=== PATIENT | female | born 1955 | race Caucasian/White ===

== ENCOUNTER 2017-04-12 09:58 | Emergency (ER) | payer OTHER ==
[2017-04-12 10:16] VITALS: BMI 29.2
--- NOTE | 2017-04-12 10:29 | PDOC ---
History of Present Illness - General History Source: Family, Old Records Exam Limitations: No Limitations <Eulalio Espinoza - Last Filed: 04/12/17 11:27> - History of Present Illness Initial Comments: 04/12/17 10:34 The patient is a 61 year old female, with a significant past medical history of CVA with residual aphasia, s/p peg tube placement (with numerous replacements), who presents to the emergency department with her family from home for replacement G-tube s/p pulling her tube out this morning. The patient is nonverbal. The patient history is provided by her daughter. Allergies: NKDA <Jenae Sampson - Last Filed: 04/12/17 11:42> - General Chief Complaint: G Tube Problem Stated Complaint: G-TUBE PROBLEM Time Seen by Provider: 04/12/17 10:06 Past History - Past Medical History Anemia: No Asthma: No Cancer: No Cardiac Disorders: No CVA: Yes (PARALYZED/NON VERBAL/OBTUNDED STATE) COPD: No CHF: No Dementia: Yes Diabetes: Yes GI Disorders: Yes (GTUBE LEFT ABD) Disorders: No HTN: Yes Hypercholesterolemia: Yes Liver Disease: No Suicide Attempt (Hx): No Seizures: (family unsure- patient in on [facility]) Thyroid Disease: No - Surgical History GI Surgery: Yes (GT PLACEMENT) Orthopedic Surgery: Yes (Tawnya GONZALEZ) - Immunization History Immunization Up to Date: No - Psycho/Social/Smoking Cessation Hx Anxiety: No Suicidal Ideation: No Smoking Status: No Smoking History: Never smoked Have you smoked in the past 12 months: No Number of Cigarettes Smoked Daily: 0 Information on smoking cessation initiated: No Hx Alcohol Use: No Drug/Substance Use Hx: No Substance Use Type: None Hx Substance Use Treatment: No <Eulalio Espinoza - Last Filed: 04/12/17 11:27> <Jenae Smapson - Last Filed: 04/12/17 11:42> - Past Medical History Allergies/Adverse Reactions: Allergies Allergy/AdvReac Type Severity Reaction Status Date / Time No Known Allergies Allergy Verified 01/24/16 09:47 Home Medications: Ambulatory Orders Acetaminophen [Pain Reliever] 500 mg PO DAILY 04/12/17 Amlodipine Besylate 5 mg PO DAILY 04/12/17 Aspirin [ASA -] 81 mg PO DAILY 04/12/17 Glyburide 10 mg PO BID 04/12/17 Metformin HCl 500 mg PO DAILY 04/12/17 Simvastatin 20 mg PO HS 04/12/17 Zinc Sulfate 220 mg PO DAILY 04/12/17 Review of Systems - Review of Systems Able to Perform ROS?: No (nonverbal) <Jenae Sampson - Last Filed: 04/12/17 11:42> *Physical Exam - Vital Signs Last Vital Signs Temp Pulse Resp BP Pulse Ox 97.6 F 72 18 164/85 95 04/12/17 10:00 04/12/17 10:00 04/12/17 10:00 04/12/17 10:00 04/12/17 10:00 <Eulalio Espinoza - Last Filed: 04/12/17 11:27> - Vital Signs Last Vital Signs Temp Pulse Resp BP Pulse Ox 97.6 F 72 18 164/85 95 04/12/17 10:00 04/12/17 10:00 04/12/17 10:00 04/12/17 10:00 04/12/17 10:00 - Physical Exam Comments: 04/12/17 10:34 GENERAL: +Awake, nonverbal. in no acute distress HEAD: No signs of trauma EYES: PERRLA, EOMI, sclera anicteric, conjunctiva clear ENT: Auricles normal inspection, hearing grossly normal, nares patent, oropharynx clear without exudates. Moist mucosa NECK: Normal ROM, supple, no lymphadenopathy, JVD, or masses LUNGS: Breath sounds equal, clear to auscultation bilaterally. No wheezes, and no crackles HEART: Regular rate and rhythm, normal S1 and S2, no murmurs, rubs or gallops ABDOMEN: (+) G-tube site is clean, dry, intact. Nonerythematous. Soft, nontender , normoactive bowel sounds. No guarding, no rebound. No masses EXTREMITIES: Normal range of motion, no edema. No clubbing or cyanosis. No cords, erythema, or tenderness SKIN: Warm, Dry, normal turgor, no rashes or lesions noted. <Jenae Sampson - Last Filed: 04/12/17 11:42> ED Treatment Course - RADIOLOGY Radiology Studies Ordered: Category Date Time Status ABDOMEN-KUB FLAT PLATE [RAD] Stat Radiology 04/12/17 10:20 Ordered <Park,Eulalio - Last Filed: 04/12/17 11:27> - RADIOLOGY Radiograph Interpretation: 04/12/17 11:25 Abdomen Xray was read by Dr. Wagner at 11:[address] Espinoza at 11:17 Impression: imaging reveals contrast injected into a PEG tube which fills stomach, bulb, and sweep and proximal jejunum. The tip appears to lie in the antrum. There is no sign of leak or obstruction. Functional vague tube with tip in antrum. <Jenae Sampson - Last Filed: 04/12/17 11:42> Medical Decision Making - Medical Decision Making 04/12/17 10:29 A portion of this note was documented by scribe services under my direction. I have reviewed the details of the note, within reason, and agree with the documentation with the following case summary and management plan written by me. Patient treated in the ED. Nursing notes are reviewed and incorporated into the medical decision-making. Vital signs reviewed. Peripheral IV access obtained by the nurse, laboratory studies are drawn and sent, reviewed and interpreted by myself. Vital Signs Temp Pulse Resp BP Pulse Ox 97.6 F 72 18 164/85 95 04/12/17 10:00 04/12/17 10:00 04/12/17 10:00 04/12/17 10:00 04/12/17 10:00 61 year old female with past medical history of CVA with residual aphasia, contractured upper extremities, status post PEG placement long-standing, presents with pulled out PEG tube. Patient had excellent blood her PEG this morning. Came into the ED by the family. History obtained to the family. She had an old 16 [place]. A new 16 [place] was placed in without complications. Easily accessible without much resistance. Air was pushed through the PEG with audible auscultation of air. We'll obtain abdominal x-ray with Gastrografin. If placement confirmed, we'll discharge patient home with family. 04/12/17 11:26 Abdominal xray confirms placement. I discussed the physical exam findings, ancillary test results and final diagnoses with the patient. I answered all of the patient's questions. The patient was satisfied with the care received and felt comfortable with the discharge plan and treatment plan. The patient will call their primary care physician within 24 hours to arrange follow-up and will return to the Emergency Department with any new, persistant or worsening symptoms. <Eulalio Espinoza - Last Filed: 04/12/17 11:27> *DC/Admit/Observation/Transfer - Discharge Dispostion Admit: No <Eulalio Espinoza - Last Filed: 04/12/17 11:27> - Attestations Scribe Attestion: 04/12/17 10:36 Documentation prepared by Jenae Sampson, acting as medical recruiter for Eulalio Espinoza MD, <Jenae Sampson - Last Filed: 04/12/17 11:42> Diagnosis at time of Disposition: Gastrostomy tube, replacement (Change of) - Discharge Dispostion Disposition: HOME Condition at time of disposition: Stable - Referrals Referrals: Mignon Porter MD [Primary Care Provider] - - Patient Instructions Printed Discharge Instructions: How to Care for Your PEG Tube Additional Instructions: The G tube was exchanged here in the emergency department. Print Language: MALIAN
[2017-04-12 11:37] VITALS: BP 155/85; PULSE 83; TEMP 97.9
== END 2017-04-12 11:37 | disposition home or self-care (01) ==
LOC: JER 09:58
PROC: 0D20XUZ Change Feeding Device in Upper Intestinal Tract, External Approach (ICD-10-PCS; principal; 2017-04-12)
DX: Z43.1 Encounter for attention to gastrostomy (principal); I10 Essential (primary) hypertension; E11.9 Type 2 diabetes mellitus without complications; Z79.84 Long term (current) use of oral hypoglycemic drugs; E78.00 Pure hypercholesterolemia, unspecified; F03.90 Unspecified dementia, unspecified severity, without behavioral disturbance, psychotic disturbance, mood disturbance, and anxiety; I69.820 Aphasia following other cerebrovascular disease
CPT/HCPCS: 43760; 74000-TC; 99283-25

== ENCOUNTER 2017-04-16 19:25 | Inpatient (IN) | payer OTHER ==
--- NOTE | 2017-04-16 22:46 | PDOC ---
History of Present Illness - History of Present Illness Initial Comments: 04/16/17 22:46 Patient is a 61 year old female with significant medical hx of CVA (paralyzed, non-verbal, obtunded state), dementia, DM, HTN, HLD, s/p peg tube placement who is presenting to the ED with upper extremity edema, nausea and vomiting over the last two days. Patient is accompanied by daughter who provided hx since patient is non-verbal. Patient has been developing increasing upper extremity edema yesterday with some nausea and vomiting that began last night. Yesterday the patient was seen at [facility] where she had blood drawn that revealed poor kidney function. Family reports that the patient was just started on Lasix yesterday. Denies fever. Vendor Management Associate: Cheyenne Pedro MD PMD: Mignon Olivera MD Surgical Hx: Right AKA, G-tube left abdomen <iKera Morin - Last Filed: 04/17/17 00:34> - General History Source: Care Provider <Jessica Shipley - Last Filed: 04/17/17 02:38> - General Chief Complaint: Revisit, Lab Variance Stated Complaint: INFLAMMATION Past History <Kiera Morin - Last Filed: 04/17/17 00:34> - Past Medical History Anemia: No Asthma: No Cancer: No Cardiac Disorders: No CVA: Yes (PARALYZED/NON VERBAL/OBTUNDED STATE) COPD: No CHF: No Dementia: Yes Diabetes: Yes GI Disorders: Yes (GTUBE LEFT ABD) Disorders: No HTN: Yes Hypercholesterolemia: Yes Liver Disease: No Suicide Attempt (Hx): No Seizures: (family unsure- patient in on [facility]) Thyroid Disease: No - Surgical History GI Surgery: Yes (GT PLACEMENT) Orthopedic Surgery: Yes (R. AKA) - Immunization History Immunization Up to Date: No - Psycho/Social/Smoking Cessation Hx Anxiety: No Suicidal Ideation: No Smoking Status: No Smoking History: Never smoked Have you smoked in the past 12 months: No Number of Cigarettes Smoked Daily: 0 Hx Alcohol Use: No Drug/Substance Use Hx: No Substance Use Type: None Hx Substance Use Treatment: No <Jessica Shipley - Last Filed: 04/17/17 02:38> - Past Medical History Allergies/Adverse Reactions: Allergies Allergy/AdvReac Type Severity Reaction Status Date / Time No Known Allergies Allergy Verified 01/24/16 09:47 Home Medications: Ambulatory Orders Acetaminophen [Pain Reliever] 500 mg PO DAILY 04/12/17 Amlodipine Besylate 5 mg PO DAILY 04/12/17 Aspirin [ASA -] 81 mg PO DAILY 04/12/17 Glyburide 5 mg PO BID 04/12/17 Simvastatin 20 mg PO HS 04/12/17 Zinc Sulfate 220 mg PO DAILY 04/12/17 Review of Systems - Review of Systems Comments:: 04/16/17 22:47 GENERAL/CONSTITUTIONAL: No fever or chills. No weakness. HEAD, EYES, EARS, NOSE AND THROAT: No change in vision. No ear pain or discharge. No sore throat. CARDIOVASCULAR: No chest pain or shortness of breath. RESPIRATORY: No cough, wheezing, or hemoptysis. GASTROINTESTINAL: Nausea, vomiting. No diarrhea or constipation. GENITOURINARY: No dysuria, frequency, or change in urination. MUSCULOSKELETAL: Upper extremity edema. No joint or muscle pain. No neck or back pain. ENDOCRINE: No increased thirst. No abnormal weight change. SKIN: No rash NEUROLOGIC: No headache, vertigo, loss of consciousness, or change in strength/ sensation. <Kiera Morin - Last Filed: 04/17/17 00:34> *Physical Exam - Vital Signs Last Vital Signs Temp Pulse Resp BP Pulse Ox 98.3 F 76 20 145/66 92 L 04/16/17 20:46 04/16/17 19:38 04/16/17 19:38 04/16/17 19:38 04/16/17 19:38 - Physical Exam Comments: 04/16/17 22:48 GENERAL: Awake, alert, unresponsive (baseline), in no acute distress HEAD: No signs of trauma EYES: PERRLA, EOMI, sclera anicteric, conjunctiva clear ENT: Auricles normal inspection, hearing grossly normal, nares patent, oropharynx clear without exudates. Moist mucosa NECK: Normal ROM, supple, no lymphadenopathy, JVD, or masses LUNGS: Breath sounds equal, clear to auscultation bilaterally. No wheezes, and no crackles HEART: Regular rate and rhythm, normal S1 and S2, no murmurs, rubs or gallops ABDOMEN: Peg tube clean, dry, and intact. Soft, nontender, normoactive bowel sounds. No guarding, no rebound. No masses EXTREMITIES: Right AKA. Normal range of motion, no edema. No clubbing or cyanosis. No cords, erythema, or tenderness NEUROLOGICAL: Awake. Unresponsive. Nonverbal. Does not follow commands, ( baseline). SKIN: Warm, Dry, normal turgor, no rashes or lesions noted. HEMATOLOGIC/LYMPHATIC: No anemia, easy bleeding, or history of blood clots. ALLERGIC/IMMUNOLOGIC: No hives or skin allergy. <Kiera Morin - Last Filed: 04/17/17 00:34> - Vital Signs Last Vital Signs Temp Pulse Resp BP Pulse Ox 98.3 F 76 20 145/66 92 L 04/16/17 20:46 04/16/17 19:38 04/16/17 19:38 04/16/17 19:38 04/16/17 19:38 <Jessica Shipley - Last Filed: 04/17/17 02:38> Heart Score/ECG Review #1 04/17/17 00:35 Normal sinus rhythm at 79 bpm Left axis deviation Right bundle branch block Septal infarct, age undetermined Abnormal ECG <Kiera Morin - Last Filed: 04/17/17 00:34> #1 Compared to previous ECG there are: Other (no change comparison prior ekg 06/2015 ) - ECG Intrepretation Rhythm: Regular Rhythm Comment:: 04/16/17 22:46 RBBB, rate 79 bpm , no st elevation or depression. - Dora Dora: Left Dora Deviation <Jessica Shipley - Last Filed: 04/17/17 02:38> ED Treatment Course - LABORATORY CBC & Chemistry Diagram: 04/16/17 22:30 04/16/17 22:20 <Kiera Morin - Last Filed: 04/17/17 00:34> - LABORATORY CBC & Chemistry Diagram: 04/16/17 22:30 04/16/17 22:20 <Jessica Shipley - Last Filed: 04/17/17 02:38> Medical Decision Making - Medical Decision Making 04/16/17 22:43 61 yo F with h/o DM, HTN, chf, prior CVA , right aka bedbound, nonverbal at baseline from prior cva s, here wtih c/o elevated creatinine per primary labs, no change to mental status. lives at home with family. on exam, pt awak nonverbal, does not follow up commands, lungs clear. heart RRR no m/r/g. abd soft NT peg in place, differential: hyperkalemia, worsenign renal failure, other anemia, plan repeat labs, ekg. reassess. will d/w pt pcp. 04/17/17 01:25 pt with acute renal failure, iv hydration francis cathetar. treat hyperkalemia with kaexylate, insulin and glucose. calcium will admit for acute renal failure , nephrology consult <Jessica Shipley - Last Filed: 04/17/17 02:38> *DC/Admit/Observation/Transfer - Attestations Scribe Attestion: 04/16/17 22:56 Documentation prepared by Kiera Morin, acting as medical payment poster for Jessica Shipley MD. <Kiera Morin - Last Filed: 04/17/17 00:34> - Discharge Dispostion Admit: Yes <Jessica Shipley - Last Filed: 04/17/17 02:38> Diagnosis at time of Disposition: Renal failure, Acute hyperkalemia
[2017-04-16 22:51] LABS: BASOPHIL 0.6 % (0-2.0); EOSINOPHIL 1.3 % (0-4.5); MCHC 34.3 g/dl (32.0-36.0); MEAN CELL VOLUME 87.7 fl (80-96); MEAN PLT VOLUME 9.4 fl (7.5-11.1); NEUTROPHILS 80.8 % (42.8-82.8); PLATELET COUNT 254 K/MM3 (134-434); RDW 13.1 % (11.6-15.6); WHITE BLOOD COUNT 10.5 K/mm3 (4.0-10.0)
[2017-04-17 00:45] LABS: ALBUMIN 2.2 g/dl (3.4-5.0); CALCIUM 7.5 mg/dL (8.5-10.1); COCKROFT - GAULT 8.4745; CREATININE 6.9 mg/dL (0.55-1.02)
[2017-04-17 00:46] LABS: BILIRUBIN,TOTAL 0.4 mg/dL (0.2-1.0); TOT PROT 5.3 g/dl (6.4-8.2)
[2017-04-17] MEDS ORDERED: SODIUM POLYSTYRENE SULFONATE 15 GM/60 ML BOTTLE PEG ONE (01:19)
[2017-04-17] MEDS ORDERED: INSULIN (NOVOLOG) ASPART 100 UNITS/ML 10ML VIAL SQ ONE (01:20)
[2017-04-17] MEDS ORDERED: DEXTROSE 50%-WATER 50 ML VIAL IVPUSH ONE (01:21)
[2017-04-17] MEDS ORDERED: SODIUM CHLORIDE 0.9% 1000 ML INFUS.BAG IV ONE (01:21)
[2017-04-17] MEDS ORDERED: CALCIUM GLUCONATE 10% - 1,000 MG/10 ML VIAL IVPUSH ONE (01:26)
[2017-04-17] MEDS ORDERED: DEXTROSE 50%-WATER 50 ML VIAL ONE (01:36)
[2017-04-17] MEDS ORDERED: SODIUM POLYSTYRENE SULFONATE 15 GM/60 ML BOTTLE ONE (01:37)
[2017-04-17] MEDS ORDERED: INSULIN (NOVOLOG) ASPART 100 UNITS/ML 10ML VIAL ONE (01:37)
[2017-04-17] MEDS ORDERED: CALCIUM GLUCONATE 10% - 1,000 MG/10 ML VIAL ONE (01:37)
--- NOTE | 2017-04-17 01:39 | PN ---
<Frances Wade - Last Filed: 04/17/17 01:38> Teaching Attending Note Name of Resident: Mariannafshan Walton <Regine Bowman - Last Filed: 04/17/17 03:58> Teaching Attending Note ATTENDING PHYSICIAN STATEMENT I saw and evaluated the patient. I reviewed the resident's note and discussed the case with the resident. I agree with the resident's findings and plan as documented. SUBJECTIVE: 61 yo F with a PMhx of CVA (paralyzed, non-verbal, obtunded state), dementia who presents with UE edema, nausea and vomiting for the past two days. The patient is accompanied with daughter who states that the patient has been developing progressively worsening peripheral edema. As per NH, patient had recent blood work that revealed poor kidney function and was started on Lasix yesterday. Patient presents for further evaluation. 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 HEENT: Atraumatic. PERRLA, EOMI. Moist mucosa. No JVD LUNGS: No distress, speaks full sentences, clear to auscultation bilaterally HEART: Regular rate and rhythm, normal S1 and S2, no murmurs, rubs or gallops, peripheral pulses normal and equal bilaterally. ABDOMEN: Soft, nontender, normoactive bowel sounds. No guarding, no rebound. No masses EXTREMITIES: +R leg AKA.+Ecchymosis on Upper extremities. Normal inspection, Normal range of motion, no edema. No clubbing or cyanosis. NEUROLOGICAL: Cranial nerves II through XII grossly intact. Normal speech, normal gait, no focal sensorimotor deficits SKIN:+Inguinal and buttocks area with erythema and slight desquamation. Warm, Dry, normal turgor, no rashes or lesions noted. Lemon catheter with 400 cc of clear yellow urine. CBCD WBC 10.5 K/mm3 (4.0-10.0) H 04/16/17 22:30 RBC 2.98 M/mm3 (3.60-5.2) L D 04/16/17 22:30 Hgb 9.0 GM/dL (10.7-15.3) L D 04/16/17 22:30 Hct 26.1 % (32.4-45.2) L D 04/16/17 22:30 MCV 87.7 fl (80-96) 04/16/17 22:30 MCHC 34.3 g/dl (32.0-36.0) 04/16/17 22:30 RDW 13.1 % (11.6-15.6) 04/16/17 22:30 Plt Count 254 K/MM3 (134-434) D 04/16/17 22:30 MPV 9.4 fl (7.5-11.1) 04/16/17 22:30 CMP Sodium 131 mmol/L (136-145) L 04/16/17 22:20 Potassium 5.7 mmol/L (3.5-5.1) H D 04/16/17 22:20 Chloride 91 mmol/L (98-107) L D 04/16/17 22:20 Carbon Dioxide 26 mmol/L (21-32) 04/16/17 22:20 Anion Gap 14 (8-16) 04/16/17 22:20 BUN 101 mg/dL (7-18) H D 04/16/17 22:20 Creatinine 6.9 mg/dL (0.55-1.02) H D 04/16/17 22:20 Creat Clearance w eGFR 6.05 (>60) 04/16/17 22:20 Calcium 7.5 mg/dL (8.5-10.1) L 04/16/17 22:20 Total Bilirubin 0.4 mg/dL (0.2-1.0) D 04/16/17 22:20 AST 32 U/L (15-37) 04/16/17 22:20 ALT 26 U/L (12-78) D 04/16/17 22:20 Alkaline Phosphatase 143 U/L (45-117) H D 04/16/17 22:20 Total Protein 5.3 g/dl (6.4-8.2) L 04/16/17 22:20 Albumin 2.2 g/dl (3.4-5.0) L 04/16/17 22:20 ASSESSMENT AND PLAN: Acute Renal failure Urine electrolytes Calculate Fe Na Monitor Is and Os Renal and Pelvic US Urine Analysis Urine Culture Nephrology consult Telemetry monitoring for hyperkalemia-- Kayexalate already given in ED, Will follow repeat BMP Anemia panel FOBT Documentation prepared by Regine Bowman, acting as medical technician assistant for Frances Wade MD.
--- NOTE | 2017-04-17 01:48 | HP ---
CHIEF COMPLAINT: unable to verbalize PCP: Dr Olivera Endocrine: Dr Pedro HISTORY OF PRESENT ILLNESS: This is a 61 yo F with PH of CVA (4 yrs ago, obtunded, paralyzed, nonverbal, PEG ), NIDDM, HTL, HLD, who was brought by family due to vomiting x 1 day (2 eps NBNB watery) and 2 w of upper extremity edema. She has blood work done yesterday at PCP, who notified family today of worsened renal function. Prior blood work was 6 mo ago and did not show renal failure. Patient was switched from insulin to glyburide 2 w ago. She was given lasix for the first time yesterday. She is on daily Asa 81 and son states that his sister, who takes care of patient, does not give excessive amount. Het BP and sugar are well controlled. she is not on any herbal supplements. Son is unsure of whether she has been producing regular amount of urine. In ED francis inserted and drained 450cc clear urine. Patient presented hyperkalemic 5.7 and treated with kaexylate , insulin, glucose and Ca. Son denies her having diarrhea. 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, peg Social History: lives with daughter, no vns Smoking: never Alcohol:never Drugs: never Family History: CVA, no renal disease Allergies No Known Allergies Allergy (Verified 01/24/16 09:47) HOME MEDICATIONS: Home Medications Medication Instructions Recorded Acetaminophen [Pain Reliever] 500 mg PO DAILY 04/12/17 Amlodipine Besylate 5 mg PO DAILY 04/12/17 Aspirin [ASA -] 81 mg PO DAILY 04/12/17 Glyburide 5 mg PO BID 04/12/17 Simvastatin 20 mg PO HS 04/12/17 Zinc Sulfate 220 mg PO DAILY 04/12/17 REVIEW OF SYSTEMS unable to obtain PHYSICAL EXAMINATION Vital Signs - 24 hr 04/16/17 04/16/17 19:38 20:46 Temperature 98.3 F Pulse Rate 76 Respiratory 20 Rate Blood Pressure 145/66 O2 Sat by Pulse 92 L Oximetry (%) GENERAL: obtunded HEAD: Normal with no signs of trauma. EYES: R pupil round and reactive to light, L pupil round, pinpoint, not reactive to light, catarract. sclera anicteric, conjunctiva clear. EARS, NOSE, THROAT: Moist mucous membranes. NECK: supple without JVD LUNGS: Breath sounds equal, clear to auscultation bilaterally, upper respiratory gurgles HEART: Regular rate and rhythm, normal S1 and S2 ABDOMEN: Soft, nontender, not distended, normoactive bowel sounds MUSCULOSKELETAL: No bony deformities UPPER EXTREMITIES: 2+ pulses, warm, well-perfused. 2+ edema. LOWER EXTREMITIES: 2+ pulses, warm, well-perfused. 2+ edema. NEUROLOGICAL: obtunded PSYCHIATRIC: obtunded SKIN: Warm, dry, r elbow echymoses Laboratory Results - last 24 hr 04/16/17 04/16/17 22:20 22:30 WBC 10.5 H RBC 2.98 L D Hgb 9.0 L D Hct 26.1 L D MCV 87.7 MCHC 34.3 RDW 13.1 Plt Count 254 D MPV 9.4 Neutrophils % 80.8 Lymphocytes % 11.3 D Monocytes % 6.0 Eosinophils % 1.3 Basophils % 0.6 Sodium 131 L Potassium 5.7 H D Chloride 91 L D Carbon Dioxide 26 Anion Gap 14 BUN 101 H D Creatinine 6.9 H D Creat Clearance w eGFR 6.05 Random Glucose 198 H Calcium 7.5 L Total Bilirubin 0.4 D AST 32 ALT 26 D Alkaline Phosphatase 143 H D Total Protein 5.3 L Albumin 2.2 L ASSESSMENT/PLAN: This is a 61 yo F with PH of CVA (4 yrs ago, obtunded, paralyzed, nonverbal, PEG ), NIDDM, HTL, HLD, who was brought by family due to vomiting x 1 day and 2 w of upper extremity edema. DEYSI -BUN/Creat: 101/6.5 -creat 1 in 2014, obtain labs from PCP -anasarca -unclear cause; no evidence of nephrotoxic medication overuse, possily obstruction as francis was difficult to insert, r/o infection -TTE -renal US -urine lytes, FENA, eosinophils -UA, urine culture -renal consult -francis -strict I and O, daily weights Hyperkalemia -5.7 -no spiked t on ekg, ekg unchanged from prior (Laxis, rbbb) -s/p kaexylate, insulin, glucose and Ca; recheck K Hyponatremia -Na 131 -due to renal failure -hydrate with NS NIDDM -hold glyburide -BGM ACHS -insulin sliding scale HTN -resume home amlodipine HLD -hold simvastatin Normocytic anemia -Hgb 9, no baseline -fobt, fe studies -may be due to renal failure obtunded -history of CVA -mental status baseline FEN NS@75 monitor lytes Tube feed Nepro Hep, ppi Dispo: med rashard Problem List - Problem (1) Acute hyperkalemia Code(s): E87.5 - HYPERKALEMIA (2) Renal failure Code(s): N19 - UNSPECIFIED KIDNEY FAILURE (3) G tube feedings Code(s): Z93.1 - GASTROSTOMY STATUS (4) Gastrostomy tube, replacement (Change of) Code(s): Z43.1 - ENCOUNTER FOR ATTENTION TO GASTROSTOMY (5) H/O: CVA (cerebrovascular accident) Code(s): Z86.73 - PRSNL HX OF TIA (TIA), AND CEREB INFRC W/O RESID DEFICITS (6) Hyperkalemia Code(s): E87.5 - HYPERKALEMIA (7) Insulin dependent diabetes mellitus Code(s): E11.9 - TYPE 2 DIABETES MELLITUS WITHOUT COMPLICATIONS Z79.4 - ROLL RECLAIMER (CURRENT) USE OF INSULIN Visit type - Emergency Visit Emergency Visit: Yes ED Registration Date: 04/17/17 Care time: The patient presented to the Emergency Department on the above date and was hospitalized for further evaluation of their emergent condition. - New Patient This patient is new to me today: Yes Date on this admission: 04/17/17 - Critical Care Critical Care patient: No
[2017-04-17] MEDS ORDERED: SODIUM CHLORIDE 1,000 ML IV SCH ×2 (03:15→05:45)
[2017-04-17 04:48] LABS: URINE CREATININE 31.9 mg/dL (20-320)
[2017-04-17] MEDS ORDERED: INSULIN SLIDING SCALE (NOVOLOG) 1 VIAL SQ SCH ×2 (07:00)
[2017-04-17 08:00] LABS: MCH 30.3 pg (25.7-33.7); MCHC 34.7 g/dl (32.0-36.0); MEAN CELL VOLUME 87.5 fl (80-96); MEAN PLT VOLUME 8.9 fl (7.5-11.1); PLATELET COUNT 242 K/MM3 (134-434); WHITE BLOOD COUNT 8.8 K/mm3 (4.0-10.0)
[2017-04-17 08:29] LABS: PHOSPHOROUS 5.4 mg/dL (2.5-4.9)
[2017-04-17 08:33] LABS: COCKROFT - GAULT 8.5935; CREATININE 6.8 mg/dL (0.55-1.02); MAGNESIUM 3.7 mg/dL (1.8-2.4)
[2017-04-17] MEDS ORDERED: amLODIPine BESYLATE 5 MG TABLET (FP) PO SCH (10:00)
[2017-04-17] MEDS ORDERED: HEPARIN NA (PORCINE) 5,000 UNITS/ML 1ML VIAL SQ SCH (10:00)
[2017-04-17] MEDS ORDERED: PANTOPRAZOLE 40 MG TABLET (FP) PO SCH (10:00)
[2017-04-17] MEDS: PANTOPRAZOLE 40 MG TABLET (FP) PO SCH (10:58)
[2017-04-17] MEDS: amLODIPine BESYLATE 5 MG TABLET (FP) PO SCH (10:58)
[2017-04-17] MEDS: HEPARIN NA (PORCINE) 5,000 UNITS/ML 1ML VIAL SQ SCH ×2 (10:59→21:47)
[2017-04-17] MEDS: INSULIN SLIDING SCALE (NOVOLOG) 1 VIAL SQ SCH ×3 (11:35→21:47)
[2017-04-17 12:27] LABS: URINE APPEARANCE CLEAR; URINE BILIRUBIN NEGATIVE (NEGATIVE); URINE COLOR STRAW; URINE GLUCOSE (UA) 2+ (NEGATIVE); URINE KETONE NEGATIVE (NEGATIVE); URINE NITRITE NEGATIVE (NEGATIVE); URINE UROBILINOGEN NEGATIVE E.U./dl (0.2-1.0)
[2017-04-17 12:30] LABS: URINE BLOOD 1+ (NEGATIVE); URINE LEUK ESTERASE TRACE (NEGATIVE); URINE PROTEIN 3+ (NEGATIVE)
[2017-04-17 12:49] LABS: URINE BACTERIA RARE /hpf (NONE SEEN); URINE MUCUS RARE; URINE RBC 14 /hpf (0-3); URINE WBC 5 /hpf (3-5)
--- NOTE | 2017-04-17 14:57 | PN ---
Progress Note (short form) - Note Progress Note: Pt is followed by Dr Jonathan Guzman, called and informed him. Dr Yang
--- NOTE | 2017-04-17 15:31 | CONSULT ---
Consult - text type - Consultation Consultation Note: Renal Consult for DEYSI This is a 61 year old woman with PMhx of NIDDM, Hypertension, PVD s/p R AKA, CVA now non-verbal and paralyzed who presented with abnormal outpatient labs that showed renal failure and increasing total body volume overload. Pt is accomapned by her daughter. Daughter reports that the swelling has been present for about 1 week. Pt is not able to make needs known. Pt has been given Naproxen once daily for the past 2 months. No ACEi or ARB at home. Daughter could not quantify urine output. No Hx of Kidney disease. No recent Abx use. No recent contrast exposure. No Rash or rash. + N/V before presentation. PMhx: As above Allergies: NKDA Family Hx: NC ROS: unable to obtain Home Meds: Home Medications Medication Instructions Recorded Acetaminophen [Pain Reliever] 500 mg PO DAILY 04/12/17 Amlodipine Besylate 5 mg PO DAILY 04/12/17 Aspirin [ASA -] 81 mg PO DAILY 04/12/17 Glyburide 5 mg PO BID 04/12/17 Simvastatin 20 mg PO HS 04/12/17 Zinc Sulfate 220 mg PO DAILY 04/12/17 Vital Signs Temperature 98 F 04/17/17 14:00 Pulse Rate 80 04/17/17 14:00 Respiratory Rate 18 04/17/17 14:00 Blood Pressure 150/76 04/17/17 14:00 O2 Sat by Pulse Oximetry (%) 92 L 04/16/17 19:38 Intake & Output 04/14/17 04/15/17 04/16/17 04/17/17 23:59 23:59 23:59 23:59 Output Total 600 Balance -600 Weight 140 lb Gen: NAD, awake, non-verbal HEENT: NC/AT, no JVD, neck supple CVS: RRR, No M/R Lungs: Dec BS at lung bases Abd: soft NT/ND Ext: 1+ edema in LLE, R AKA. Upper Ext swollen : No bladder distension Neuro: awake but non-verbal CBC, BMP 04/17/17 07:45 04/17/17 07:45 Laboratory Tests 04/17/17 04/17/17 04/17/17 04:00 07:45 12:00 MCV 87.5 Urine Protein 3+ H Urine Glucose (UA) 2+ H Urine Blood 1+ H Ur Leukocyte Esterase Trace H D Urine RBC 14 Urine WBC 5 U Random Total Protein 830 H Ur Random Sodium 30 Ur Random Potassium 31.3 Ur Random Chloride 29 Urine Creatinine 31.9 Protein/Creatinin Ratio 26.02 Stool Occult Blood 04/17/17 15:04 MCV Urine Protein Urine Glucose (UA) Urine Blood Ur Leukocyte Esterase Urine RBC Urine WBC U Random Total Protein Ur Random Sodium Ur Random Potassium Ur Random Chloride Urine Creatinine Protein/Creatinin Ratio Stool Occult Blood Positive Current Medications Amlodipine Besylate (Norvasc -) 5 mg PO DAILY [facility] Last Admin: 04/17/17 10:58 Dose: 5 mg Heparin Sodium (Porcine) (Heparin -) 5,000 unit SQ BID [facility] Last Admin: 04/17/17 10:59 Dose: 5,000 unit Sodium Chloride (Normal Saline -) 1,000 mls @ 75 mls/hr IV ASDIR [facility] Last Admin: 04/17/17 07:29 Dose: 75 mls/hr Insulin Aspart (Novolog Vial Sliding Scale -) 1 vial SQ ACHS [facility] PRN Reason: Protocol Last Admin: 04/17/17 11:35 Dose: Not Given Pantoprazole Sodium (Protonix -) 40 mg PO DAILY [facility] Last Admin: 04/17/17 10:58 Dose: 40 mg A/P 61 year old woman with PMhx of NIDDM, Hypertension, PVD s/p R AKA, CVA now non- verbal and paralyzed who presented with abnormal outpatient labs that showed renal failure and increasing total body volume overload #Acute Renal Failure with Nephrotic Range Proteinuria Differential includes: Acute GN (FSGS, Membrenous Nephropathy, Minimal Change disease) with Renal Vein thrombosis vs. ANCA Vascultiis vs. HUS vs. volume depletion (less likely) UA with protein and hematuria f/u urine cultures Check LAURA, ANCA, Hepatitis, Complement levels, RPR, Haptoglobin,LDH Check Renal Vein doppler r/o thrombosis continue IVF for now (no overt signs of volume depletion at this time) Lemon insertion for acute I and O No VICKY/ARB, NSAIDs, IV contrast Dose all meds for Cr Cl less then 10 Renal Diet Pt may need biopsy if renal function w/o signficant improvement #Normocytic Acute Anemia stool occult blood positive Check iron profile no acute indication for transfusion #Hyponatremia in setting of renal failure and volume overload #Volume overload check CXR if significant effusion can stop IVF Thank you Will follow Jonathan Guzman DO
--- NOTE | 2017-04-17 16:03 | PN ---
Teaching Attending Note Name of Resident: Kodi Pritchett ATTENDING PHYSICIAN STATEMENT I saw and evaluated the patient. I reviewed the resident's note and discussed the case with the resident. I agree with the resident's findings and plan as documented. SUBJECTIVE: unable to obtain hx OBJECTIVE: NAD , non verbal , contracted CV: RRR, 2/6 sm at apex. Lungs : CTAB , decreased breath sounds b/l bases Abd: soft, NT, ND , L BS skin , no Decub ext : contracted upper ext. non pitting edema on upper ext with bruising on RUE. 1+ pitting edema on LE ASSESSMENT AND PLAN: 61 y/o lady with h/o CVA , NIDDM, HTN, HLP, who presented after her out pt labs showed renal failure 1- Acute renal failure : 6 months ago , she reportedly had NL renal function, will conform with PCP. FeNA 5% , but she received lasix x 2 days as outpt , so will need FeUrea now she has nephrotic range proteinuria , in DDX will be diabetic nephropathy, amyloidosis , or something more acute like rapidly progressive GN. urinary retention is contributing as she had 450 cc with francis placement learned that she was taking NSAIDs dayami daily bases . d/w Dr. Guzman, need to r/o renal vein thrombosis - will follow US with doppler - IVF for now , will assess in am , if no improvement will dc - cxry - follow complement , anca and other tests . - ? renal Bx . - hold NSAIDs - calculate FeUrea 2- Normoytic anemia, could be a mixed picture due iron def and renal dz and B12/ folate def. base line HB 13 in 2014 - check iron studies. - B12, folate - OB 3- HTN : cont norvasc 4- DM : SSI. hold po agents 5- Nutrition : puree diet . now on IVF, when we stop IVF , will give free water through PEG as per home routine
[2017-04-17] MEDS ORDERED: DEXTROSE 5%-NORMAL SALINE 1,000 ML IV SCH (16:15)
--- NOTE | 2017-04-17 16:15 | EKG ---
Test Reason : Blood Pressure : / mmHG Vent. Rate : 079 BPM Atrial Rate : 079 BPM P-R Int : 162 ms QRS Dur : 162 ms QT Int : 440 ms P-R-T Axes : 052 -89 035 degrees QTc Int : 504 ms NORMAL SINUS RHYTHM LEFT AXIS DEVIATION RIGHT BUNDLE BRANCH BLOCK SEPTAL INFARCT , AGE UNDETERMINED ABNORMAL ECG WHEN COMPARED WITH ECG OF 05-JUL-2015 20:59, NONSPECIFIC T WAVE ABNORMALITY NO LONGER EVIDENT IN ANTERIOR LEADS Confirmed by KG GRANADOS MD ([id number]) on 04/17/2017 4:15:03 PM Referred By: Confirmed By:KG GRANADOS MD
[2017-04-17 16:20] VITALS: BMI 24.7
--- NOTE | 2017-04-17 18:28 | PN ---
Physical Exam: SUBJECTIVE: Patient seen and examined at bedside. Patient is nonverbal and obtunded. OBJECTIVE: Vital Signs Period Temp Pulse Resp BP Sys/Daniel Pulse Ox Last 24 Hr 86 F-98 F 79-86 17-18 135-150/59-77 96 GENERAL:nonverbal and obtunded. HEAD: NC/AT. EYES: PERRL, sclera anicteric, conjunctiva clear. No ptosis. ENT: dry mucous membranes. NECK: supple. LUNGS:CTAB , diminished bilat bases no wheezes, no crackles, no accessory muscle use. HEART: RRR,s1s2 normal ABDOMEN: Soft, NT, ND, BS(+) PEG EXTREMITIES: 2+ pulses, warm, well-perfused, Bilat US non-pitting edema 2+ of LLE edema. R leg s/p AKA NEUROLOGICAL: Cranial nerves II through XII grossly intact. Normal speech, gait not observed. PSYCH: Normal mood, normal affect. SKIN: Warm, dry, normal turgor, no rashes or lesions noted Laboratory Results - last 24 hr 04/17/17 04/17/17 04/17/17 07:19 07:45 07:45 WBC 8.8 RBC 3.05 L Hgb 9.2 L Hct 26.7 L MCV 87.5 MCHC 34.7 RDW 13.0 Plt Count 242 MPV 8.9 Sodium 135 L Potassium 4.7 Chloride 93 L Carbon Dioxide 27 Anion Gap 15 BUN 100 H Creatinine 6.8 H POC Glucometer 158 Random Glucose 146 H D Calcium 8.0 L Phosphorus 5.4 H D Magnesium 3.7 H D Ferritin Urine Color Urine Appearance Urine pH Ur Specific [place] Urine Protein Urine Glucose (UA) Urine Ketones Urine Blood Urine Nitrite Urine Bilirubin Urine Urobilinogen Ur Leukocyte Esterase Urine RBC Urine WBC Ur Epithelial Cells Urine Bacteria Urine Mucus Stool Occult Blood 04/17/17 04/17/17 04/17/17 07:45 09:10 11:35 WBC RBC Hgb Hct MCV MCHC RDW Plt Count MPV Sodium Potassium Chloride Carbon Dioxide Anion Gap BUN Creatinine POC Glucometer 131 105 Random Glucose Calcium Phosphorus Magnesium Ferritin 65.274 Urine Color Urine Appearance Urine pH Ur Specific [place] Urine Protein Urine Glucose (UA) Urine Ketones Urine Blood Urine Nitrite Urine Bilirubin Urine Urobilinogen Ur Leukocyte Esterase Urine RBC Urine WBC Ur Epithelial Cells Urine Bacteria Urine Mucus Stool Occult Blood 04/17/17 04/17/17 12:00 15:04 WBC RBC Hgb Hct MCV MCHC RDW Plt Count MPV Sodium Potassium Chloride Carbon Dioxide Anion Gap BUN Creatinine POC Glucometer Random Glucose Calcium Phosphorus Magnesium Ferritin Urine Color Straw Urine Appearance Clear Urine pH 7.0 D Ur Specific [place] 1.015 Urine Protein 3+ H Urine Glucose (UA) 2+ H Urine Ketones Negative Urine Blood 1+ H Urine Nitrite Negative Urine Bilirubin Negative Urine Urobilinogen Negative Ur Leukocyte Esterase Trace H D Urine RBC 14 Urine WBC 5 Ur Epithelial Cells Rare Urine Bacteria Rare Urine Mucus Rare Stool Occult Blood Positive Active Medications Generic Name Dose Route Start Last Admin Trade Name Freq PRN Reason Stop Dose Admin Amlodipine Besylate 5 mg 04/17/17 10:00 04/17/17 10:58 Norvasc - PO 5 mg DAILY [facility] Administration Heparin Sodium (Porcine) 5,000 unit 04/17/17 10:00 04/17/17 10:59 Heparin - SQ 5,000 unit BID APRIL Administration Dextrose/Sodium Chloride 1,000 mls @ 75 mls/hr 04/17/17 16:15 04/17/17 16:38 D5-Ns - IV 75 mls/hr ASDIR APRIL Administration Insulin Aspart 1 vial 04/17/17 08:33 04/17/17 16:59 Novolog Vial Sliding Scale - SQ 2 unit ACHS [facility] Administration Protocol Pantoprazole Sodium 40 mg 04/17/17 10:00 04/17/17 10:58 Protonix - PO 40 mg DAILY [facility] Administration ASSESSMENT/PLAN: 61 yo F with pmhx of CVA, NIDDM, HTN, HLD, admitted for acute renal failure. Problem List - Problems (1) Renal failure Assessment/Plan: * Nephrotic range protienuria. , no history of kidney disease. * This could represents diabetic nephropathy , minimal change, or RPGN. * Dr. Guzman consulted. * Doppler pending to r/o renal artery thrombosis * Gentle hydration with IVF as CT shows bilat. * ANCA, LAURA, and complement pending * will calculate FeUrea as she took lasix and FeNA not valid. (2) Acute hyperkalemia Assessment/Plan: * Given kayexalate and insulin * repeat BMP shows resolution (3) Non-insulin dependent type 2 diabetes mellitus Assessment/Plan: * Puree diabetic diet. and free water through peg. * NISS * BGM ACHS (4) HTN (hypertension) Assessment/Plan: * Continue amlodipine Visit type - Emergency Visit Emergency Visit: Yes ED Registration Date: 04/17/17 Care time: The patient presented to the Emergency Department on the above date and was hospitalized for further evaluation of their emergent condition. - New Patient This patient is new to me today: Yes Date on this admission: 04/18/17 - Critical Care Critical Care patient: No
[2017-04-18] MEDS ORDERED: PT OWN MED DRAWER 7, Y5N ONE (00:15)
[2017-04-18] MEDS: INSULIN SLIDING SCALE (NOVOLOG) 1 VIAL SQ SCH ×4 (06:29→22:10)
[2017-04-18 07:17] LABS: BASOPHIL 1.4 % (0-2.0); EOSINOPHIL 7.6 % (0-4.5); MCH 30.2 pg (25.7-33.7); MCHC 34.3 g/dl (32.0-36.0); MEAN CELL VOLUME 87.9 fl (80-96); MEAN PLT VOLUME 9.1 fl (7.5-11.1); NEUTROPHILS 69.5 % (42.8-82.8); PLATELET COUNT 241 K/MM3 (134-434); RDW 13.4 % (11.6-15.6); WHITE BLOOD COUNT 7.9 K/mm3 (4.0-10.0)
[2017-04-18 07:44] LABS: ALBUMIN 1.9 g/dl (3.4-5.0); CALCIUM 7.4 mg/dL (8.5-10.1); COCKROFT - GAULT 8.228; CREATININE 7.1 mg/dL (0.55-1.02); MAGNESIUM 3.5 mg/dL (1.8-2.4); TOT PROT 4.8 g/dl (6.4-8.2)
[2017-04-18 07:46] LABS: BILIRUBIN,TOTAL 0.3 mg/dL (0.2-1.0)
[2017-04-18] MEDS: PANTOPRAZOLE 40 MG TABLET (FP) PO SCH (09:00)
[2017-04-18] MEDS: HEPARIN NA (PORCINE) 5,000 UNITS/ML 1ML VIAL SQ SCH ×2 (09:00→22:10)
[2017-04-18] MEDS: amLODIPine BESYLATE 5 MG TABLET (FP) PO SCH (09:01)
--- NOTE | 2017-04-18 12:09 | PN ---
Progress Note (short form) - Note Progress Note: Subjective: unable to obtain hx due to condition Objective: Vital Signs: Last Vital Signs Temp Pulse Resp BP Pulse Ox 97.6 F 76 20 120/56 96 04/18/17 09:00 04/18/17 09:00 04/18/17 09:00 04/18/17 09:00 04/18/17 09:00 I&O: Intake & Output 04/15/17 04/16/17 04/17/17 04/18/17 23:59 23:59 23:59 23:59 Intake Total 1300 0 Output Total 1000 300 Balance 300 -300 Weight 140 lb 140 lb Laboratory Results - last 24 hr 04/17/17 04/17/17 04/17/17 07:45 07:45 12:00 WBC RBC Hgb Hct MCV MCHC RDW Plt Count MPV Neutrophils % Lymphocytes % Monocytes % Eosinophils % Basophils % Sodium Potassium Chloride Carbon Dioxide Anion Gap BUN Creatinine Creat Clearance w eGFR POC Glucometer Random Glucose Calcium Phosphorus Magnesium Iron 30 Transferrin 196 L Total Bilirubin AST ALT Alkaline Phosphatase LD Total Total Protein Albumin Triglycerides Cholesterol Total LDL Cholesterol HDL Cholesterol Urine Color Straw Urine Appearance Clear Urine pH 7.0 D Ur Specific [place] 1.015 Urine Protein 3+ H Urine Glucose (UA) 2+ H Urine Ketones Negative Urine Blood 1+ H Urine Nitrite Negative Urine Bilirubin Negative Urine Urobilinogen Negative Ur Leukocyte Esterase Trace H D Urine RBC 14 Urine WBC 5 Ur Epithelial Cells Rare Urine Bacteria Rare Urine Mucus Rare Stool Occult Blood RPR Titer 04/17/17 04/17/17 04/17/17 15:04 16:40 16:40 WBC RBC Hgb Hct MCV MCHC RDW Plt Count MPV Neutrophils % Lymphocytes % Monocytes % Eosinophils % Basophils % Sodium Potassium Chloride Carbon Dioxide Anion Gap BUN Creatinine Creat Clearance w eGFR POC Glucometer Random Glucose Calcium Phosphorus Magnesium Iron Transferrin Total Bilirubin AST ALT Alkaline Phosphatase LD Total 287 H D Total Protein Albumin Triglycerides Cholesterol Total LDL Cholesterol HDL Cholesterol Urine Color Urine Appearance Urine pH Ur Specific [place] Urine Protein Urine Glucose (UA) Urine Ketones Urine Blood Urine Nitrite Urine Bilirubin Urine Urobilinogen Ur Leukocyte Esterase Urine RBC Urine WBC Ur Epithelial Cells Urine Bacteria Urine Mucus Stool Occult Blood Positive RPR Titer Nonreactive 04/17/17 04/18/17 04/18/17 21:11 04:58 06:00 WBC RBC Hgb Hct MCV MCHC RDW Plt Count MPV Neutrophils % Lymphocytes % Monocytes % Eosinophils % Basophils % Sodium 134 L Potassium 4.0 Chloride 95 L Carbon Dioxide 27 Anion Gap 12 BUN 98 H Creatinine 7.1 H Creat Clearance w eGFR 5.85 POC Glucometer 227 202 Random Glucose 173 H Calcium 7.4 L Phosphorus 6.0 H Magnesium 3.5 H Iron Transferrin Total Bilirubin 0.3 D AST 27 ALT 23 Alkaline Phosphatase 123 H LD Total Total Protein 4.8 L Albumin 1.9 L Triglycerides 211 H D Cholesterol 157 Total LDL Cholesterol 92 HDL Cholesterol 45 D Urine Color Urine Appearance Urine pH Ur Specific [place] Urine Protein Urine Glucose (UA) Urine Ketones Urine Blood Urine Nitrite Urine Bilirubin Urine Urobilinogen Ur Leukocyte Esterase Urine RBC Urine WBC Ur Epithelial Cells Urine Bacteria Urine Mucus Stool Occult Blood RPR Titer 04/18/17 04/18/17 06:00 11:30 WBC 7.9 RBC 2.89 L Hgb 8.7 L Hct 25.4 L MCV 87.9 MCHC 34.3 RDW 13.4 Plt Count 241 MPV 9.1 Neutrophils % 69.5 Lymphocytes % 15.7 D Monocytes % 5.8 Eosinophils % 7.6 H D Basophils % 1.4 Sodium Potassium Chloride Carbon Dioxide Anion Gap BUN Creatinine Creat Clearance w eGFR POC Glucometer 120 Random Glucose Calcium Phosphorus Magnesium Iron Transferrin Total Bilirubin AST ALT Alkaline Phosphatase LD Total Total Protein Albumin Triglycerides Cholesterol Total LDL Cholesterol HDL Cholesterol Urine Color Urine Appearance Urine pH Ur Specific [place] Urine Protein Urine Glucose (UA) Urine Ketones Urine Blood Urine Nitrite Urine Bilirubin Urine Urobilinogen Ur Leukocyte Esterase Urine RBC Urine WBC Ur Epithelial Cells Urine Bacteria Urine Mucus Stool Occult Blood RPR Titer Physical Exam: NAD , non verbal , contracted CV: RRR, 2/6 SM at apex. Lungs : CTAB , decreased breath sounds b/l bases Abd: soft, NT, ND , L BS skin , no Decub Ext : contracted upper ext. non pitting edema on upper ext with bruising on RUE. 1+ pitting edema on LLE . AKA on R . ASSESSMENT AND PLAN: 61 y/o lady with h/o CVA , NIDDM, HTN, HLP, who presented after her out pt labs showed renal failure 1- Acute renal failure with nephrotic syndrome :DDX is broad. could be diabetic nephropathy, vs amiloidosis vs , rapidly progressive disorder urine sediment with no RBC cats renal function slightly worse today off IVF due to cngested xray . 6 months ago , she reportedly had NL renal function, will conform with PCP. FeNA 5% , but she received lasix x 2 days as outpt , so will need FeUrea now she has nephrotic range proteinuria , in DDX will be diabetic nephropathy, amyloidosis , or something more acute like rapidly progressive GN. urinary retention is contributing as she had 450 cc with francis placement learned that she was taking NSAIDs dayami daily bases . d/w Dr. Guzman, need to r/o renal vein thrombosis renal doppler is still pending follow complement and ANCA 2- Normoytic anemia,big component is renal disease , but there might be some degree of iron def. iron sat pending OB , B12, folate 3- HTN : cont norvasc 4- DM : SSI. hold po agents 5- Nutrition : will start TF pending speech eval. Visit type - Emergency Visit Emergency Visit: Yes ED Registration Date: 04/17/17 Care time: The patient presented to the Emergency Department on the above date and was hospitalized for further evaluation of their emergent condition. - New Patient This patient is new to me today: No - Critical Care Critical Care patient: No
--- NOTE | 2017-04-18 12:25 | PN ---
Progress Note, Physician Chief Complaint: The patient seen in bed. Nonverbal. Family by her bed. Maintains good urine output. - Current Medication List Current Medications: Active Medications Amlodipine Besylate (Norvasc -) 5 mg PO DAILY [facility] Last Admin: 04/18/17 09:01 Dose: 5 mg Heparin Sodium (Porcine) (Heparin -) 5,000 unit SQ BID [facility] Last Admin: 04/18/17 09:00 Dose: 5,000 unit Insulin Aspart (Novolog Vial Sliding Scale -) 1 vial SQ ACHS [facility] PRN Reason: Protocol Last Admin: 04/18/17 12:12 Dose: Not Given Pantoprazole Sodium (Protonix -) 40 mg PO DAILY [facility] Last Admin: 04/18/17 09:00 Dose: 40 mg - Objective Vital Signs: Vital Signs Temperature 97.6 F 04/18/17 09:00 Pulse Rate 76 04/18/17 09:00 Respiratory Rate 20 04/18/17 09:00 Blood Pressure 120/56 04/18/17 09:00 O2 Sat by Pulse Oximetry (%) 96 04/18/17 09:00 Constitutional: Yes: Calm HENT: Yes: Normocephalic Neck: Yes: Decreased ROM Cardiovascular: Yes: S1, S2 Respiratory: Yes: CTA Bilaterally Gastrointestinal: Yes: Normal Bowel Sounds Extremities: Yes: Amputation (Right AKA) Neurological: Yes: Lethargy Labs: CBC, BMP 04/18/17 06:00 04/18/17 06:00 Problem List - Problems (1) Acute hyperkalemia Code(s): E87.5 - HYPERKALEMIA (2) Renal failure Code(s): N19 - UNSPECIFIED KIDNEY FAILURE Qualifiers: Renal failure chronicity: acute Acute renal failure type: unspecified Qualified Code(s): N17.9 - Acute kidney failure, unspecified (3) H/O: CVA (cerebrovascular accident) Code(s): Z86.73 - PRSNL HX OF TIA (TIA), AND CEREB INFRC W/O RESID DEFICITS (4) Insulin dependent diabetes mellitus Code(s): E11.9 - TYPE 2 DIABETES MELLITUS WITHOUT COMPLICATIONS Z79.4 - FIELD TECHNICAL ASSISTANT (CURRENT) USE OF INSULIN (5) Acute kidney failure Code(s): N17.9 - ACUTE KIDNEY FAILURE, UNSPECIFIED (6) Chronic kidney disease (CKD) stage G3a/A1, moderately decreased glomerular filtration rate (GFR) between 45-59 mL/min/1.73 square meter and albuminuria creatinine ratio less than 30 mg/g Code(s): N18.3 - CHRONIC KIDNEY DISEASE, STAGE 3 (MODERATE) Assessment/Plan 61 y/o female with Acute Kidney Injury, possibly NSAIDS induced and with Nephrotic range proteinuria. Azotemia still significant. If the azotemia worsens, the patient might require COMMUNITY HEALTH REPRESENTATIVE. Discussed with the patient's daughter Angella through a manager of selection and assessment. She is hoping that her mother would not need it. There is no emergency indication at this pont for dialysis. IV fluids well tolerated. Will continue the same. Will monitor the renal functions closely. BASHIR CHAVEZ MD
[2017-04-18] MEDS ORDERED: INSULIN (NOVOLOG) ASPART 100 UNITS/ML 10ML VIAL ONE (22:03)
[2017-04-19] MEDS: INSULIN SLIDING SCALE (NOVOLOG) 1 VIAL SQ SCH ×4 (06:26→23:32)
[2017-04-19 07:36] LABS: ALBUMIN 2.3 g/dl (3.4-5.0); BILIRUBIN,TOTAL 0.3 mg/dL (0.2-1.0); CALCIUM 7.7 mg/dL (8.5-10.1); COCKROFT - GAULT 7.5565; CREATININE 7.2 mg/dL (0.55-1.02); TOT PROT 5.5 g/dl (6.4-8.2)
[2017-04-19] MEDS: amLODIPine BESYLATE 5 MG TABLET (FP) PO SCH (11:06)
[2017-04-19] MEDS: HEPARIN NA (PORCINE) 5,000 UNITS/ML 1ML VIAL SQ SCH ×2 (11:06→23:30)
[2017-04-19] MEDS: PANTOPRAZOLE 40 MG TABLET (FP) PO SCH (11:06)
[2017-04-19] MEDS: ALBUTEROL SO4 0.5 % INH SOLN 2.5 MG/0.5 ML VIAL.NEB. NEB SCH ×2 (13:09→22:39)
[2017-04-19 13:32] LABS: BASOPHIL 1.1 % (0-2.0); EOSINOPHIL 1.7 % (0-4.5); MCH 29.5 pg (25.7-33.7); MCHC 33.4 g/dl (32.0-36.0); MEAN CELL VOLUME 88.5 fl (80-96); MEAN PLT VOLUME 9.5 fl (7.5-11.1); NEUTROPHILS 87.6 % (42.8-82.8); PLATELET COUNT 282 K/MM3 (134-434); RDW 13.3 % (11.6-15.6); WHITE BLOOD COUNT 9.9 K/mm3 (4.0-10.0)
--- NOTE | 2017-04-19 14:46 | PN ---
Progress Note (short form) - Note Progress Note: Subjective: unable to obtain hx due to condition Objective: Vital Signs: Last Vital Signs Temp Pulse Resp BP Pulse Ox 98.8 F 76 20 121/45 96 04/19/17 14:00 04/19/17 14:00 04/19/17 14:00 04/19/17 14:00 04/19/17 09:00 Laboratory Results - last 24 hr 04/17/17 04/18/17 04/18/17 04:00 16:49 22:06 WBC RBC Hgb Hct MCV MCHC RDW Plt Count MPV Neutrophils % Lymphocytes % Monocytes % Eosinophils % Basophils % Sodium Potassium Chloride Carbon Dioxide Anion Gap BUN Creatinine Creat Clearance w eGFR POC Glucometer 125 195 Random Glucose Calcium Total Bilirubin AST ALT Alkaline Phosphatase Total Protein Albumin Urine Eosinophils None seen 04/19/17 04/19/17 04/19/17 05:47 06:00 11:09 WBC RBC Hgb Hct MCV MCHC RDW Plt Count MPV Neutrophils % Lymphocytes % Monocytes % Eosinophils % Basophils % Sodium 137 Potassium 3.8 Chloride 96 L Carbon Dioxide 26 Anion Gap 15 BUN 98 H Creatinine 7.2 H Creat Clearance w eGFR 5.76 POC Glucometer 206 241 Random Glucose 204 H Calcium 7.7 L Total Bilirubin 0.3 AST 32 ALT 26 Alkaline Phosphatase 191 H D Total Protein 5.5 L Albumin 2.3 L D Urine Eosinophils 04/19/17 12:50 WBC 9.9 RBC 3.26 L Hgb 9.6 L D Hct 28.8 L MCV 88.5 MCHC 33.4 RDW 13.3 Plt Count 282 MPV 9.5 Neutrophils % 87.6 H D Lymphocytes % 6.5 L D Monocytes % 3.1 L Eosinophils % 1.7 Basophils % 1.1 Sodium Potassium Chloride Carbon Dioxide Anion Gap BUN Creatinine Creat Clearance w eGFR POC Glucometer Random Glucose Calcium Total Bilirubin AST ALT Alkaline Phosphatase Total Protein Albumin Urine Eosinophils Physical Exam: NAD , non verbal , contracted CV: RRR, 2/6 SM at apex. Lungs: CTAB , decreased breath sounds b/l bases Abd: soft, NT, ND , L BS skin, no Decub Ext: contracted upper ext. non pitting edema on upper ext with bruising on RUE. 1+ pitting edema on LLE . AKA on R . ASSESSMENT AND PLAN: 61 y/o lady with h/o CVA , NIDDM, HTN, HLP, who presented after her out pt labs showed renal failure 1- Acute renal failure with nephrotic syndrome :DDX is broad. could be diabetic nephropathy, vs amiloidosis vs , rapidly progressive disorder urine sediment with no RBC cats . Fe Urea 78.7 % stable renal function follow LAURA and ANCA follow with renal 2- Normoytic anemia,big component is renal disease , but there might be some degree of iron def. iron sat pending OB , B12, folate 3- HTN : cont norvasc 4- DM : SSI. hold po agents 5- Nutrition :cont TF pending speech eval on Thursday dispo : HLOC Visit type - Emergency Visit Emergency Visit: Yes ED Registration Date: 04/17/17 Care time: The patient presented to the Emergency Department on the above date and was hospitalized for further evaluation of their emergent condition. - New Patient This patient is new to me today: No - Critical Care Critical Care patient: No
[2017-04-20 00:06] LABS: HAPTOGLOBIN 247 mg/dL (34-200)
[2017-04-20] MEDS: ALBUTEROL SO4 0.5 % INH SOLN 2.5 MG/0.5 ML VIAL.NEB. NEB SCH ×3 (06:25→22:18)
[2017-04-20] MEDS: INSULIN SLIDING SCALE (NOVOLOG) 1 VIAL SQ SCH ×4 (06:33→22:19)
[2017-04-20 08:57] LABS: CALCIUM 7.5 mg/dL (8.5-10.1); COCKROFT - GAULT 7.259
[2017-04-20 09:13] LABS: CREATININE 7.5 mg/dL (0.55-1.02)
[2017-04-20] MEDS: PANTOPRAZOLE 40 MG TABLET (FP) PO SCH (10:10)
[2017-04-20] MEDS: amLODIPine BESYLATE 5 MG TABLET (FP) PO SCH (10:10)
[2017-04-20] MEDS: HEPARIN NA (PORCINE) 5,000 UNITS/ML 1ML VIAL SQ SCH ×2 (10:10→22:18)
--- NOTE | 2017-04-20 10:15 | CONSULT ---
Admitting History and Physical - Primary Care Physician PCP: Vasile Ruvalcaba - Admission History of Present Illness: Per EMR:"This is a 61 year old woman with PMhx of NIDDM, Hypertension, PVD s/p R AKA, CVA now non-verbal and paralyzed who presented with abnormal outpatient labs that showed renal failure and increasing total body volume overload. " Reviewed with pmd. Pt is uremic, with resulting lethargy. 02/08/15 - Speech Evaluation, Impression/Plan Impression: Swallowing is very delayed with risk of aspiration. PO intake can be provided for quality of life, if family feels this is indicated. However, predominant nutrititional intake/hydration should be given through PEG. Performance may be worse at this time due to MRSA infection, but performance was somewhat similar in 2013. - Dysphagia Impressions/Plan Swallowing Skills: Impaired Dysphagia Impressions: Moderate Impairment, Severe Impairment, Risk of Aspiration (on puree and thick liquids), Ongoing Evaluation, Too Lethargic to Assess, Suspect Aspiration (on thin liquid.) *Silent aspiration: cannot be R/O at bedside Dysphagia Treatment Plan: Chin Tuck/Down, Safe Rate, 1/2 tsp. at a time, Elevate HOB during feed, Other (wait for swallow with each bite and tell pt to swallow "traga" in telugu) - Recommendations Diet Consistency: Dysphagia Pureed (for pleasure by family.) Liquids: [place] Thick (on teaspoon.) Reviewed with pt's daughter. Pt has been tolerating homemade pureed foods and thickened liquids well at home, without cough or congestion. She has supplemental Glucerna and water via GT. Presently, pt is more lethargic, arousable briefly, but not sufficiently for PO trials. She is drooling intermittently. History Source: Family Member, Medical Record Limitations to Obtaining History: Clinical Condition - Past Medical History PET FEEDER: Yes: CVA (s/p hemorrhagic stroke) Cardiovascular: Yes: HTN, Other (PAD) ...: No Endocrine: Yes: Diabetes Mellitus Dermatology: Yes: Other (eschar left heel) - Smoking History Smoking history: Never smoked Have you smoked in the past 12 months: No Aproximately how many cigarettes per day: 0 - Alcohol/Substance Use Hx Alcohol Use: No - Social History History of Recent Travel: No History - Admission Reason For Visit: RENAL FAILURE ACUTE HYPERKALEMIA - Diagnostics X-ray: Report Reviewed - General Mental Status: Lethargic (brief lightening when name called) - Hearing Hearing: Normal Hearing Aide: No With Patient: No Speech Evaluation - Communication Primary Language: FRENCH Communication: Yes: Non-Communicable (baseline: rare verbalizations. Severe Aphasia with severe impairment of functional communication) - Language/Auditory Comprehension Observation: Comprehends Conversational Speech: No - Swallow Evaluation/Bedside Assessment Current Nutritional Intake: NPO (due to lethargy), G Tube A-P Transit: Impaired Recommendations - Speech Evaluation, Impression/Plan Impression: lethargic, arousable briefly, but not sufficiently for PO trials. She is drooling intermittently. - Disposition Discharge to: Home with Assist - Dysphagia Impressions/Plan Dysphagia Impressions: Too Lethargic to Assess Recommendations: Other (Concur with NPO at this time, and GT feedings. Please let me know when pt is more arousable for f/u assessment. HOB elevated Mouth care)
--- NOTE | 2017-04-20 13:55 | PN ---
Physical Exam: SUBJECTIVE: Patient seen and examined OBJECTIVE: Vital Signs Period Temp Pulse Resp BP Sys/Daniel Pulse Ox Last 24 Hr 98.0 F-99.1 F 74-90 20-20 120-144/45-68 96-96 GENERAL:nonverbal and obtunded. HEAD: NC/AT. EYES: PERRL, sclera anicteric, conjunctiva clear. No ptosis. ENT: dry mucous membranes. NECK: supple. LUNGS:CTAB , diminished bilat bases no wheezes, no crackles, no accessory muscle use. HEART: RRR,s1s2 normal 3/6 ANGELINA ABDOMEN: Soft, NT, ND, BS(+) PEG EXTREMITIES: Bilat. nonpitting edema upper ext. Bilat edema 1+ of LLE edema. R leg s/p AKA NEUROLOGICAL: non verbal. obtunded and contracted. Laboratory Results - last 24 hr 04/17/17 04/17/17 04/17/17 16:40 16:57 17:05 Haptoglobin 247 H Sodium Potassium Chloride Carbon Dioxide Anion Gap BUN Creatinine POC Glucometer 197 151 Random Glucose Calcium 04/19/17 04/19/17 04/20/17 17:17 23:31 05:40 Haptoglobin Sodium 136 Potassium 3.6 Chloride 96 L Carbon Dioxide 27 Anion Gap 13 BUN 103 H Creatinine 7.5 H* POC Glucometer 289 238 Random Glucose 259 H D Calcium 7.5 L 04/20/17 04/20/17 06:07 11:08 Haptoglobin Sodium Potassium Chloride Carbon Dioxide Anion Gap BUN Creatinine POC Glucometer 309 261 Random Glucose Calcium Active Medications Generic Name Dose Route Start Last Admin Trade Name Freq PRN Reason Stop Dose Admin Albuterol Sulfate 1 amp 04/19/17 14:00 04/20/17 06:25 Ventolin 0.5% - NEB 1 amp TIDR APRIL Administration Amlodipine Besylate 5 mg 04/17/17 10:00 04/20/17 10:10 Norvasc - PO 5 mg DAILY APRIL Administration Heparin Sodium (Porcine) 5,000 unit 04/17/17 10:00 04/20/17 10:10 Heparin - SQ 5,000 unit BID APRIL Administration Insulin Aspart 1 vial 04/17/17 08:33 04/20/17 13:00 Novolog Vial Sliding Scale - SQ 6 unit ACHS APRIL Administration Protocol Pantoprazole Sodium 40 mg 04/17/17 10:00 04/20/17 10:10 Protonix - PO 40 mg DAILY APRIL Administration ASSESSMENT/PLAN: 61 yo F with pmhx of CVA, NIDDM , HTN, and HLD admitted for acute renal failure. Problem List - Problems (1) Renal failure Assessment/Plan: * I had lengthy discussion with family today and they are agreeable to dialysis. * Will have dialysis cath placed in AM - discussed with Dr. Gurrola for HD tomorrow. * Nephrotic range protienuria. , no history of kidney disease. could represents diabetic nephropathy , minimal change, or RPGN(RPGN less likely given minimal RBC and no cast in urine.) * Doppler shows no evidence of renal artery thrombosis * ANCA, LAURA, and complement pending * FeUrea 78.7 which makes this more likely intrinsic renal problem (2) Non-insulin dependent type 2 diabetes mellitus Assessment/Plan: * Suplena tube feed via peg. * unable to be evaluated by speech and swallow. * NISS * BGM ACHS (3) HTN (hypertension) Assessment/Plan: * Continue amlodipine (4) Normochromic anemia Assessment/Plan: * component of renal disease. * B12 and folate elevated. * OB+ * regular transfusion threshold. Visit type - Emergency Visit Emergency Visit: Yes ED Registration Date: 04/17/17 Care time: The patient presented to the Emergency Department on the above date and was hospitalized for further evaluation of their emergent condition. - New Patient This patient is new to me today: No - Critical Care Critical Care patient: No - Discharge Referral Referred to [facility] Med P.C[facility] No
--- NOTE | 2017-04-20 14:02 | PN ---
Progress Note, Physician Chief Complaint: The patient seen in bed. Nonverbal. Daughter by her be. Not responding to verbal stimuli. The urine output had been declining over the past two days. - Current Medication List Current Medications: Active Medications Albuterol Sulfate (Ventolin 0.5% -) 1 amp NEB TIDR [facility] Last Admin: 04/20/17 06:25 Dose: 1 amp Amlodipine Besylate (Norvasc -) 5 mg PO DAILY [facility] Last Admin: 04/20/17 10:10 Dose: 5 mg Heparin Sodium (Porcine) (Heparin -) 5,000 unit SQ BID [facility] Last Admin: 04/20/17 10:10 Dose: 5,000 unit Insulin Aspart (Novolog Vial Sliding Scale -) 1 vial SQ ACHS [facility] PRN Reason: Protocol Last Admin: 04/20/17 13:00 Dose: 6 unit Pantoprazole Sodium (Protonix -) 40 mg PO DAILY [facility] Last Admin: 04/20/17 10:10 Dose: 40 mg - Objective Vital Signs: Vital Signs Temperature 99.0 F 04/20/17 10:00 Pulse Rate 80 04/20/17 10:00 Respiratory Rate 20 04/20/17 10:00 Blood Pressure 136/58 04/20/17 10:00 O2 Sat by Pulse Oximetry (%) 96 04/20/17 09:00 Constitutional: Yes: Mild Distress Neck: Yes: Trachea Midline Cardiovascular: Yes: S1, S2 Respiratory: Yes: Diminished, Poor Air Entry Gastrointestinal: Yes: Normal Bowel Sounds Neurological: Yes: Unresponsive Labs: CBC, BMP 04/19/17 12:50 04/20/17 05:40 Problem List - Problems (1) Acute hyperkalemia Code(s): E87.5 - HYPERKALEMIA (2) Renal failure Code(s): N19 - UNSPECIFIED KIDNEY FAILURE Qualifiers: Renal failure chronicity: acute Acute renal failure type: unspecified Qualified Code(s): N17.9 - Acute kidney failure, unspecified (3) H/O: CVA (cerebrovascular accident) Code(s): Z86.73 - PRSNL HX OF TIA (TIA), AND CEREB INFRC W/O RESID DEFICITS (4) Insulin dependent diabetes mellitus Code(s): E11.9 - TYPE 2 DIABETES MELLITUS WITHOUT COMPLICATIONS Z79.4 - ASSISTED (CURRENT) USE OF INSULIN (5) Acute kidney failure Code(s): N17.9 - ACUTE KIDNEY FAILURE, UNSPECIFIED (6) Chronic kidney disease (CKD) stage G3a/A1, moderately decreased glomerular filtration rate (GFR) between 45-59 mL/min/1.73 square meter and albuminuria creatinine ratio less than 30 mg/g Code(s): N18.3 - CHRONIC KIDNEY DISEASE, STAGE 3 (MODERATE) Assessment/Plan 61 y/o female with Acute Kidney Injury, possibly NSAIDS induced and with Nephrotic range proteinuria. The Azotemia slowly trending up. No hemturia. No signs of overt infection. Serology w/u pending. Discussed in detail with the daughter about the possible need for acute dialysis. The daughter is not ready to give consent at this time. Given the multiple co-morbid conditions, it is likely that dialysis may not necessarily improve the patient's general status. The risks and the benefits discussed. She will give an answer in the next few days. In the mean time, will continue the current regimen. Will review the pending w/u before any specific therapy is initiated. BASHIR CHAVEZ MD
--- NOTE | 2017-04-20 14:23 | PN ---
Teaching Attending Note Name of Resident: Kodi Pritchett ATTENDING PHYSICIAN STATEMENT I saw and evaluated the patient. I reviewed the resident's note and discussed the case with the resident. I agree with the resident's findings and plan as documented. SUBJECTIVE: unable to obtain hx. no events over night OBJECTIVE: NAD, non verbal , contracted CV: RRR, 3/6 SM at apex. Lungs: CTAB , decreased breath sounds b/l bases Abd: soft, NT, ND , L BS Ext: contracted upper ext. non pitting edema on upper ext with bruising on RUE. 1+ pitting edema on LLE . AKA on R . ASSESSMENT AND PLAN: 61 y/o lady with h/o CVA , NIDDM, HTN, HLP, who presented after her out pt labs showed renal failure 1- Acute renal failure with nephrotic syndrome :DDX is broad. could be diabetic nephropathy, vs amiloidosis vs , rapidly progressive disorder urine sediment with no RBC cats . Fe Urea 78.7 % stable renal function , but pt is uremic and has change in her base line mentation . likely needs HD . to be d/w family follow LAURA and ANCA follow with renal 2- Normoytic anemia,big component is renal disease , but there might be some degree of iron def. iron sat and TIBC pending OB + . B12, folate elevated 3- HTN: cont norvasc 4- DM : SSI. hold po agents 5- Nutrition :cont TF , unable to evaluate swallow , d/w speech dispo : HLOC
[2017-04-20] MEDS ORDERED: INSULIN (NOVOLOG) ASPART 100 UNITS/ML 10ML VIAL ONE (18:22)
[2017-04-21 06:06] LABS: SERUM IRON 29 ug/dL (27-139); TOTAL IRON BINDING CAPACITY 201 ug/dL (250-450); UIBC 172 ug/dL (118-369)
[2017-04-21] MEDS: INSULIN SLIDING SCALE (NOVOLOG) 1 VIAL SQ SCH ×4 (06:21→22:20)
[2017-04-21] MEDS: ALBUTEROL SO4 0.5 % INH SOLN 2.5 MG/0.5 ML VIAL.NEB. NEB SCH ×3 (06:30→22:05)
[2017-04-21 07:14] LABS: EOSINOPHIL 7.2 % (0-4.5); MCH 30.2 pg (25.7-33.7); MCHC 34.2 g/dl (32.0-36.0); MEAN CELL VOLUME 88.3 fl (80-96); MEAN PLT VOLUME 9.2 fl (7.5-11.1); NEUTROPHILS 71.1 % (42.8-82.8); PLATELET COUNT 267 K/MM3 (134-434); RDW 13.6 % (11.6-15.6); WHITE BLOOD COUNT 10.2 K/mm3 (4.0-10.0)
[2017-04-21 08:44] LABS: ALBUMIN 1.9 g/dl (3.4-5.0); BILIRUBIN,TOTAL 0.4 mg/dL (0.2-1.0); CALCIUM 7.5 mg/dL (8.5-10.1); COCKROFT - GAULT 7.259
[2017-04-21 09:09] LABS: CREATININE 7.5 mg/dL (0.55-1.02)
[2017-04-21] MEDS: HEPARIN NA (PORCINE) 5,000 UNITS/ML 1ML VIAL SQ SCH ×2 (10:38→21:45)
[2017-04-21] MEDS: amLODIPine BESYLATE 5 MG TABLET (FP) PO SCH (10:38)
[2017-04-21] MEDS: PANTOPRAZOLE 40 MG TABLET (FP) PO SCH (10:38)
[2017-04-21 12:33] LABS: INR 0.89 (0.82-1.09); PROTHROMBIN TIME (PATIENT) 9.8 SEC (9.98-11.88)
--- NOTE | 2017-04-21 13:35 | PROC ---
Central Line Insertion - Procedure Note TIME OUT performed prior to this procedure with verbal confirmation of correct patient identity, correct side, agreement of the procedure, correct patient position, availability of necessary equipment. The consent form obtained form daughter/HCP is complete and accurate and placed in patient's paper chart. Risk of possible infection and bleeding have been discussed with the HCP. Safety precautions based on patient history or medication use has been addressed. INR 0.89 Indication: Other (Renal failure) Consent on Chart: Yes Central Line: Dialysis Cath, Dual Lumen Position: Reverse Trendelenberg Area prepped with Chlorhexidine solution then draped using sterile barrier protection. Anesthesia: Lidocaine 1% Technique used: Seldinger Site: Right Femoral Dark venous non-pulsatile flow noted from hub of needle. The catheter was introduced. Guide wire removed intact. Each port aspirated then flushed with sterile normal saline and capped. Line secured to skin with nylon suture. Biopatch placed around base of line. Sterile occlusive dressing applied. No complications. Patient tolerated the procedure well. HD notified and plans on doing HD at bedside so need to heparinize the line.
--- NOTE | 2017-04-21 14:08 | PN ---
Physical Exam: SUBJECTIVE: Patient seen and examined at bedside. Patient remains obtunded and non verbal. No overnight events as per nurse. OBJECTIVE: Vital Signs Period Temp Pulse Resp BP Sys/Daniel Pulse Ox Last 24 Hr 98.0 F-99.3 F 73-90 18-20 110-155/54-88 96 GENERAL:nonverbal and obtunded. HEAD: NC/AT. EYES: PERRL, sclera anicteric, conjunctiva clear. No ptosis. ENT: dry mucous membranes. NECK: supple. LUNGS:CTAB , diminished bilat bases no wheezes, no crackles, no accessory muscle use. HEART: RRR,s1s2 normal 3/6 ANGELINA ABDOMEN: Soft, NT, ND, BS(+) PEG EXTREMITIES: Bilat. nonpitting edema upper ext. Bilat edema 1+ of LLE edema. R leg s/p AKA NEUROLOGICAL: non verbal. obtunded and contracted. functional quadriplegia Laboratory Results - last 24 hr 04/17/17 04/20/17 04/20/17 16:40 06:30 17:52 WBC RBC Hgb Hct MCV MCHC RDW Plt Count MPV Neutrophils % Lymphocytes % Monocytes % Eosinophils % Basophils % INR Sodium Potassium Chloride Carbon Dioxide Anion Gap BUN Creatinine Creat Clearance w eGFR POC Glucometer 306 Random Glucose Calcium Iron 29 TIBC 201 L Iron Saturation 14 L Total Bilirubin AST ALT Alkaline Phosphatase Total Protein Albumin U Random Total Protein Urine Creatinine LAURA Screen Negative Tot Complement (CH50) 60 Hepatitis A IgM Ab Negative Hep Bs Antigen Negative Hep B Core IgM Ab Negative Hepatitis C Ab (EIA) 0.2 04/20/17 04/21/17 04/21/17 22:17 05:35 05:35 WBC 10.2 H RBC 2.68 L Hgb 8.1 L D Hct 23.7 L D MCV 88.3 MCHC 34.2 RDW 13.6 Plt Count 267 MPV 9.2 Neutrophils % 71.1 Lymphocytes % 15.3 D Monocytes % 5.4 Eosinophils % 7.2 H D Basophils % 1.0 INR Sodium 137 Potassium 3.9 Chloride 97 L Carbon Dioxide 25 Anion Gap 15 BUN 95 H Creatinine 7.5 H* Creat Clearance w eGFR 5.49 POC Glucometer 167 Random Glucose 204 H D Calcium 7.5 L Iron TIBC Iron Saturation Total Bilirubin 0.4 D AST 22 D ALT 19 D Alkaline Phosphatase 222 H Total Protein 5.0 L Albumin 1.9 L U Random Total Protein Urine Creatinine LAURA Screen Tot Complement (CH50) Hepatitis A IgM Ab Hep Bs Antigen Hep B Core IgM Ab Hepatitis C Ab (EIA) 04/21/17 04/21/17 04/21/17 05:47 10:55 10:55 WBC RBC Hgb Hct MCV MCHC RDW Plt Count MPV Neutrophils % Lymphocytes % Monocytes % Eosinophils % Basophils % INR Sodium Potassium Chloride Carbon Dioxide Anion Gap BUN Creatinine Creat Clearance w eGFR POC Glucometer 234 Random Glucose Calcium Iron TIBC Iron Saturation Total Bilirubin AST ALT Alkaline Phosphatase Total Protein Albumin U Random Total Protein 415 H Urine Creatinine 24.4 LAURA Screen Tot Complement (CH50) Hepatitis A IgM Ab Hep Bs Antigen Hep B Core IgM Ab Hepatitis C Ab (EIA) 04/21/17 04/21/17 12:05 12:35 WBC RBC Hgb Hct MCV MCHC RDW Plt Count MPV Neutrophils % Lymphocytes % Monocytes % Eosinophils % Basophils % INR 0.89 Sodium Potassium Chloride Carbon Dioxide Anion Gap BUN Creatinine Creat Clearance w eGFR POC Glucometer 219 Random Glucose Calcium Iron TIBC Iron Saturation Total Bilirubin AST ALT Alkaline Phosphatase Total Protein Albumin U Random Total Protein Urine Creatinine LAURA Screen Tot Complement (CH50) Hepatitis A IgM Ab Hep Bs Antigen Hep B Core IgM Ab Hepatitis C Ab (EIA) Active Medications Generic Name Dose Route Start Last Admin Trade Name Freq PRN Reason Stop Dose Admin Albuterol Sulfate 1 amp 04/19/17 14:00 04/21/17 13:40 Ventolin 0.5% - NEB 1 amp TIDR APRIL Administration Amlodipine Besylate 5 mg 04/17/17 10:00 04/21/17 10:38 Norvasc - PO 5 mg DAILY APRIL Administration Heparin Sodium (Porcine) 5,000 unit 04/17/17 10:00 04/21/17 10:38 Heparin - SQ 5,000 unit BID APRIL Administration Insulin Aspart 1 vial 04/17/17 08:33 04/21/17 12:37 Novolog Vial Sliding Scale - SQ 4 unit ACHS APRIL Administration Protocol Pantoprazole Sodium 40 mg 04/17/17 10:00 04/21/17 10:38 Protonix - PO Not Given DAILY APRIL ASSESSMENT/PLAN: 61 yo F with pmhx of CVA,functional quadriplegia, NIDDM , HTN, and HLD admitted for acute renal failure. Problem List - Problems (1) Renal failure Assessment/Plan: * Spoke with family with Dr. Guzman present and explained the risk and benefits of dialysis. Family understood that this will not improve her baseline condition and will only buy her some time. * They are aware that this is going to be a difficult situation given her functional capacity and insurance barriers. * Will have dialysis cath placed today by vascular surgery- [facility] cath. * HD today * Nephrotic range protienuria. , no history of kidney disease. could represents diabetic nephropathy , minimal change, or RPGN(RPGN less likely given minimal RBC and no cast in urine.) * Doppler shows no evidence of renal artery thrombosis * ANCA, LAURA, and complement pending * FeUrea 78.7 which makes this more likely intrinsic renal problem (2) Non-insulin dependent type 2 diabetes mellitus Assessment/Plan: * Suplena tube feed via peg. * unable to be evaluated by speech and swallow. * NISS * BGM ACHS (3) HTN (hypertension) Assessment/Plan: * Continue amlodipine (4) Normochromic anemia Assessment/Plan: * component of renal disease. * B12 and folate elevated. * OB+ * regular transfusion threshold. (5) Functional quadriplegia Assessment/Plan: * assist in ADL's Visit type - Emergency Visit Emergency Visit: Yes ED Registration Date: 04/17/17 Care time: The patient presented to the Emergency Department on the above date and was hospitalized for further evaluation of their emergent condition. - New Patient This patient is new to me today: No - Critical Care Critical Care patient: No - Discharge Referral Referred to [facility] Med P.C.: No
--- NOTE | 2017-04-21 14:12 | PN ---
Progress Note (short form) - Note Progress Note: Renal Follow up for DEYSI Pt seen and examined at the bedside pt is lethargic, not responding to verbal or light physical stimuli daughter at the bedside no overnight events Vital Signs Temperature 99.3 F 04/21/17 10:00 Pulse Rate 73 04/21/17 10:00 Respiratory Rate 18 04/21/17 10:00 Blood Pressure 134/54 04/21/17 10:00 O2 Sat by Pulse Oximetry (%) 96 04/20/17 22:00 Intake & Output 04/18/17 04/19/17 04/20/17 04/21/17 23:59 23:59 23:59 23:59 Intake Total 10 818 850 840 Output Total 700 550 650 350 Balance -690 268 200 490 Weight 132 lb 3.2 oz 130 lb 6 oz Gen: NAD, awake, non-verbal CVS: RRR, No M/R Lungs: Dec BS at lung bases Abd: soft NT/ND Ext: 1+ edema in LLE, R AKA. Upper Ext swollen : No bladder distension CBC, BMP 04/21/17 05:35 04/21/17 05:35 Laboratory Tests 04/17/17 04/21/17 04/21/17 15:04 05:35 05:35 MCV 88.3 Calcium 7.5 L Albumin 1.9 L U Random Total Protein Urine Creatinine Stool Occult Blood Positive 04/21/17 04/21/17 10:55 10:55 MCV Calcium Albumin U Random Total Protein 415 H Urine Creatinine 24.4 Stool Occult Blood Current Medications Albuterol Sulfate (Ventolin 0.5% -) 1 amp NEB TIDR [facility] Last Admin: 04/21/17 13:40 Dose: 1 amp Amlodipine Besylate (Norvasc -) 5 mg PO DAILY [facility] Last Admin: 04/21/17 10:38 Dose: 5 mg Heparin Sodium (Porcine) (Heparin -) 5,000 unit SQ BID [facility] Last Admin: 04/21/17 10:38 Dose: 5,000 unit Insulin Aspart (Novolog Vial Sliding Scale -) 1 vial SQ ACHS [facility] PRN Reason: Protocol Last Admin: 04/21/17 12:37 Dose: 4 unit Pantoprazole Sodium (Protonix -) 40 mg PO DAILY [facility] Last Admin: 04/21/17 10:38 Dose: Not Given A/P 61 year old woman with PMhx of NIDDM, Hypertension, PVD s/p R AKA, CVA now non- verbal and paralyzed who presented with abnormal outpatient labs that showed renal failure and increasing total body volume overload #Acute Renal Failure with Nephrotic Range Proteinuria Renal function w/o improvement Renal US showed echogenic kidneys, Renal vein Doppler showed no thrombosis Serologic work up so far negative, ANCAs pending Long discussion had with family and primary team about treatment goals and it was agreed to attempt dialysis for management of uremia and 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
--- NOTE | 2017-04-21 15:02 | PN ---
Teaching Attending Note Name of Resident: Kodi Pritchett ATTENDING PHYSICIAN STATEMENT I saw and evaluated the patient. I reviewed the resident's note and discussed the case with the resident. I agree with the resident's findings and plan as documented. SUBJECTIVE: unable to obtain hx OBJECTIVE: AD, non verbal , contracted . looks comfortable CV: RRR, 3/6 SM at apex. Lungs: CTAB , decreased breath sounds b/l bases Abd: soft, NT, ND , L BS Ext: contracted upper ext. non pitting edema on upper ext with bruising on RUE. 1+ pitting edema on LLE . AKA on R . ASSESSMENT AND PLAN: 61 y/o lady with h/o CVA , NIDDM, HTN, HLP, who presented after her out pt labs showed renal failure 1- Acute renal failure with nephrotic syndrome :DDX is broad. could be diabetic nephropathy, vs amiloidosis vs orhter diagnoses urine sediment with no RBC cats . Fe Urea 78.7 % stable renal function , but pt is uremic and has change in her base line mentation .discussion with family and renal team today abut starting HD. risks accepted by family . shiley today start HD today , might be ferry terminal agent HD patient might not be appropriate candidate for a bx 2- Normoytic anemia,likely due to renal dz . possible iron def due to low transferrin sat, and positive OB in stool . B12, folate elevated 3- HTN: cont norvasc 4- DM : SSI. hold po agents 5- Nutrition :at [facility] eshe used to eat puree, and have fluids through PEG. Now with her AMS , will cont TF , until she is cleared by speech again. dispo : HLOC
[2017-04-21] MEDS ORDERED: INSULIN (NOVOLOG) ASPART 100 UNITS/ML 10ML VIAL ONE (21:09)
[2017-04-22 00:06] LABS: C-ANCA <1:20 titer (Neg:<1:20); MYELOPEROXIDASE ANTIBODY <9.0 U/mL (0.0-9.0); P-ANCA <1:20 titer (Neg:<1:20); PROTEINASE-3 ANTIBODY 5.3 U/mL (0.0-3.5)
[2017-04-22] MEDS: INSULIN SLIDING SCALE (NOVOLOG) 1 VIAL SQ SCH ×4 (06:10→21:57)
[2017-04-22] MEDS: ALBUTEROL SO4 0.5 % INH SOLN 2.5 MG/0.5 ML VIAL.NEB. NEB SCH ×3 (06:50→22:20)
[2017-04-22 08:56] LABS: MCH 29.9 pg (25.7-33.7); MCHC 33.7 g/dl (32.0-36.0); MEAN CELL VOLUME 88.9 fl (80-96); PLATELET COUNT 284 K/MM3 (134-434); RDW 13.6 % (11.6-15.6); WHITE BLOOD COUNT 9.3 K/mm3 (4.0-10.0)
[2017-04-22 09:34] LABS: BILIRUBIN,TOTAL 0.3 mg/dL (0.2-1.0); CALCIUM 7.7 mg/dL (8.5-10.1); COCKROFT - GAULT 8.347; CREATININE 6.5 mg/dL (0.55-1.02); MAGNESIUM 3.7 mg/dL (1.8-2.4); TOT PROT 5.2 g/dl (6.4-8.2)
[2017-04-22] MEDS: PANTOPRAZOLE 40 MG TABLET (FP) PO SCH (10:02)
[2017-04-22] MEDS: amLODIPine BESYLATE 5 MG TABLET (FP) PO SCH (10:02)
[2017-04-22] MEDS: HEPARIN NA (PORCINE) 5,000 UNITS/ML 1ML VIAL SQ SCH ×2 (10:02→22:06)
[2017-04-22] MEDS ORDERED: LIDOCAINE HCL 1%, 10 MG/ML (20ML VIAL) ONE ×2 (10:16→10:56)
--- NOTE | 2017-04-22 10:51 | PROC ---
Addendum entered and electronically signed by Saeed Santos PA 04/22/17 11:17: Central Line Post Procedure - Status Post Procedure Tip is in right atrium. No Pneumothorax. confirmed by chest x-ray. Sutures cut and cath pulled back ~ 2.54cm. Ok to use line Original Note: Central Line Insertion - Procedure Note TIME OUT performed prior to this procedure with verbal confirmation of correct patient identity, correct side, agreement of the procedure, correct patient position, availability of necessary equipment. The consent form obtained from daughter/HCP is complete and accurate. Risk of possible infection, bleeding and pneumothorax have been discussed with the HCP. Safety precautions based on patient history or medication use has been addressed. Indication: Other (Renal failure) Consent on Chart: Yes Central Line: Dialysis Cath, Dual Lumen Position: Supine Area prepped with Chlorhexidine solution then draped using sterile barrier protection. Anesthesia: Lidocaine 1% Technique used: Seldinger Ultrasound Guided Assistance: Yes Site: Right Internal Jugular Dark venous non-pulsatile flow noted from hub of needle. The catheter was introduced. Guide wire removed intact. Each port aspirated then flushed with sterile normal saline then heparin instilled into each port and capped. Line secured to skin with nylon suture. Biopatch placed around base of line. Sterile occlusive dressing applied. No complications. Patient tolerated the procedure well. STAT chest xray ordered to confirm position and rule out pneumothorax.
[2017-04-22] MEDS ORDERED: INSULIN (NOVOLOG) ASPART 100 UNITS/ML 10ML VIAL ONE (11:28)
[2017-04-22 11:54] LABS: HIV 1 & 2 AB NEGATIVE; HIV 1 AGp24 NEGATIVE
--- NOTE | 2017-04-22 13:48 | PN ---
Progress Note (short form) - Note Progress Note: Renal Follow up for DEYSI Pt seen and examined at the bedside daughter at the bedside pt remains lethargic but not in distress s/p 1 hour of dialysis yesterday, HD was stopped due to mal functioning catheter new IJ catheter placed by Surgery for dialysis Vital Signs Temperature 98.8 F 04/22/17 12:05 Pulse Rate 76 04/22/17 12:10 Respiratory Rate 18 04/22/17 12:10 Blood Pressure 148/70 04/22/17 12:10 O2 Sat by Pulse Oximetry (%) 97 04/21/17 09:00 Intake & Output 04/19/17 04/20/17 04/21/17 04/22/17 23:59 23:59 23:59 23:59 Intake Total 116 440 4504 900 Output Total 550 650 950 Balance 268 200 520 900 Weight 130 lb 6 oz 130 lb Gen: NAD, awake, non-verbal CVS: RRR, No M/R Lungs: Dec BS at lung bases Abd: soft NT/ND Ext: 1+ edema in LLE, R AKA. Upper Ext swollen : No bladder distension CBC, BMP 04/22/17 06:00 04/22/17 06:00 Laboratory Tests 04/22/17 06:00 Calcium 7.7 L Phosphorus 5.0 H Magnesium 3.7 H Albumin 2.0 L Current Medications Albuterol Sulfate (Ventolin 0.5% -) 1 amp NEB TIDR [facility] Last Admin: 04/22/17 06:50 Dose: 1 amp Amlodipine Besylate (Norvasc -) 5 mg PO DAILY [facility] Last Admin: 04/22/17 10:02 Dose: 5 mg Heparin Sodium (Porcine) (Heparin -) 5,000 unit SQ BID [facility] Last Admin: 04/22/17 10:02 Dose: 5,000 unit Insulin Aspart (Novolog Vial Sliding Scale -) 1 vial SQ ACHS [facility] PRN Reason: Protocol Last Admin: 04/22/17 11:32 Dose: 6 units Pantoprazole Sodium (Protonix -) 40 mg PO DAILY [facility] Last Admin: 04/22/17 10:02 Dose: 40 mg A/P 61 year old woman with PMhx of NIDDM, Hypertension, PVD s/p R AKA, CVA now non- verbal and paralyzed who presented with abnormal outpatient labs that showed renal failure and increasing total body volume overload #Acute Renal Failure with Nephrotic Range Proteinuria Serologic work up showed + 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
--- NOTE | 2017-04-22 14:54 | PN ---
Teaching Attending Note Name of Resident: Kodi Pritchett ATTENDING PHYSICIAN STATEMENT I saw and evaluated the patient. I reviewed the resident's note and discussed the case with the resident. I agree with the resident's findings and plan as documented. SUBJECTIVE: Patient is lying in bed with no acute distress, unable to get any hx OBJECTIVE: Vital Signs Temperature 98.8 F 04/22/17 12:05 Pulse Rate 76 04/22/17 12:10 Respiratory Rate 18 04/22/17 12:10 Blood Pressure 148/70 04/22/17 12:10 O2 Sat by Pulse Oximetry (%) 97 04/21/17 09:00 Generally: non verbal , contracted . looks comfortable Lungs: CTAB , decreased breath sounds at bases CV: RRR, 3/6 SM at apex. Abd: soft, NT, ND , positive for BS Ext: Right AKA. contracted upper ext. non pitting edema on upper ext with bruising on RUE. 1+ pitting edema on LLE . Catheter at right IJ CBCD WBC 9.3 K/mm3 (4.0-10.0) 04/22/17 06:00 RBC 2.78 M/mm3 (3.60-5.2) L 04/22/17 06:00 Hgb 8.3 GM/dL (10.7-15.3) L 04/22/17 06:00 Hct 24.7 % (32.4-45.2) L 04/22/17 06:00 MCV 88.9 fl (80-96) 04/22/17 06:00 MCHC 33.7 g/dl (32.0-36.0) 04/22/17 06:00 RDW 13.6 % (11.6-15.6) 04/22/17 06:00 Plt Count 284 K/MM3 (134-434) 04/22/17 06:00 MPV 9.0 fl (7.5-11.1) 04/22/17 06:00 CMP Sodium 138 mmol/L (136-145) 04/22/17 06:00 Potassium 3.6 mmol/L (3.5-5.1) 04/22/17 06:00 Chloride 98 mmol/L (98-107) 04/22/17 06:00 Carbon Dioxide 28 mmol/L (21-32) 04/22/17 06:00 Anion Gap 12 (8-16) 04/22/17 06:00 BUN 80 mg/dL (7-18) H 04/22/17 06:00 Creatinine 6.5 mg/dL (0.55-1.02) H 04/22/17 06:00 Creat Clearance w eGFR 6.48 (>60) 04/22/17 06:00 Random Glucose 186 mg/dL (74-106) H 04/22/17 06:00 Calcium 7.7 mg/dL (8.5-10.1) L 04/22/17 06:00 Total Bilirubin 0.3 mg/dL (0.2-1.0) D 04/22/17 06:00 AST 25 U/L (15-37) 04/22/17 06:00 ALT 21 U/L (12-78) 04/22/17 06:00 Alkaline Phosphatase 240 U/L (45-117) H 04/22/17 06:00 Total Protein 5.2 g/dl (6.4-8.2) L 04/22/17 06:00 Albumin 2.0 g/dl (3.4-5.0) L 04/22/17 06:00 Current Medications Generic Name Dose Route Start Last Admin Trade Name Freq PRN Reason Stop Dose Admin Albuterol Sulfate 1 amp 04/21/17 22:00 04/22/17 14:53 Ventolin 0.5% - NEB Not Given TIDR [facility] Amlodipine Besylate 5 mg 04/22/17 10:00 04/22/17 10:02 Norvasc - PO 5 mg DAILY [facility] Administration Heparin Sodium (Porcine) 5,000 unit 04/21/17 22:00 04/22/17 10:02 Heparin - SQ 5,000 unit BID [facility] Administration Insulin Aspart 1 vial 04/21/17 22:00 04/22/17 11:32 Novolog Vial Sliding Scale - SQ 6 units ACHS [facility] Administration Protocol Pantoprazole Sodium 40 mg 04/22/17 10:00 04/22/17 10:02 Protonix - PO 40 mg DAILY [facility] Administration Home Medications Medication Instructions Recorded Acetaminophen [Pain Reliever] 500 mg PO DAILY 04/12/17 Amlodipine Besylate 5 mg PO DAILY 04/12/17 Aspirin [ASA -] 81 mg PO DAILY 04/12/17 Glyburide 5 mg PO BID 04/12/17 Simvastatin 20 mg PO HS 04/12/17 Zinc Sulfate 220 mg PO DAILY 04/12/17 Urine Test Results Urine Color Straw 04/17/17 12:00 Urine Appearance Clear 04/17/17 12:00 Urine pH 7.0 (5.0-8.0) D 04/17/17 12:00 Ur Specific [place] 1.015 (1.005-1.025) 04/17/17 12:00 Urine Protein 3+ (NEGATIVE) H 04/17/17 12:00 Urine Glucose (UA) 2+ (NEGATIVE) H 04/17/17 12:00 Urine Ketones Negative (NEGATIVE) 04/17/17 12:00 Urine Blood 1+ (NEGATIVE) H 04/17/17 12:00 Urine Nitrite Negative (NEGATIVE) 04/17/17 12:00 Urine Bilirubin Negative (NEGATIVE) 04/17/17 12:00 Ur Leukocyte Esterase Trace (NEGATIVE) H D 04/17/17 12:00 Urine RBC 14 /hpf (0-3) 04/17/17 12:00 Urine WBC 5 /hpf (3-5) 04/17/17 12:00 Ur Epithelial Cells Rare /hpf (FEW) 04/17/17 12:00 Urine Bacteria Rare /hpf (NONE SEEN) 04/17/17 12:00 Urine Mucus Rare 04/17/17 12:00 Laboratory Tests 04/17/17 04/17/17 04/17/17 07:45 07:45 07:45 Iron 30 Transferrin 196 L Ferritin 65.274 LD Total 04/17/17 16:40 Iron Transferrin Ferritin LD Total 287 H D ASSESSMENT AND PLAN: 61 y/o lady with h/o CVA , NIDDM, HTN, HLP, who presented after her out pt labs showed renal failure # Acute renal failure with nephrotic syndrome with ESRD s/p HD with right IJ shiley : renal failure possible due to diabetic nephropathy/amiloidosis ; urine sediment with no RBC casts . Fe Urea 78.7 % , Patient might not be a good candidate for Renal bx. Will discuss with # Acute change of Mental status possible due to elevated BUN will monitor the patient. # Normoytic anemia likely due to renal disease rest of management per nephro, ( B12, folate elevated) # HTN: cont norvasc # DM : SSI. hold po agents # Nutrition : positive for peg continue TF hold puree food for now due to change of MS.
--- NOTE | 2017-04-22 15:47 | PN ---
Physical Exam: SUBJECTIVE: Patient seen and examined at bedside. Patient remains obtunded and non verbal. No overnight events as per nurse. S/P dual lumen dialysis cath placed today RIJ. OBJECTIVE: Vital Signs Period Temp Pulse Resp BP Sys/Daniel Pulse Ox Last 24 Hr 97.7 F-99.1 F 18-92 18-20 120-152/25-76 GENERAL:nonverbal and obtunded. HEAD: NC/AT. EYES: PERRL, sclera anicteric, conjunctiva clear. No ptosis. ENT: dry mucous membranes. NECK: supple. Dual lumen dialysis cath RIJ LUNGS:CTAB , diminished bilat bases no wheezes, no crackles, no accessory muscle use. HEART: RRR,s1s2 normal 3/6 ANGELINA ABDOMEN: Soft, NT, ND, BS(+) PEG EXTREMITIES: Bilat. nonpitting edema upper ext. Bilat edema 1+ of LLE edema. R leg s/p AKA NEUROLOGICAL: non verbal. obtunded and contracted. functional quadriplegia Laboratory Results - last 24 hr 04/17/17 04/21/17 04/21/17 16:40 18:36 23:13 WBC RBC Hgb Hct MCV MCHC RDW Plt Count MPV Sodium Potassium Chloride Carbon Dioxide Anion Gap BUN Creatinine Creat Clearance w eGFR POC Glucometer 163 268 Random Glucose Calcium Phosphorus Magnesium Total Bilirubin AST ALT Alkaline Phosphatase Total Protein Albumin c-ANCA <1:20 Proteinase 3 (PR3) 5.3 H p-ANCA <1:20 Atypical p-ANCA <1:20 Myeloperoxidase Ab <9.0 HIV 1&2 Ag/Ab, 4th Gen HIV 1&2 Antibody Screen HIV P24 Antigen 04/22/17 04/22/17 04/22/17 06:00 06:00 06:03 WBC 9.3 RBC 2.78 L Hgb 8.3 L Hct 24.7 L MCV 88.9 MCHC 33.7 RDW 13.6 Plt Count 284 MPV 9.0 Sodium 138 Potassium 3.6 Chloride 98 Carbon Dioxide 28 Anion Gap 12 BUN 80 H Creatinine 6.5 H Creat Clearance w eGFR 6.48 POC Glucometer 204 Random Glucose 186 H Calcium 7.7 L Phosphorus 5.0 H Magnesium 3.7 H Total Bilirubin 0.3 D AST 25 ALT 21 Alkaline Phosphatase 240 H Total Protein 5.2 L Albumin 2.0 L c-ANCA Proteinase 3 (PR3) p-ANCA Atypical p-ANCA Myeloperoxidase Ab HIV 1&2 Ag/Ab, 4th Gen HIV 1&2 Antibody Screen HIV P24 Antigen 04/22/17 04/22/17 04/22/17 08:45 10:00 11:22 WBC RBC Hgb Hct MCV MCHC RDW Plt Count MPV Sodium Potassium Chloride Carbon Dioxide Anion Gap BUN Creatinine Creat Clearance w eGFR POC Glucometer 253 Random Glucose Calcium Phosphorus Magnesium Total Bilirubin AST ALT Alkaline Phosphatase Total Protein Albumin c-ANCA Proteinase 3 (PR3) p-ANCA Atypical p-ANCA Myeloperoxidase Ab HIV 1&2 Ag/Ab, 4th Gen Cancelled HIV 1&2 Antibody Screen Negative HIV P24 Antigen Negative Active Medications Generic Name Dose Route Start Last Admin Trade Name Freq PRN Reason Stop Dose Admin Albuterol Sulfate 1 amp 04/21/17 22:00 04/22/17 14:53 Ventolin 0.5% - NEB Not Given TIDR [facility] Amlodipine Besylate 5 mg 04/22/17 10:00 04/22/17 10:02 Norvasc - PO 5 mg DAILY [facility] Administration Heparin Sodium (Porcine) 5,000 unit 04/21/17 22:00 04/22/17 10:02 Heparin - SQ 5,000 unit BID [facility] Administration Insulin Aspart 1 vial 04/21/17 22:00 04/22/17 11:32 Novolog Vial Sliding Scale - SQ 6 units ACHS [facility] Administration Protocol Pantoprazole Sodium 40 mg 04/22/17 10:00 04/22/17 10:02 Protonix - PO 40 mg DAILY [facility] Administration ASSESSMENT/PLAN: 61 yo F with pmhx of CVA,functional quadriplegia, NIDDM , HTN, and HLD admitted for acute renal failure. Problem List - Problems (1) Renal failure Assessment/Plan: * Shiley was not patent yesterday only recieved one hour of HD--> RIJ dual lumen cath placed today will attempt to dialyze again. 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 Guzman consult appreciated.- he discussed with family about biopsy and family is aggreeable (2) Non-insulin dependent type 2 diabetes mellitus Assessment/Plan: * Continue Suplena tube feed via peg. * Re-evaluate speech and swallow. * NISS * BGM ACHS (3) HTN (hypertension) Assessment/Plan: * Continue amlodipine (4) Normochromic anemia Assessment/Plan: * component of renal disease. * B12 and folate elevated. * OB+ * regular transfusion threshold. (5) Functional quadriplegia Assessment/Plan: * assist in ADL's Visit type - Emergency Visit Emergency Visit: Yes ED Registration Date: 04/17/17 Care time: The patient presented to the Emergency Department on the above date and was hospitalized for further evaluation of their emergent condition. - New Patient This patient is new to me today: No - Critical Care Critical Care patient: No - Discharge Referral Referred to [facility] Med P.C.: No
[2017-04-22] MEDS ORDERED: PT OWN MED DRAWER 7, Y5N ONE (17:31)
[2017-04-23] MEDS: INSULIN SLIDING SCALE (NOVOLOG) 1 VIAL SQ SCH ×4 (06:05→21:52)
[2017-04-23] MEDS: ALBUTEROL SO4 0.5 % INH SOLN 2.5 MG/0.5 ML VIAL.NEB. NEB SCH ×3 (06:26→21:57)
[2017-04-23 07:51] LABS: CALCIUM 7.5 mg/dL (8.5-10.1); COCKROFT - GAULT 13.243; CREATININE 4.1 mg/dL (0.55-1.02); MAGNESIUM 2.9 mg/dL (1.8-2.4); PHOSPHOROUS 2.9 mg/dL (2.5-4.9)
[2017-04-23 08:11] LABS: BASOPHIL 0.9 % (0-2.0); EOSINOPHIL 6.3 % (0-4.5); MCH 29.9 pg (25.7-33.7); MCHC 33.3 g/dl (32.0-36.0); MEAN CELL VOLUME 89.7 fl (80-96); MEAN PLT VOLUME 8.7 fl (7.5-11.1); NEUTROPHILS 63.6 % (42.8-82.8); PLATELET COUNT 256 K/MM3 (134-434); RDW 13.7 % (11.6-15.6); WHITE BLOOD COUNT 8.2 K/mm3 (4.0-10.0)
[2017-04-23] MEDS: HEPARIN NA (PORCINE) 5,000 UNITS/ML 1ML VIAL SQ SCH ×2 (09:00→21:48)
[2017-04-23] MEDS: amLODIPine BESYLATE 5 MG TABLET (FP) PO SCH (09:00)
[2017-04-23] MEDS: PANTOPRAZOLE 40 MG TABLET (FP) PO SCH (09:01)
[2017-04-23] MEDS ORDERED: INSULIN (NOVOLOG) ASPART 100 UNITS/ML 10ML VIAL ONE ×2 (11:53→21:38)
--- NOTE | 2017-04-23 12:56 | PN ---
Progress Note (short form) - Note Progress Note: Renal Follow up for DEYSI Pt seen and examined at the bedside son at the bedside s/p dialysis yesterday w/o adverse events no overnight events opens eyes partially to verbal stimuli Vital Signs Temperature 98.9 F 04/23/17 10:00 Pulse Rate 79 04/23/17 10:00 Respiratory Rate 20 04/23/17 10:00 Blood Pressure 139/58 04/23/17 10:00 O2 Sat by Pulse Oximetry (%) 97 04/23/17 09:00 Intake & Output 04/20/17 04/21/17 04/22/17 04/23/17 23:59 23:59 23:59 23:59 Intake Total 850 1470 1840 840 Output Total 650 950 800 Balance 518 743 9691 840 Weight 130 lb 126 lb 2 oz Gen: NAD, awake, non-verbal CVS: RRR, No M/R Lungs: Dec BS at lung bases Abd: soft NT/ND Ext: 1+ edema in LLE, R AKA. Upper Ext swollen : No bladder distension CBC, BMP 04/23/17 05:35 04/23/17 05:35 Current Medications Albuterol Sulfate (Ventolin 0.5% -) 1 amp NEB TIDR [facility] Last Admin: 04/23/17 06:26 Dose: 1 amp Amlodipine Besylate (Norvasc -) 5 mg PO DAILY [facility] Last Admin: 04/23/17 09:00 Dose: 5 mg Heparin Sodium (Porcine) (Heparin -) 5,000 unit SQ BID [facility] Last Admin: 04/23/17 09:00 Dose: 5,000 unit Insulin Aspart (Novolog Vial Sliding Scale -) 1 vial SQ ACHS [facility] PRN Reason: Protocol Last Admin: 04/23/17 11:55 Dose: 6 units Pantoprazole Sodium (Protonix -) 40 mg PO DAILY [facility] Last Admin: 04/23/17 09:01 Dose: 40 mg A/P 61 year old woman with PMhx of NIDDM, Hypertension, PVD s/p R AKA, CVA now non- verbal and paralyzed who presented with abnormal outpatient labs that showed renal failure and increasing total body volume overload #Acute Renal Failure with Nephrotic Range Proteinuria Serologic work up showed + 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
--- NOTE | 2017-04-23 14:34 | PN ---
Physical Exam: SUBJECTIVE: Patient seen and examined at bedside. No overnight events. Opens eyes to verbal stimuli today. OBJECTIVE: Vital Signs Period Temp Pulse Resp BP Sys/Daniel Pulse Ox Last 24 Hr 98.5 F-99.1 F 70-87 16-20 120-155/58-82 96-97 GENERAL:nonverbal and obtunded. HEAD: NC/AT. EYES: PERRL, sclera anicteric, conjunctiva clear. No ptosis. ENT: dry mucous membranes. NECK: supple. Dual lumen dialysis cath RIJ LUNGS:CTAB , diminished bilat bases no wheezes, no crackles, no accessory muscle use. HEART: RRR,s1s2 normal 3/6 ANGELINA ABDOMEN: Soft, NT, ND, BS(+) PEG EXTREMITIES: Bilat. nonpitting edema upper ext. Bilat edema 1+ of LLE edema. R leg s/p AKA NEUROLOGICAL: non verbal. obtunded and contracted. functional quadriplegia Laboratory Results - last 24 hr 04/22/17 04/22/17 04/23/17 17:21 21:55 05:31 WBC RBC Hgb Hct MCV MCHC RDW Plt Count MPV Neutrophils % Lymphocytes % Monocytes % Eosinophils % Basophils % Sodium Potassium Chloride Carbon Dioxide Anion Gap BUN Creatinine POC Glucometer 197 307 337 Random Glucose Calcium Phosphorus Magnesium 04/23/17 04/23/17 04/23/17 05:35 05:35 11:16 WBC 8.2 RBC 2.64 L Hgb 7.9 L Hct 23.7 L MCV 89.7 MCHC 33.3 RDW 13.7 Plt Count 256 MPV 8.7 Neutrophils % 63.6 Lymphocytes % 24.0 D Monocytes % 5.2 Eosinophils % 6.3 H Basophils % 0.9 Sodium 140 Potassium 3.3 L Chloride 101 Carbon Dioxide 32 Anion Gap 7 L BUN 41 H D Creatinine 4.1 H D POC Glucometer 253 Random Glucose 239 H D Calcium 7.5 L Phosphorus 2.9 D Magnesium 2.9 H D Active Medications Generic Name Dose Route Start Last Admin Trade Name Freq PRN Reason Stop Dose Admin Albuterol Sulfate 1 amp 04/21/17 22:00 04/23/17 06:26 Ventolin 0.5% - NEB 1 amp TIDR [facility] Administration Amlodipine Besylate 5 mg 04/22/17 10:00 04/23/17 09:00 Norvasc - PO 5 mg DAILY [facility] Administration Heparin Sodium (Porcine) 5,000 unit 04/21/17 22:00 04/23/17 09:00 Heparin - SQ 5,000 unit BID [facility] Administration Insulin Aspart 1 vial 04/21/17 22:00 04/23/17 11:55 Novolog Vial Sliding Scale - SQ 6 units ACHS [facility] Administration Protocol Pantoprazole Sodium 40 mg 04/22/17 10:00 04/23/17 09:01 Protonix - PO 40 mg DAILY [facility] Administration ASSESSMENT/PLAN: 61 yo F with pmhx of CVA, NIDDM, HTN, HLD, admitted for acute renal failure. 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 Guzman consult appreciated.- discussion with family for renal biopsy. * Will speak with IR Dr. Nolan tomorrow. (2) Non-insulin dependent type 2 diabetes mellitus Assessment/Plan: * Continue Suplena tube feed via peg. * Re-evaluate speech and swallow. * NISS * BGM ACHS (3) HTN (hypertension) Assessment/Plan: * Continue amlodipine (4) Normochromic anemia Assessment/Plan: * component of renal disease. * B12 and folate elevated. * OB+ * regular transfusion threshold. (5) Functional quadriplegia Assessment/Plan: * assist in ADL's Visit type - Emergency Visit Emergency Visit: Yes ED Registration Date: 04/17/17 Care time: The patient presented to the Emergency Department on the above date and was hospitalized for further evaluation of their emergent condition. - New Patient This patient is new to me today: No - Critical Care Critical Care patient: No
--- NOTE | 2017-04-23 18:39 | PN ---
Teaching Attending Note Name of Resident: Kodi Pritchett ATTENDING PHYSICIAN STATEMENT I saw and evaluated the patient. I reviewed the resident's note and discussed the case with the resident. I agree with the resident's findings and plan as documented. SUBJECTIVE: Patient is lying in bed, nonverbal. barely opens eyes. OBJECTIVE: Vital Signs Temperature 99.1 F 04/23/17 15:25 Pulse Rate 87 04/23/17 15:25 Respiratory Rate 21 04/23/17 15:25 Blood Pressure 148/66 04/23/17 15:25 O2 Sat by Pulse Oximetry (%) 97 04/23/17 09:00 CBCD WBC 8.2 K/mm3 (4.0-10.0) 04/23/17 05:35 RBC 2.64 M/mm3 (3.60-5.2) L 04/23/17 05:35 Hgb 7.9 GM/dL (10.7-15.3) L 04/23/17 05:35 Hct 23.7 % (32.4-45.2) L 04/23/17 05:35 MCV 89.7 fl (80-96) 04/23/17 05:35 MCHC 33.3 g/dl (32.0-36.0) 04/23/17 05:35 RDW 13.7 % (11.6-15.6) 04/23/17 05:35 Plt Count 256 K/MM3 (134-434) 04/23/17 05:35 MPV 8.7 fl (7.5-11.1) 04/23/17 05:35 CMP Sodium 140 mmol/L (136-145) 04/23/17 05:35 Potassium 3.3 mmol/L (3.5-5.1) L 04/23/17 05:35 Chloride 101 mmol/L (98-107) 04/23/17 05:35 Carbon Dioxide 32 mmol/L (21-32) 04/23/17 05:35 Anion Gap 7 (8-16) L 04/23/17 05:35 BUN 41 mg/dL (7-18) H D 04/23/17 05:35 Creatinine 4.1 mg/dL (0.55-1.02) H D 04/23/17 05:35 Creat Clearance w eGFR 6.48 (>60) 04/22/17 06:00 Random Glucose 239 mg/dL (74-106) H D 04/23/17 05:35 Calcium 7.5 mg/dL (8.5-10.1) L 04/23/17 05:35 Total Bilirubin 0.3 mg/dL (0.2-1.0) D 04/22/17 06:00 AST 25 U/L (15-37) 04/22/17 06:00 ALT 21 U/L (12-78) 04/22/17 06:00 Alkaline Phosphatase 240 U/L (45-117) H 04/22/17 06:00 Total Protein 5.2 g/dl (6.4-8.2) L 04/22/17 06:00 Albumin 2.0 g/dl (3.4-5.0) L 04/22/17 06:00 Current Medications Generic Name Dose Route Start Last Admin Trade Name Freq PRN Reason Stop Dose Admin Albuterol Sulfate 1 amp 04/21/17 22:00 04/23/17 14:55 Ventolin 0.5% - NEB 1 amp TIDR [facility] Administration Amlodipine Besylate 5 mg 04/22/17 10:00 04/23/17 09:00 Norvasc - PO 5 mg DAILY [facility] Administration Heparin Sodium (Porcine) 5,000 unit 04/21/17 22:00 04/23/17 09:00 Heparin - SQ 5,000 unit BID [facility] Administration Insulin Aspart 1 vial 04/21/17 22:00 04/23/17 16:09 Novolog Vial Sliding Scale - SQ Not Given ACHS [facility] Protocol Pantoprazole Sodium 40 mg 04/22/17 10:00 04/23/17 09:01 Protonix - PO 40 mg DAILY [facility] Administration Home Medications Medication Instructions Recorded Acetaminophen [Pain Reliever] 500 mg PO DAILY 04/12/17 Amlodipine Besylate 5 mg PO DAILY 04/12/17 Aspirin [ASA -] 81 mg PO DAILY 04/12/17 Glyburide 5 mg PO BID 04/12/17 Simvastatin 20 mg PO HS 04/12/17 Zinc Sulfate 220 mg PO DAILY 04/12/17 Laboratory Tests 04/17/17 04/17/17 04/17/17 04:00 07:45 07:45 Potassium Iron 30 Transferrin 196 L Ferritin LD Total U Random Total Protein 830 H c-ANCA Proteinase 3 (PR3) p-ANCA Atypical p-ANCA Myeloperoxidase Ab Tot Complement (CH50) RPR Titer Hepatitis A IgM Ab Hep Bs Antigen Hep B Core IgM Ab Hepatitis C Ab (EIA) HIV 1&2 Antibody Screen HIV P24 Antigen 04/17/17 04/17/17 04/17/17 07:45 16:40 16:40 Potassium Iron Transferrin Ferritin 65.274 LD Total 287 H D U Random Total Protein c-ANCA <1:20 Proteinase 3 (PR3) 5.3 H p-ANCA <1:20 Atypical p-ANCA <1:20 Myeloperoxidase Ab <9.0 Tot Complement (CH50) 60 RPR Titer Hepatitis A IgM Ab Negative Hep Bs Antigen Negative Hep B Core IgM Ab Negative Hepatitis C Ab (EIA) 0.2 HIV 1&2 Antibody Screen HIV P24 Antigen 04/17/17 04/21/17 04/22/17 16:40 10:55 10:00 Potassium Iron Transferrin Ferritin LD Total U Random Total Protein 415 H c-ANCA Proteinase 3 (PR3) p-ANCA Atypical p-ANCA Myeloperoxidase Ab Tot Complement (CH50) RPR Titer Nonreactive Hepatitis A IgM Ab Hep Bs Antigen Hep B Core IgM Ab Hepatitis C Ab (EIA) HIV 1&2 Antibody Screen Negative HIV P24 Antigen Negative 04/23/17 05:35 Potassium 3.3 L Iron Transferrin Ferritin LD Total U Random Total Protein c-ANCA Proteinase 3 (PR3) p-ANCA Atypical p-ANCA Myeloperoxidase Ab Tot Complement (CH50) RPR Titer Hepatitis A IgM Ab Hep Bs Antigen Hep B Core IgM Ab Hepatitis C Ab (EIA) HIV 1&2 Antibody Screen HIV P24 Antigen ASSESSMENT AND PLAN: 61 y/o lady with h/o CVA , NIDDM, HTN, HLP, who presented after her out pt labs showed renal failure # Acute renal failure with nephrotic syndrome with ESRD (newly diagnosed) s/p HD(MWF) with right IJ shiab : renal failure most likely due to Wegners/ Granulomatosis with polyangitis since serology was positive for + PR3 Ab, 3rd dialysis is in am. Will disuss with family the risks and benifits of a renal biopsy, discussed with the son will discuss with the daughter. Dose all meds for Cr Cl less then 10 # Acute change of Mental status possible due to elevated BUN will monitor the patient. # Normoytic anemia likely due to renal disease rest of management per nephro, ( B12, folate elevated) # HTN: cont norvasc # DM : SSI. hold po agents # Nutrition : positive for peg continue TF hold puree food for now due to change of MS.
[2017-04-24 00:06] LABS: ALBUMIN 2.4 g/dL (2.9-4.4); TOTAL PROTEIN 5.2 g/dL (6.0-8.5)
[2017-04-24 00:07] LABS: A/G RATIO 0.9 (0.7-1.7); GLOBULIN, TOTAL 2.8 g/dL (2.2-3.9); M-SPIKE Not Observed g/dL (Not Observed)
[2017-04-24] MEDS ORDERED: ALBUTEROL SO4 2.5/IPRATROPIUM 0.5 INH SOL 3 ML VIAL.NEB. NEB ONE (01:46)
[2017-04-24 02:09] LABS: ARTERIAL BLD GAS O2 SATURATION 92.6 % (90-98.9); ARTERIAL BLOOD GAS BASE EXCESS 5.4 meq/l (-2-2); ARTERIAL BLOOD GAS HCO3 30.4 meq/L (22-26)
[2017-04-24 02:10] LABS: ALLENS TEST POSITIVE; ART PUNCT SITE RIGHT RADIAL; LPM/O2% 3LPM; PT. ON O2? YES
[2017-04-24 02:11] LABS: ARTERIAL BLOOD GAS PO2 58.5 mmHg (80-100); TYPE OF O2 N/C
[2017-04-24] MEDS: INSULIN SLIDING SCALE (NOVOLOG) 1 VIAL SQ SCH ×3 (06:17→16:57)
[2017-04-24] MEDS: ALBUTEROL SO4 0.5 % INH SOLN 2.5 MG/0.5 ML VIAL.NEB. NEB SCH ×3 (06:42→22:29)
[2017-04-24] MEDS: amLODIPine BESYLATE 5 MG TABLET (FP) PO SCH (09:24)
[2017-04-24] MEDS: HEPARIN NA (PORCINE) 5,000 UNITS/ML 1ML VIAL SQ SCH (09:25)
[2017-04-24] MEDS: PANTOPRAZOLE 40 MG TABLET (FP) PO SCH (09:25)
[2017-04-24 11:54] LABS: MCH 29.8 pg (25.7-33.7); MCHC 33.1 g/dl (32.0-36.0); MEAN CELL VOLUME 90.2 fl (80-96); MEAN PLT VOLUME 8.6 fl (7.5-11.1); PLATELET COUNT 252 K/MM3 (134-434); RDW 13.6 % (11.6-15.6); WHITE BLOOD COUNT 9.9 K/mm3 (4.0-10.0)
[2017-04-24 12:22] LABS: ALBUMIN 1.8 g/dl (3.4-5.0); CALCIUM 7.5 mg/dL (8.5-10.1)
[2017-04-24 12:26] LABS: BILIRUBIN,TOTAL 0.5 mg/dL (0.2-1.0); COCKROFT - GAULT 10.9225; CREATININE 4.8 mg/dL (0.55-1.02); PHOSPHOROUS 3.9 mg/dL (2.5-4.9)
--- NOTE | 2017-04-24 13:55 | PN ---
Progress Note, Physician Chief Complaint: The patient seen on dialysis. The External Jugular HD catheter not functioning we.. ? Positional. May need to be replaced if she needs continued dialysis. Clinical status essentially unchanged. - Current Medication List Current Medications: Active Medications Albuterol Sulfate (Ventolin 0.5% -) 1 amp NEB TIDR [facility] Last Admin: 04/24/17 06:42 Dose: 1 amp Amlodipine Besylate (Norvasc -) 5 mg PO DAILY [facility] Last Admin: 04/24/17 09:24 Dose: 5 mg Heparin Sodium (Porcine) (Heparin -) 5,000 unit SQ BID [facility] Last Admin: 04/24/17 09:25 Dose: 5,000 unit Insulin Aspart (Novolog Vial Sliding Scale -) 1 vial SQ ACHS [facility] PRN Reason: Protocol Last Admin: 04/24/17 11:57 Dose: 6 units Pantoprazole Sodium (Protonix -) 40 mg PO DAILY [facility] Last Admin: 04/24/17 09:25 Dose: 40 mg - Objective Vital Signs: Vital Signs Temperature 98.9 F 04/24/17 10:00 Pulse Rate 88 04/24/17 10:00 Respiratory Rate 20 04/24/17 10:00 Blood Pressure 160/76 04/24/17 10:00 O2 Sat by Pulse Oximetry (%) 97 04/24/17 09:00 Neck: Yes: Supple Cardiovascular: Yes: S1, S2 Respiratory: Yes: CTA Bilaterally Gastrointestinal: Yes: Normal Bowel Sounds, Soft Genitourinary: Yes: Lemon Present. No: CVA Tenderness - Left, CVA Tenderness - Right Neurological: Yes: Lethargy Labs: CBC, BMP 04/24/17 11:15 04/24/17 11:15 INR, PTT INR 0.89 (0.82-1.09) 04/21/17 12:05 Problem List - Problems (1) Acute hyperkalemia Code(s): E87.5 - HYPERKALEMIA (2) Renal failure Code(s): N19 - UNSPECIFIED KIDNEY FAILURE Qualifiers: Renal failure chronicity: acute Acute renal failure type: unspecified Qualified Code(s): N17.9 - Acute kidney failure, unspecified (3) H/O: CVA (cerebrovascular accident) Code(s): Z86.73 - PRSNL HX OF TIA (TIA), AND CEREB INFRC W/O RESID DEFICITS (4) Insulin dependent diabetes mellitus Code(s): E11.9 - TYPE 2 DIABETES MELLITUS WITHOUT COMPLICATIONS Z79.4 - HEAD DOFFER (CURRENT) USE OF INSULIN (5) Acute kidney failure Code(s): N17.9 - ACUTE KIDNEY FAILURE, UNSPECIFIED (6) Chronic kidney disease (CKD) stage G3a/A1, moderately decreased glomerular filtration rate (GFR) between 45-59 mL/min/1.73 square meter and albuminuria creatinine ratio less than 30 mg/g Code(s): N18.3 - CHRONIC KIDNEY DISEASE, STAGE 3 (MODERATE) Assessment/Plan 61 y/o female with Acute Kidney InjuryPR-3 positive. Now the patient is dialysis dependent. P-ANCA and C-ANCA negative Patient may require Renal Bx once stable. BASHIR CHAVEZ MD
--- NOTE | 2017-04-24 15:15 | PN ---
Physical Exam: SUBJECTIVE: Patient seen and examined at bedside. No overnight events. Patient is non-verbal but responds to verbal stimuli. OBJECTIVE: Vital Signs Period Temp Pulse Resp BP Sys/Daniel Pulse Ox Last 24 Hr 97.5 F-99.1 F 77-88 16-22 132-160/47-76 97-97 GENERAL:nonverbal and obtunded. HEAD: NC/AT. EYES: PERRL, sclera anicteric, conjunctiva clear. No ptosis. ENT: dry mucous membranes. NECK: supple. Dual lumen dialysis cath RIJ LUNGS:CTAB , diminished bilat bases no wheezes, no crackles, no accessory muscle use. HEART: RRR,s1s2 normal 3/6 ANGELINA ABDOMEN: Soft, NT, ND, BS(+) PEG EXTREMITIES: Bilat. nonpitting edema upper ext. Bilat edema 1+ of LLE edema. R leg s/p AKA NEUROLOGICAL: non verbal. obtunded and contracted. functional quadriplegia Laboratory Results - last 24 hr 04/22/17 04/23/17 04/23/17 06:18 16:08 21:50 WBC RBC Hgb Hct MCV MCHC RDW Plt Count MPV Puncture Site ABG pH ABG pCO2 at Pt Temp ABG pO2 at Pt Temp ABG HCO3 ABG O2 Sat (Measured) ABG O2 Content ABG Base Excess Tereso Test O2 Delivery Device Oxygen Flow Rate Sodium Potassium Chloride Carbon Dioxide Anion Gap BUN Creatinine Creat Clearance w eGFR POC Glucometer 144 350 Random Glucose Calcium Phosphorus Total Bilirubin AST ALT Alkaline Phosphatase Prot Electrophoresis Serum Total Protein 5.2 L Total Protein Albumin 2.4 L Globulin 2.8 Albumin/Globulin Ratio 0.9 Uqcpe-2-Hpmqbdjoe 0.2 Ioean-9-Ixrudufkl 1.0 Beta Globulins 0.8 Gamma Globulins 0.9 ROLANDA M-Ernesto Not observed Blood Type Antibody Screen 04/24/17 04/24/17 04/24/17 01:21 01:57 06:14 WBC RBC Hgb Hct MCV MCHC RDW Plt Count MPV Puncture Site Right radial ABG pH 7.40 ABG pCO2 at Pt Temp 50.8 H ABG pO2 at Pt Temp 58.5 L ABG HCO3 30.4 H ABG O2 Sat (Measured) 92.6 ABG O2 Content 10.9 L ABG Base Excess 5.4 H Tereso Test Positive O2 Delivery Device N/c Oxygen Flow Rate 3lpm Sodium Potassium Chloride Carbon Dioxide Anion Gap BUN Creatinine Creat Clearance w eGFR POC Glucometer 218 283 Random Glucose Calcium Phosphorus Total Bilirubin AST ALT Alkaline Phosphatase Prot Electrophoresis Serum Total Protein Total Protein Albumin Globulin Albumin/Globulin Ratio Gbssj-6-Cvpmlgban Tlhoh-3-Zjubqjdit Beta Globulins Gamma Globulins ROLANDA M-Ernesto Blood Type Antibody Screen 04/24/17 04/24/17 04/24/17 11:15 11:15 11:15 WBC 9.9 RBC 2.57 L Hgb 7.7 L Hct 23.2 L MCV 90.2 MCHC 33.1 RDW 13.6 Plt Count 252 MPV 8.6 Puncture Site ABG pH ABG pCO2 at Pt Temp ABG pO2 at Pt Temp ABG HCO3 ABG O2 Sat (Measured) ABG O2 Content ABG Base Excess Tereso Test O2 Delivery Device Oxygen Flow Rate Sodium 141 Potassium 3.8 Chloride 99 Carbon Dioxide 30 Anion Gap 12 BUN 46 H Creatinine 4.8 H Creat Clearance w eGFR 9.19 POC Glucometer Random Glucose 248 H Calcium 7.5 L Phosphorus 3.9 D Total Bilirubin 0.5 D AST 24 ALT 18 Alkaline Phosphatase 179 H D Prot Electrophoresis Serum Total Protein Total Protein 5.0 L Albumin 1.8 L Globulin Albumin/Globulin Ratio Oyxnd-8-Ygjsqhrqb Yhbho-0-Snbuoptip Beta Globulins Gamma Globulins ROLANDA M-Ernesto Blood Type O POSITIVE Antibody Screen Negative 04/24/17 11:35 WBC RBC Hgb Hct MCV MCHC RDW Plt Count MPV Puncture Site ABG pH ABG pCO2 at Pt Temp ABG pO2 at Pt Temp ABG HCO3 ABG O2 Sat (Measured) ABG O2 Content ABG Base Excess Tereso Test O2 Delivery Device Oxygen Flow Rate Sodium Potassium Chloride Carbon Dioxide Anion Gap BUN Creatinine Creat Clearance w eGFR POC Glucometer 266 Random Glucose Calcium Phosphorus Total Bilirubin AST ALT Alkaline Phosphatase Prot Electrophoresis Serum Total Protein Total Protein Albumin Globulin Albumin/Globulin Ratio Hyfqf-7-Fjsbvnnvm Ejwwv-7-Elrqsjwso Beta Globulins Gamma Globulins ROLANDA M-Ernesto Blood Type Antibody Screen Active Medications Generic Name Dose Route Start Last Admin Trade Name Freq PRN Reason Stop Dose Admin Albuterol Sulfate 1 amp 04/21/17 22:00 04/24/17 06:42 Ventolin 0.5% - NEB 1 amp TIDR [facility] Administration Amlodipine Besylate 5 mg 04/22/17 10:00 04/24/17 09:24 Norvasc - PO 5 mg DAILY [facility] Administration Heparin Sodium (Porcine) 5,000 unit 04/21/17 22:00 04/24/17 09:25 Heparin - SQ 5,000 unit BID [facility] Administration Insulin Aspart 1 vial 04/21/17 22:00 04/24/17 11:57 Novolog Vial Sliding Scale - SQ 6 units ACHS [facility] Administration Protocol Methylprednisolone Sodium Succinate 1,000 mg 04/24/17 14:52 Solu-Medrol - IVPB 04/24/17 14:53 ONCE ONE Pantoprazole Sodium 40 mg 04/22/17 10:00 04/24/17 09:25 Protonix - PO 40 mg DAILY [facility] Administration ASSESSMENT/PLAN: 61 yo F with pmhx of CVA, NIDDM, HTN, HLD, admitted for acute renal failure. 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 Guzman consult appreciated.- discussion with family for renal biopsy. * Will speak with IR Dr. Nolan tomorrow. (2) Non-insulin dependent type 2 diabetes mellitus Assessment/Plan: * Continue Suplena tube feed via peg. * Re-evaluate speech and swallow. * NISS * BGM ACHS (3) HTN (hypertension) Assessment/Plan: * Continue amlodipine (4) Normochromic anemia Assessment/Plan: * component of renal disease. * B12 and folate elevated. * OB+ * regular transfusion threshold. (5) Functional quadriplegia Assessment/Plan: * assist in ADL's Visit type - Emergency Visit Emergency Visit: Yes ED Registration Date: 04/17/17 Care time: The patient presented to the Emergency Department on the above date and was hospitalized for further evaluation of their emergent condition. - New Patient This patient is new to me today: No - Critical Care Critical Care patient: No
[2017-04-24] MEDS ORDERED: methylPREDNISolone NA SUCC 1000 MG/8 ML VIAL IVPB ONE ×2 (16:00→16:45)
--- NOTE | 2017-04-24 18:27 | PN ---
Teaching Attending Note Name of Resident: Kodi Pritchett ATTENDING PHYSICIAN STATEMENT I saw and evaluated the patient. I reviewed the resident's note and discussed the case with the resident. I agree with the resident's findings and plan as documented. SUBJECTIVE: Patient is having dialysis today. No acute distress. OBJECTIVE: Vital Signs Temperature 98.9 F 04/24/17 10:00 Pulse Rate 80 04/24/17 14:57 Respiratory Rate 18 04/24/17 14:57 Blood Pressure 138/71 04/24/17 14:57 O2 Sat by Pulse Oximetry (%) 97 04/24/17 09:00 CBCD WBC 9.9 K/mm3 (4.0-10.0) 04/24/17 11:15 RBC 2.57 M/mm3 (3.60-5.2) L 04/24/17 11:15 Hgb 7.7 GM/dL (10.7-15.3) L 04/24/17 11:15 Hct 23.2 % (32.4-45.2) L 04/24/17 11:15 MCV 90.2 fl (80-96) 04/24/17 11:15 MCHC 33.1 g/dl (32.0-36.0) 04/24/17 11:15 RDW 13.6 % (11.6-15.6) 04/24/17 11:15 Plt Count 252 K/MM3 (134-434) 04/24/17 11:15 MPV 8.6 fl (7.5-11.1) 04/24/17 11:15 CMP Sodium 141 mmol/L (136-145) 04/24/17 11:15 Potassium 3.8 mmol/L (3.5-5.1) 04/24/17 11:15 Chloride 99 mmol/L (98-107) 04/24/17 11:15 Carbon Dioxide 30 mmol/L (21-32) 04/24/17 11:15 Anion Gap 12 (8-16) 04/24/17 11:15 BUN 46 mg/dL (7-18) H 04/24/17 11:15 Creatinine 4.8 mg/dL (0.55-1.02) H 04/24/17 11:15 Creat Clearance w eGFR 9.19 (>60) 04/24/17 11:15 Random Glucose 248 mg/dL (74-106) H 04/24/17 11:15 Calcium 7.5 mg/dL (8.5-10.1) L 04/24/17 11:15 Total Bilirubin 0.5 mg/dL (0.2-1.0) D 04/24/17 11:15 AST 24 U/L (15-37) 04/24/17 11:15 ALT 18 U/L (12-78) 04/24/17 11:15 Alkaline Phosphatase 179 U/L (45-117) H D 04/24/17 11:15 Total Protein 5.0 g/dl (6.4-8.2) L 04/24/17 11:15 Albumin 1.8 g/dl (3.4-5.0) L 04/24/17 11:15 Current Medications Generic Name Dose Route Start Last Admin Trade Name Freq PRN Reason Stop Dose Admin Albuterol Sulfate 1 amp 04/21/17 22:00 04/24/17 14:10 Ventolin 0.5% - NEB Not Given TIDR [facility] Amlodipine Besylate 5 mg 04/22/17 10:00 04/24/17 09:24 Norvasc - PO 5 mg DAILY [facility] Administration Heparin Sodium (Porcine) 5,000 unit 04/21/17 22:00 04/24/17 09:25 Heparin - SQ 5,000 unit BID [facility] Administration Insulin Aspart 1 vial 04/21/17 22:00 04/24/17 16:57 Novolog Vial Sliding Scale - SQ Not Given ACHS [facility] Protocol Pantoprazole Sodium 40 mg 04/22/17 10:00 04/24/17 09:25 Protonix - PO 40 mg DAILY [facility] Administration Home Medications Medication Instructions Recorded Acetaminophen [Pain Reliever] 500 mg PO DAILY 04/12/17 Amlodipine Besylate 5 mg PO DAILY 04/12/17 Aspirin [ASA -] 81 mg PO DAILY 04/12/17 Glyburide 5 mg PO BID 04/12/17 Simvastatin 20 mg PO HS 04/12/17 Zinc Sulfate 220 mg PO DAILY 04/12/17 ASSESSMENT AND PLAN: 61 y/o lady with h/o CVA , NIDDM, HTN, HLP, who presented after her out pt labs showed renal failure # Acute renal failure with nephrotic syndrome with ESRD having dialysis today ( MWF) due to Wegners/Granulomatosis with polyangitis with positive for + PR3 Ab, , definite Dx needs renal biopsy. Dose all meds for Cr Cl less then 10. # Acute change of Mental status possible due to elevated BUN will monitor the patient. # Normoytic anemia likely due to renal disease rest of management per nephro, ( B12, folate elevated) # HTN: cont norvasc # DM : SSI. hold po agents # Nutrition : positive for peg continue TF hold puree food for now due to change of MS.
[2017-04-25] MEDS: HEPARIN NA (PORCINE) 5,000 UNITS/ML 1ML VIAL SQ SCH ×3 (01:06→22:57)
[2017-04-25] MEDS: INSULIN SLIDING SCALE (NOVOLOG) 1 VIAL SQ SCH ×5 (01:15→23:48)
[2017-04-25] MEDS ORDERED: Insulin (LOG) Aspart 100 UNITS/ML VIAL SQ ONE (04:15)
[2017-04-25] MEDS: ALBUTEROL SO4 0.5 % INH SOLN 2.5 MG/0.5 ML VIAL.NEB. NEB SCH ×3 (06:20→22:43)
[2017-04-25 09:55] LABS: CALCIUM 7.6 mg/dL (8.5-10.1); COCKROFT - GAULT 15.827; CREATININE 3.3 mg/dL (0.55-1.02)
[2017-04-25] MEDS: amLODIPine BESYLATE 5 MG TABLET (FP) PO SCH (11:02)
[2017-04-25] MEDS: PANTOPRAZOLE 40 MG TABLET (FP) PO SCH (11:02)
--- NOTE | 2017-04-25 12:32 | PN ---
Progress Note (short form) - Note Progress Note: Renal Follow up for DEYSI Pt seen and examined at the bedside daughter at the bedside s/p dialysis yesterday, tolerated it well s/p IV solumederol yesterday daughter reports that her mother was more awake and alert yesterday, was awake all night, now sleeping Vital Signs Temperature 99.5 F 04/25/17 05:48 Pulse Rate 92 H 04/25/17 05:48 Respiratory Rate 20 04/25/17 05:48 Blood Pressure 152/48 04/25/17 05:48 O2 Sat by Pulse Oximetry (%) 95 04/24/17 21:00 Intake & Output 04/22/17 04/23/17 04/24/17 04/25/17 23:59 23:59 23:59 23:59 Intake Total 1840 1680 820 Output Total 800 200 300 Balance 1040 1480 520 Weight 130 lb 126 lb 2 oz 125 lb 9.6 oz 125 lb 0.9 oz Gen: NAD, sleeping CVS: RRR, No M/R Lungs: Dec BS at lung bases Abd: soft NT/ND Ext: 1+ edema in LLE, R AKA. Upper Ext swollen : No bladder distension CBC, BMP 04/24/17 11:15 04/25/17 08:55 Current Medications Albuterol Sulfate (Ventolin 0.5% -) 1 amp NEB TIDR [facility] Last Admin: 04/25/17 06:20 Dose: 1 amp Amlodipine Besylate (Norvasc -) 5 mg PO DAILY [facility] Last Admin: 04/25/17 11:02 Dose: 5 mg Heparin Sodium (Porcine) (Heparin -) 5,000 unit SQ BID [facility] Last Admin: 04/25/17 11:02 Dose: 5,000 unit Insulin Aspart (Novolog Vial Sliding Scale -) 1 vial SQ ACHS [facility] PRN Reason: Protocol Last Admin: 04/25/17 11:57 Dose: 8 units Methylprednisolone Sodium Succinate (Solu-Medrol -) 1,000 mg IVPB ONCE ONE Stop: 04/25/17 14:01 Pantoprazole Sodium (Protonix -) 40 mg PO DAILY [facility] Last Admin: 04/25/17 11:02 Dose: 40 mg Potassium Chloride (Potassium Chloride Oral Liquid) 20 meq PO ONCE ONE Stop: 04/25/17 13:01 A/P 61 year old woman with PMhx of NIDDM, Hypertension, PVD s/p R AKA, CVA now non- verbal and paralyzed who presented with abnormal outpatient labs that showed renal failure and increasing total body volume overload #Acute Renal Failure with Nephrotic Range Proteinuria Serologic work up showed + PR3 Ab that is seen in Wegners/Granulomatosis with polyangitis s/p dialysis yesterday Renal Biopsy next week (daughter aware that the patient is high risk given clinical status and is consenting) no indication for dialysis today next treatment for Thursday To get IV solumderol 1g (#2 or 3) today Trend BUN/Cr and urine output Jonathan Guzman DO
[2017-04-25] MEDS ORDERED: POTASSIUM CHLORIDE ORAL LIQUID 20 MEQ/15 ML PO ONE (13:00)
[2017-04-25] MEDS ORDERED: methylPREDNISolone NA SUCC 1000 MG/8 ML VIAL IVPB ONE (14:00)
--- NOTE | 2017-04-25 18:54 | PN ---
Physical Exam: SUBJECTIVE: Patient seen and examined Daughter at bedside, patient is more awake with no acute distress, continues to be nonverbal. OBJECTIVE: Vital Signs Temperature 98.9 F 04/25/17 15:12 Pulse Rate 88 04/25/17 15:12 Respiratory Rate 16 04/25/17 15:12 Blood Pressure 149/65 04/25/17 15:12 O2 Sat by Pulse Oximetry (%) 95 04/24/17 21:00 GENERAL: The patient is awake, alert, and fully oriented, in no acute distress. HEAD: Normal with no signs of trauma. EYES: PERRL, EOMI, sclera anicteric, conjunctiva clear. ENT: Ears normal, oropharynx clear without exudates, moist mucous membranes. NECK: Trachea midline, full range of motion, supple. LUNGS: Breath sounds equal, clear to auscultation bilaterally, no wheezes, no crackles, no accessory muscle use. HEART: Regular rate and rhythm, S1, S2 positive, without murmur, rub or gallop. ABDOMEN: Soft, nontender, nondistended, normoactive bowel sounds, no guarding, no rebound, no hepatosplenomegaly, no masses. EXTREMITIES: 2+ pulses, warm, well-perfused, no edema. NEUROLOGICAL: Cranial nerves II through XII grossly intact. Normal speech, gait not observed. PSYCH: Normal mood, normal affect. SKIN: Warm, dry, normal turgor, no rashes or lesions noted CBCD WBC 9.9 K/mm3 (4.0-10.0) 04/24/17 11:15 RBC 2.57 M/mm3 (3.60-5.2) L 04/24/17 11:15 Hgb 7.7 GM/dL (10.7-15.3) L 04/24/17 11:15 Hct 23.2 % (32.4-45.2) L 04/24/17 11:15 MCV 90.2 fl (80-96) 04/24/17 11:15 MCHC 33.1 g/dl (32.0-36.0) 04/24/17 11:15 RDW 13.6 % (11.6-15.6) 04/24/17 11:15 Plt Count 252 K/MM3 (134-434) 04/24/17 11:15 MPV 8.6 fl (7.5-11.1) 04/24/17 11:15 CMP Sodium 142 mmol/L (136-145) 04/25/17 08:55 Potassium 3.2 mmol/L (3.5-5.1) L 04/25/17 08:55 Chloride 103 mmol/L (98-107) 04/25/17 08:55 Carbon Dioxide 32 mmol/L (21-32) 04/25/17 08:55 Anion Gap 7 (8-16) L 04/25/17 08:55 BUN 35 mg/dL (7-18) H D 04/25/17 08:55 Creatinine 3.3 mg/dL (0.55-1.02) H D 04/25/17 08:55 Creat Clearance w eGFR 9.19 (>60) 04/24/17 11:15 Random Glucose 293 mg/dL (74-106) H 04/25/17 08:55 Calcium 7.6 mg/dL (8.5-10.1) L 04/25/17 08:55 Total Bilirubin 0.5 mg/dL (0.2-1.0) D 04/24/17 11:15 AST 24 U/L (15-37) 04/24/17 11:15 ALT 18 U/L (12-78) 04/24/17 11:15 Alkaline Phosphatase 179 U/L (45-117) H D 04/24/17 11:15 Total Protein 5.0 g/dl (6.4-8.2) L 04/24/17 11:15 Albumin 1.8 g/dl (3.4-5.0) L 04/24/17 11:15 Current Medications Generic Name Dose Route Start Last Admin Trade Name Freq PRN Reason Stop Dose Admin Albuterol Sulfate 1 amp 04/21/17 22:00 04/25/17 14:23 Ventolin 0.5% - NEB 1 amp TIDR [facility] Administration Amlodipine Besylate 5 mg 04/22/17 10:00 04/25/17 11:02 Norvasc - PO 5 mg DAILY [facility] Administration Heparin Sodium (Porcine) 5,000 unit 04/21/17 22:00 04/25/17 11:02 Heparin - SQ 5,000 unit BID [facility] Administration Insulin Aspart 1 vial 04/21/17 22:00 04/25/17 16:48 Novolog Vial Sliding Scale - SQ 8 units ACHS [facility] Administration Protocol Pantoprazole Sodium 40 mg 04/22/17 10:00 04/25/17 11:02 Protonix - PO 40 mg DAILY [facility] Administration Home Medications Medication Instructions Recorded Acetaminophen [Pain Reliever] 500 mg PO DAILY 04/12/17 Amlodipine Besylate 5 mg PO DAILY 04/12/17 Aspirin [ASA -] 81 mg PO DAILY 04/12/17 Glyburide 5 mg PO BID 04/12/17 Simvastatin 20 mg PO HS 04/12/17 Zinc Sulfate 220 mg PO DAILY 04/12/17 A/P: 61 y/o lady with h/o CVA , NIDDM, HTN, HLP, who presented after her out pt labs showed renal failure # Acute renal failure with nephrotic syndrome with ESRD having dialysis today ( MWF) due to Wegners/Granulomatosis with polyangitis with positive for + PR3 Ab, , definite Dx needs renal biopsy. Dose all meds for Cr Cl less then 10. # functional quadraplegia with acute renal failure due to Wegners/ Granulomatosis with polyangitis with positive for + PR3 Ab will need Bx for definite Dx. # Acute change of Mental status possible due to elevated BUN will monitor the patient. # Normoytic anemia likely due to renal disease rest of management per nephro, ( B12, folate elevated) # HTN: cont norvasc # DM : SSI. hold po agents # Nutrition : positive for peg continue TF hold puree food for now due to change of MS. Visit type - Emergency Visit Emergency Visit: Yes ED Registration Date: 04/17/17 Care time: The patient presented to the Emergency Department on the above date and was hospitalized for further evaluation of their emergent condition. - New Patient This patient is new to me today: No - Critical Care Critical Care patient: No
[2017-04-26] MEDS ORDERED: INSULIN (NOVOLOG) ASPART 100 UNITS/ML 10ML VIAL SQ ONE (03:07)
[2017-04-26] MEDS: ALBUTEROL SO4 0.5 % INH SOLN 2.5 MG/0.5 ML VIAL.NEB. NEB SCH ×3 (06:36→22:20)
[2017-04-26] MEDS: INSULIN SLIDING SCALE (NOVOLOG) 1 VIAL SQ SCH ×4 (06:55→22:07)
--- NOTE | 2017-04-26 07:33 | PN ---
Progress Note (short form) - Note Progress Note: Renal Follow up for DEYSI Pt seen and examined at the bedside no overnight events Blood glucose elevated overnight getting Nebs Vital Signs Temperature 98.7 F 04/26/17 06:00 Pulse Rate 93 H 04/26/17 06:00 Respiratory Rate 18 04/26/17 06:00 Blood Pressure 136/87 04/26/17 06:00 O2 Sat by Pulse Oximetry (%) 90 L 04/25/17 21:00 Intake & Output 04/23/17 04/24/17 04/25/17 04/26/17 23:59 23:59 23:59 23:59 Intake Total 1680 820 730 360 Output Total 200 300 Balance 1480 520 730 360 Weight 126 lb 2 oz 125 lb 9.6 oz 125 lb 0.9 oz Gen: NAD, on Neb CVS: RRR, No M/R Lungs: Dec BS at lung bases Abd: soft NT/ND Ext: trace UE edema, 1+ scral edema CBC, BMP 04/24/17 11:15 04/25/17 23:44 Current Medications Albuterol Sulfate (Ventolin 0.5% -) 1 amp NEB TIDR [facility] Last Admin: 04/26/17 06:36 Dose: 1 amp Amlodipine Besylate (Norvasc -) 5 mg PO DAILY [facility] Last Admin: 04/25/17 11:02 Dose: 5 mg Heparin Sodium (Porcine) (Heparin -) 5,000 unit SQ BID [facility] Last Admin: 04/25/17 22:57 Dose: 5,000 unit Insulin Aspart (Novolog Vial Sliding Scale -) 1 vial SQ ACHS [facility] PRN Reason: Protocol Last Admin: 04/26/17 06:55 Dose: 8 units Pantoprazole Sodium (Protonix -) 40 mg PO DAILY [facility] Last Admin: 04/25/17 11:02 Dose: 40 mg A/P 61 year old woman with PMhx of NIDDM, Hypertension, PVD s/p R AKA, CVA now non- verbal and paralyzed who presented with abnormal outpatient labs that showed renal failure and increasing total body volume overload #Acute Renal Failure with Nephrotic Range Proteinuria Serologic work up showed + PR3 Ab that is seen in Wegners/Granulomatosis with polyangitis Todays labs pending no acute indication for dialysis unless labs show hyperkalemia or overt acidosis to get 3rd Solumderol 1g today for dialysis tomorrow Biopsy this week f/u CRP, ESR, C3, C4 Dose all meds for Cr Cl less then 10 #Anemia hgb downtrending no acute indication for transfusion today if less then 8 tomorrow will consider transfusion with dialysis Jonathan Guzman DO
[2017-04-26 07:46] LABS: BASOPHIL 0.1 % (0-2.0); MCH 30.1 pg (25.7-33.7); MCHC 33.3 g/dl (32.0-36.0); MEAN CELL VOLUME 90.4 fl (80-96); MEAN PLT VOLUME 8.4 fl (7.5-11.1); NEUTROPHILS 96.4 % (42.8-82.8); PLATELET COUNT 268 K/MM3 (134-434); RDW 13.8 % (11.6-15.6); WHITE BLOOD COUNT 13.7 K/mm3 (4.0-10.0)
[2017-04-26 08:10] LABS: C-REACTIVE PROTEIN 1.3 MG/DL (0.00-0.3); CALCIUM 8.2 mg/dL (8.5-10.1); COCKROFT - GAULT 12.4355; CREATININE 4.2 mg/dL (0.55-1.02); MAGNESIUM 3.1 mg/dL (1.8-2.4); PHOSPHOROUS 2.8 mg/dL (2.5-4.9)
[2017-04-26] MEDS ORDERED: PT OWN MED DRAWER 7, Y5N ONE (11:25)
[2017-04-26] MEDS ORDERED: INSULIN (NOVOLOG) ASPART 100 UNITS/ML 10ML VIAL ONE (11:26)
[2017-04-26] MEDS: PANTOPRAZOLE 40 MG TABLET (FP) PO SCH (11:35)
[2017-04-26] MEDS: amLODIPine BESYLATE 5 MG TABLET (FP) PO SCH (11:35)
[2017-04-26] MEDS: HEPARIN NA (PORCINE) 5,000 UNITS/ML 1ML VIAL SQ SCH ×2 (11:35→22:07)
--- NOTE | 2017-04-26 11:48 | PN ---
Progress Note (short form) - Note Progress Note: Patient is lying in bed ,daughter at bedside. NO FEVER or chills, no shortness of breath. Temperature 98.7 F 04/26/17 06:00 Pulse Rate 93 H 04/26/17 06:00 Respiratory Rate 18 04/26/17 06:00 Blood Pressure 136/87 04/26/17 06:00 O2 Sat by Pulse Oximetry (%) 90 L 04/25/17 21:00 GENERAL: patient is lying in bed , opens eyes only. HEAD: Normal with no signs of trauma. EYES: PERRL, EOMI, sclera anicteric, conjunctiva clear. ENT: Ears normal, oropharynx clear without exudates, moist mucous membranes. NECK: Trachea midline, full range of motion, supple. LUNGS: Breath sounds equal, clear to auscultation bilaterally, no wheezes, no crackles, no accessory muscle use. HEART: Regular rate and rhythm, S1, S2 positive ABDOMEN: Soft, nontender, nondistended, normoactive bowel sounds, no guarding, no rebound, no hepatosplenomegaly, no masses. EXTREMITIES: 2+ pulses, warm, well-perfused, no edema. NEUROLOGICAL: doesn't follow any commands. just opens eyes. PSYCH: unable to access . SKIN: Warm, dry, normal turgor, no rashes or lesions noted CBCD WBC 13.7 K/mm3 (4.0-10.0) H D 04/26/17 07:10 RBC 2.70 M/mm3 (3.60-5.2) L 04/26/17 07:10 Hgb 8.1 GM/dL (10.7-15.3) L 04/26/17 07:10 Hct 24.4 % (32.4-45.2) L 04/26/17 07:10 MCV 90.4 fl (80-96) 04/26/17 07:10 MCHC 33.3 g/dl (32.0-36.0) 04/26/17 07:10 RDW 13.8 % (11.6-15.6) 04/26/17 07:10 Plt Count 268 K/MM3 (134-434) 04/26/17 07:10 MPV 8.4 fl (7.5-11.1) 04/26/17 07:10 CMP Sodium 144 mmol/L (136-145) 04/26/17 07:10 Potassium 3.7 mmol/L (3.5-5.1) 04/26/17 07:10 Chloride 102 mmol/L (98-107) 04/26/17 07:10 Carbon Dioxide 30 mmol/L (21-32) 04/26/17 07:10 Anion Gap 12 (8-16) 04/26/17 07:10 BUN 47 mg/dL (7-18) H D 04/26/17 07:10 Creatinine 4.2 mg/dL (0.55-1.02) H D 04/26/17 07:10 Creat Clearance w eGFR 9.19 (>60) 04/24/17 11:15 Random Glucose 272 mg/dL (74-106) H D 04/26/17 07:10 Calcium 8.2 mg/dL (8.5-10.1) L 04/26/17 07:10 Total Bilirubin 0.5 mg/dL (0.2-1.0) D 04/24/17 11:15 AST 24 U/L (15-37) 04/24/17 11:15 ALT 18 U/L (12-78) 04/24/17 11:15 Alkaline Phosphatase 179 U/L (45-117) H D 04/24/17 11:15 Total Protein 5.0 g/dl (6.4-8.2) L 04/24/17 11:15 Albumin 1.8 g/dl (3.4-5.0) L 04/24/17 11:15 Current Medications Generic Name Dose Route Start Last Admin Trade Name Berto PRN Reason Stop Dose Admin Albuterol Sulfate 1 amp 04/21/17 22:00 04/26/17 06:36 Ventolin 0.5% - NEB 1 amp TIDR APRIL Administration Amlodipine Besylate 5 mg 04/22/17 10:00 04/26/17 11:35 Norvasc - PO 5 mg DAILY APRIL Administration Heparin Sodium (Porcine) 5,000 unit 04/21/17 22:00 04/26/17 11:35 Heparin - SQ 5,000 unit BID APRIL Administration Insulin Aspart 1 vial 04/21/17 22:00 04/26/17 06:55 Novolog Vial Sliding Scale - SQ 8 units ACHS APRIL Administration Protocol Methylprednisolone Sodium Succinate 1,000 mg 04/26/17 14:00 Solu-Medrol - IVPB 04/26/17 14:01 ONCE ONE Pantoprazole Sodium 40 mg 04/22/17 10:00 04/26/17 11:35 Protonix - PO 40 mg DAILY APRIL Administration A/P: 61 y/o lady with h/o CVA , NIDDM, HTN, HLP, who presented after her out pt labs showed renal failure # Acute renal failure with nephrotic syndrome with ESRD on dialysis (MWF) due to Wegners/Granulomatosis with polyangitis with positive for + PR3 Ab, , definite Dx needs renal biopsy. Patient will have Bx on Thursday by IR. Dose all meds for Cr Cl less then 10. # functional quadraplegia with acute renal failure due to Wegners/ Granulomatosis with polyangitis with positive for + PR3 Ab, possible Bx on Thursday for definite Dx. # Normoytic anemia due to renal disease rest of management per nephro, ( B12, folate elevated) # HTN: cont norvasc # DM : SSI. hold po agents # Nutrition : positive for peg continue TF hold puree food for now due to change of MS. Visit type - Emergency Visit Emergency Visit: Yes ED Registration Date: 04/17/17 Care time: The patient presented to the Emergency Department on the above date and was hospitalized for further evaluation of their emergent condition. - New Patient This patient is new to me today: No - Critical Care Critical Care patient: No
[2017-04-26] MEDS ORDERED: methylPREDNISolone NA SUCC 1000 MG/8 ML VIAL IVPB ONE (14:00)
[2017-04-26] MEDS ORDERED: ALBUTEROL SO4 0.083% IH SOL 2.5 MG/3 ML VIAL.NEB. NEB PRN (22:55)
[2017-04-27] MEDS: INSULIN SLIDING SCALE (NOVOLOG) 1 VIAL SQ SCH ×6 (02:54→21:35)
[2017-04-27] MEDS ORDERED: INSULIN (NOVOLOG) ASPART 100 UNITS/ML 10ML VIAL SQ ONE (03:03)
[2017-04-27 09:03] LABS: ALBUMIN 1.8 g/dl (3.4-5.0); BILIRUBIN,TOTAL 0.3 mg/dL (0.2-1.0); CALCIUM 7.6 mg/dL (8.5-10.1); COCKROFT - GAULT 10.3955; PHOSPHOROUS 2.3 mg/dL (2.5-4.9); TOT PROT 4.9 g/dl (6.4-8.2)
[2017-04-27 09:15] LABS: MCH 29.6 pg (25.7-33.7); MCHC 32.6 g/dl (32.0-36.0); PLATELET COUNT 223 K/MM3 (134-434); RDW 13.6 % (11.6-15.6); WHITE BLOOD COUNT 13.1 K/mm3 (4.0-10.0)
[2017-04-27] MEDS: amLODIPine BESYLATE 5 MG TABLET (FP) PO SCH (10:00)
[2017-04-27] MEDS: PANTOPRAZOLE 40 MG TABLET (FP) PO SCH (10:00)
--- NOTE | 2017-04-27 10:00 | PN ---
Progress Note (short form) - Note Progress Note: Renal Follow up for DEYSI Pt seen and examined during dialysis is awake and alert Blood flow only 270 with IJ catheter BP stable Hgb is 6.7 on labs Vital Signs Temperature 98.4 F 04/27/17 07:40 Pulse Rate 74 04/27/17 09:15 Respiratory Rate 18 04/27/17 09:15 Blood Pressure 130/61 04/27/17 09:15 O2 Sat by Pulse Oximetry (%) 98 04/26/17 21:00 Intake & Output 04/24/17 04/25/17 04/26/17 04/27/17 23:59 23:59 23:59 23:59 Intake Total 474 694 8211 660 Output Total 300 Balance 317 705 0987 660 Weight 125 lb 9.6 oz 124 lb 8 oz Gen: NAD, awake, non-verbal (baseline) CVS: RRR, No M/R Lungs: Dec BS at lung bases Abd: soft NT/ND Ext: R AKA, Trace LLE edema CBC, BMP 04/27/17 07:45 04/27/17 07:45 Laboratory Tests 04/27/17 07:45 Calcium 7.6 L Phosphorus 2.3 L Magnesium 3.0 H Albumin 1.8 L Current Medications Albuterol Sulfate (Ventolin 0.083% Nebulizer Soln -) 1 amp NEB Q4H PRN PRN Reason: SHORT OF BREATH/WHEEZING Amlodipine Besylate (Norvasc -) 5 mg PO DAILY [facility] Last Admin: 04/26/17 11:35 Dose: 5 mg Heparin Sodium (Porcine) (Heparin -) 5,000 unit SQ BID APRIL Last Admin: 04/26/17 22:07 Dose: 5,000 unit Insulin Aspart (Novolog Vial Sliding Scale -) 0 vial SQ Q4HPO APRIL PRN Reason: Protocol Pantoprazole Sodium (Protonix -) 40 mg PO DAILY [facility] Last Admin: 04/26/17 11:35 Dose: 40 mg A/P 61 year old woman with PMhx of NIDDM, Hypertension, PVD s/p R AKA, CVA now non- verbal and paralyzed who presented with abnormal outpatient labs that showed renal failure and increasing total body volume overload #Acute Renal Failure with Nephrotic Range Proteinuria and uremia requiring dialysis Serologic work up showed + PR3 Ab that is seen in Wegners/Granulomatosis with polyangitis Tolerating dialysis today NPO for possible renal biopsy tomorrow (holding SC heparin) Trend BUN/Cr Start Prednisne 60mg Daily (s/p pulse solumederol) #Anemia Hgb is 6.7 today Repeat stool occult blood Will transfuse 2 prbc with HD iron saturation is low, will give IV iron with subsequent dialysis treatments Jonathan Guzman DO
[2017-04-27] MEDS ORDERED: INSULIN (NOVOLOG) ASPART 100 UNITS/ML 10ML VIAL ONE ×2 (10:14→21:16)
--- NOTE | 2017-04-27 10:26 | PN ---
Progress Note (short form) - Note Progress Note: Patient is lying in bed with no acute distress. Temperature 98.4 F 04/27/17 07:40 Pulse Rate 74 04/27/17 09:15 Respiratory Rate 18 04/27/17 09:15 Blood Pressure 130/61 04/27/17 09:15 O2 Sat by Pulse Oximetry (%) 98 04/26/17 21:00 GENERAL: patient is lying in bed , opens eyes only. HEAD: Normal with no signs of trauma. EYES: PERRL, EOMI, sclera anicteric, conjunctiva clear. ENT: Ears normal, oropharynx clear without exudates, moist mucous membranes. NECK: Trachea midline, full range of motion, supple. LUNGS: Breath sounds equal, clear to auscultation bilaterally, no wheezes, no crackles, no accessory muscle use. HEART: Regular rate and rhythm, S1, S2 positive ABDOMEN: Soft, nontender, nondistended, normoactive bowel sounds, no guarding, no rebound, no hepatosplenomegaly, no masses. EXTREMITIES: 2+ pulses, warm, well-perfused, no edema. NEUROLOGICAL: doesn't follow any commands. just opens eyes. PSYCH: unable to access . SKIN: Warm, dry, normal turgor, no rashes or lesions noted CBCD WBC 13.1 K/mm3 (4.0-10.0) H 04/27/17 07:45 RBC 2.26 M/mm3 (3.60-5.2) L 04/27/17 07:45 Hgb 6.7 GM/dL (10.7-15.3) L* D 04/27/17 07:45 Hct 20.6 % (32.4-45.2) L D 04/27/17 07:45 MCV 91.0 fl (80-96) 04/27/17 07:45 MCHC 32.6 g/dl (32.0-36.0) 04/27/17 07:45 RDW 13.6 % (11.6-15.6) 04/27/17 07:45 Plt Count 223 K/MM3 (134-434) 04/27/17 07:45 MPV 9.0 fl (7.5-11.1) 04/27/17 07:45 CMP Sodium 142 mmol/L (136-145) 04/27/17 07:45 Potassium 3.6 mmol/L (3.5-5.1) 04/27/17 07:45 Chloride 102 mmol/L (98-107) 04/27/17 07:45 Carbon Dioxide 29 mmol/L (21-32) 04/27/17 07:45 Anion Gap 11 (8-16) 04/27/17 07:45 BUN 65 mg/dL (7-18) H D 04/27/17 07:45 Creatinine 5.0 mg/dL (0.55-1.02) H 04/27/17 07:45 Creat Clearance w eGFR 8.77 (>60) 04/27/17 07:45 Random Glucose 396 mg/dL (74-106) H* D 04/27/17 07:45 Calcium 7.6 mg/dL (8.5-10.1) L 04/27/17 07:45 Total Bilirubin 0.3 mg/dL (0.2-1.0) D 04/27/17 07:45 AST 19 U/L (15-37) D 04/27/17 07:45 ALT 20 U/L (12-78) 04/27/17 07:45 Alkaline Phosphatase 188 U/L (45-117) H 04/27/17 07:45 Total Protein 4.9 g/dl (6.4-8.2) L 04/27/17 07:45 Albumin 1.8 g/dl (3.4-5.0) L 04/27/17 07:45 Current Medications Generic Name Dose Route Start Last Admin Trade Name Freq PRN Reason Stop Dose Admin Albuterol Sulfate 1 amp 04/26/17 22:55 Ventolin 0.083% Nebulizer Soln - NEB Q4H PRN SHORT OF BREATH/WHEEZING Amlodipine Besylate 5 mg 04/22/17 10:00 04/26/17 11:35 Norvasc - PO 5 mg DAILY APRIL Administration Heparin Sodium (Porcine) 5,000 unit 04/21/17 22:00 04/26/17 22:07 Heparin - SQ 5,000 unit BID APRIL Administration Insulin Aspart 1 vial 04/27/17 09:45 Novolog Vial Sliding Scale - SQ Q4HPO APRIL Protocol Pantoprazole Sodium 40 mg 04/22/17 10:00 04/26/17 11:35 Protonix - PO 40 mg DAILY APRIL Administration Home Medications Medication Instructions Recorded Acetaminophen [Pain Reliever] 500 mg PO DAILY 04/12/17 Amlodipine Besylate 5 mg PO DAILY 04/12/17 Aspirin [ASA -] 81 mg PO DAILY 04/12/17 Glyburide 5 mg PO BID 04/12/17 Simvastatin 20 mg PO HS 04/12/17 Zinc Sulfate 220 mg PO DAILY 04/12/17 A/P: 61 y/o lady with h/o CVA , NIDDM, HTN, HLP, who presented after her out pt labs showed renal failure # Acute renal failure with nephrotic syndrome with ESRD on dialysis (MWF) due to Wegners/Granulomatosis with polyangitis with positive for + PR3 Ab, , definite Dx needs renal biopsy. Patient will have Bx on Thursday by IR. Dose all meds for Cr Cl less then 10. will go for bx in am # functional quadraplegia with acute renal failure due to Wegners/ Granulomatosis with polyangitis with positive for + PR3 Ab, possible Bx on Thursday for definite Dx. # Normoytic anemia due to renal disease rest of management per nephro, ( B12, folate elevated) # HTN: cont norvasc # DM : SSI. hold po agents # Nutrition : positive for peg continue TF hold puree food for now due to change of MS, Elevated blood sugar due to steroid sliding scale q4h Visit type - Emergency Visit Emergency Visit: Yes ED Registration Date: 04/17/17 Care time: The patient presented to the Emergency Department on the above date and was hospitalized for further evaluation of their emergent condition. - New Patient This patient is new to me today: No - Critical Care Critical Care patient: No
[2017-04-28] MEDS: INSULIN SLIDING SCALE (NOVOLOG) 1 VIAL SQ SCH ×6 (02:41→23:02)
[2017-04-28 08:10] LABS: BASOPHIL 0.3 % (0-2.0); EOSINOPHIL 0.9 % (0-4.5); MCH 29.8 pg (25.7-33.7); MCHC 34.1 g/dl (32.0-36.0); MEAN CELL VOLUME 87.5 fl (80-96); MEAN PLT VOLUME 8.8 fl (7.5-11.1); NEUTROPHILS 80.6 % (42.8-82.8); PLATELET COUNT 193 K/MM3 (134-434); RDW 14.9 % (11.6-15.6); WHITE BLOOD COUNT 14.2 K/mm3 (4.0-10.0)
--- NOTE | 2017-04-28 08:26 | SPA.PREOP ---
- PRE-OP NOTE Dx: Renal failure Planned Procedure: Permacatheter insertion Surgeon: Robin Aviles Consent: Obtained from daughter/HCP after risks, benefits and alternatives explained. Opportunity for questions. Daughter had none. Understood and signed without reservation. Last Vital Signs Temp Pulse Resp BP Pulse Ox 98.5 F 70 18 118/49 100 04/28/17 06:00 04/28/17 06:00 04/28/17 06:00 04/28/17 06:00 04/27/17 21:00 Lab Results WBC 14.2 K/mm3 (4.0-10.0) H 04/28/17 07:00 RBC 3.72 M/mm3 (3.60-5.2) D 04/28/17 07:00 Hgb 11.1 GM/dL (10.7-15.3) D 04/28/17 07:00 Hct 32.6 % (32.4-45.2) D 04/28/17 07:00 MCV 87.5 fl (80-96) 04/28/17 07:00 MCHC 34.1 g/dl (32.0-36.0) 04/28/17 07:00 RDW 14.9 % (11.6-15.6) 04/28/17 07:00 Plt Count 193 K/MM3 (134-434) 04/28/17 07:00 Sodium 142 mmol/L (136-145) 04/27/17 07:45 Potassium 3.6 mmol/L (3.5-5.1) 04/27/17 07:45 Chloride 102 mmol/L (98-107) 04/27/17 07:45 Carbon Dioxide 29 mmol/L (21-32) 04/27/17 07:45 Anion Gap 11 (8-16) 04/27/17 07:45 BUN 65 mg/dL (7-18) H D 04/27/17 07:45 Creatinine 5.0 mg/dL (0.55-1.02) H 04/27/17 07:45 Random Glucose 396 mg/dL (74-106) H* D 04/27/17 07:45 Calcium 7.6 mg/dL (8.5-10.1) L 04/27/17 07:45 Blood Type O POSITIVE 04/27/17 08:20 Antibody Screen Negative 04/27/17 08:20 INR 0.89 (0.82-1.09) 04/21/17 12:05 - ASSESSMENT/PLAN 1. Make NPO after midnight except po meds 2. GI/DVT PPX 3. Medical optimization / clearance Problem List - Problems (1) Renal failure Assessment/Plan: NPO after midnight GI /DVT ppx Pre-Op for Permacatheter insertion Medical optimization/clearance Code(s): N19 - UNSPECIFIED KIDNEY FAILURE Qualifiers: Renal failure chronicity: acute Acute renal failure type: unspecified Qualified Code(s): N17.9 - Acute kidney failure, unspecified (2) Functional quadriplegia Code(s): R53.2 - FUNCTIONAL QUADRIPLEGIA (3) Non-insulin dependent type 2 diabetes mellitus Assessment/Plan: Tight glycemic control Sliding scale Code(s): E11.9 - TYPE 2 DIABETES MELLITUS WITHOUT COMPLICATIONS Visit type - Case Type Case Type: ED Admission
[2017-04-28 08:41] LABS: CALCIUM 7.6 mg/dL (8.5-10.1); COCKROFT - GAULT 19.057; CREATININE 2.7 mg/dL (0.55-1.02); MAGNESIUM 2.4 mg/dL (1.8-2.4); PHOSPHOROUS 1.3 mg/dL (2.5-4.9)
[2017-04-28] MEDS ORDERED: MAGNESIUM SULF 50% (8.12 MEQ/2 ML-1 GM VIAL) IVPB ONE (09:45)
[2017-04-28] MEDS: PANTOPRAZOLE SOD 40 MG SUSPENSION PACKET GT SCH ×2 (10:39→11:49)
[2017-04-28] MEDS: amLODIPine BESYLATE 5 MG TABLET (FP) GT SCH ×2 (10:39→11:49)
[2017-04-28] MEDS ORDERED: POTASSIUM CHLORIDE ORAL LIQUID 20 MEQ/15 ML GT ONE (11:13)
--- NOTE | 2017-04-28 11:18 | PN ---
Progress Note (short form) - Note Progress Note: Renal Follow up for DEYSI Pt seen and examined during dialysis no overnight events pt NPO for possible biopsy Vital Signs Temperature 98.1 F 04/28/17 11:05 Pulse Rate 67 04/28/17 10:31 Respiratory Rate 20 04/28/17 10:31 Blood Pressure 169/66 04/28/17 10:31 O2 Sat by Pulse Oximetry (%) 100 04/27/17 21:00 Intake & Output 04/25/17 04/26/17 04/27/17 04/28/17 23:59 23:59 23:59 23:59 Intake Total 730 1290 1360 100 Balance 730 1290 1360 100 Weight 124 lb 8 oz 123 lb 3.2 oz Gen: NAD, awake, non-verbal (baseline) CVS: RRR, No M/R Lungs: Dec BS at lung bases Abd: soft NT/ND Ext: R AKA, Trace LLE edema CBC, BMP 04/28/17 07:00 04/28/17 07:00 Laboratory Tests 04/28/17 07:00 Calcium 7.6 L Phosphorus 1.3 L D Magnesium 2.4 Current Medications Albuterol Sulfate (Ventolin 0.083% Nebulizer Soln -) 1 amp NEB Q4H PRN PRN Reason: SHORT OF BREATH/WHEEZING Amlodipine Besylate (Norvasc -) 5 mg GT DAILY [facility] Last Admin: 04/28/17 10:39 Dose: Not Given Heparin Sodium (Porcine) (Heparin -) 5,000 unit SQ BID APRIL Last Admin: 04/26/17 22:07 Dose: 5,000 unit Insulin Aspart (Novolog Vial Sliding Scale -) 1 vial SQ Q4HPO APRIL PRN Reason: Protocol Last Admin: 04/28/17 10:58 Dose: 2 units Pantoprazole Sodium (Protonix Packets For Oral Suspension -) 40 mg GT DAILY [facility] Last Admin: 04/28/17 10:39 Dose: Not Given A/P 61 year old woman with PMhx of NIDDM, Hypertension, PVD s/p R AKA, CVA now non- verbal and paralyzed who presented with abnormal outpatient labs that showed renal failure and increasing total body volume overload #Acute Renal Failure with Nephrotic Range Proteinuria and uremia requiring dialysis Serologic work up showed + PR3 Ab that is seen in Wegners/Granulomatosis with polyangitis Pt will need Anastheia evaluation to make sure that airway will not be endangered if pt is put into a prone postion for biopsy s/p dialysis yesterday no acute indication for dialysis today will need to have tunneled HD catheter placed #Anemia s/p 2 prbc transfusion yesterday with better then expected response ternd CBC #Hypophosphatemia give IV K-phos 15mmol and start Neutraphos via GT Trend daily Jonathan Guzman DO
[2017-04-28] MEDS ORDERED: POTASSIUM PHOSPHATE 15 MM in DEXTROSE 5%-WATER - 250 ML IVPB ONE (11:30)
[2017-04-28] MEDS: NAPH,MB-DB/K PH,MBDB POWDER PACKET GT SCH ×4 (11:49→23:00)
--- NOTE | 2017-04-28 12:00 | PN ---
Physical Exam: SUBJECTIVE: Patient seen and examined at bedside. No overnight events as per nursing. Seems more awake and alert. OBJECTIVE: Vital Signs Period Temp Pulse Resp BP Sys/Daniel Pulse Ox Last 24 Hr 96.2 F-99.7 F 64-84 18-22 118-185/49-79 100-100 GENERAL:nonverbal but awake. HEAD: NC/AT. EYES: PERRL, sclera anicteric, conjunctiva clear. No ptosis. ENT: dry mucous membranes. NECK: supple. Dual lumen dialysis cath RIJ LUNGS:CTAB , diminished bilat bases no wheezes, no crackles, no accessory muscle use. HEART: RRR,s1s2 normal 3/6 ANGELINA ABDOMEN: Soft, NT, ND, BS(+) PEG EXTREMITIES: Bilat. nonpitting edema upper ext. Bilat edema 1+ of LLE edema. R leg s/p AKA NEUROLOGICAL: non verbal. obtunded and contracted. functional quadriplegia Laboratory Results - last 24 hr 04/26/17 04/27/17 04/27/17 20:28 02:07 06:03 WBC RBC Hgb Hct MCV MCHC RDW Plt Count MPV Neutrophils % Lymphocytes % Monocytes % Eosinophils % Basophils % Sodium Potassium Chloride Carbon Dioxide Anion Gap BUN Creatinine POC Glucometer 415 473 425 Random Glucose Calcium Phosphorus Magnesium 04/27/17 04/27/17 04/27/17 14:53 18:10 20:23 WBC RBC Hgb Hct MCV MCHC RDW Plt Count MPV Neutrophils % Lymphocytes % Monocytes % Eosinophils % Basophils % Sodium Potassium Chloride Carbon Dioxide Anion Gap BUN Creatinine POC Glucometer 247 266 227 Random Glucose Calcium Phosphorus Magnesium 04/28/17 04/28/17 04/28/17 02:39 05:49 07:00 WBC 14.2 H RBC 3.72 D Hgb 11.1 D Hct 32.6 D MCV 87.5 MCHC 34.1 RDW 14.9 Plt Count 193 MPV 8.8 Neutrophils % 80.6 Lymphocytes % 11.3 D Monocytes % 6.9 D Eosinophils % 0.9 D Basophils % 0.3 D Sodium Potassium Chloride Carbon Dioxide Anion Gap BUN Creatinine POC Glucometer 226 119 Random Glucose Calcium Phosphorus Magnesium 04/28/17 04/28/17 07:00 10:57 WBC RBC Hgb Hct MCV MCHC RDW Plt Count MPV Neutrophils % Lymphocytes % Monocytes % Eosinophils % Basophils % Sodium 147 H Potassium 3.2 L Chloride 103 Carbon Dioxide 33 H Anion Gap 11 BUN 36 H D Creatinine 2.7 H D POC Glucometer 181 Random Glucose 123 H D Calcium 7.6 L Phosphorus 1.3 L D Magnesium 2.4 Active Medications Generic Name Dose Route Start Last Admin Trade Name Freq PRN Reason Stop Dose Admin Albuterol Sulfate 1 amp 04/26/17 22:55 Ventolin 0.083% Nebulizer Soln - NEB Q4H PRN SHORT OF BREATH/WHEEZING Amlodipine Besylate 5 mg 04/28/17 10:00 04/28/17 11:49 Norvasc - GT 5 mg DAILY APRIL Administration Heparin Sodium (Porcine) 5,000 unit 04/21/17 22:00 04/26/17 22:07 Heparin - SQ 5,000 unit BID APRIL Administration Potassium Phosphate 15 mm/ 255 mls @ 62.5 mls/hr 04/28/17 11:30 Dextrose IVPB 04/28/17 15:34 ONCE ONE Insulin Aspart 1 vial 04/27/17 09:45 04/28/17 10:58 Novolog Vial Sliding Scale - SQ 2 units Q4HPO APRIL Administration Protocol Pantoprazole Sodium 40 mg 04/28/17 10:00 04/28/17 11:49 Protonix Packets For Oral Suspension - GT 40 mg DAILY APRIL Administration Potassium Phos/Sodium Phos 1 packet 04/28/17 11:15 04/28/17 11:49 Phos-Nak Packet - GT 1 packet TID APRIL Administration ASSESSMENT/PLAN: 61 yo F with pmhx of CVA, NIDDM, HTN, HLD, admitted for acute renal failure. Problem List - Problems (1) Renal failure Assessment/Plan: * After lengthy discussion with family they have weighed risk and rewards of biopsy and have decided against biopsy at this point. * for Rheumotolgy consult has been placed. * Will continue to dialyze patient * Scheduled for permacath tomorrow. 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 (2) Non-insulin dependent type 2 diabetes mellitus Assessment/Plan: * Continue Jevity tube feed via peg. * NISS ACHS * BGM ACHS (3) HTN (hypertension) Assessment/Plan: * Continue amlodipine 5mg PO daily (4) Functional quadriplegia Assessment/Plan: * assist in ADL's Visit type - Emergency Visit Emergency Visit: Yes ED Registration Date: 04/17/17 Care time: The patient presented to the Emergency Department on the above date and was hospitalized for further evaluation of their emergent condition. - New Patient This patient is new to me today: No - Critical Care Critical Care patient: No - Discharge Referral Referred to [facility] No
[2017-04-28] MEDS ORDERED: INSULIN (NOVOLOG) ASPART 100 UNITS/ML 10ML VIAL ONE (15:33)
--- NOTE | 2017-04-28 18:17 | PN ---
Teaching Attending Note Name of Resident: Kodi Pritchett ATTENDING PHYSICIAN STATEMENT I saw and evaluated the patient. I reviewed the resident's note and discussed the case with the resident. I agree with the resident's findings and plan as documented. SUBJECTIVE: Patient is lying in bed with no acute distress, no new changes. OBJECTIVE: Vital Signs Temperature 98.1 F 04/28/17 11:05 Pulse Rate 64 04/28/17 11:45 Respiratory Rate 20 04/28/17 11:45 Blood Pressure 125/55 04/28/17 11:45 O2 Sat by Pulse Oximetry (%) 97 04/28/17 10:10 CBCD WBC 14.2 K/mm3 (4.0-10.0) H 04/28/17 07:00 RBC 3.72 M/mm3 (3.60-5.2) D 04/28/17 07:00 Hgb 11.1 GM/dL (10.7-15.3) D 04/28/17 07:00 Hct 32.6 % (32.4-45.2) D 04/28/17 07:00 MCV 87.5 fl (80-96) 04/28/17 07:00 MCHC 34.1 g/dl (32.0-36.0) 04/28/17 07:00 RDW 14.9 % (11.6-15.6) 04/28/17 07:00 Plt Count 193 K/MM3 (134-434) 04/28/17 07:00 MPV 8.8 fl (7.5-11.1) 04/28/17 07:00 CMP Sodium 147 mmol/L (136-145) H 04/28/17 07:00 Potassium 3.2 mmol/L (3.5-5.1) L 04/28/17 07:00 Chloride 103 mmol/L (98-107) 04/28/17 07:00 Carbon Dioxide 33 mmol/L (21-32) H 04/28/17 07:00 Anion Gap 11 (8-16) 04/28/17 07:00 BUN 36 mg/dL (7-18) H D 04/28/17 07:00 Creatinine 2.7 mg/dL (0.55-1.02) H D 04/28/17 07:00 Creat Clearance w eGFR 8.77 (>60) 04/27/17 07:45 Random Glucose 123 mg/dL (74-106) H D 04/28/17 07:00 Calcium 7.6 mg/dL (8.5-10.1) L 04/28/17 07:00 Total Bilirubin 0.3 mg/dL (0.2-1.0) D 04/27/17 07:45 AST 19 U/L (15-37) D 04/27/17 07:45 ALT 20 U/L (12-78) 04/27/17 07:45 Alkaline Phosphatase 188 U/L (45-117) H 04/27/17 07:45 Total Protein 4.9 g/dl (6.4-8.2) L 04/27/17 07:45 Albumin 1.8 g/dl (3.4-5.0) L 04/27/17 07:45 Current Medications Generic Name Dose Route Start Last Admin Trade Name Freq PRN Reason Stop Dose Admin Albuterol Sulfate 1 amp 04/26/17 22:55 Ventolin 0.083% Nebulizer Soln - NEB Q4H PRN SHORT OF BREATH/WHEEZING Amlodipine Besylate 5 mg 04/28/17 10:00 04/28/17 11:49 Norvasc - GT 5 mg DAILY APRIL Administration Heparin Sodium (Porcine) 5,000 unit 04/21/17 22:00 04/26/17 22:07 Heparin - SQ 5,000 unit BID APRIL Administration Insulin Aspart 1 vial 04/27/17 09:45 04/28/17 15:35 Novolog Vial Sliding Scale - SQ 4 units Q4HPO APRIL Administration Protocol Pantoprazole Sodium 40 mg 04/28/17 10:00 04/28/17 11:49 Protonix Packets For Oral Suspension - GT 40 mg DAILY APRIL Administration Potassium Phos/Sodium Phos 1 packet 04/28/17 11:15 04/28/17 14:15 Phos-Nak Packet - GT Not Given TID [facility] Home Medications Medication Instructions Recorded Acetaminophen [Pain Reliever] 500 mg PO DAILY 04/12/17 Amlodipine Besylate 5 mg PO DAILY 04/12/17 Aspirin [ASA -] 81 mg PO DAILY 04/12/17 Glyburide 5 mg PO BID 04/12/17 Simvastatin 20 mg PO HS 04/12/17 Zinc Sulfate 220 mg PO DAILY 04/12/17 ASSESSMENT AND PLAN: A/P: 61 y/o lady with h/o CVA , NIDDM, HTN, HLP, who presented after her out pt labs showed renal failure # Acute renal failure with nephrotic syndrome with ESRD on dialysis (MWF) due to Wegners/Granulomatosis with polyangitis with positive for + PR3 Ab, For definite Dx needs renal biopsy but patient's family daughter who is the proxy refused the bx once explained the risks to the daughter. # functional quadraplegia with acute renal failure due to Wegners/ Granulomatosis with polyangitis with positive for + PR3 Ab, possible Bx on Thursday for definite Dx. # Normoytic anemia due to renal disease rest of management per nephro. # HTN: cont norvasc # DM : SSI. hold po agents # Nutrition : positive for peg continue TF hold puree food for now due to change of MS, Elevated blood sugar due to steroid sliding scale q4h increased. for consult , for further work up. discharge planing once evaluated by .
--- NOTE | 2017-04-28 18:29 | CONSULT ---
Consult Consult Specialty:: Rheumatology - History of Present Illness History of Present Illness: 61 year old female with PMhx of NIDDM (10 year Hx), S/P right AKA, Hypertension , CVA (2 years ago now non-verbal and significant decreased mobility), admitted with acute renal insufficiency. HPI. The daughter reports that one month ago the patient developed progressive peripheral edema. Prior to the admission the patien twas able to move her hands slightly, she was eating well and occasionally was able to say monosyllables. At the present time there is deterioration in mentation. On admission she was found to have creatinine of 6.9, ESR 125 and urinalyysis with protein 3+, blood 1+, glucose 2+ and LE trace. LAURA negative, proteinase-3 5.3, ANCA and myeloperoxidase were negative. CH50:60. CXR: left retrocardiac density, may represent pneumonia. Atelectasis and left pleural effusion. The patient was started on dialysis, a kidney biopsy was suggested, the daughter has not decided if she wants to approve the procedure. - History Source History Provided By: Family Member, Medical Record - Past Medical History HEALTH ASSOCIATE: Yes: CVA (s/p hemorrhagic stroke) Cardio/Vascular: Yes: HTN, Other (PAD) ...: No Musculoskeletal: Yes: Other Endocrine: Yes: Diabetes Mellitus Dermatology: Yes: Other (eschar left heel) - Alcohol/Substance Use Hx Alcohol Use: No - Smoking History Smoking history: Never smoked Have you smoked in the past 12 months: No Aproximately how many cigarettes per day: 0 - Social History History of Recent Travel: No Home Medications - Allergies Allergies/Adverse Reactions: Allergies Allergy/AdvReac Type Severity Reaction Status Date / Time No Known Allergies Allergy Verified 01/24/16 09:47 - Home Medications Home Medications: Ambulatory Orders Acetaminophen [Pain Reliever] 500 mg PO DAILY 04/12/17 Amlodipine Besylate 5 mg PO DAILY 04/12/17 Aspirin [ASA -] 81 mg PO DAILY 04/12/17 Glyburide 5 mg PO BID 04/12/17 Simvastatin 20 mg PO HS 04/12/17 Zinc Sulfate 220 mg PO DAILY 04/12/17 Family Disease History - Family Disease History Family Disease History: Diabetes: Mother Review of Systems - Review of Systems Constitutional: reports: Other (Does not respond to stimuli) Physical Exam Vital Signs: Vital Signs Temperature 98.1 F 05/30/17 11:05 Pulse Rate 64 04/28/17 11:45 Respiratory Rate 20 04/28/17 11:45 Blood Pressure 125/55 04/28/17 11:45 O2 Sat by Pulse Oximetry (%) 97 04/28/17 10:10 Constitutional: Yes: Other (DOes not respond to stimuli) Cardiovascular: Yes: WNL Respiratory: Yes: WNL Gastrointestinal: Yes: WNL Musculoskeletal: Yes: Other (No active joints. Puffiness in hands) Labs: CBC, BMP 04/28/17 07:00 04/28/17 07:00 Laboratory Tests 04/17/17 04/17/17 04/17/17 12:00 16:40 16:40 ESR Total Bilirubin AST ALT Alkaline Phosphatase Total Protein Albumin Urine Appearance Clear Urine pH 7.0 D Ur Specific [place] 1.015 Urine Protein 3+ H Urine Glucose (UA) 2+ H Urine Ketones Negative Urine Blood 1+ H Urine Nitrite Negative Urine Bilirubin Negative Urine Urobilinogen Negative Ur Leukocyte Esterase Trace H D Urine RBC 14 Urine WBC 5 Ur Epithelial Cells Rare Urine Bacteria Rare Urine Mucus Rare ROLANDA M-Ernesto LAURA Screen Negative c-ANCA <1:20 Proteinase 3 (PR3) 5.3 H p-ANCA <1:20 Atypical p-ANCA <1:20 Myeloperoxidase Ab <9.0 Tot Complement (CH50) 60 RPR Titer Nonreactive Hep Bs Antigen Negative Hep B Core IgM Ab Negative Hepatitis C Ab (EIA) 0.2 HIV 1&2 Antibody Screen 04/22/17 04/22/17 04/26/17 06:18 10:00 07:10 ESR 125 H Total Bilirubin AST ALT Alkaline Phosphatase Total Protein Albumin Urine Appearance Urine pH Ur Specific [place] Urine Protein Urine Glucose (UA) Urine Ketones Urine Blood Urine Nitrite Urine Bilirubin Urine Urobilinogen Ur Leukocyte Esterase Urine RBC Urine WBC Ur Epithelial Cells Urine Bacteria Urine Mucus ROLANDA M-Ernesto Not observed LAURA Screen c-ANCA Proteinase 3 (PR3) p-ANCA Atypical p-ANCA Myeloperoxidase Ab Tot Complement (CH50) RPR Titer Hep Bs Antigen Hep B Core IgM Ab Hepatitis C Ab (EIA) HIV 1&2 Antibody Screen Negative 04/27/17 07:45 ESR Total Bilirubin 0.3 D AST 19 D ALT 20 Alkaline Phosphatase 188 H Total Protein 4.9 L Albumin 1.8 L Urine Appearance Urine pH Ur Specific [place] Urine Protein Urine Glucose (UA) Urine Ketones Urine Blood Urine Nitrite Urine Bilirubin Urine Urobilinogen Ur Leukocyte Esterase Urine RBC Urine WBC Ur Epithelial Cells Urine Bacteria Urine Mucus ROLANDA M-Ernesto LAURA Screen c-ANCA Proteinase 3 (PR3) p-ANCA Atypical p-ANCA Myeloperoxidase Ab Tot Complement (CH50) RPR Titer Hep Bs Antigen Hep B Core IgM Ab Hepatitis C Ab (EIA) HIV 1&2 Antibody Screen Assessment/Plan Acute renal failure and Proteinase -3 antibody positive. I agree that it is possible that the patient has granulomatosis and polyangiitis. Unfortunately her daughter does not want to agree to a kidney biopsy at this point. CXR reported with retrocardiac infiltrate, rule out nodule 2o to vasculitis. Plan: I suggest: CT scan of the chest without contrast. Consider Rituximab (either Garcia protocol or otherwise 2 doses of 1 gr each, 15 days appart.) I will discuss the case with Dr. Guzman.
[2017-04-29] MEDS ORDERED: LIDOCAINE HCL 1%, 10 MG/ML (20ML VIAL) IJ ONE
[2017-04-29] MEDS ORDERED: HEPARIN NA (PORCINE) 1,000 UNITS/ML 10ML M-D VIAL SQ ONE
[2017-04-29] MEDS: NAPH,MB-DB/K PH,MBDB POWDER PACKET GT SCH ×3 (06:54→22:22)
[2017-04-29] MEDS ORDERED: ACETAMINOPHEN 650 MG/20.3 ML ORAL SOLUTION (CUPS) PEG ONE (07:33)
[2017-04-29] MEDS: INSULIN SLIDING SCALE (NOVOLOG) 1 VIAL SQ SCH ×5 (07:44→22:56)
[2017-04-29 09:27] LABS: CALCIUM 7.3 mg/dL (8.5-10.1); COCKROFT - GAULT 13.09; CREATININE 3.9 mg/dL (0.55-1.02)
[2017-04-29] MEDS: amLODIPine BESYLATE 5 MG TABLET (FP) GT SCH ×2 (10:00→19:14)
[2017-04-29] MEDS: PANTOPRAZOLE SOD 40 MG SUSPENSION PACKET GT SCH ×2 (10:54→19:14)
[2017-04-29] MEDS ORDERED: INSULIN DETEMIR 100 UNITS/ML MDV SQ ONE (11:28)
[2017-04-29] MEDS ORDERED: POVIDONE-IODINE OINTMENT 10% - 28.4 GM TUBE ONE (13:02)
[2017-04-29] MEDS ORDERED: LIDOCAINE HCL 1%, 10 MG/ML (20ML VIAL) ONE (13:02)
[2017-04-29] MEDS ORDERED: HEPARIN NA (PORCINE) 5,000 UNITS/ML 1ML VIAL ONE (13:26)
--- NOTE | 2017-04-29 13:28 | PN ---
Progress Note (short form) - Note Progress Note: Renal Follow up for DEYSI Pt seen and examined at the bedside awake family decided against doing a biopsy yesterday for permacath placement today possibly (pt was not NPO) Vital Signs Temperature 98.9 F 04/29/17 10:00 Pulse Rate 72 04/29/17 10:00 Respiratory Rate 18 04/29/17 10:00 Blood Pressure 155/66 04/29/17 10:00 O2 Sat by Pulse Oximetry (%) 99 04/28/17 21:00 Intake & Output 04/26/17 04/27/17 04/28/17 04/29/17 23:59 23:59 23:59 23:59 Intake Total 1290 1360 1105 520 Balance 1290 1360 1105 520 Weight 124 lb 8 oz 123 lb 3.2 oz 122 lb 6.4 oz Gen: NAD, awake, non-verbal (baseline) CVS: RRR, No M/R Lungs: Dec BS at lung bases Abd: soft NT/ND Ext: R AKA, Trace LLE edema CBC, BMP 04/28/17 07:00 04/29/17 08:50 Laboratory Tests 04/29/17 08:50 Calcium 7.3 L Current Medications Albuterol Sulfate (Ventolin 0.083% Nebulizer Soln -) 1 amp NEB Q4H PRN PRN Reason: SHORT OF BREATH/WHEEZING Amlodipine Besylate (Norvasc -) 5 mg GT DAILY [facility] Last Admin: 04/28/17 11:49 Dose: 5 mg Heparin Sodium (Porcine) (Heparin -) 5,000 unit SQ BID [facility] Last Admin: 04/26/17 22:07 Dose: 5,000 unit Insulin Aspart (Novolog Vial Sliding Scale -) 1 vial SQ Q6H [facility] PRN Reason: Protocol Last Admin: 04/29/17 13:02 Dose: Not Given Pantoprazole Sodium (Protonix Packets For Oral Suspension -) 40 mg GT DAILY [facility] Last Admin: 04/28/17 11:49 Dose: 40 mg Potassium Phos/Sodium Phos (Phos-Nak Packet -) 1 packet GT TID [facility] Last Admin: 04/29/17 06:54 Dose: 1 packet A/P 61 year old woman with PMhx of NIDDM, Hypertension, PVD s/p R AKA, CVA now non- verbal and paralyzed who presented with abnormal outpatient labs that showed renal failure and increasing total body volume overload #Acute Renal Failure with Nephrotic Range Proteinuria and uremia requiring dialysis Serologic work up showed + 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
[2017-04-29] MEDS ORDERED: INSULIN (NOVOLOG) ASPART 100 UNITS/ML 10ML VIAL SQ ONE (14:18)
--- NOTE | 2017-04-29 14:22 | PN ---
Physical Exam: SUBJECTIVE: Patient seen and examined at bedside. Fever of 100.2. Patient is lying comfortably. OBJECTIVE: Vital Signs Period Temp Pulse Resp BP Sys/Daniel Pulse Ox Last 24 Hr 98.6 F-100.2 F 67-84 18-18 140-177/63-94 99 GENERAL:nonverbal but awake. HEAD: NC/AT. EYES: PERRL, sclera anicteric, conjunctiva clear. No ptosis. ENT: dry mucous membranes. NECK: supple. Dual lumen dialysis cath RIJ LUNGS:CTAB , diminished bilat bases no wheezes, no crackles, no accessory muscle use. HEART: RRR,s1s2 normal 3/6 ANGELINA ABDOMEN: Soft, NT, ND, BS(+) PEG EXTREMITIES: Bilat. nonpitting edema upper ext. Bilat edema LE resolved.. R leg s/p AKA NEUROLOGICAL: non verbal. obtunded and contracted. functional quadriplegia Laboratory Results - last 24 hr 04/28/17 04/28/17 04/28/17 15:31 18:38 23:00 Sodium Potassium Chloride Carbon Dioxide Anion Gap BUN Creatinine POC Glucometer 201 186 282 Random Glucose Calcium 04/29/17 04/29/17 04/29/17 06:54 08:50 11:12 Sodium 143 Potassium 4.3 D Chloride 102 Carbon Dioxide 29 Anion Gap 12 BUN 51 H D Creatinine 3.9 H D POC Glucometer 453 396 Random Glucose 490 H* D Calcium 7.3 L Active Medications Generic Name Dose Route Start Last Admin Trade Name Freq PRN Reason Stop Dose Admin Albuterol Sulfate 1 amp 04/26/17 22:55 Ventolin 0.083% Nebulizer Soln - NEB Q4H PRN SHORT OF BREATH/WHEEZING Amlodipine Besylate 5 mg 04/28/17 10:00 04/29/17 10:00 Norvasc - GT Not Given DAILY [facility] Heparin Sodium (Porcine) 5,000 unit 04/21/17 22:00 04/26/17 22:07 Heparin - SQ 5,000 unit BID APRIL Administration Levofloxacin 100 mls @ 100 mls/hr 04/29/17 17:00 Levaquin 500 Mg Premixed Ivpb - IVPB 04/30/17 16:59 DAILY [facility] Insulin Aspart 1 vial 04/29/17 11:30 04/29/17 13:02 Novolog Vial Sliding Scale - SQ Not Given Q6H [facility]IL Protocol Pantoprazole Sodium 40 mg 04/28/17 10:00 04/29/17 10:54 Protonix Packets For Oral Suspension - GT Not Given DAILY [facility] Potassium Phos/Sodium Phos 1 packet 04/28/17 11:15 04/29/17 06:54 Phos-Nak Packet - GT 1 packet TID APRIL Administration Prednisone 60 mg 04/29/17 13:30 Deltasone - GT DAILY [facility] ASSESSMENT/PLAN: 61 yo F with pmhx of CVA, NIDDM, HTN, HLD, admitted for acute renal failure. Problem List - Problems (1) Fever of unknown origin Assessment/Plan: * blood cultures sent ; peripheral and shiley * renally dosed Levaquin after dialysis 500mg IV * Stat dose vanco after dialysis * ID consulted. (2) Renal failure Assessment/Plan: * Patient will be dialyzed today * Re-Scheduled for permacath for tomorrow because sugars persistently elevated. Will keep NPO after midnight. * Seen by Dr. Cabral who recommended CT which showed LLL mass and right thyroid mass cannot r/o granuloma; will discuss with family about starting treatment. 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 (3) Non-insulin dependent type 2 diabetes mellitus Assessment/Plan: * Hyperglycemia noted today will give Levemir 5 units * Will speak with Supervisor [employer] for possible adjustments. * Continue Jevity tube feed via peg. * NISS Q6H * BGM Q6H (4) HTN (hypertension) Assessment/Plan: * Continue amlodipine 5mg PO daily (5) Functional quadriplegia Assessment/Plan: * assist in ADL's Visit type - Emergency Visit Emergency Visit: Yes ED Registration Date: 04/17/17 Care time: The patient presented to the Emergency Department on the above date and was hospitalized for further evaluation of their emergent condition. - New Patient This patient is new to me today: No - Critical Care Critical Care patient: No
--- NOTE | 2017-04-29 15:37 | PN ---
Teaching Attending Note Name of Resident: Kodi Pritchett ATTENDING PHYSICIAN STATEMENT I saw and evaluated the patient. I reviewed the resident's note and discussed the case with the resident. I agree with the resident's findings and plan as documented. SUBJECTIVE: no events over night OBJECTIVE: NAD, non verbal , contracted. looks comfortable , opens eyes CV: RRR, 3/6 SM at apex. Lungs: CTAB , decreased breath sounds b/l bases Abd: soft, NT, ND , L BS Ext: contracted upper ext. non pitting edema on upper ext with bruising on RUE. 1+ pitting edema on LLE. AKA on R . ASSESSMENT AND PLAN: 61 y/o lady with h/o CVA , NIDDM, HTN, HLP, who presented after her out pt labs showed renal failure. 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 CT scan reviewed. renal Bx was declined by family. case was d/w Dr. Guzman, to d/w family options of treatment . prednisone alone vs cytotoxic meds cont prednisone for now 2- Fever : unknown source. ? blood stream infection due to dialysis cath , vs UTI . ? aspiration pNA . No diarrhea . Urine cx last week with 90,000 colonies of pseudomonas . - send blood cx from periphery and from [place] - start levaquin as pseudomonas is sensitive - a dose of vanco after HD today - ID consult for Abx mgt 3- Uncontrolled DM : probably due to steroids - treated elevated sugars this am with SSI. AG nl - give 5 units of levemir - since will be on steroids for a while , will start levemir every am - change SSI to 6 6hr 4- HTN: cont norvasc 5- Nutrition : TF .
[2017-04-29] MEDS ORDERED: VANCOMYCIN 1 GRAM (PRE-DOCKED) 250 ML IVPB ONE (15:45)
--- NOTE | 2017-04-29 16:38 | CONSULT ---
Consultation: REQUESTING PROVIDER: CONSULT REQUEST: We have been asked to medically evaluate this patient for (ID ) . HISTORY OF PRESENT ILLNESS: Patient seen and examined in dialysis. patient of ESRD on HD had a fever of 100.2 in morning. Previous UC shows pseudomonas [id number] colonies. Patient is non verbal since she has stroke. Talked to patient daughter with a help of transportation planning engineer, she states that her mom is non verbal and don't understand since she has stroke. Patient daughter states that her mother doesn't have cough, runny nose, diarrhoea, rash, swelling in legs. Daughter uanble to tell if her mother still makes urine. On HD, today its the 3rd time she is getting HD. shaley cath was placed recently REVIEW OF SYSTEMS: unobtainable. PHYSICAL EXAMINATION Vital Signs - 24 hr 04/28/17 04/28/17 04/28/17 18:30 21:00 22:00 Temperature 99.3 F 98.7 F Pulse Rate 67 76 Respiratory 18 18 Rate Blood Pressure 140/63 177/77 O2 Sat by Pulse 99 Oximetry (%) 04/29/17 04/29/17 04/29/17 02:00 06:00 10:00 Temperature 99.1 F 100.2 F H 98.9 F Pulse Rate 73 84 72 Respiratory 18 18 18 Rate Blood Pressure 165/70 162/94 155/66 O2 Sat by Pulse Oximetry (%) 04/29/17 13:50 Temperature 98.6 F Pulse Rate 78 Respiratory 18 Rate Blood Pressure 161/71 O2 Sat by Pulse Oximetry (%) GENERAL: Awake, lying on bed in dialysis HEAD: Normal with no signs of trauma. EYES: left pupil constricted catract, right pupil reacting to light EARS, NOSE, THROAT: nares patent, unable to check oral cavity as patient didnt open her mouth. NECK: no lymphadenopathy, shaley cath present no erythema or swelling appreciated around cath LUNGS: Breath sounds equal, clear to auscultation bilaterally, difficult to tell if patient has rales or not as patient doesn't take deep breaths HEART: s1s2 normal ABDOMEN: Soft, nontender, not distended, normoactive bowel sounds, no guarding, no rebound, UPPER EXTREMITIES: right upper limb and left upper limb swollen near elbows, mild erythem apresent on right elbow( could be from pressure doesn't look like cellulitis ) temp not elevated, non tender LOWER EXTREMITIES: right limb above knee amputation, left LLL no erythema or rash. SKIN: Warm, also have grade 2 bed sore. Laboratory Results - last 24 hr 04/28/17 04/28/17 04/29/17 18:38 23:00 06:54 Sodium Potassium Chloride Carbon Dioxide Anion Gap BUN Creatinine POC Glucometer 186 282 453 Random Glucose Calcium 04/29/17 04/29/17 04/29/17 08:50 11:12 13:59 Sodium 143 Potassium 4.3 D Chloride 102 Carbon Dioxide 29 Anion Gap 12 BUN 51 H D Creatinine 3.9 H D POC Glucometer 396 360 Random Glucose 490 H* D Calcium 7.3 L Active Medications Generic Name Dose Route Start Last Admin Trade Name Freq PRN Reason Stop Dose Admin Albuterol Sulfate 1 amp 04/26/17 22:55 Ventolin 0.083% Nebulizer Soln - NEB Q4H PRN SHORT OF BREATH/WHEEZING Amlodipine Besylate 5 mg 04/28/17 10:00 04/29/17 10:00 Norvasc - GT Not Given DAILY [facility] Heparin Sodium (Porcine) 5,000 unit 04/21/17 22:00 04/26/17 22:07 Heparin - SQ 5,000 unit BID APRIL Administration Levofloxacin 100 mls @ 100 mls/hr 04/29/17 17:00 Levaquin 500 Mg Premixed Ivpb - IVPB 04/30/17 16:59 DAILY [facility]IL Vancomycin HCl 250 mls @ 250 mls/hr 04/29/17 15:45 Vancomycin (Pre-Docked) IVPB 04/29/17 16:44 ONCE ONE Protocol Insulin Aspart 1 vial 04/29/17 11:30 04/29/17 13:02 Novolog Vial Sliding Scale - SQ Not Given Q6H [facility] Protocol Insulin Detemir 7 units 04/30/17 07:00 Levemir Vial SQ AM [facility] Pantoprazole Sodium 40 mg 04/28/17 10:00 04/29/17 10:54 Protonix Packets For Oral Suspension - GT Not Given DAILY [facility] Potassium Phos/Sodium Phos 1 packet 04/28/17 11:15 04/29/17 06:54 Phos-Nak Packet - GT 1 packet TID [facility]IL Administration Prednisone 60 mg 04/29/17 13:30 Deltasone - GT DAILY [facility] CBCD WBC 8.1 K/mm3 (4.0-10.0) D 04/29/17 14:55 RBC 3.15 M/mm3 (3.60-5.2) L 04/29/17 14:55 Hgb 9.4 GM/dL (10.7-15.3) L D 04/29/17 14:55 Hct 28.2 % (32.4-45.2) L 04/29/17 14:55 MCV 89.5 fl (80-96) 04/29/17 14:55 MCHC 33.3 g/dl (32.0-36.0) 04/29/17 14:55 RDW 14.4 % (11.6-15.6) 04/29/17 14:55 Plt Count 157 K/MM3 (134-434) 04/29/17 14:55 MPV 9.4 fl (7.5-11.1) 04/29/17 14:55 CMP Sodium 143 mmol/L (136-145) 04/29/17 08:50 Potassium 4.3 mmol/L (3.5-5.1) D 04/29/17 08:50 Chloride 102 mmol/L (98-107) 04/29/17 08:50 Carbon Dioxide 29 mmol/L (21-32) 04/29/17 08:50 Anion Gap 12 (8-16) 04/29/17 08:50 BUN 51 mg/dL (7-18) H D 04/29/17 08:50 Creatinine 3.9 mg/dL (0.55-1.02) H D 04/29/17 08:50 Creat Clearance w eGFR 8.77 (>60) 04/27/17 07:45 Random Glucose 490 mg/dL (74-106) H* D 04/29/17 08:50 Calcium 7.3 mg/dL (8.5-10.1) L 04/29/17 08:50 Total Bilirubin 0.3 mg/dL (0.2-1.0) D 04/27/17 07:45 AST 19 U/L (15-37) D 04/27/17 07:45 ALT 20 U/L (12-78) 04/27/17 07:45 Alkaline Phosphatase 188 U/L (45-117) H 04/27/17 07:45 Total Protein 4.9 g/dl (6.4-8.2) L 04/27/17 07:45 Albumin 1.8 g/dl (3.4-5.0) L 04/27/17 07:45 CT chest . Moderate bilateral pleural effusions with lower lobe atelectasis, left greater than right. 2. Possible left lower lobe mass. Clinical correlation and follow-up recommended. 3. Right thyroid mass for which ultrasound follow-up is now recommended. Please see above discussion. 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 wbc is 8.1, ct chest shows b/l effusion and possible left lower lobe mass. Fever could be due to apsiration, flare of vasculitis, vs shaley cath vs uti vs skin source pseudomonas on previous urine culture probably colonizer plan: get blood, sputum and urine culture. start on ceftrixone continue with vanco. Dispo: We will continue to follow the patient. Thank you for this consultative opportunity. Visit type - Emergency Visit Emergency Visit: Yes ED Registration Date: 04/17/17 Care time: The patient presented to the Emergency Department on the above date and was hospitalized for further evaluation of their emergent condition. - New Patient This patient is new to me today: Yes Date on this admission: 04/29/17 - Critical Care Critical Care patient: No
[2017-04-29 16:41] LABS: MCH 29.8 pg (25.7-33.7); MCHC 33.3 g/dl (32.0-36.0); MEAN CELL VOLUME 89.5 fl (80-96); MEAN PLT VOLUME 9.4 fl (7.5-11.1); PLATELET COUNT 157 K/MM3 (134-434); RDW 14.4 % (11.6-15.6); WHITE BLOOD COUNT 8.1 K/mm3 (4.0-10.0)
[2017-04-29] MEDS ORDERED: LEVOFLOXACIN 500 MG IVPB 100 ML IVPB SCH (17:00)
[2017-04-29 17:13] LABS: ALBUMIN 1.7 g/dl (3.4-5.0); BILIRUBIN,TOTAL 0.5 mg/dL (0.2-1.0); CALCIUM 7.2 mg/dL (8.5-10.1); MAGNESIUM 3.1 mg/dL (1.8-2.4); PHOSPHOROUS 3.5 mg/dL (2.5-4.9); TOT PROT 4.4 g/dl (6.4-8.2)
--- NOTE | 2017-04-29 17:16 | PN ---
Teaching Attending Note Name of Resident: Tavo Branch ATTENDING PHYSICIAN STATEMENT I saw and evaluated the patient. I reviewed the resident's note and discussed the case with the resident. I agree with the resident's findings and plan as documented. SUBJECTIVE: OBJECTIVE: ASSESSMENT AND PLAN: Fever in this 61 year old female with multiple co-morbidities (ESRD, Wegeners, CVA/OBS) Potential sources include asp pneumonia, catheter-related bacteremia/ skin source, or UTI. Cannot R/O fever secondary to vasculitis Pseudomonas in previous urine c/s probable colonizer. Pending sepsis workup, empiric ceftriaxone + stat dose vancomycin
[2017-04-29 17:17] LABS: COCKROFT - GAULT 13.09; CREATININE 3.9 mg/dL (0.55-1.02)
[2017-04-29] MEDS ORDERED: INSULIN (NOVOLOG) ASPART 100 UNITS/ML 10ML VIAL ONE (19:01)
[2017-04-29] MEDS: predniSONE 20 MG TABLET (UD) GT SCH (19:11)
[2017-04-30 01:25] LABS: URINE APPEARANCE CLOUDY; URINE BILIRUBIN NEGATIVE (NEGATIVE); URINE BLOOD NEGATIVE (NEGATIVE); URINE COLOR YELLOW; URINE GLUCOSE (UA) 3+ (NEGATIVE); URINE KETONE NEGATIVE (NEGATIVE); URINE NITRITE NEGATIVE (NEGATIVE); URINE UROBILINOGEN NEGATIVE E.U./dl (0.2-1.0)
[2017-04-30 01:28] LABS: URINE LEUK ESTERASE 2+ (NEGATIVE); URINE PROTEIN 3+ (NEGATIVE)
[2017-04-30 01:35] LABS: URINE BACTERIA FEW /hpf (NONE SEEN); URINE RBC 5 /hpf (0-3); URINE WBC 917 /hpf (3-5)
[2017-04-30] MEDS: NAPH,MB-DB/K PH,MBDB POWDER PACKET GT SCH ×3 (06:40→21:47)
[2017-04-30] MEDS: INSULIN SLIDING SCALE (NOVOLOG) 1 VIAL SQ SCH ×4 (06:40→22:31)
[2017-04-30] MEDS ORDERED: INSULIN DETEMIR 100 UNITS/ML MDV SQ SCH (07:00)
[2017-04-30 07:50] LABS: BASOPHIL 0.2 % (0-2.0); EOSINOPHIL 0.1 % (0-4.5); MCH 29.7 pg (25.7-33.7); MCHC 33.4 g/dl (32.0-36.0); MEAN PLT VOLUME 9.1 fl (7.5-11.1); NEUTROPHILS 90.7 % (42.8-82.8); RDW 14.1 % (11.6-15.6); WHITE BLOOD COUNT 11.9 K/mm3 (4.0-10.0)
[2017-04-30 08:39] LABS: BILIRUBIN,TOTAL 0.6 mg/dL (0.2-1.0); CALCIUM 7.4 mg/dL (8.5-10.1); COCKROFT - GAULT 18.105; CREATININE 2.8 mg/dL (0.55-1.02); TOT PROT 5.1 g/dl (6.4-8.2)
--- NOTE | 2017-04-30 09:46 | PN ---
Physical Exam: SUBJECTIVE: Patient seen and examined. Patient lying in bed, contracted position, drooling saliva. Non verbal. Family not on bedside. Over night no fever. wbc increased and neutrophil 90. OBJECTIVE: Vital Signs Period Temp Pulse Resp BP Sys/Daniel Pulse Ox Last 24 Hr 97.9 F-98.9 F 62-78 18-18 127-172/66-87 100 GENERAL: Awake, lying in bed contracted posture. EARS, NOSE, THROAT: nares patent, didnt open her mouth, jaw clinched and drooling saliva. LUNGS: Breath sounds equal, clear to auscultation bilaterally, coarse breathing. HEART: s1s2 normal ABDOMEN: Soft, nontender, not distended, normoactive bowel sounds, no guarding, no rebound, UPPER EXTREMITIES:b/l upper limb swelling decreased, pulse present, regular. LOWER EXTREMITIES: right limb above knee amputation, left LLL no erythema or rash. SKIN: Warm, also have grade 2 bed sore. Laboratory Results - last 24 hr 04/29/17 04/29/17 04/29/17 11:12 13:59 14:55 WBC RBC Hgb Hct MCV MCHC RDW Plt Count MPV Neutrophils % Lymphocytes % Monocytes % Eosinophils % Basophils % Sodium 145 Potassium 4.0 Chloride 102 Carbon Dioxide 32 Anion Gap 11 BUN 51 H Creatinine 3.9 H Creat Clearance w eGFR 11.68 POC Glucometer 396 360 Random Glucose 336 H* D Calcium 7.2 L Phosphorus 3.5 D Magnesium 3.1 H D Total Bilirubin 0.5 D AST 14 L D ALT 17 Alkaline Phosphatase 156 H Total Protein 4.4 L Albumin 1.7 L Urine Color Urine Appearance Urine pH Urine Protein Urine Glucose (UA) Urine Ketones Urine Blood Urine Nitrite Urine Bilirubin Urine Urobilinogen Ur Leukocyte Esterase Urine RBC Urine WBC Urine Bacteria 04/29/17 04/29/17 04/29/17 14:55 16:31 22:20 WBC 8.1 D RBC 3.15 L Hgb 9.4 L D Hct 28.2 L MCV 89.5 MCHC 33.3 RDW 14.4 Plt Count 157 MPV 9.4 Neutrophils % Lymphocytes % Monocytes % Eosinophils % Basophils % Sodium Potassium Chloride Carbon Dioxide Anion Gap BUN Creatinine Creat Clearance w eGFR POC Glucometer 253 157 Random Glucose Calcium Phosphorus Magnesium Total Bilirubin AST ALT Alkaline Phosphatase Total Protein Albumin Urine Color Urine Appearance Urine pH Urine Protein Urine Glucose (UA) Urine Ketones Urine Blood Urine Nitrite Urine Bilirubin Urine Urobilinogen Ur Leukocyte Esterase Urine RBC Urine WBC Urine Bacteria 04/30/17 04/30/17 04/30/17 01:00 06:05 06:05 WBC 11.9 H D RBC 3.44 L Hgb 10.2 L Hct 30.6 L MCV 89.0 MCHC 33.4 RDW 14.1 Plt Count MPV 9.1 Neutrophils % 90.7 H Lymphocytes % 5.7 L D Monocytes % 3.3 L Eosinophils % 0.1 D Basophils % 0.2 Sodium 141 Potassium 4.9 D Chloride 99 Carbon Dioxide 33 H Anion Gap 9 BUN 38 H D Creatinine 2.8 H D Creat Clearance w eGFR 17.12 POC Glucometer Random Glucose 311 H* Calcium 7.4 L Phosphorus Magnesium Total Bilirubin 0.6 AST 27 D ALT 19 Alkaline Phosphatase 141 H Total Protein 5.1 L Albumin 2.0 L Urine Color Yellow Urine Appearance Cloudy Urine pH 7.0 Urine Protein 3+ H Urine Glucose (UA) 3+ H Urine Ketones Negative Urine Blood Negative Urine Nitrite Negative Urine Bilirubin Negative Urine Urobilinogen Negative Ur Leukocyte Esterase 2+ H D Urine RBC 5 Urine WBC 917 Urine Bacteria Few 04/30/17 06:42 WBC RBC Hgb Hct MCV MCHC RDW Plt Count MPV Neutrophils % Lymphocytes % Monocytes % Eosinophils % Basophils % Sodium Potassium Chloride Carbon Dioxide Anion Gap BUN Creatinine Creat Clearance w eGFR POC Glucometer 268 Random Glucose Calcium Phosphorus Magnesium Total Bilirubin AST ALT Alkaline Phosphatase Total Protein Albumin Urine Color Urine Appearance Urine pH Urine Protein Urine Glucose (UA) Urine Ketones Urine Blood Urine Nitrite Urine Bilirubin Urine Urobilinogen Ur Leukocyte Esterase Urine RBC Urine WBC Urine Bacteria Active Medications Generic Name Dose Route Start Last Admin Trade Name Freq PRN Reason Stop Dose Admin Albuterol Sulfate 1 amp 04/26/17 22:55 Ventolin 0.083% Nebulizer Soln - NEB Q4H PRN SHORT OF BREATH/WHEEZING Amlodipine Besylate 5 mg 04/28/17 10:00 04/29/17 19:14 Norvasc - GT 5 mg DAILY [facility] Administration Ceftriaxone Sodium 1 gm 04/30/17 10:00 Rocephin 1gm Ivpb (Pre-Docked) IVPB DAILY [facility] Heparin Sodium (Porcine) 5,000 unit 04/21/17 22:00 04/26/17 22:07 Heparin - SQ 5,000 unit BID [facility] Administration Levofloxacin 50 mls @ 50 mls/hr 04/30/17 10:00 Levaquin 250 Mg Premixed Ivpb - IVPB Q2D@1000 [facility] Insulin Aspart 1 vial 04/29/17 11:30 04/30/17 06:40 Novolog Vial Sliding Scale - SQ Not Given Q6H [facility] Protocol Insulin Detemir 7 units 04/30/17 07:00 04/30/17 06:40 Levemir Vial SQ Not Given AM [facility] Pantoprazole Sodium 40 mg 04/28/17 10:00 04/29/17 19:14 Protonix Packets For Oral Suspension - GT 40 mg DAILY [facility] Administration Potassium Phos/Sodium Phos 1 packet 04/28/17 11:15 04/30/17 06:40 Phos-Nak Packet - GT 1 packet TID [facility] Administration Prednisone 60 mg 04/29/17 13:30 04/29/17 19:11 Deltasone - GT 60 mg DAILY [facility] Administration Microbiology 04/29/17 08:50 Blood - Peripheral Venous Blood Culture - Preliminary NO GROWTH OBTAINED AFTER 24 HOURS, INCUBATION TO CONTINUE FOR 4 DAYS. 04/29/17 08:30 Blood - Peripheral Venous Blood Culture - Preliminary NO GROWTH OBTAINED AFTER 24 HOURS, INCUBATION TO CONTINUE FOR 4 DAYS. 04/17/17 04:00 Urine - Urine Lemon Urine Culture - Final Pseudomonas Aeruginosa ASSESSMENT/PLAN: 61 y/o F with ESRD with emilio granulometosis/ granulomatosis with polyangitis. Fever, could be from Uti vs vasculitis UTI, last culture positive for pseudomonas. Bed sores. Plan: Continue with Levaquin. Stop Ceftriaxone. Get TB screen before starting imunosupressive therapy. Follow culture: Blood culture from peripheral blood Fan TORREZ pending, Urine culture from 04/29 pending Visit type - Emergency Visit Emergency Visit: Yes ED Registration Date: 04/17/17 Care time: The patient presented to the Emergency Department on the above date and was hospitalized for further evaluation of their emergent condition. - New Patient This patient is new to me today: No - Critical Care Critical Care patient: No
[2017-04-30] MEDS ORDERED: CEFTRIAXONE 1 GM in DEXTROSE 5%-WATER - 50 ML IVPB SCH (10:00)
[2017-04-30] MEDS ORDERED: cefTRIAXone 1 GM/50 ML BAG (PRE-DOCKED) IVPB SCH (10:00)
[2017-04-30] MEDS ORDERED: LEVOFLOXACIN 250 MG IVPB 50 ML IVPB SCH (10:00)
[2017-04-30] MEDS: amLODIPine BESYLATE 5 MG TABLET (FP) GT SCH (10:19)
[2017-04-30] MEDS: predniSONE 20 MG TABLET (UD) GT SCH (10:19)
[2017-04-30] MEDS: PANTOPRAZOLE SOD 40 MG SUSPENSION PACKET GT SCH (10:19)
--- NOTE | 2017-04-30 10:47 | PN ---
Teaching Attending Note Name of Resident: Kodi Pritchett ATTENDING PHYSICIAN STATEMENT I saw and evaluated the patient. I reviewed the resident's note and discussed the case with the resident. I agree with the resident's findings and plan as documented. SUBJECTIVE: no events over night OBJECTIVE: NAD, non verbal , contracted. looks comfortable, opens eyes. CV: RRR, 3/6 SM at apex. Lungs: CTAB, decreased breath sounds b/l bases Abd: soft, NT, ND , L BS Ext: contracted upper ext. non pitting edema on upper ext with bruising on RUE. 1+ pitting edema on LLE. AKA on R . Skin : stage 2 sacral decub. no drainage . also stage 1 decub on lower b/l buttock cheeks ASSESSMENT AND PLAN: 61 y/o lady with h/o CVA , NIDDM, HTN, HLP, who presented after her out pt labs showed renal failure. 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 renal Bx was declined by family. Cont steroids for now. Further d/w family regarding prednisone alone vs cytotoxic meds 2- Fever : unknown source. ? blood stream infection due to dialysis cath , vs UTI . ? aspiration pNA . Urine cx last week with 90,000 colonies of pseudomonas . stage 2 decub with no drainage - follow blood cx from periphery and Shiley - appreciate ID Recs: cont ceftriaxone and vanco ( will dose vanco after HD tomorrow ) - will dc levaquin as pseudomonas can be a colonizer 3- Uncontrolled DM : probably due to steroids . slightly improved - cont levemir while on steroids , 7 units q AM - cont SSI q 6 h 4- HTN: cont norvasc 5- Nutrition : TF . HLOC
--- NOTE | 2017-04-30 11:02 | PN ---
Teaching Attending Note Name of Resident: Tavo Branch ATTENDING PHYSICIAN STATEMENT I saw and evaluated the patient. I reviewed the resident's note and discussed the case with the resident. I agree with the resident's findings and plan as documented. SUBJECTIVE:NO fever last day OBJECTIVE: Selected Entries 04/29/17 13:50 Temperature 98.6 F Pulse Rate 78 Respiratory 18 Rate Blood Pressure 161/71 ASSESSMENT AND PLAN: Lung Diminished BS Cor S1 S2 Abd Soft nontender Ext Amputation Microbiology Laboratory Tests 04/17/17 04/30/17 04/30/17 16:40 06:05 06:05 WBC 11.9 H D Hgb 10.2 L Hct 30.6 L Plt Count Pending BUN 38 H D Creatinine 2.8 H D Creat Clearance w eGFR 17.12 c-ANCA <1:20 Proteinase 3 (PR3) 5.3 H p-ANCA <1:20 Atypical p-ANCA <1:20 Assessment Fever 100.2 Granulomatous angiitis Plan If we are contemplating immunosurpressive therapy we need to screen for tuberculosis before starting therapy( DM immunosurpressive therapy and from [place] Agree with quinolone alone pending c/s Discussed with daughter regarding biopsy vs no biopsy Mark HILL
[2017-04-30] MEDS ORDERED: ONDANSETRON 4 MG/2 ML VIAL IVPUSH PRN ×2 (11:30→13:45)
[2017-04-30] MEDS ORDERED: PROMETHAZINE HCL 25 MG/1 ML VIAL IVPUSH PRN ×2 (11:30→13:45)
[2017-04-30] MEDS ORDERED: SODIUM CHLORIDE 1,000 ML IV SCH (11:30)
[2017-04-30] MEDS ORDERED: LIDOCAINE HCL 1%, 10 MG/ML (20ML VIAL) ONE ×2 (11:35→11:37)
[2017-04-30] MEDS ORDERED: HEPARIN NA (PORCINE) 5,000 UNITS/ML 1ML VIAL ONE (11:37)
[2017-04-30] MEDS ORDERED: POVIDONE-IODINE OINTMENT 10% - 28.4 GM TUBE ONE (11:37)
[2017-04-30] MEDS ORDERED: INSULIN (NOVOLOG) ASPART 100 UNITS/ML 10ML VIAL SQ ONE ×2 (11:39→13:45)
[2017-04-30 12:03] LABS: PLATELET COUNT 103 K/MM3 (134-434)
[2017-04-30 12:05] LABS: PLATELET COMMENT2 NO CLOTTING DETECTED
[2017-04-30] MEDS ORDERED: ceFAZolin SODIUM 1 GM VIAL IVPB ONE (12:22)
--- NOTE | 2017-04-30 12:27 | PN ---
Progress Note (short form) - Note Progress Note: Renal Follow up for DEYSI Pt seen and examined at the bedside awake and alert daughter at the bedside for permacath insertion today, no fevers overnight Vital Signs Temperature 98.7 F 04/30/17 05:39 Pulse Rate 78 04/30/17 05:39 Respiratory Rate 18 04/30/17 05:39 Blood Pressure 141/84 04/30/17 05:39 O2 Sat by Pulse Oximetry (%) 100 04/29/17 21:00 Intake & Output 04/27/17 04/28/17 04/29/17 04/30/17 23:59 23:59 23:59 23:59 Intake Total 1360 1105 1020 0 Balance 1360 1105 1020 0 Weight 124 lb 8 oz 123 lb 3.2 oz 122 lb 6.4 oz 121 lb 6.4 oz Gen: NAD, awake, non-verbal CVS: RRR, No M/R Lungs: CTA Abd: soft NT/ND Ext: R AKA, Trace LLE edema CBC, BMP 04/30/17 06:05 04/30/17 06:05 Laboratory Tests 04/30/17 06:05 Calcium 7.4 L Current Medications Albuterol Sulfate (Ventolin 0.083% Nebulizer Soln -) 1 amp NEB Q4H PRN PRN Reason: SHORT OF BREATH/WHEEZING Amlodipine Besylate (Norvasc -) 5 mg GT DAILY [facility] Last Admin: 04/30/17 10:19 Dose: 5 mg Fentanyl (Sublimaze Injection -) 50 mcg IVPUSH [id number] PRN PRN Reason: PAIN Stop: 05/03/17 11:31 Heparin Sodium (Porcine) (Heparin -) 5,000 unit SQ BID [facility] Last Admin: 04/26/17 22:07 Dose: 5,000 unit Levofloxacin (Levaquin 250 Mg Premixed Ivpb -) 50 mls @ 50 mls/hr IVPB Q2D@ 1000 [facility] Sodium Chloride (Normal Saline -) 1,000 mls @ 42 mls/hr IV ASDIR [facility] Last Admin: 04/30/17 11:44 Dose: Not Given Insulin Aspart (Novolog Vial Sliding Scale -) 1 vial SQ Q6H [facility] PRN Reason: Protocol Last Admin: 04/30/17 11:44 Dose: Not Given Insulin Detemir (Levemir Vial) 7 units SQ AM [facility] Last Admin: 04/30/17 06:40 Dose: Not Given Ondansetron HCl (Zofran Injection) 4 mg IVPUSH Q6H PRN PRN Reason: NAUSEA AND/OR VOMITING Stop: 04/30/17 17:31 Pantoprazole Sodium (Protonix Packets For Oral Suspension -) 40 mg GT DAILY [facility] Last Admin: 04/30/17 10:19 Dose: 40 mg Potassium Phos/Sodium Phos (Phos-Nak Packet -) 1 packet GT TID [facility] Last Admin: 04/30/17 06:40 Dose: 1 packet Prednisone (Deltasone -) 60 mg GT DAILY [facility] Last Admin: 04/30/17 10:19 Dose: 60 mg Promethazine HCl (Phenergan Injection -) 12.5 mg IVPUSH Q6H PRN PRN Reason: NAUSEA Stop: 04/30/17 17:31 A/P 61 year old woman with PMhx of NIDDM, Hypertension, PVD s/p R AKA, CVA now non- verbal and paralyzed who presented with abnormal outpatient labs that showed renal failure and increasing total body volume overload #Acute Renal Failure with Nephrotic Range Proteinuria and uremia requiring dialysis Serologic work up showed + PR3 Ab that is seen in Wegners/Granulomatosis with polyangitis will discuss with family today regarding risks and benefits of immunosuppressive medication on prednisone 60mg Diaily, will check Quantiferon as per ID bull for permacath insertion today, next dialysis is planned for tomorrow #Anemia Trend CBC #Hypophosphatemia on Neutraphos Trend Phos levels #Fevers/suspected UTI continue abx as pr ID Jonathan Guzman DO
[2017-04-30] MEDS ORDERED: LIDOCAINE HCL 1%, 10 MG/ML (20ML VIAL) IJ ONE (12:29)
--- NOTE | 2017-04-30 13:06 | OP ---
Operative Note - Note: Operative Date: 04/30/17 Pre-Operative Diagnosis: ESRD Operation: Insertion of permacath Post-Operative Diagnosis: Same as Pre-op Surgeon: Robin Aviles Anesthesia: Fractional Estimated Blood Loss (mls): 50 Operative Report Dictated: Yes
[2017-04-30] MEDS ORDERED: ALBUTEROL SO4 0.083% IH SOL 2.5 MG/3 ML VIAL.NEB. NEB PRN (13:45)
--- NOTE | 2017-04-30 14:47 | PN ---
Physical Exam: SUBJECTIVE: Patient seen and examined at bedside. No fever overnight. lying comfortably in bed. Opens eyes to verbal stimuli. OBJECTIVE: Vital Signs Period Temp Pulse Resp BP Sys/Daniel Pulse Ox Last 24 Hr 97.8 F-98.7 F 62-83 16-20 127-172/60-89 100-100 GENERAL:nonverbal but awake. HEAD: NC/AT. EYES: PERRL, sclera anicteric, conjunctiva clear. No ptosis. ENT: dry mucous membranes. NECK: supple. Dual lumen dialysis cath RIJ LUNGS:CTAB , diminished bilat bases no wheezes, no crackles, no accessory muscle use. HEART: RRR,s1s2 normal 3/6 ANGELINA ABDOMEN: Soft, NT, ND, BS(+) PEG EXTREMITIES: Bilat. nonpitting edema upper ext. Bilat edema LE resolved.. R leg s/p AKA NEUROLOGICAL: non verbal. obtunded and contracted. functional quadriplegia Laboratory Results - last 24 hr 04/27/17 04/29/17 04/29/17 08:20 14:55 14:55 WBC 8.1 D RBC 3.15 L Hgb 9.4 L D Hct 28.2 L MCV 89.5 MCHC 33.3 RDW 14.4 Plt Count 157 MPV 9.4 Neutrophils % Lymphocytes % Monocytes % Eosinophils % Basophils % Platelet Comment Sodium 145 Potassium 4.0 Chloride 102 Carbon Dioxide 32 Anion Gap 11 BUN 51 H Creatinine 3.9 H Creat Clearance w eGFR 11.68 POC Glucometer Random Glucose 336 H* D Calcium 7.2 L Phosphorus 3.5 D Magnesium 3.1 H D Total Bilirubin 0.5 D AST 14 L D ALT 17 Alkaline Phosphatase 156 H Total Protein 4.4 L Albumin 1.7 L Urine Color Urine Appearance Urine pH Ur Specific [place] 61 yo F with pmhx of CVA, NIDDM, HTN, HLD, admitted for acute renal failure. Urine Glucose (UA) Urine Ketones Urine Blood Urine Nitrite Urine Bilirubin Urine Urobilinogen Ur Leukocyte Esterase Urine RBC Urine WBC Urine Bacteria Blood Type O POSITIVE Antibody Screen Negative Crossmatch See Detail 04/29/17 04/29/17 04/30/17 16:31 22:20 01:00 WBC RBC Hgb Hct MCV MCHC RDW Plt Count MPV Neutrophils % Lymphocytes % Monocytes % Eosinophils % Basophils % Platelet Comment Sodium Potassium Chloride Carbon Dioxide Anion Gap BUN Creatinine Creat Clearance w eGFR POC Glucometer 253 157 Random Glucose Calcium Phosphorus Magnesium Total Bilirubin AST ALT Alkaline Phosphatase Total Protein Albumin Urine Color Yellow Urine Appearance Cloudy Urine pH 7.0 Ur Specific [place] 1.020 Urine Protein 3+ H Urine Glucose (UA) 3+ H Urine Ketones Negative Urine Blood Negative Urine Nitrite Negative Urine Bilirubin Negative Urine Urobilinogen Negative Ur Leukocyte Esterase 2+ H D Urine RBC 5 Urine WBC 917 Urine Bacteria Few Blood Type Antibody Screen Crossmatch 04/30/17 04/30/17 04/30/17 06:05 06:05 06:42 WBC 11.9 H D RBC 3.44 L Hgb 10.2 L Hct 30.6 L MCV 89.0 MCHC 33.4 RDW 14.1 Plt Count 103 L D MPV 9.1 Neutrophils % 90.7 H Lymphocytes % 5.7 L D Monocytes % 3.3 L Eosinophils % 0.1 D Basophils % 0.2 Platelet Comment No clotting detected Sodium 141 Potassium 4.9 D Chloride 99 Carbon Dioxide 33 H Anion Gap 9 BUN 38 H D Creatinine 2.8 H D Creat Clearance w eGFR 17.12 POC Glucometer 268 Random Glucose 311 H* Calcium 7.4 L Phosphorus Magnesium Total Bilirubin 0.6 AST 27 D ALT 19 Alkaline Phosphatase 141 H Total Protein 5.1 L Albumin 2.0 L Urine Color Urine Appearance Urine pH Ur Specific [place] Urine Protein Urine Glucose (UA) Urine Ketones Urine Blood Urine Nitrite Urine Bilirubin Urine Urobilinogen Ur Leukocyte Esterase Urine RBC Urine WBC Urine Bacteria Blood Type Antibody Screen Crossmatch 04/30/17 04/30/17 11:23 13:59 WBC RBC Hgb Hct MCV MCHC RDW Plt Count MPV Neutrophils % Lymphocytes % Monocytes % Eosinophils % Basophils % Platelet Comment Sodium Potassium Chloride Carbon Dioxide Anion Gap BUN Creatinine Creat Clearance w eGFR POC Glucometer 335 279 Random Glucose Calcium Phosphorus Magnesium Total Bilirubin AST ALT Alkaline Phosphatase Total Protein Albumin Urine Color Urine Appearance Urine pH Ur Specific [place] Urine Protein Urine Glucose (UA) Urine Ketones Urine Blood Urine Nitrite Urine Bilirubin Urine Urobilinogen Ur Leukocyte Esterase Urine RBC Urine WBC Urine Bacteria Blood Type Antibody Screen Crossmatch Active Medications Generic Name Dose Route Start Last Admin Trade Name Freq PRN Reason Stop Dose Admin Albuterol Sulfate 1 amp 04/30/17 13:45 Ventolin 0.083% Nebulizer Soln - NEB Q4H PRN SHORT OF BREATH/WHEEZING Amlodipine Besylate 5 mg 05/01/17 10:00 Norvasc - GT DAILY [facility] Fentanyl 50 mcg 04/30/17 13:45 Sublimaze Injection - IVPUSH 05/03/17 11:31 [id number] PRN PAIN Heparin Sodium (Porcine) 5,000 unit 04/30/17 22:00 Heparin - SQ BID [facility] Levofloxacin 50 mls @ 50 mls/hr 05/02/17 10:00 Levaquin 250 Mg Premixed Ivpb - IVPB Q2D@1000 [facility] Sodium Chloride 1,000 mls @ 42 mls/hr 04/30/17 13:45 Normal Saline - IV ASDIR [facility] Insulin Aspart 1 vial 04/30/17 17:30 Novolog Vial Sliding Scale - SQ Q6H [facility] Protocol Insulin Detemir 7 units 05/01/17 07:00 Levemir Vial SQ AM [facility] Ondansetron HCl 4 mg 04/30/17 13:45 Zofran Injection IVPUSH 04/30/17 17:31 Q6H PRN NAUSEA AND/OR VOMITING Pantoprazole Sodium 40 mg 05/01/17 10:00 Protonix Packets For Oral Suspension - GT DAILY [facility] Potassium Phos/Sodium Phos 1 packet 04/30/17 14:00 Phos-Nak Packet - GT TID [facility] Prednisone 60 mg 05/01/17 10:00 Deltasone - GT DAILY [facility] Promethazine HCl 12.5 mg 04/30/17 13:45 Phenergan Injection - IVPUSH 04/30/17 17:31 Q6H PRN NAUSEA ASSESSMENT/PLAN: 61 yo F with pmhx of CVA, NIDDM, HTN, HLD, admitted for acute renal failure. Problem List - Problems (1) UTI (urinary tract infection) Assessment/Plan: * UA shows findings consistant with UTI. * Will renally dose Levaquin 250mg IV Q48H * ID consult appreciated. (2) Renal failure Assessment/Plan: * She having permacath placed today. 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 Explained the risk of SE which include but not limited to life threatening infection, anemia, and infusion reaction . Explained to daughter that there is no guarantee that this treatment will work and she may have to stay on dialysis for the rest of her life. She wants to discuss with her brothers before making a decision. * Will continue to dialyze. * Continue prednisone. (3) Non-insulin dependent type 2 diabetes mellitus Assessment/Plan: * Continue Jevity tube feed via peg * Levamir 7 units in AM * NISS * BGM ACHS (4) HTN (hypertension) Assessment/Plan: * Continue amlodipine (5) Functional quadriplegia Assessment/Plan: * assist in ADL's Visit type - Emergency Visit Emergency Visit: Yes ED Registration Date: 04/17/17 Care time: The patient presented to the Emergency Department on the above date and was hospitalized for further evaluation of their emergent condition. - New Patient This patient is new to me today: No - Critical Care Critical Care patient: No
[2017-04-30] MEDS ORDERED: INSULIN DETEMIR 100 UNITS/ML MDV SQ ONE (16:35)
[2017-04-30] MEDS: SODIUM CHLORIDE 1,000 ML IV SCH (17:03)
[2017-04-30] MEDS: HEPARIN NA (PORCINE) 5,000 UNITS/ML 1ML VIAL SQ SCH (21:47)
[2017-05-01] MEDS: INSULIN SLIDING SCALE (NOVOLOG) 1 VIAL SQ SCH ×4 (05:37→22:40)
[2017-05-01] MEDS: NAPH,MB-DB/K PH,MBDB POWDER PACKET GT SCH ×3 (05:38→22:39)
[2017-05-01] MEDS: INSULIN DETEMIR 100 UNITS/ML MDV SQ SCH (06:09)
[2017-05-01] MEDS ORDERED: amLODIPine BESYLATE 5 MG TABLET (FP) PO ONE (06:27)
--- NOTE | 2017-05-01 08:26 | PN ---
Progress Note, Physician Chief Complaint: Pt. is quadriplegic, resting in bed. No apparent anesthetic complications. - Current Medication List Current Medications: Active Medications Albuterol Sulfate (Ventolin 0.083% Nebulizer Soln -) 1 amp NEB Q4H PRN PRN Reason: SHORT OF BREATH/WHEEZING Amlodipine Besylate (Norvasc -) 5 mg GT DAILY [facility] Fentanyl (Sublimaze Injection -) 50 mcg IVPUSH [id number] PRN PRN Reason: PAIN Stop: 05/03/17 11:31 Heparin Sodium (Porcine) (Heparin -) 5,000 unit SQ BID [facility] Last Admin: 04/30/17 21:47 Dose: 5,000 unit Levofloxacin (Levaquin 250 Mg Premixed Ivpb -) 50 mls @ 50 mls/hr IVPB Q2D@ 1000 [facility] Sodium Chloride (Normal Saline -) 1,000 mls @ 42 mls/hr IV ASDIR [facility] Last Admin: 04/30/17 17:03 Dose: 42 mls/hr Insulin Aspart (Novolog Vial Sliding Scale -) 1 vial SQ Q6H [facility] PRN Reason: Protocol Last Admin: 05/01/17 05:37 Dose: 4 units Insulin Detemir (Levemir Vial) 7 units SQ AM [facility] Last Admin: 05/01/17 06:09 Dose: 7 units Pantoprazole Sodium (Protonix Packets For Oral Suspension -) 40 mg GT DAILY [facility] Potassium Phos/Sodium Phos (Phos-Nak Packet -) 1 packet GT TID [facility] Last Admin: 05/01/17 05:38 Dose: 1 packet Prednisone (Deltasone -) 60 mg GT DAILY [facility] - Objective Vital Signs: Vital Signs Temperature 99.3 F 05/01/17 06:51 Pulse Rate 78 05/01/17 06:51 Respiratory Rate 20 05/01/17 06:51 Blood Pressure 192/76 05/01/17 06:51 O2 Sat by Pulse Oximetry (%) 100 04/30/17 22:00 Constitutional: Yes: Well Nourished, No Distress, Calm Extremities: Yes: Other (Contracted RUE) Neurological: Yes: Other (Qudariplegia) Labs: CBC, BMP 04/30/17 06:05 04/30/17 06:05 INR, PTT INR 0.89 (0.82-1.09) 04/21/17 12:05 Assessment/Plan POD#1 with h/o CVA, NIDDM, HTN, HLD, admitted for acute renal failure s/p permacath placement under MAC. Stable. D/C from anesthesia care.
[2017-05-01] MEDS ORDERED: PT OWN MED DRAWER 7, Y5N ONE (08:59)
[2017-05-01] MEDS ORDERED: amLODIPine BESYLATE 5 MG TABLET (FP) GT SCH (10:00)
--- NOTE | 2017-05-01 10:55 | PN ---
Progress Note (short form) - Note Progress Note: Renal Follow up for DEYSI Pt seen and examined with dialysis using new permacath working well BP elevated goal UF is 2-2.5L is is awake no overnight events Vital Signs Temperature 99.3 F 05/01/17 06:51 Pulse Rate 78 05/01/17 06:51 Respiratory Rate 20 05/01/17 06:51 Blood Pressure 192/76 05/01/17 06:51 O2 Sat by Pulse Oximetry (%) 100 04/30/17 22:00 Intake & Output 04/28/17 04/29/17 04/30/17 05/01/17 23:59 23:59 23:59 23:59 Intake Total 1105 1020 518 336 Output Total 50 Balance 1105 1020 468 336 Weight 123 lb 3.2 oz 122 lb 6.4 oz 121 lb 6.4 oz 122 lb 4 oz Gen: NAD, awake, non-verbal CVS: RRR, No M/R Lungs: CTA Abd: soft NT/ND Ext: R AKA, Trace LLE edema CBC, BMP 04/30/17 06:05 04/30/17 06:05 Current Medications Albuterol Sulfate (Ventolin 0.083% Nebulizer Soln -) 1 amp NEB Q4H PRN PRN Reason: SHORT OF BREATH/WHEEZING Amlodipine Besylate (Norvasc -) 5 mg GT DAILY [facility] Fentanyl (Sublimaze Injection -) 50 mcg IVPUSH [id number] PRN PRN Reason: PAIN Stop: 05/03/17 11:31 Heparin Sodium (Porcine) (Heparin -) 5,000 unit SQ BID [facility] Last Admin: 04/30/17 21:47 Dose: 5,000 unit Levofloxacin (Levaquin 250 Mg Premixed Ivpb -) 50 mls @ 50 mls/hr IVPB Q2D@ 1000 [facility] Sodium Chloride (Normal Saline -) 1,000 mls @ 42 mls/hr IV ASDIR [facility] Last Admin: 04/30/17 17:03 Dose: 42 mls/hr Insulin Aspart (Novolog Vial Sliding Scale -) 1 vial SQ Q6H [facility] PRN Reason: Protocol Last Admin: 05/01/17 05:37 Dose: 4 units Insulin Detemir (Levemir Vial) 7 units SQ AM [facility] Last Admin: 05/01/17 06:09 Dose: 7 units Pantoprazole Sodium (Protonix Packets For Oral Suspension -) 40 mg GT DAILY [facility] Potassium Phos/Sodium Phos (Phos-Nak Packet -) 1 packet GT TID [facility] Last Admin: 05/01/17 05:38 Dose: 1 packet Prednisone (Deltasone -) 60 mg GT DAILY [facility] A/P 61 year old woman with PMhx of NIDDM, Hypertension, PVD s/p R AKA, CVA now non- verbal and paralyzed who presented with abnormal outpatient labs that showed renal failure and increasing total body volume overload #Acute Renal Failure with Nephrotic Range Proteinuria and uremia requiring dialysis discussion with family yesterday about the risks/benefits of immunosuppresive therapy/continued dialysis family decision about goals of care are pending Tolerating HD today with goal UF Is 2-2.5L continue prednisone 60mg Daily #R/o occult infection Quatiferio gold is pending Blood and repeat urien Cx w/o growth on levaquin #Anemia Trend CBC #Hypophosphatemia on Neutraphos Trend Phos levels Overall prognosis is guarded (family made aware) Jonathan Guzman DO
[2017-05-01 11:20] LABS: MCH 29.9 pg (25.7-33.7); MCHC 33.2 g/dl (32.0-36.0); MEAN CELL VOLUME 89.8 fl (80-96); MEAN PLT VOLUME 9.7 fl (7.5-11.1); PLATELET COUNT 87 K/MM3 (134-434); RDW 13.8 % (11.6-15.6); WHITE BLOOD COUNT 10.7 K/mm3 (4.0-10.0)
--- NOTE | 2017-05-01 14:31 | PN ---
Teaching Attending Note Name of Resident: Kodi Pritchett ATTENDING PHYSICIAN STATEMENT I saw and evaluated the patient. I reviewed the resident's note and discussed the case with the resident. I agree with the resident's findings and plan as documented. SUBJECTIVE: no events over night OBJECTIVE: NAD, non verbal , contracted. looks comfortable, opens eyes. CV: RRR, 3/6 SM at apex. Lungs: CTAB, decreased breath sounds b/l bases Abd: soft, NT, ND , L BS Ext: contracted upper ext. non pitting edema on upper ext with bruising on RUE. 1+ pitting edema on LLE. AKA on R . Skin : stage 2 sacral decub. no drainage . also stage 1 decub on lower b/l buttock cheeks ASSESSMENT AND PLAN: 61 y/o lady with h/o CVA , NIDDM, HTN, HLP, who presented after her out pt labs showed renal failure. 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 renal Bx was declined by family. Cont steroids for now. Family to decide on goals of care and next step in treatment 2- Fever : unknown source. being treated fro UTI. repeat urine cx neg. no evidence of infected decubs. blood cx from periphery and central line neg to date - follow blood cx - cont levaquin. 3- Uncontrolled DM : probably due to steroids . slightly improved - cont levemir while on steroids , 7 units q AM - cont SSI q 6 h 4- HTN: uncontrolled. increase norvasc to 10 mg 5- Nutrition : TF HLOC
[2017-05-01] MEDS: predniSONE 20 MG TABLET (UD) GT SCH (15:08)
[2017-05-01] MEDS: HEPARIN NA (PORCINE) 5,000 UNITS/ML 1ML VIAL SQ SCH ×2 (15:08→22:39)
[2017-05-01] MEDS: PANTOPRAZOLE SOD 40 MG SUSPENSION PACKET GT SCH (15:08)
[2017-05-01] MEDS: LEVOFLOXACIN 250 MG TABLET (FP) PO SCH (15:09)
[2017-05-01] MEDS: SODIUM CHLORIDE 1,000 ML IV SCH (15:21)
--- NOTE | 2017-05-01 15:21 | PN ---
Physical Exam: SUBJECTIVE: Patient seen and examined at bedside. BP 192/86 this am . No other events overnight. OBJECTIVE: Vital Signs Period Temp Pulse Resp BP Sys/Daniel Pulse Ox Last 24 Hr 97.6 F-99.3 F 62-79 16-20 114-192/59-86 100-100 GENERAL:nonverbal but awake. HEAD: NC/AT. ENT: moist mucous membranes. NECK: supple. permacath right chest. LUNGS:Scattered rhonchi, diminished bilat bases no wheezes, no crackles, no accessory muscle use. HEART: RRR,s1s2 normal 3/6 ANGELINA ABDOMEN: Soft, NT, ND, BS(+) PEG EXTREMITIES: Bilat. nonpitting edema upper ext. Bilat edema LE resolved.. R leg s/p AKA NEUROLOGICAL: non verbal. obtunded and contracted. functional quadriplegia Laboratory Results - last 24 hr 04/30/17 04/30/17 05/01/17 17:01 22:23 05:36 WBC RBC Hgb Hct MCV MCHC RDW Plt Count MPV POC Glucometer 254 288 250 05/01/17 11:00 WBC 10.7 H RBC 2.97 L Hgb 8.9 L D Hct 26.7 L MCV 89.8 MCHC 33.2 RDW 13.8 Plt Count 87 L MPV 9.7 POC Glucometer Active Medications Generic Name Dose Route Start Last Admin Trade Name Freq PRN Reason Stop Dose Admin Albuterol Sulfate 1 amp 04/30/17 13:45 Ventolin 0.083% Nebulizer Soln - NEB Q4H PRN SHORT OF BREATH/WHEEZING Amlodipine Besylate 10 mg 05/01/17 14:30 Norvasc - GT DAILY APRIL Fentanyl 50 mcg 04/30/17 13:45 Sublimaze Injection - IVPUSH 05/03/17 11:31 [id number] PRN PAIN Heparin Sodium (Porcine) 5,000 unit 04/30/17 22:00 05/01/17 15:08 Heparin - SQ 5,000 unit BID APRIL Administration Sodium Chloride 1,000 mls @ 42 mls/hr 04/30/17 13:45 04/30/17 17:03 Normal Saline - IV 42 mls/hr ASDIR APRIL Administration Insulin Aspart 1 vial 04/30/17 17:30 05/01/17 15:09 Novolog Vial Sliding Scale - SQ Not Given Q6H [facility] Protocol Insulin Detemir 7 units 05/01/17 07:00 05/01/17 06:09 Levemir Vial SQ 7 units AM APRIL Administration Levofloxacin 250 mg 05/01/17 14:00 05/01/17 15:09 Levaquin - PO 250 mg Q48H APRIL Administration Pantoprazole Sodium 40 mg 05/01/17 10:00 05/01/17 15:08 Protonix Packets For Oral Suspension - GT 40 mg DAILY APRIL Administration Potassium Phos/Sodium Phos 1 packet 04/30/17 14:00 05/01/17 15:10 Phos-Nak Packet - GT 1 packet TID APRIL Administration Prednisone 60 mg 05/01/17 10:00 05/01/17 15:08 Deltasone - GT 60 mg DAILY APRIL Administration ASSESSMENT/PLAN: 61 yo F with pmhx of CVA, NIDDM, HTN, HLD, admitted for acute renal failure. Problem List - Problems (1) UTI (urinary tract infection) Assessment/Plan: * Cultures pending * Continue renally dose Levaquin 250mg IV Q48H * ID consult appreciated. (2) Renal failure Assessment/Plan: * Will be dialyzed today . 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 Explained the risk of SE which include but not limited to life threatening infection, anemia, and infusion reaction . Explained to daughter that there is no guarantee that this treatment will work and she may have to stay on dialysis for the rest of her life. She wants to discuss with her brothers before making a decision. * Continue prednisone. (3) Non-insulin dependent type 2 diabetes mellitus Assessment/Plan: * Continue Jevity tube feed via peg * Levamir 7 units in AM * NISS * BGM ACHS (4) HTN (hypertension) Assessment/Plan: * Continue amlodipine * Will consider increasing Amlodipine if BP continues to be significantly elevated. (5) Functional quadriplegia Assessment/Plan: * assist in ADL's Visit type - Emergency Visit Emergency Visit: Yes ED Registration Date: 04/17/17 Care time: The patient presented to the Emergency Department on the above date and was hospitalized for further evaluation of their emergent condition. - New Patient This patient is new to me today: No - Critical Care Critical Care patient: No
[2017-05-01 18:27] LABS: PHOSPHOROUS 5.2 mg/dL (2.5-4.9)
[2017-05-01 18:46] LABS: ALBUMIN 1.9 g/dl (3.4-5.0); BILIRUBIN,TOTAL 0.2 mg/dL (0.2-1.0); CALCIUM 7.3 mg/dL (8.5-10.1); COCKROFT - GAULT 13.43; CREATININE 3.8 mg/dL (0.55-1.02); TOT PROT 4.9 g/dl (6.4-8.2)
[2017-05-02] MEDS: NAPH,MB-DB/K PH,MBDB POWDER PACKET GT SCH ×3 (05:52→22:43)
[2017-05-02] MEDS: INSULIN SLIDING SCALE (NOVOLOG) 1 VIAL SQ SCH ×4 (05:52→22:43)
[2017-05-02] MEDS: INSULIN DETEMIR 100 UNITS/ML MDV SQ SCH (06:23)
--- NOTE | 2017-05-02 07:25 | PN ---
Progress Note (short form) - Note Progress Note: Renal Follow up for DEYSI Pt seen and examined at the bedside awake no overnight events on IVF Vital Signs Temperature 98.2 F 05/02/17 06:00 Pulse Rate 87 05/02/17 06:00 Respiratory Rate 18 05/02/17 06:00 Blood Pressure 153/73 05/02/17 06:00 O2 Sat by Pulse Oximetry (%) 100 05/01/17 21:00 Intake & Output 04/29/17 04/30/17 05/01/17 05/02/17 23:59 23:59 23:59 23:59 Intake Total 0869 162 4509 856 Output Total 50 0 Balance 3631 116 2486 856 Weight 122 lb 6.4 oz 121 lb 6.4 oz 122 lb 4 oz 118 lb 9.6 oz Gen: NAD, awake, non-verbal CVS: RRR, No M/R Lungs: CTA Abd: soft NT/ND Ext: R AKA, Trace LLE edema Access: Right IJ tunneled catheter CBC, BMP 05/01/17 11:00 05/01/17 11:00 Laboratory Tests 05/01/17 11:00 Calcium 7.3 L Phosphorus 5.2 H D Albumin 1.9 L todays labs pending Current Medications Albuterol Sulfate (Ventolin 0.083% Nebulizer Soln -) 1 amp NEB Q4H PRN PRN Reason: SHORT OF BREATH/WHEEZING Amlodipine Besylate (Norvasc -) 10 mg GT DAILY APRIL Fentanyl (Sublimaze Injection -) 50 mcg IVPUSH [id number] PRN PRN Reason: PAIN Stop: 05/03/17 11:31 Heparin Sodium (Porcine) (Heparin -) 5,000 unit SQ BID APRIL Last Admin: 05/01/17 22:39 Dose: 5,000 unit Sodium Chloride (Normal Saline -) 1,000 mls @ 42 mls/hr IV ASDIR APRIL Last Admin: 05/01/17 15:21 Dose: 42 mls/hr Insulin Aspart (Novolog Vial Sliding Scale -) 1 vial SQ Q6H APRIL PRN Reason: Protocol Last Admin: 05/02/17 05:52 Dose: 8 units Insulin Detemir (Levemir Vial) 7 units SQ AM APRIL Last Admin: 05/02/17 06:23 Dose: 7 units Levofloxacin (Levaquin -) 250 mg PO Q48H [facility] Last Admin: 05/01/17 15:09 Dose: 250 mg Pantoprazole Sodium (Protonix Packets For Oral Suspension -) 40 mg GT DAILY [facility] Last Admin: 05/01/17 15:08 Dose: 40 mg Potassium Phos/Sodium Phos (Phos-Nak Packet -) 1 packet GT TID [facility] Last Admin: 05/02/17 05:52 Dose: 1 packet Prednisone (Deltasone -) 60 mg GT DAILY [facility] Last Admin: 05/01/17 15:08 Dose: 60 mg A/P 61 year old woman with PMhx of NIDDM, Hypertension, PVD s/p R AKA, CVA now non- verbal and paralyzed who presented with abnormal outpatient labs that showed renal failure and increasing total body volume overload #Acute Renal Failure with Nephrotic Range Proteinuria and uremia requiring dialysis s/p dialysis yesterday no acute indication for dialysis today awaiting decision from family regarding goals of care #R/o occult infection Quatiferion gold is pending Blood and repeat urien Cx w/o growth on levaquin #Anemia Trend CBC #Hypophosphatemia on Neutraphos Trend Phos levels Overall prognosis is guarded (family made aware) Jonathan Guzman DO
[2017-05-02 08:34] LABS: BASOPHIL 0.3 % (0-2.0); EOSINOPHIL 0.5 % (0-4.5); MCH 29.8 pg (25.7-33.7); MCHC 33.4 g/dl (32.0-36.0); MEAN CELL VOLUME 89.3 fl (80-96); MEAN PLT VOLUME 9.3 fl (7.5-11.1); NEUTROPHILS 79.8 % (42.8-82.8); PLATELET COUNT 62 K/MM3 (134-434); RDW 13.4 % (11.6-15.6); WHITE BLOOD COUNT 9.3 K/mm3 (4.0-10.0)
[2017-05-02 08:53] LABS: ALBUMIN 1.7 g/dl (3.4-5.0); COCKROFT - GAULT 20.638; CREATININE 2.4 mg/dL (0.55-1.02); PHOSPHOROUS 3.7 mg/dL (2.5-4.9)
[2017-05-02 08:55] LABS: BILIRUBIN,TOTAL 0.3 mg/dL (0.2-1.0); CALCIUM 7.4 mg/dL (8.5-10.1); TOT PROT 4.7 g/dl (6.4-8.2)
--- NOTE | 2017-05-02 09:23 | PN ---
Teaching Attending Note Name of Resident: Kodi Pritchett ATTENDING PHYSICIAN STATEMENT I saw and evaluated the patient. I reviewed the resident's note and discussed the case with the resident. I agree with the resident's findings and plan as documented. SUBJECTIVE: No events over night . OBJECTIVE: NAD, non verbal , contracted. looks comfortable, opens eyes. CV: RRR, 3/6 SM at apex. Lungs: CTAB, anteriorly Abd: soft, NT, ND , L BS Ext: contracted upper ext. non pitting edema on upper ext with bruising on RUE. 1+ pitting edema on LLE. AKA on R . Skin: Decub ulcers not examined today ASSESSMENT AND PLAN: 61 y/o lady with h/o CVA , NIDDM, HTN, HLP, who presented after her out pt labs showed renal failure. 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 Cont steroids for now. Family to decide on goals of care and next step in treatment s/p HD yesterday 2- Fever :possibly due to complicated UTI. repeat urine cx neg ( after being on ABx ) . blood cx from periphery and central line neg to date - follow blood cx - cont levaquin day 4 3- Uncontrolled DM : probably due to steroids . - increase levemir to 10 units q am - cont SSI q 6 h 4- HTN:continue increased dose of norvasc 10 mg 5- Nutrition : TF HLOC
[2017-05-02] MEDS ORDERED: LEVOFLOXACIN 250 MG IVPB 50 ML IVPB SCH ×2 (10:00)
[2017-05-02] MEDS: amLODIPine BESYLATE 5 MG TABLET (FP) GT SCH (10:29)
[2017-05-02] MEDS: predniSONE 20 MG TABLET (UD) GT SCH (10:30)
[2017-05-02] MEDS: PANTOPRAZOLE SOD 40 MG SUSPENSION PACKET GT SCH (10:30)
--- NOTE | 2017-05-02 11:09 | PN ---
Physical Exam: SUBJECTIVE: Patient seen and examined at bedside. No overnight events. Lying comfortably. OBJECTIVE: Vital Signs Period Temp Pulse Resp BP Sys/Daniel Pulse Ox Last 24 Hr 97.3 F-99.1 F 68-87 18-20 114-170/60-86 100 GENERAL:nonverbal but awake. HEAD: NC/AT. ENT: moist mucous membranes. NECK: supple. permacath right chest. LUNGS:Scattered rhonchi, diminished bilat bases no wheezes, no crackles, no accessory muscle use. HEART: RRR,s1s2 normal 3/6 ANGELINA ABDOMEN: Soft, NT, ND, BS(+) PEG EXTREMITIES: Bilat. nonpitting edema upper ext. Bilat edema LE resolved.. R leg s/p AKA NEUROLOGICAL: non verbal. obtunded and contracted. functional quadriplegia Laboratory Results - last 24 hr 05/01/17 05/01/17 05/01/17 11:00 11:00 18:25 WBC 10.7 H RBC 2.97 L Hgb 8.9 L D Hct 26.7 L MCV 89.8 MCHC 33.2 RDW 13.8 Plt Count 87 L MPV 9.7 Neutrophils % Lymphocytes % Monocytes % Eosinophils % Basophils % Sodium 144 Potassium 4.2 Chloride 102 Carbon Dioxide 31 Anion Gap 11 BUN 55 H D Creatinine 3.8 H D Creat Clearance w eGFR 12.04 POC Glucometer 248 Random Glucose 147 H D Calcium 7.3 L Phosphorus 5.2 H D Magnesium Total Bilirubin 0.2 D AST 22 ALT 12 D Alkaline Phosphatase 129 H Total Protein 4.9 L Albumin 1.9 L 05/01/17 05/02/17 05/02/17 22:04 05:09 07:00 WBC 9.3 RBC 2.97 L Hgb 8.8 L Hct 26.5 L MCV 89.3 MCHC 33.4 RDW 13.4 Plt Count 62 L D MPV 9.3 Neutrophils % 79.8 Lymphocytes % 11.5 D Monocytes % 7.9 D Eosinophils % 0.5 D Basophils % 0.3 Sodium Potassium Chloride Carbon Dioxide Anion Gap BUN Creatinine Creat Clearance w eGFR POC Glucometer 173 331 Random Glucose Calcium Phosphorus Magnesium Total Bilirubin AST ALT Alkaline Phosphatase Total Protein Albumin 05/02/17 07:00 WBC RBC Hgb Hct MCV MCHC RDW Plt Count MPV Neutrophils % Lymphocytes % Monocytes % Eosinophils % Basophils % Sodium 142 Potassium 3.8 Chloride 99 Carbon Dioxide 30 Anion Gap 13 BUN 30 H D Creatinine 2.4 H D Creat Clearance w eGFR 20.46 POC Glucometer Random Glucose 344 H* D Calcium 7.4 L Phosphorus 3.7 D Magnesium 2.0 D Total Bilirubin 0.3 D AST 19 ALT 10 L Alkaline Phosphatase 168 H D Total Protein 4.7 L Albumin 1.7 L Active Medications Generic Name Dose Route Start Last Admin Trade Name Freq PRN Reason Stop Dose Admin Albuterol Sulfate 1 amp 04/30/17 13:45 Ventolin 0.083% Nebulizer Soln - NEB Q4H PRN SHORT OF BREATH/WHEEZING Amlodipine Besylate 10 mg 05/01/17 14:30 05/02/17 10:29 Norvasc - GT 10 mg DAILY APRIL Administration Fentanyl 50 mcg 04/30/17 13:45 Sublimaze Injection - IVPUSH 05/03/17 11:31 [id number] PRN PAIN Insulin Aspart 1 vial 04/30/17 17:30 05/02/17 05:52 Novolog Vial Sliding Scale - SQ 8 units Q6H APRIL Administration Protocol Insulin Detemir 7 units 05/01/17 07:00 05/02/17 06:23 Levemir Vial SQ 7 units AM APRIL Administration Levofloxacin 250 mg 05/01/17 14:00 05/01/17 15:09 Levaquin - PO 250 mg Q48H APRIL Administration Pantoprazole Sodium 40 mg 05/01/17 10:00 05/02/17 10:30 Protonix Packets For Oral Suspension - GT 40 mg DAILY APRIL Administration Potassium Phos/Sodium Phos 1 packet 04/30/17 14:00 05/02/17 05:52 Phos-Nak Packet - GT 1 packet TID APRIL Administration Prednisone 60 mg 05/01/17 10:00 05/02/17 10:30 Deltasone - GT 60 mg DAILY APRIL Administration ASSESSMENT/PLAN: 61 yo F with pmhx of CVA, NIDDM, HTN, HLD, admitted for acute renal failure. Problem List - Problems (1) UTI (urinary tract infection) Assessment/Plan: * She has remained Afebrile for last 2 days. * Cultures are negative * Continue renally dose Levaquin 250mg IV Q48H * ID consult appreciated. (2) Renal failure Assessment/Plan: * Dialyzed 3kg yesterday. * Continue prednisone. 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 Explained the risk of SE which include but not limited to life threatening infection, anemia, and infusion reaction . Explained to daughter that there is no guarantee that this treatment will work and she may have to stay on dialysis for the rest of her life. She wants to discuss with her brothers before making a decision. (3) Non-insulin dependent type 2 diabetes mellitus Assessment/Plan: * Increase in serum glucose result of IV steroids * Will increase Levamir to 10 units in AM * Continue Jevity tube feed via peg * NISS * BGM Q6H (4) HTN (hypertension) Assessment/Plan: * Increased Amlodipine to 10mg PO daily (5) Functional quadriplegia Assessment/Plan: * assist in ADL's Visit type - Emergency Visit Emergency Visit: Yes ED Registration Date: 04/17/17 Care time: The patient presented to the Emergency Department on the above date and was hospitalized for further evaluation of their emergent condition. - New Patient This patient is new to me today: No - Critical Care Critical Care patient: No - Discharge Referral Referred to [facility] Med P.C.: No
[2017-05-02] MEDS ORDERED: INSULIN (NOVOLOG) ASPART 100 UNITS/ML 10ML VIAL ONE ×4 (11:55→19:00)
[2017-05-03] MEDS: INSULIN SLIDING SCALE (NOVOLOG) 1 VIAL SQ SCH ×4 (06:13→23:58)
[2017-05-03] MEDS: NAPH,MB-DB/K PH,MBDB POWDER PACKET GT SCH ×3 (06:14→22:14)
[2017-05-03] MEDS: INSULIN DETEMIR 100 UNITS/ML MDV SQ SCH (06:14)
[2017-05-03 07:38] LABS: CALCIUM 7.3 mg/dL (8.5-10.1); COCKROFT - GAULT 14.1525; CREATININE 3.5 mg/dL (0.55-1.02); MAGNESIUM 2.2 mg/dL (1.8-2.4); PHOSPHOROUS 4.3 mg/dL (2.5-4.9)
--- NOTE | 2017-05-03 07:38 | PN ---
Progress Note (short form) - Note Progress Note: Renal Follow up for DEYSI Pt seen and examined at the bedside awake no overnight events no fevers last dialysis was Thursday Vital Signs Temperature 97.9 F 05/03/17 06:00 Pulse Rate 89 05/03/17 06:00 Respiratory Rate 18 05/03/17 06:00 Blood Pressure 147/81 05/03/17 06:00 O2 Sat by Pulse Oximetry (%) 97 05/02/17 20:51 Intake & Output 04/30/17 05/01/17 05/02/17 05/03/17 23:59 23:59 23:59 23:59 Intake Total 518 4 2019 Output Total 50 0 Balance 468 2343 Weight 121 lb 6.4 oz 122 lb 4 oz 118 lb 9.6 oz Gen: NAD, awake, non-verbal CVS: RRR, No M/R Lungs: CTA Abd: soft NT/ND Ext: R AKA, Trace LLE edema Access: Right IJ tunneled catheter Labs pending A/P 61 year old woman with PMhx of NIDDM, Hypertension, PVD s/p R AKA, CVA now non- verbal and paralyzed who presented with abnormal outpatient labs that showed renal failure and increasing total body volume overload #Acute Renal Failure with Nephrotic Range Proteinuria and uremia requiring dialysis will continue dialysis TIW (MWF) awaiting family decision regarding goals of care for dialysis tomorrow outpatient HD unit placement continue prednisone for now #R/o occult infection/isolated Fever Quatiferion gold is pending Blood and repeat urine Cx w/o growth on levaquin #Anemia Trend CBC #Hypophosphatemia on Neutraphos Trend Phos levels #Hypertension on Amlodpine Goal BP < 140/90 Overall prognosis is guarded (family made aware) Jonathan Guzman DO
[2017-05-03 08:25] LABS: MCH 30.1 pg (25.7-33.7); MCHC 33.7 g/dl (32.0-36.0); MEAN CELL VOLUME 89.4 fl (80-96); MEAN PLT VOLUME 10.8 fl (7.5-11.1); PLATELET COUNT 77 K/MM3 (134-434); RDW 13.5 % (11.6-15.6); WHITE BLOOD COUNT 10.8 K/mm3 (4.0-10.0)
[2017-05-03] MEDS ORDERED: PT OWN MED DRAWER 7, Y5N ONE ×2 (09:17→20:26)
[2017-05-03] MEDS: predniSONE 20 MG TABLET (UD) GT SCH (09:33)
[2017-05-03] MEDS: amLODIPine BESYLATE 5 MG TABLET (FP) GT SCH (09:33)
[2017-05-03] MEDS: PANTOPRAZOLE SOD 40 MG SUSPENSION PACKET GT SCH (09:33)
--- NOTE | 2017-05-03 14:15 | PN ---
Progress Note (short form) - Note Progress Note: Subjective: unable to obtain hx due to condition Objective: Vital Signs: Last Vital Signs Temp Pulse Resp BP Pulse Ox 97.9 F 81 22 134/64 95 05/03/17 06:00 05/03/17 10:03 05/03/17 09:30 05/03/17 09:30 05/03/17 10:03 Laboratory Results - last 24 hr 05/02/17 05/02/17 05/03/17 17:33 22:38 06:03 WBC RBC Hgb Hct MCV MCHC RDW Plt Count MPV Sodium Potassium Chloride Carbon Dioxide Anion Gap BUN Creatinine POC Glucometer 257 353 369 Random Glucose Calcium Phosphorus Magnesium 05/03/17 05/03/17 05/03/17 06:20 06:20 11:59 WBC 10.8 H RBC 3.05 L Hgb 9.2 L Hct 27.3 L MCV 89.4 MCHC 33.7 RDW 13.5 Plt Count 77 L D MPV 10.8 D Sodium 141 Potassium 3.7 Chloride 99 Carbon Dioxide 32 Anion Gap 10 BUN 49 H D Creatinine 3.5 H D POC Glucometer 138 Random Glucose 343 H* Calcium 7.3 L Phosphorus 4.3 Magnesium 2.2 Microbiology 04/29/17 08:50 Blood Culture - Preliminary Blood - Peripheral Venous NO GROWTH OBTAINED AFTER 96 HOURS, INCUBATION TO CONTINUE FOR 1 DAYS. 04/29/17 08:30 Blood Culture - Preliminary Blood - Peripheral Venous NO GROWTH OBTAINED AFTER 96 HOURS, INCUBATION TO CONTINUE FOR 1 DAYS. 04/29/17 14:55 Blood Culture - Preliminary Blood - Shiley Catheter NO GROWTH OBTAINED AFTER 72 HOURS, INCUBATION TO CONTINUE FOR 2 DAYS. 04/29/17 14:55 Blood Culture - Preliminary Blood - Shiley Catheter NO GROWTH OBTAINED AFTER 72 HOURS, INCUBATION TO CONTINUE FOR 2 DAYS. Physical Exam: NAD, non verbal , contracted. looks comfortable, opens eyes. CV: RRR, 3/6 SM at apex. Lungs: CTAB , decreased breath sounds b/l bases Abd: soft, NT, ND , L BS Ext: contracted upper ext. non pitting edema on upper ext with bruising on RUE. 1+ pitting edema on LLE. AKA on R . Skin: Decub ulcers not examined today ASSESSMENT AND PLAN: 61 y/o lady with h/o CVA , NIDDM, HTN, HLP, who presented after her out pt labs showed renal failure. 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 Cont steroids for now. Family to decide on goals of care and next step in treatment for HD tomorrow 2- complicated UTI. repeat urine cx neg ( after being on ABx ) . - follow blood cx from line and periphery - cont levaquin day 5 3- Uncontrolled DM : probably due to steroids . - first dose of increased levemir this am . - cont SSI q 6 h 4- HTN:continue increased dose of norvasc 10 mg 5- Nutrition : TF HLOC Visit type - Emergency Visit Emergency Visit: Yes ED Registration Date: 04/17/17 Care time: The patient presented to the Emergency Department on the above date and was hospitalized for further evaluation of their emergent condition. - New Patient This patient is new to me today: No - Critical Care Critical Care patient: No
[2017-05-03] MEDS: LEVOFLOXACIN 250 MG TABLET (FP) PO SCH (15:01)
[2017-05-03] MEDS ORDERED: INSULIN (NOVOLOG) ASPART 100 UNITS/ML 10ML VIAL ONE (20:28)
[2017-05-04] MEDS: NAPH,MB-DB/K PH,MBDB POWDER PACKET GT SCH (06:35)
[2017-05-04] MEDS: INSULIN SLIDING SCALE (NOVOLOG) 1 VIAL SQ SCH ×4 (06:44→22:47)
[2017-05-04] MEDS: INSULIN DETEMIR 100 UNITS/ML MDV SQ SCH (06:44)
[2017-05-04 08:22] LABS: MCH 29.5 pg (25.7-33.7); MCHC 33.3 g/dl (32.0-36.0); MEAN CELL VOLUME 88.5 fl (80-96); MEAN PLT VOLUME 9.5 fl (7.5-11.1); PLATELET COUNT 88 K/MM3 (134-434); RDW 13.5 % (11.6-15.6); WHITE BLOOD COUNT 11.4 K/mm3 (4.0-10.0)
[2017-05-04 08:35] LABS: CALCIUM 7.6 mg/dL (8.5-10.1)
[2017-05-04 08:38] LABS: BILIRUBIN,TOTAL 0.3 mg/dL (0.2-1.0); COCKROFT - GAULT 11.8235; CREATININE 4.3 mg/dL (0.55-1.02); PHOSPHOROUS 5.8 mg/dL (2.5-4.9); TOT PROT 4.9 g/dl (6.4-8.2)
--- NOTE | 2017-05-04 08:50 | PN ---
Physical Exam: SUBJECTIVE: Patient seen and examined at bedside. Seems move awake and alert. tracking with eyes. Lying comfortably. OBJECTIVE: Vital Signs Period Temp Pulse Resp BP Sys/Daniel Pulse Ox Last 24 Hr 98.1 F-99.3 F 79-81 16-22 134-153/64-84 95-96 GENERAL:nonverbal but awake. HEAD: NC/AT. ENT: moist mucous membranes. NECK: supple. permacath right chest. LUNGS:Scattered rhonchi, diminished bilat bases no wheezes, no crackles, no accessory muscle use. HEART: RRR,s1s2 normal 3/6 ANGELINA ABDOMEN: Soft, NT, ND, BS(+) PEG EXTREMITIES: Bilat. nonpitting edema upper ext. Bilat edema LE resolved.. R leg s/p AKA NEUROLOGICAL: non verbal. obtunded and contracted. functional quadriplegia Laboratory Results - last 24 hr 05/03/17 05/03/17 05/03/17 11:59 17:20 23:56 WBC RBC Hgb Hct MCV MCHC RDW Plt Count MPV Sodium Potassium Chloride Carbon Dioxide Anion Gap BUN Creatinine Creat Clearance w eGFR POC Glucometer 138 276 322 Random Glucose Calcium Phosphorus Total Bilirubin AST ALT Alkaline Phosphatase Total Protein Albumin 05/04/17 05/04/17 05/04/17 06:38 07:50 07:50 WBC 11.4 H RBC 3.20 L Hgb 9.4 L Hct 28.3 L MCV 88.5 MCHC 33.3 RDW 13.5 Plt Count 88 L MPV 9.5 D Sodium 140 Potassium 4.0 Chloride 97 L Carbon Dioxide 32 Anion Gap 11 BUN 66 H D Creatinine 4.3 H D Creat Clearance w eGFR 10.44 POC Glucometer 293 Random Glucose 266 H D Calcium 7.6 L Phosphorus 5.8 H D Total Bilirubin 0.3 AST 20 ALT 9 L Alkaline Phosphatase 186 H Total Protein 4.9 L Albumin 2.0 L Active Medications Generic Name Dose Route Start Last Admin Trade Name Freq PRN Reason Stop Dose Admin Albuterol Sulfate 1 amp 04/30/17 13:45 Ventolin 0.083% Nebulizer Soln - NEB Q4H PRN SHORT OF BREATH/WHEEZING Amlodipine Besylate 10 mg 05/01/17 14:30 05/03/17 09:33 Norvasc - GT 10 mg DAILY APRIL Administration Insulin Aspart 1 vial 04/30/17 17:30 05/04/17 06:44 Novolog Vial Sliding Scale - SQ 6 units Q6H APRIL Administration Protocol Insulin Detemir 10 units 05/03/17 07:00 05/04/17 06:44 Levemir Vial SQ 10 units AM APRIL Administration Levofloxacin 250 mg 05/01/17 14:00 05/03/17 15:01 Levaquin - PO 250 mg Q48H APRIL Administration Pantoprazole Sodium 40 mg 05/01/17 10:00 05/03/17 09:33 Protonix Packets For Oral Suspension - GT 40 mg DAILY APRIL Administration Potassium Phos/Sodium Phos 1 packet 04/30/17 14:00 05/04/17 06:35 Phos-Nak Packet - GT 1 packet TID APRIL Administration Prednisone 60 mg 05/01/17 10:00 05/03/17 09:33 Deltasone - GT 60 mg DAILY APRIL Administration ASSESSMENT/PLAN: 61 yo F with pmhx of CVA, NIDDM, HTN, HLD, admitted for acute renal failure. 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 * WIll place the patient on isolation with Hepa filter * will try to obtain sputum culture. * Will start INH for 9 mo. 300mg PO daily with Vit. B6 50 mg PO daily * Baseline LFT's, CMP, and ESR. (2) UTI (urinary tract infection) Assessment/Plan: * She has remained Afebrile for last 4 days. * Cultures are negative * Continue renally dose Levaquin 250mg IV Q48H for one more day (complete 7 day course) * ID consult appreciated. (3) Renal failure Assessment/Plan: * Dialyzed today * Continue prednisone. 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 * Upon further testing patient found to have positive IGRA for TB (4) Non-insulin dependent type 2 diabetes mellitus Assessment/Plan: * Increase in serum glucose result of IV steroids * Will increase Levamir to 15 units in AM * Continue Jevity tube feed via peg * NISS * BGM Q6H (5) HTN (hypertension) Assessment/Plan: * Better control with Amlodipine to 10mg PO daily (6) Functional quadriplegia Assessment/Plan: * assist in ADL's Visit type - Emergency Visit Emergency Visit: Yes ED Registration Date: 04/17/17 Care time: The patient presented to the Emergency Department on the above date and was hospitalized for further evaluation of their emergent condition. - New Patient This patient is new to me today: No - Critical Care Critical Care patient: No - Discharge Referral Referred to [facility] Med P.C.: No
--- NOTE | 2017-05-04 10:47 | PN ---
Progress Note (short form) - Note Progress Note: Renal Follow up for DEYSI Pt seen and examined at the bedside awake and alert, non-verbal no overnight events for dialysis today Vital Signs Temperature 99.3 F 05/04/17 06:00 Pulse Rate 76 05/04/17 09:57 Respiratory Rate 16 05/04/17 06:00 Blood Pressure 153/68 05/04/17 06:00 O2 Sat by Pulse Oximetry (%) 98 05/04/17 09:57 Intake & Output 05/01/17 05/02/17 05/03/17 05/04/17 23:59 23:59 23:59 23:59 Intake Total 2343 2019 1859 980 Output Total 0 Balance 2343 2019 1859 980 Weight 122 lb 4 oz 118 lb 9.6 oz 121 lb 12.8 oz Gen: NAD, awake, non-verbal CVS: RRR, No M/R Lungs: CTA Abd: soft NT/ND Ext: R AKA, Trace LLE edema Access: Right IJ tunneled catheter, some serosangrenous drainage CBC, BMP 05/04/17 07:50 05/04/17 07:50 Laboratory Tests 05/04/17 07:50 Calcium 7.6 L Phosphorus 5.8 H D Albumin 2.0 L Current Medications Albuterol Sulfate (Ventolin 0.083% Nebulizer Soln -) 1 amp NEB Q4H PRN PRN Reason: SHORT OF BREATH/WHEEZING Amlodipine Besylate (Norvasc -) 10 mg GT DAILY [facility] Last Admin: 05/03/17 09:33 Dose: 10 mg Insulin Aspart (Novolog Vial Sliding Scale -) 1 vial SQ Q6H [facility]IL PRN Reason: Protocol Last Admin: 05/04/17 06:44 Dose: 6 units Insulin Detemir (Levemir Vial) 10 units SQ AM [facility] Last Admin: 05/04/17 06:44 Dose: 10 units Levofloxacin (Levaquin -) 250 mg PO Q48H [facility] Last Admin: 05/03/17 15:01 Dose: 250 mg Pantoprazole Sodium (Protonix Packets For Oral Suspension -) 40 mg GT DAILY [facility] Last Admin: 05/03/17 09:33 Dose: 40 mg Potassium Phos/Sodium Phos (Phos-Nak Packet -) 1 packet GT TID [facility] Last Admin: 05/04/17 06:35 Dose: 1 packet Prednisone (Deltasone -) 60 mg GT DAILY [facility] Last Admin: 05/03/17 09:33 Dose: 60 mg A/P 61 year old woman with PMhx of NIDDM, Hypertension, PVD s/p R AKA, CVA now non- verbal and paralyzed who presented with abnormal outpatient labs that showed renal failure and increasing total body volume overload #Acute Renal Failure with Nephrotic Range Proteinuria and + PR3 aB no signs of recovery to this point for dialysis today with UF as tolerated Family does not want to do renal biopsy pt at high risk for infection/reactivation of prior infection with immunosuppression will discuss with family with they come in today about the goals of care Taper Prednisone to 40mg daily #R/o occult infection/isolated Fever Quatiferion gold positive CT chested showed evidence of prior granulatmos disease ID follow up pt will likely require Tx for latent TB #Anemia Trend CBC #Hypophosphatemia on Neutraphos, now phos is elevated d/c neutraphos now #Hypertension on Amlodpine Goal BP < 140/90 Overall prognosis is guarded (family made aware) Jonathan Guzman DO
[2017-05-04] MEDS: amLODIPine BESYLATE 5 MG TABLET (FP) GT SCH (11:40)
[2017-05-04] MEDS: predniSONE 20 MG TABLET (UD) GT SCH (11:40)
[2017-05-04] MEDS: PANTOPRAZOLE SOD 40 MG SUSPENSION PACKET GT SCH (11:41)
--- NOTE | 2017-05-04 12:37 | PN ---
Teaching Attending Note Name of Resident: Kodi Pritchett ATTENDING PHYSICIAN STATEMENT I saw and evaluated the patient. I reviewed the resident's note and discussed the case with the resident. I agree with the resident's findings and plan as documented. SUBJECTIVE: no events over night OBJECTIVE: NAD, non verbal , contracted. looks comfortable, opens eyes. CV: RRR, 3/6 SM at apex. Lungs: CTAB , decreased breath sounds b/l bases Abd: soft, NT, ND , L BS Ext: contracted upper ext. non pitting edema on upper ext with bruising on RUE. 1+ pitting edema on LLE. AKA on R . Skin: Decub ulcers not examined today ASSESSMENT AND PLAN: 61 y/o lady with h/o CVA , NIDDM, HTN, HLP, who presented after her out pt labs showed renal failure. 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 Cont steroids for now. ( taper tomorrow ) QT gold +. will d/w ID whether INH treatment is indicated Vs ABF smears due to lung nodules. if to take AFbs , then might need to take stomach content in AM for AFB. for HD today further decision to treat possible vasculaitis is to be determined 2- Complicated UTI. repeat urine cx neg ( after being on ABx ) . - cont levaquin day 6 3- Uncontrolled DM : probably due to steroids . - cont 10 units of levemir, expect sugar to get better with steroid taper - cont SSI q 6 h 4- HTN: continue increased dose of norvasc 10 mg 5- Nutrition : TF HLOC
[2017-05-04] MEDS ORDERED: INSULIN DETEMIR 100 UNITS/ML MDV SQ SCH (15:48)
[2017-05-05] MEDS: INSULIN SLIDING SCALE (NOVOLOG) 1 VIAL SQ SCH ×3 (06:12→17:16)
[2017-05-05 07:47] LABS: BASOPHIL 0.5 % (0-2.0); MCH 29.7 pg (25.7-33.7); MCHC 32.8 g/dl (32.0-36.0); MEAN CELL VOLUME 90.5 fl (80-96); MEAN PLT VOLUME 9.7 fl (7.5-11.1); NEUTROPHILS 75.6 % (42.8-82.8); PLATELET COUNT 82 K/MM3 (134-434); RDW 13.7 % (11.6-15.6); WHITE BLOOD COUNT 8.7 K/mm3 (4.0-10.0)
[2017-05-05 08:05] LABS: ALBUMIN 1.9 g/dl (3.4-5.0); CALCIUM 7.4 mg/dL (8.5-10.1); COCKROFT - GAULT 20.349; CREATININE 2.5 mg/dL (0.55-1.02)
[2017-05-05 08:06] LABS: BILIRUBIN,TOTAL 0.3 mg/dL (0.2-1.0); TOT PROT 4.7 g/dl (6.4-8.2)
[2017-05-05] MEDS: amLODIPine BESYLATE 5 MG TABLET (FP) GT SCH (10:17)
[2017-05-05] MEDS: PANTOPRAZOLE SOD 40 MG SUSPENSION PACKET GT SCH (10:17)
[2017-05-05] MEDS: predniSONE 20 MG TABLET (UD) GT SCH (10:17)
--- NOTE | 2017-05-05 11:34 | PN ---
Progress Note (short form) - Note Progress Note: Renal Follow up for DEYSI Pt seen and examined at the bedside awake, non-verbal s/p dialysis yesterday with 2.5kg UF transferred to respiratory isolation for TB r/o Vital Signs Temperature 98 F 05/05/17 06:00 Pulse Rate 80 05/05/17 06:00 Respiratory Rate 20 05/05/17 06:00 Blood Pressure 162/60 05/05/17 06:00 O2 Sat by Pulse Oximetry (%) 95 05/04/17 22:00 Intake & Output 05/02/17 05/03/17 05/04/17 05/05/17 23:59 23:59 23:59 23:59 Intake Total 2019 1859 1959 Balance 2019 1859 1959 Weight 118 lb 9.6 oz 121 lb 12.8 oz Gen: NAD, awake, non-verbal CVS: RRR, No M/R Lungs: CTA Abd: soft NT/ND Ext: R AKA, Trace LLE edema Access: Right IJ tunneled catheter, some serosangrenous drainage CBC, BMP 05/05/17 05:38 05/05/17 05:38 Laboratory Tests 05/05/17 05/05/17 05:38 05:38 MCV 90.5 Calcium 7.4 L AST 27 D ALT 13 D Alkaline Phosphatase 186 H Current Medications Albuterol Sulfate (Ventolin 0.083% Nebulizer Soln -) 1 amp NEB Q4H PRN PRN Reason: SHORT OF BREATH/WHEEZING Amlodipine Besylate (Norvasc -) 10 mg GT DAILY [facility] Last Admin: 05/05/17 10:17 Dose: 10 mg Insulin Aspart (Novolog Vial Sliding Scale -) 1 vial SQ Q6H [facility] PRN Reason: Protocol Last Admin: 05/05/17 06:12 Dose: 6 units Insulin Detemir (Levemir Vial) 15 units SQ AM [facility] Last Admin: 05/05/17 06:13 Dose: 15 units Pantoprazole Sodium (Protonix Packets For Oral Suspension -) 40 mg GT DAILY [facility] Last Admin: 05/05/17 10:17 Dose: 40 mg Prednisone (Deltasone -) 40 mg GT DAILY [facility] Last Admin: 05/05/17 10:17 Dose: 40 mg A/P 61 year old woman with PMhx of NIDDM, Hypertension, PVD s/p R AKA, CVA now non- verbal and paralyzed who presented with abnormal outpatient labs that showed renal failure and increasing total body volume overload #Acute Renal Failure with Nephrotic Range Proteinuria and + PR3 aB Biopsy deferred as per wishes of the family family opting for continued dialysis w/o immunosuppresive medications given co- morbid state and high mortality/morbidity will need AVF/AVG placement, asked vascular to follow up #R/o occult infection/isolated Fever Quatiferion gold positive resp isolation for r/o TB to use gastric contents for afb r/o ID follow up #Anemia Trend CBC will start epogen with dialysis #Hypophosphatemia trend phos levels #Hypertension on Amlodpine Goal BP < 140/90 Overall prognosis is guarded (family made aware) outpatient Hd unit placement as per Case Management Jonathan Guzman DO
--- NOTE | 2017-05-05 13:44 | PN ---
Physical Exam: SUBJECTIVE: Patient seen and examined at bedside. As per daughter back to baseline mental status. Lying comfortably. OBJECTIVE: Vital Signs Period Temp Pulse Resp BP Sys/Daniel Pulse Ox Last 24 Hr 97.8 F-99.2 F 67-98 18-20 102-162/46-99 95-95 GENERAL:nonverbal but awake. HEAD: NC/AT. ENT: moist mucous membranes. NECK: supple. permacath right chest. LUNGS:Scattered rhonchi, diminished bilat bases no wheezes, no crackles, no accessory muscle use. HEART: RRR,s1s2 normal 3/6 ANGELINA ABDOMEN: Soft, NT, ND, BS(+) PEG EXTREMITIES: Bilat. nonpitting edema upper ext. Bilat edema LE resolved.. R leg s/p AKA NEUROLOGICAL: non verbal. obtunded and contracted. functional quadriplegia Laboratory Results - last 24 hr 05/04/17 05/05/17 05/05/17 22:40 05:38 05:38 WBC 8.7 RBC 3.06 L Hgb 9.1 L Hct 27.7 L MCV 90.5 MCHC 32.8 RDW 13.7 Plt Count 82 L MPV 9.7 Neutrophils % 75.6 Lymphocytes % 13.0 Monocytes % 6.9 Eosinophils % 4.0 D Basophils % 0.5 Sodium 144 Potassium 3.5 Chloride 103 Carbon Dioxide 33 H Anion Gap 8 BUN 30 H D Creatinine 2.5 H D Creat Clearance w eGFR 19.51 POC Glucometer 251 Random Glucose 250 H Calcium 7.4 L Total Bilirubin 0.3 AST 27 D ALT 13 D Alkaline Phosphatase 186 H Total Protein 4.7 L Albumin 1.9 L 05/05/17 05/05/17 05:48 11:04 WBC RBC Hgb Hct MCV MCHC RDW Plt Count MPV Neutrophils % Lymphocytes % Monocytes % Eosinophils % Basophils % Sodium Potassium Chloride Carbon Dioxide Anion Gap BUN Creatinine Creat Clearance w eGFR POC Glucometer 266 169 Random Glucose Calcium Total Bilirubin AST ALT Alkaline Phosphatase Total Protein Albumin Active Medications Generic Name Dose Route Start Last Admin Trade Name Freq PRN Reason Stop Dose Admin Albuterol Sulfate 1 amp 04/30/17 13:45 Ventolin 0.083% Nebulizer Soln - NEB Q4H PRN SHORT OF BREATH/WHEEZING Amlodipine Besylate 10 mg 05/01/17 14:30 05/05/17 10:17 Norvasc - GT 10 mg DAILY [facility] Administration Epoetin Miguel 8,000 units 05/06/17 09:00 Epogen - IVPUSH 05/06/17 09:01 ONCE ONE Insulin Aspart 1 vial 04/30/17 17:30 05/05/17 11:43 Novolog Vial Sliding Scale - SQ Not Given Q6H [facility] Protocol Insulin Detemir 15 units 05/04/17 15:48 05/05/17 06:13 Levemir Vial SQ 15 units AM [facility] Administration Pantoprazole Sodium 40 mg 05/01/17 10:00 05/05/17 10:17 Protonix Packets For Oral Suspension - GT 40 mg DAILY [facility] Administration Prednisone 40 mg 05/05/17 10:00 05/05/17 10:17 Deltasone - GT 40 mg DAILY [facility] Administration ASSESSMENT/PLAN: 61 yo F with pmhx of CVA, NIDDM, HTN, HLD, admitted for acute renal failure. Problem List - Problems (1) Positive QuantiFERON-TB Gold test Assessment/Plan: * Patient placed on isolation * will keep npo for now and obtain sputum culture from gastric content. * Will need 3 negative Acid fast samples to r/o active TB. * Will start INH for 9 mo. 300mg PO daily with Vit. B6 50 mg PO daily * Baseline LFT's done (2) UTI (urinary tract infection) Assessment/Plan: * She has remained Afebrile for last 4 days. * Cultures are negative * Continue renally dose Levaquin 250mg IV Q48H for one more day (complete 7 day course) * ID consult appreciated. (3) Renal failure Assessment/Plan: * Dialyze tomorrow * Continue prednisone. 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 * Upon further testing patient found to have positive IGRA for TB (4) Non-insulin dependent type 2 diabetes mellitus Assessment/Plan: * Increase in serum glucose result of IV steroids * decrease Levamir to 10 units in AM because of NPO after midnight. * Continue Jevity tube feed via peg * NISS * BGM Q6H (5) HTN (hypertension) Assessment/Plan: * Better control with Amlodipine to 10mg PO daily (6) Functional quadriplegia Assessment/Plan: * assist in ADL's Visit type - Emergency Visit Emergency Visit: Yes ED Registration Date: 04/17/17 Care time: The patient presented to the Emergency Department on the above date and was hospitalized for further evaluation of their emergent condition. - New Patient This patient is new to me today: No - Critical Care Critical Care patient: No - Discharge Referral Referred to [facility] Med P.C.: No
--- NOTE | 2017-05-05 13:50 | PN ---
Progress Note (short form) - Note Progress Note: Vascular Surgery: The medical team asked for long-term hemodialysis access. Will plan for avf to upper extremities. Vein mapping ordered. Continue HD via permacath. D/w Dr. Aviles
[2017-05-05] MEDS ORDERED: DEXTROSE 50%-WATER 50 ML DISP.SYRIN ONE (17:46)
--- NOTE | 2017-05-05 17:59 | PN ---
Teaching Attending Note Name of Resident: Kodi Pritchett ATTENDING PHYSICIAN STATEMENT I saw and evaluated the patient. I reviewed the resident's note and discussed the case with the resident. I agree with the resident's findings and plan as documented. SUBJECTIVE: no events over night OBJECTIVE: NAD, non verbal , contracted. looks comfortable, opens eyes. CV: RRR, 3/6 SM at apex. Lungs: CTAB , decreased breath sounds b/l bases anteriorly Abd: soft, NT, ND , L BS Ext: contracted upper ext. non pitting edema on upper ext with bruising on RUE. No edema on LE . AKA on R . Skin: Decub ulcers not examined today ASSESSMENT AND PLAN: 61 y/o lady with h/o CVA , NIDDM, HTN, HLP, who presented after her out pt labs showed renal failure. 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 start taper . 40 mg today QT gold +. will need INH treatment for latent TB if r/o for active TB ( lung nodules could be due to WAgener's vs TB) check AFB on stomach content as not able to expectorate. cont HD for a vein mapping and a graft tomorrow family opted not to proceed with immunosupressive therapy 2- Complicated UTI. -No recurrent fever. levaquin day 7 . Dc shannen it enterfere with AFB results 3- Uncontrolled DM : probably due to steroids . now hypoglycemic ass feeding being interrupted for AFB testing - received 15 units of levemir this am . will decrease back to 10 - cont SSI q 6 h 4- HTN: continue increased dose of norvasc 10 mg expect BP to improve with steroid taper if BP remains elevated then labetalol is an option 5- Nutrition : TF HLOC
[2017-05-05] MEDS ORDERED: DEXTROSE 50%-WATER 50 ML DISP.SYRIN IVPUSH ONE (18:02)
[2017-05-05] MEDS ORDERED: DEXTROSE 50%-WATER 50 ML VIAL IVPUSH ONE (18:02)
--- NOTE | 2017-05-05 18:04 | HOSP ---
Subjective - Review of Symptoms Events since last encounter: Called because patients FSG was 65. This is because patient was NPO since noon for sample need this evening. Advised to push D50 however no IV access. She did not have IV access because she is going for vein mapping tomorrow. Therefore decision was made to access the foot in order to administer 0.5amp of D50. It was administered and will repeat glucose in one hour. Physical Examination Vital Signs: Vital Signs Temperature 99.0 F 05/05/17 14:00 Pulse Rate 69 05/05/17 14:00 Respiratory Rate 20 05/05/17 14:00 Blood Pressure 124/58 05/05/17 14:00 O2 Sat by Pulse Oximetry (%) 95 05/05/17 09:00 Cardiovascular: Yes: Regular Rate and Rhythm Gastrointestinal: Yes: Normal Bowel Sounds, Soft Extremities: No: Erythema Edema: No Labs: CBC, BMP 05/05/17 05:38 05/05/17 05:38 Visit type - Emergency Visit Emergency Visit: Yes ED Registration Date: 04/17/17 Care time: The patient presented to the Emergency Department on the above date and was hospitalized for further evaluation of their emergent condition. - New Patient This patient is new to me today: No - Critical Care Critical Care patient: No
[2017-05-06] MEDS: INSULIN SLIDING SCALE (NOVOLOG) 1 VIAL SQ SCH ×4 (00:55→17:26)
[2017-05-06] MEDS: INSULIN DETEMIR 100 UNITS/ML MDV SQ SCH (06:03)
[2017-05-06 08:55] LABS: MCH 29.6 pg (25.7-33.7); MCHC 32.6 g/dl (32.0-36.0); MEAN CELL VOLUME 90.6 fl (80-96); MEAN PLT VOLUME 10.1 fl (7.5-11.1); PLATELET COUNT 98 K/MM3 (134-434); RDW 13.8 % (11.6-15.6); WHITE BLOOD COUNT 8.8 K/mm3 (4.0-10.0)
[2017-05-06] MEDS ORDERED: EPOETIN ALFA 10,000 UNIT/1 ML VIAL IVPUSH ONE (09:00)
[2017-05-06 09:16] LABS: CALCIUM 7.6 mg/dL (8.5-10.1); COCKROFT - GAULT 14.96; CREATININE 3.4 mg/dL (0.55-1.02); PHOSPHOROUS 4.8 mg/dL (2.5-4.9)
--- NOTE | 2017-05-06 10:44 | PN ---
Progress Note (short form) - Note Progress Note: Awaiting results of vein mapping study. Problem List - Problems (1) Renal failure Code(s): N19 - UNSPECIFIED KIDNEY FAILURE Qualifiers: Renal failure chronicity: acute Acute renal failure type: unspecified Qualified Code(s): N17.9 - Acute kidney failure, unspecified (2) Functional quadriplegia Code(s): R53.2 - FUNCTIONAL QUADRIPLEGIA (3) Non-insulin dependent type 2 diabetes mellitus Code(s): E11.9 - TYPE 2 DIABETES MELLITUS WITHOUT COMPLICATIONS
[2017-05-06] MEDS: amLODIPine BESYLATE 5 MG TABLET (FP) GT SCH (10:48)
[2017-05-06] MEDS: PANTOPRAZOLE SOD 40 MG SUSPENSION PACKET GT SCH (10:48)
[2017-05-06] MEDS: predniSONE 20 MG TABLET (UD) GT SCH (10:48)
--- NOTE | 2017-05-06 11:44 | PN ---
Progress Note (short form) - Note Progress Note: Renal Follow up for DEYSI Pt seen and examined at the bedside no overnight events s/p dialysis this am 2.5kg removed was able to collect 2 specimens for AFB yesterday Vital Signs Temperature 98.2 F 05/06/17 09:00 Pulse Rate 87 05/06/17 10:20 Respiratory Rate 18 05/06/17 10:20 Blood Pressure 146/60 05/06/17 10:20 O2 Sat by Pulse Oximetry (%) 95 05/05/17 21:00 Intake & Output 05/03/17 05/04/17 05/05/17 05/06/17 23:59 23:59 23:59 23:59 Intake Total 1859 1960 280 Output Total 20 Balance 1859 1960 260 Weight 121 lb 12.8 oz Gen: NAD, awake, non-verbal CVS: RRR, No M/R Lungs: CTA Abd: soft NT/ND Ext: R AKA, Trace LLE edema Access: Right IJ tunneled catheter, some serosangrenous drainage CBC, BMP 05/06/17 07:00 05/06/17 07:00 Laboratory Tests 05/06/17 07:00 Calcium 7.6 L Phosphorus 4.8 Current Medications Amlodipine Besylate (Norvasc -) 10 mg GT DAILY [facility] Last Admin: 05/06/17 10:48 Dose: 10 mg Insulin Aspart (Novolog Vial Sliding Scale -) 1 vial SQ Q6H [facility] PRN Reason: Protocol Last Admin: 05/06/17 10:55 Dose: Not Given Insulin Detemir (Levemir Vial) 10 units SQ AM [facility] Last Admin: 05/06/17 06:03 Dose: 10 units Pantoprazole Sodium (Protonix Packets For Oral Suspension -) 40 mg GT DAILY [facility] Last Admin: 05/06/17 10:48 Dose: 40 mg Prednisone (Deltasone -) 40 mg GT DAILY [facility] Last Admin: 05/06/17 10:48 Dose: 40 mg A/P 61 year old woman with PMhx of NIDDM, Hypertension, PVD s/p R AKA, CVA now non- verbal and paralyzed who presented with abnormal outpatient labs that showed renal failure and increasing total body volume overload #Acute Renal Failure with Nephrotic Range Proteinuria and + PR3 aB Biopsy deferred as per wishes of the family 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 #R/o occult infection/isolated Fever Quatiferion gold positive resp isolation for r/o TB to use gastric contents for afb r/o ID follow up #Anemia Trend CBC Epogen with dialysis tomorrow #Hypophosphatemia Phos levels are improved d/c supplement trend with tube feeds #Hypertension on Amlodpine Goal BP < 140/90 can consider switching to VICKY/ARB now that there is less likely a possibility of renal recovery Overall prognosis is guarded (family made aware) outpatient Hd unit placement as per Case Management Jonathan Guzman DO
--- NOTE | 2017-05-06 11:53 | PN ---
Progress Note, [employer] - Note Progress Note: Asked to reevaluate pt for PO intake. Pt has a GT and has been fed via GT with some PO intake at home.She is non communicative. Since admission, pt was too lethargic and medically unstable for PO trials. Asked by Dr. rPitchett to re- evaluate pt for possible PO trials. Pt is frequently drooling, unable to swallow her secretions. Staff needs to suction her intermittently. She does demonstrate a swallow reflex intermittently, although I believe it is not sufficiently functional. As pt has a GT at this this, I do not believe PO trials with aspiration risk are indicated at this time.
--- NOTE | 2017-05-06 12:11 | PN ---
Progress Note, Physician History of Present Illness: Non-verbal Breathing non-labored No fever - Current Medication List Current Medications: Active Medications Amlodipine Besylate (Norvasc -) 10 mg GT DAILY [facility] Last Admin: 05/06/17 10:48 Dose: 10 mg Insulin Aspart (Novolog Vial Sliding Scale -) 1 vial SQ Q6H [facility] PRN Reason: Protocol Last Admin: 05/06/17 10:55 Dose: Not Given Insulin Detemir (Levemir Vial) 10 units SQ AM [facility] Last Admin: 05/06/17 06:03 Dose: 10 units Pantoprazole Sodium (Protonix Packets For Oral Suspension -) 40 mg GT DAILY [facility] Last Admin: 05/06/17 10:48 Dose: 40 mg Prednisone (Deltasone -) 40 mg GT DAILY [facility] Last Admin: 05/06/17 10:48 Dose: 40 mg - Objective Vital Signs: Vital Signs Temperature 98.2 F 05/06/17 09:00 Pulse Rate 87 05/06/17 10:20 Respiratory Rate 18 05/06/17 10:20 Blood Pressure 146/60 05/06/17 10:20 O2 Sat by Pulse Oximetry (%) 95 05/05/17 21:00 Constitutional: Yes: Cachectic, Mild Distress Cardiovascular: Yes: Regular Rate and Rhythm, S1, S2 Respiratory: Yes: Diminished Gastrointestinal: Yes: Normal Bowel Sounds, Soft. No: Tenderness Labs: CBC, BMP 05/06/17 07:00 05/06/17 07:00 INR, PTT INR 0.89 (0.82-1.09) 04/21/17 12:05 Assessment/Plan S/P UTI Vasculitis ESRD + Quantiferon, lung nodules AFB workup in progress Observe off antibiotics
--- NOTE | 2017-05-06 14:04 | PN ---
Progress Note (short form) - Note Progress Note: Vascular surgery Pt awaiting vein mapping NPO past midnight for avg placement awa Aviles DO
--- NOTE | 2017-05-06 14:39 | PN ---
Physical Exam: SUBJECTIVE: Patient seen and examined at bedside. No overnight events. Lying comfortably. OBJECTIVE: Vital Signs Period Temp Pulse Resp BP Sys/Daniel Pulse Ox Last 24 Hr 97.9 F-99.2 F 64-93 18-20 113-166/36-68 95 GENERAL:nonverbal but awake. HEAD: NC/AT. ENT: moist mucous membranes. NECK: supple. permacath right chest. LUNGS:Scattered rhonchi, diminished bilat bases no wheezes, no crackles, no accessory muscle use. HEART: RRR,s1s2 normal 3/6 ANGELINA ABDOMEN: Soft, NT, ND, BS(+) PEG EXTREMITIES: Bilat. nonpitting edema upper ext. Bilat edema LE resolved.. R leg s/p AKA NEUROLOGICAL: non verbal. obtunded and contracted. functional quadriplegia Laboratory Results - last 24 hr 05/02/17 05/05/17 05/05/17 10:05 17:07 19:50 WBC RBC Hgb Hct MCV MCHC RDW Plt Count MPV Sodium Potassium Chloride Carbon Dioxide Anion Gap BUN Creatinine POC Glucometer 65 82 Random Glucose Calcium Phosphorus Hep-Induced Plt Ab Rapid 0.895 H 05/05/17 05/05/17 05/05/17 20:51 21:56 22:57 WBC RBC Hgb Hct MCV MCHC RDW Plt Count MPV Sodium Potassium Chloride Carbon Dioxide Anion Gap BUN Creatinine POC Glucometer 72 77 105 Random Glucose Calcium Phosphorus Hep-Induced Plt Ab Rapid 05/06/17 05/06/17 05/06/17 03:03 05:48 07:00 WBC RBC Hgb Hct MCV MCHC RDW Plt Count MPV Sodium 144 Potassium 3.8 Chloride 102 Carbon Dioxide 31 Anion Gap 11 BUN 41 H D Creatinine 3.4 H D POC Glucometer 158 191 Random Glucose 169 H D Calcium 7.6 L Phosphorus 4.8 Hep-Induced Plt Ab Rapid 05/06/17 05/06/17 07:00 10:50 WBC 8.8 RBC 3.00 L Hgb 8.9 L Hct 27.2 L MCV 90.6 MCHC 32.6 RDW 13.8 Plt Count 98 L MPV 10.1 Sodium Potassium Chloride Carbon Dioxide Anion Gap BUN Creatinine POC Glucometer 119 Random Glucose Calcium Phosphorus Hep-Induced Plt Ab Rapid Active Medications Generic Name Dose Route Start Last Admin Trade Name Freq PRN Reason Stop Dose Admin Amlodipine Besylate 10 mg 05/01/17 14:30 05/06/17 10:48 Norvasc - GT 10 mg DAILY [facility]IL Administration Insulin Aspart 1 vial 04/30/17 17:30 05/06/17 10:55 Novolog Vial Sliding Scale - SQ Not Given Q6H [facility] Protocol Insulin Detemir 10 units 05/06/17 07:00 05/06/17 06:03 Levemir Vial SQ 10 units AM [facility] Administration Pantoprazole Sodium 40 mg 05/01/17 10:00 05/06/17 10:48 Protonix Packets For Oral Suspension - GT 40 mg DAILY [facility] Administration Prednisone 40 mg 05/05/17 10:00 05/06/17 10:48 Deltasone - GT 40 mg DAILY [facility] Administration ASSESSMENT/PLAN: 61 yo F with pmhx of CVA, NIDDM, HTN, HLD, admitted for acute renal failure. Problem List - Problems (1) Positive QuantiFERON-TB Gold test Assessment/Plan: * Patient placed on isolation * 2 samples taken in last 24hrs. * Will need 3 negative Acid fast samples to r/o active TB. * Will start INH for 9 mo. 300mg PO daily with Vit. B6 50 mg PO daily * Baseline LFT's done (2) UTI (urinary tract infection) Assessment/Plan: * Treated and Resolved. * WBC 8.8 and afebrile for 5 days. * Cultures are negative * Levaquin completed 7 day course * ID consult appreciated. (3) Renal failure Assessment/Plan: * Dialyze tomorrow with epogen * Continue prednisone @ 40mg/day will nallely 10mg/week 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 * Upon further testing patient found to have positive IGRA for TB * Renal consult appreciated. (4) Non-insulin dependent type 2 diabetes mellitus Assessment/Plan: * Increase in serum glucose result of IV steroids * decrease Levamir to 10 units in AM because of NPO after midnight. * Continue Jevity tube feed via peg * NISS * BGM Q6H (5) HTN (hypertension) Assessment/Plan: * Better control with Amlodipine to 10mg PO daily (6) Functional quadriplegia Assessment/Plan: * assist in ADL's Visit type - Emergency Visit Emergency Visit: Yes ED Registration Date: 04/17/17 Care time: The patient presented to the Emergency Department on the above date and was hospitalized for further evaluation of their emergent condition. - New Patient This patient is new to me today: No - Critical Care Critical Care patient: No - Discharge Referral Referred to [facility] Med P.C.: No
--- NOTE | 2017-05-06 20:36 | PN ---
Teaching Attending Note Name of Resident: Kodi Pritchett ATTENDING PHYSICIAN STATEMENT I saw and evaluated the patient. I reviewed the resident's note and discussed the case with the resident. I agree with the resident's findings and plan as documented. SUBJECTIVE: Comfortable, no new changes. OBJECTIVE: Vital Signs Temperature 98.0 F 05/06/17 17:00 Pulse Rate 78 05/06/17 17:00 Respiratory Rate 18 05/06/17 17:00 Blood Pressure 114/60 05/06/17 17:00 O2 Sat by Pulse Oximetry (%) 96 05/06/17 09:00 CBCD WBC 8.8 K/mm3 (4.0-10.0) 05/06/17 07:00 RBC 3.00 M/mm3 (3.60-5.2) L 05/06/17 07:00 Hgb 8.9 GM/dL (10.7-15.3) L 05/06/17 07:00 Hct 27.2 % (32.4-45.2) L 05/06/17 07:00 MCV 90.6 fl (80-96) 05/06/17 07:00 MCHC 32.6 g/dl (32.0-36.0) 05/06/17 07:00 RDW 13.8 % (11.6-15.6) 05/06/17 07:00 Plt Count 98 K/MM3 (134-434) L 05/06/17 07:00 MPV 10.1 fl (7.5-11.1) 05/06/17 07:00 CMP Sodium 144 mmol/L (136-145) 05/06/17 07:00 Potassium 3.8 mmol/L (3.5-5.1) 05/06/17 07:00 Chloride 102 mmol/L (98-107) 05/06/17 07:00 Carbon Dioxide 31 mmol/L (21-32) 05/06/17 07:00 Anion Gap 11 (8-16) 05/06/17 07:00 BUN 41 mg/dL (7-18) H D 05/06/17 07:00 Creatinine 3.4 mg/dL (0.55-1.02) H D 05/06/17 07:00 Creat Clearance w eGFR 19.51 (>60) 05/05/17 05:38 Random Glucose 169 mg/dL (74-106) H D 05/06/17 07:00 Calcium 7.6 mg/dL (8.5-10.1) L 05/06/17 07:00 Total Bilirubin 0.3 mg/dL (0.2-1.0) 05/05/17 05:38 AST 27 U/L (15-37) D 05/05/17 05:38 ALT 13 U/L (12-78) D 05/05/17 05:38 Alkaline Phosphatase 186 U/L (45-117) H 05/05/17 05:38 Total Protein 4.7 g/dl (6.4-8.2) L 05/05/17 05:38 Albumin 1.9 g/dl (3.4-5.0) L 05/05/17 05:38 Current Medications Generic Name Dose Route Start Last Admin Trade Name Freq PRN Reason Stop Dose Admin Amlodipine Besylate 10 mg 05/01/17 14:30 05/06/17 10:48 Norvasc - GT 10 mg DAILY APRIL Administration Dextrose/Sodium Chloride 1,000 mls @ 42 mls/hr 05/07/17 00:01 D5-Ns - IV 05/07/17 23:50 ASDIR APRIL Insulin Aspart 1 vial 04/30/17 17:30 05/06/17 17:26 Novolog Vial Sliding Scale - SQ Not Given Q6H [facility] Protocol Insulin Detemir 10 units 05/06/17 07:00 05/06/17 06:03 Levemir Vial SQ 10 units AM APRIL Administration Pantoprazole Sodium 40 mg 05/01/17 10:00 05/06/17 10:48 Protonix Packets For Oral Suspension - GT 40 mg DAILY APRIL Administration Prednisone 40 mg 05/05/17 10:00 05/06/17 10:48 Deltasone - GT 40 mg DAILY APRIL Administration Home Medications Medication Instructions Recorded Acetaminophen [Pain Reliever] 500 mg PO DAILY 04/12/17 Amlodipine Besylate 5 mg PO DAILY 04/12/17 Aspirin [ASA -] 81 mg PO DAILY 04/12/17 Glyburide 5 mg PO BID 04/12/17 Simvastatin 20 mg PO HS 04/12/17 Zinc Sulfate 220 mg PO DAILY 04/12/17 PE: per resident's note ASSESSMENT AND PLAN: 61 y/o lady with h/o CVA , NIDDM, HTN, HLP, who presented after her out pt labs showed renal failure. 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 Patient is going for a vein mapping and a graft. , family opted not to proceed with immunosupressive therapy. # Positive QuantiFERON-TB Gold test, checking AFB x 3 to r/o TB. On isolation if positive AFB Will start INH for 9 mo. 300mg PO daily with Vit. B6 50 mg PO daily Baseline LFT's within NL limits. #Acute Complicated UTI. s/p Levaquin (06/05) # Uncontrolled DM : probably due to steroids .on Levemir 10U, cont SSI q 6 h # HTN: controlled on norvasc 10 mg continue # Nutrition : TF # Functional quadriplegia assist in ADL's DVT Px: SCDs
[2017-05-07] MEDS ORDERED: DEXTROSE 5%-NORMAL SALINE 1,000 ML IV SCH (00:01)
[2017-05-07] MEDS: INSULIN SLIDING SCALE (NOVOLOG) 1 VIAL SQ SCH ×5 (00:04→23:35)
[2017-05-07] MEDS: INSULIN DETEMIR 100 UNITS/ML MDV SQ SCH (06:19)
[2017-05-07 08:28] LABS: MCH 29.6 pg (25.7-33.7); MCHC 32.7 g/dl (32.0-36.0); MEAN CELL VOLUME 90.7 fl (80-96); MEAN PLT VOLUME 9.3 fl (7.5-11.1); PLATELET COUNT 113 K/MM3 (134-434); RDW 13.7 % (11.6-15.6); WHITE BLOOD COUNT 10.6 K/mm3 (4.0-10.0)
[2017-05-07 09:00] LABS: CALCIUM 8.1 mg/dL (8.5-10.1); COCKROFT - GAULT 18.2325; CREATININE 2.6 mg/dL (0.55-1.02)
--- NOTE | 2017-05-07 09:41 | PN ---
Progress Note (short form) - Note Progress Note: VAscular Surgery Pt seen and examined. Pt with possible TB AFB smears pending. Will hold surgery until AFB smears come back. Pt is a exposure risk to other pts in the OR. The avg is not a urgency at the moment since pt has a permacath. ONce a definitive diagnosis is made, will book case. Accuseal graft is in house -- this graft allows us to use the access right away for HD if needed. Robin Aviles DO
[2017-05-07] MEDS: amLODIPine BESYLATE 5 MG TABLET (FP) GT SCH (10:20)
[2017-05-07] MEDS: predniSONE 20 MG TABLET (UD) GT SCH (10:20)
[2017-05-07] MEDS: PANTOPRAZOLE SOD 40 MG SUSPENSION PACKET GT SCH (10:20)
--- NOTE | 2017-05-07 13:52 | PN ---
Progress Note (short form) - Note Progress Note: Renal Follow up for DEYSI Pt seen and examined at the bedside no overnight events s/p dialysis yesterday Vital Signs Temperature 99.2 F 05/07/17 09:00 Pulse Rate 78 05/07/17 09:00 Respiratory Rate 16 05/07/17 09:00 Blood Pressure 142/70 05/07/17 09:00 O2 Sat by Pulse Oximetry (%) 100 05/06/17 21:00 Intake & Output 05/04/17 05/05/17 05/06/17 05/07/17 23:59 23:59 23:59 23:59 Intake Total 1960 280 660 294 Output Total 20 Balance 1960 260 660 294 Weight 121 lb 12.8 oz 113 lb 8 oz Gen: NAD, awake, non-verbal CVS: RRR, No M/R Lungs: CTA Abd: soft NT/ND Ext: R AKA, Trace LLE edema CBC, BMP 05/07/17 08:05 05/07/17 08:05 Laboratory Tests 05/07/17 08:05 Calcium 8.1 L Current Medications Amlodipine Besylate (Norvasc -) 10 mg GT DAILY [facility] Last Admin: 05/07/17 10:20 Dose: 10 mg Dextrose/Sodium Chloride (D5-Ns -) 1,000 mls @ 42 mls/hr IV ASDIR APRIL Stop: 05/07/17 23:50 Last Admin: 05/07/17 00:04 Dose: 42 mls/hr Insulin Aspart (Novolog Vial Sliding Scale -) 1 vial SQ Q6H APRIL PRN Reason: Protocol Last Admin: 05/07/17 12:10 Dose: Not Given Insulin Detemir (Levemir Vial) 10 units SQ AM [facility] Last Admin: 05/07/17 06:19 Dose: 10 units Pantoprazole Sodium (Protonix Packets For Oral Suspension -) 40 mg GT DAILY [facility] Last Admin: 05/07/17 10:20 Dose: 40 mg Prednisone (Deltasone -) 40 mg GT DAILY [facility] Last Admin: 05/07/17 10:20 Dose: 40 mg A/P 61 year old woman with PMhx of NIDDM, Hypertension, PVD s/p R AKA, CVA now non- verbal and paralyzed who presented with abnormal outpatient labs that showed renal failure and increasing total body volume overload #Acute Renal Failure with Nephrotic Range Proteinuria and + PR3 aB will continue maintiance dialysis next dialysis is tomorrow AVG placement as per vascular once active TB is ruled out Taper prednisone weekly #R/o occult infection/isolated Fever Quatiferion gold positive resp isolation for r/o TB to use gastric contents for afb r/o so far negative ID follow up #Anemia Trend CBC Epogen with dialysis tomorrow #Hypophosphatemia Phos levels are improved d/c supplement trend with tube feeds #Hypertension on Amlodpine Goal BP < 140/90 Overall prognosis is guarded (family made aware) outpatient Hd unit placement as per Case Management Jonathan Guzman DO
--- NOTE | 2017-05-07 17:02 | PN ---
Physical Exam: SUBJECTIVE: Patient seen and examined at bedside. No overnight events. S/P dialysis yesterday. OBJECTIVE: Vital Signs Period Temp Pulse Resp BP Sys/Daniel Pulse Ox Last 24 Hr 98.1 F-99.7 F 72-84 16-20 131-151/59-70 98-100 GENERAL:nonverbal but awake. HEAD: NC/AT. ENT: moist mucous membranes. NECK: supple. permacath right chest. LUNGS:Scattered rhonchi, diminished bilat bases no wheezes, no crackles, no accessory muscle use. HEART: RRR,s1s2 normal 3/6 ANGELINA ABDOMEN: Soft, NT, ND, BS(+) PEG EXTREMITIES: Bilat. nonpitting edema upper ext. Bilat edema LE resolved.. R leg s/p AKA NEUROLOGICAL: non verbal. obtunded and contracted. functional quadriplegia Laboratory Results - last 24 hr 05/07/17 05/07/17 05/07/17 00:01 05:41 08:05 WBC 10.6 H RBC 3.10 L Hgb 9.2 L Hct 28.2 L MCV 90.7 MCHC 32.7 RDW 13.7 Plt Count 113 L MPV 9.3 Sodium Potassium Chloride Carbon Dioxide Anion Gap BUN Creatinine POC Glucometer 344 216 Random Glucose Calcium 05/07/17 05/07/17 08:05 11:59 WBC RBC Hgb Hct MCV MCHC RDW Plt Count MPV Sodium 143 Potassium 3.8 Chloride 103 Carbon Dioxide 31 Anion Gap 9 BUN 30 H D Creatinine 2.6 H D POC Glucometer 144 Random Glucose 202 H Calcium 8.1 L Active Medications Generic Name Dose Route Start Last Admin Trade Name Berto PRN Reason Stop Dose Admin Amlodipine Besylate 10 mg 05/01/17 14:30 05/07/17 10:20 Norvasc - GT 10 mg DAILY APRIL Administration Epoetin Miguel 8,000 units 05/08/17 09:00 Epogen - IVPUSH 05/08/17 09:01 ONCE ONE Dextrose/Sodium Chloride 1,000 mls @ 42 mls/hr 05/07/17 00:01 05/07/17 00:04 D5-Ns - IV 05/07/17 23:50 42 mls/hr ASDIR APRIL Administration Insulin Aspart 1 vial 04/30/17 17:30 05/07/17 12:10 Novolog Vial Sliding Scale - SQ Not Given Q6H [facility] Protocol Insulin Detemir 10 units 05/06/17 07:00 05/07/17 06:19 Levemir Vial SQ 10 units AM APRIL Administration Pantoprazole Sodium 40 mg 05/01/17 10:00 05/07/17 10:20 Protonix Packets For Oral Suspension - GT 40 mg DAILY APRIL Administration Prednisone 40 mg 05/05/17 10:00 05/07/17 10:20 Deltasone - GT 40 mg DAILY APRIL Administration ASSESSMENT/PLAN: 61 yo F with pmhx of CVA, NIDDM, HTN, HLD, admitted for acute renal failure. Problem List - Problems (1) Positive QuantiFERON-TB Gold test Assessment/Plan: * Patient placed on isolation * 3 samples taken from gastric content. * results pending. * Will start INH for 9 mo. 300mg PO daily with Vit. B6 50 mg PO daily * Baseline LFT's done (2) Renal failure Assessment/Plan: * Dialyze tomorrow with epogen * Continue prednisone @ 40mg/day will nallely 10mg/week 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 * Renal consult appreciated. (3) Non-insulin dependent type 2 diabetes mellitus Assessment/Plan: * Increase in serum glucose result of IV steroids * decrease Levamir to 10 units * Continue Nepro tube feed via peg * NISS * BGM Q6H (4) HTN (hypertension) Assessment/Plan: * Amlodipine to 10mg PO daily (5) Functional quadriplegia Assessment/Plan: * assist in ADL's Visit type - Emergency Visit Emergency Visit: Yes ED Registration Date: 04/17/17 Care time: The patient presented to the Emergency Department on the above date and was hospitalized for further evaluation of their emergent condition. - New Patient This patient is new to me today: No - Critical Care Critical Care patient: No
--- NOTE | 2017-05-07 20:19 | PN ---
Teaching Attending Note Name of Resident: Kodi Pritchett ATTENDING PHYSICIAN STATEMENT I saw and evaluated the patient. I reviewed the resident's note and discussed the case with the resident. I agree with the resident's findings and plan as documented. SUBJECTIVE: No acute changes. OBJECTIVE: Vital Signs Temperature 98.8 F 05/07/17 17:00 Pulse Rate 80 05/07/17 17:00 Respiratory Rate 18 05/07/17 17:00 Blood Pressure 127/60 05/07/17 17:00 O2 Sat by Pulse Oximetry (%) 98 05/07/17 09:00 CBCD WBC 10.6 K/mm3 (4.0-10.0) H 05/07/17 08:05 RBC 3.10 M/mm3 (3.60-5.2) L 05/07/17 08:05 Hgb 9.2 GM/dL (10.7-15.3) L 05/07/17 08:05 Hct 28.2 % (32.4-45.2) L 05/07/17 08:05 MCV 90.7 fl (80-96) 05/07/17 08:05 MCHC 32.7 g/dl (32.0-36.0) 05/07/17 08:05 RDW 13.7 % (11.6-15.6) 05/07/17 08:05 Plt Count 113 K/MM3 (134-434) L 05/07/17 08:05 MPV 9.3 fl (7.5-11.1) 05/07/17 08:05 CMP Sodium 143 mmol/L (136-145) 05/07/17 08:05 Potassium 3.8 mmol/L (3.5-5.1) 05/07/17 08:05 Chloride 103 mmol/L (98-107) 05/07/17 08:05 Carbon Dioxide 31 mmol/L (21-32) 05/07/17 08:05 Anion Gap 9 (8-16) 05/07/17 08:05 BUN 30 mg/dL (7-18) H D 05/07/17 08:05 Creatinine 2.6 mg/dL (0.55-1.02) H D 05/07/17 08:05 Creat Clearance w eGFR 19.51 (>60) 05/05/17 05:38 Random Glucose 202 mg/dL (74-106) H 05/07/17 08:05 Calcium 8.1 mg/dL (8.5-10.1) L 05/07/17 08:05 Total Bilirubin 0.3 mg/dL (0.2-1.0) 05/05/17 05:38 AST 27 U/L (15-37) D 05/05/17 05:38 ALT 13 U/L (12-78) D 05/05/17 05:38 Alkaline Phosphatase 186 U/L (45-117) H 05/05/17 05:38 Total Protein 4.7 g/dl (6.4-8.2) L 05/05/17 05:38 Albumin 1.9 g/dl (3.4-5.0) L 05/05/17 05:38 Current Medications Generic Name Dose Route Start Last Admin Trade Name Freq PRN Reason Stop Dose Admin Amlodipine Besylate 10 mg 05/01/17 14:30 05/07/17 10:20 Norvasc - GT 10 mg DAILY APRIL Administration Epoetin Miguel 8,000 units 05/08/17 09:00 Epogen - IVPUSH 05/08/17 09:01 ONCE ONE Dextrose/Sodium Chloride 1,000 mls @ 42 mls/hr 05/07/17 00:01 05/07/17 00:04 D5-Ns - IV 05/07/17 23:50 42 mls/hr ASDIR APRIL Administration Insulin Aspart 1 vial 04/30/17 17:30 05/07/17 17:53 Novolog Vial Sliding Scale - SQ 8 units Q6H APRIL Administration Protocol Insulin Detemir 10 units 05/06/17 07:00 05/07/17 06:19 Levemir Vial SQ 10 units AM APRIL Administration Pantoprazole Sodium 40 mg 05/01/17 10:00 05/07/17 10:20 Protonix Packets For Oral Suspension - GT 40 mg DAILY APRIL Administration Prednisone 40 mg 05/05/17 10:00 05/07/17 10:20 Deltasone - GT 40 mg DAILY APRIL Administration Home Medications Medication Instructions Recorded Acetaminophen [Pain Reliever] 500 mg PO DAILY 04/12/17 Amlodipine Besylate 5 mg PO DAILY 04/12/17 Aspirin [ASA -] 81 mg PO DAILY 04/12/17 Glyburide 5 mg PO BID 04/12/17 Simvastatin 20 mg PO HS 04/12/17 Zinc Sulfate 220 mg PO DAILY 04/12/17 Microbiology 05/04/17 17:46 Blood - Pre-Dialysis Blood Culture - Preliminary NO GROWTH OBTAINED AFTER 96 HOURS, INCUBATION TO CONTINUE FOR 1 DAYS. 05/04/17 17:46 Blood - Pre-Dialysis Blood Culture - Preliminary NO GROWTH OBTAINED AFTER 96 HOURS, INCUBATION TO CONTINUE FOR 1 DAYS. 05/07/17 06:00 Gastric Fluid Mycobacterial Culture - Preliminary 05/05/17 21:00 Gastric Fluid AFB Smear Concentration - Final 05/05/17 21:00 Gastric Fluid Mycobacterial Culture - Preliminary 05/06/17 07:42 Drainage AFB Smear Concentration - Final 05/06/17 07:42 Drainage Mycobacterial Culture - Preliminary 04/29/17 14:55 Blood - Shiley Catheter Blood Culture - Final NO GROWTH AFTER 5 DAYS INCUBATION 04/29/17 14:55 Blood - Shiley Catheter Blood Culture - Final NO GROWTH AFTER 5 DAYS INCUBATION 04/30/17 11:20 Blood - Peripheral Venous TB Test (QFT) (SAMUEL) - Final 04/29/17 08:50 Blood - Peripheral Venous Blood Culture - Final NO GROWTH AFTER 5 DAYS INCUBATION 04/29/17 08:30 Blood - Peripheral Venous Blood Culture - Final NO GROWTH AFTER 5 DAYS INCUBATION 04/30/17 01:00 Urine - Urine - Catheterized Urine Culture - Final NO GROWTH OBTAINED 04/17/17 04:00 Urine - Urine Lemon Urine Culture - Final Pseudomonas Aeruginosa PE: per resident's note ASSESSMENT AND PLAN: 61 y/o lady with h/o CVA , NIDDM, HTN, HLP, who presented after her out pt labs showed renal failure. 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 Family opted not to proceed with immunosupressive therapy. # Positive QuantiFERON-TB Gold test, checking AFB x 3 to r/o TB. On isolation if positive AFB Will start INH for 9 mo. 300mg PO daily with Vit. B6 50 mg PO daily Baseline LFT's within NL limits.Patient AVG was postponed due to patient having positive TB Quantiferon , once 3 sets of AFB results, so far negative then will schedule a vein mapping and a graft. #Acute Complicated UTI, culture was positive for Pseudomonas Aeruginosa s/p Levaquin (06/05) # Uncontrolled DM : due to steroids .on Levemir 10U, cont SSI q 6 h # HTN: controlled on norvasc 10 mg continue # Nutrition : TF # Functional quadriplegia assist in ADL's DVT Px: SCDs
[2017-05-08] MEDS: INSULIN SLIDING SCALE (NOVOLOG) 1 VIAL SQ SCH ×4 (05:08→22:11)
[2017-05-08] MEDS: INSULIN DETEMIR 100 UNITS/ML MDV SQ SCH (06:07)
[2017-05-08] MEDS: amLODIPine BESYLATE 5 MG TABLET (FP) GT SCH (09:43)
[2017-05-08] MEDS: predniSONE 20 MG TABLET (UD) GT SCH (09:43)
[2017-05-08] MEDS: PANTOPRAZOLE SOD 40 MG SUSPENSION PACKET GT SCH (09:44)
--- NOTE | 2017-05-08 13:09 | PN ---
Progress Note (short form) - Note Progress Note: Renal Follow up for DEYSI Pt seen and examined at the bedside awake and alert, tracking movements with her eyes no overnight events for dialysis today Vital Signs Temperature 98.5 F 05/08/17 08:27 Pulse Rate 73 05/08/17 10:26 Respiratory Rate 20 05/08/17 08:27 Blood Pressure 157/80 05/08/17 08:27 O2 Sat by Pulse Oximetry (%) 98 05/08/17 10:26 Intake & Output 05/05/17 05/06/17 05/07/17 05/08/17 23:59 23:59 23:59 23:59 Intake Total 280 218 874 2740 Output Total 20 0 Balance 260 600 338 2371 Weight 113 lb 8 oz 114 lb 8 oz Gen: NAD, awake, non-verbal CVS: RRR, No M/R Lungs: CTA Abd: soft NT/ND Ext: R AKA, Trace LLE edema CBC, BMP 05/07/17 08:05 05/07/17 08:05 Current Medications Amlodipine Besylate (Norvasc -) 10 mg GT DAILY [facility] Last Admin: 05/08/17 09:43 Dose: 10 mg Epoetin Miguel (Epogen -) 8,000 units IVPUSH ONCE ONE Stop: 05/08/17 09:01 Insulin Aspart (Novolog Vial Sliding Scale -) 1 vial SQ Q6H APRIL PRN Reason: Protocol Last Admin: 05/08/17 11:50 Dose: 4 units Insulin Detemir (Levemir Vial) 10 units SQ AM APRIL Last Admin: 05/08/17 06:07 Dose: 10 units Pantoprazole Sodium (Protonix Packets For Oral Suspension -) 40 mg GT DAILY [facility] Last Admin: 05/08/17 09:44 Dose: 40 mg Prednisone (Deltasone -) 40 mg GT DAILY [facility] Last Admin: 05/08/17 09:43 Dose: 40 mg A/P 61 year old woman with PMhx of NIDDM, Hypertension, PVD s/p R AKA, CVA now non- verbal and paralyzed who presented with abnormal outpatient labs that showed renal failure and increasing total body volume overload #Acute Renal Failure with Nephrotic Range Proteinuria and + PR3 aB for dialysis today via permacath graft placement as per vascular once ruled out for acute TB outpatient HD unit placement pending #R/o occult infection/isolated Fever Quatiferion gold positive Gastic lavage AFB negative so far ID following #Anemia Continue Epogen with dialysis #Hypophosphatemia Trend Phos levels #Hypertension on Amlodpine Goal BP < 140/90 Overall prognosis is guarded (family made aware) outpatient Hd unit placement as per Case Management Jonathan Guzman DO
--- NOTE | 2017-05-08 15:45 | PN ---
Physical Exam: SUBJECTIVE: Patient seen and examined at bedside. No overnight events. awake and alert. Lying comfortably in bed. OBJECTIVE: Vital Signs Period Temp Pulse Resp BP Sys/Daniel Pulse Ox Last 24 Hr 98.1 F-98.9 F 70-83 18-20 109-163/53-80 98-100 GENERAL:nonverbal but awake. HEAD: NC/AT. ENT: moist mucous membranes. NECK: supple. permacath right chest. LUNGS:Scattered rhonchi, diminished bilat bases no wheezes, no crackles, no accessory muscle use. HEART: RRR,s1s2 normal 3/6 ANGELINA ABDOMEN: Soft, NT, ND, BS(+) PEG EXTREMITIES: Bilat. nonpitting edema upper ext. Bilat edema LE resolved.. R leg s/p AKA NEUROLOGICAL: non verbal. obtunded and contracted. functional quadriplegia Laboratory Results - last 24 hr 05/07/17 05/07/17 05/08/17 17:33 23:33 05:01 POC Glucometer 316 300 255 05/08/17 11:32 POC Glucometer 214 Active Medications Generic Name Dose Route Start Last Admin Trade Name Freq PRN Reason Stop Dose Admin Amlodipine Besylate 10 mg 05/01/17 14:30 05/08/17 09:43 Norvasc - GT 10 mg DAILY APRIL Administration Epoetin Miguel 8,000 units 05/08/17 09:00 Epogen - IVPUSH 05/08/17 09:01 ONCE ONE Insulin Aspart 1 vial 04/30/17 17:30 05/08/17 11:50 Novolog Vial Sliding Scale - SQ 4 units Q6H APRIL Administration Protocol Insulin Detemir 10 units 05/06/17 07:00 05/08/17 06:07 Levemir Vial SQ 10 units AM APRIL Administration Pantoprazole Sodium 40 mg 05/01/17 10:00 05/08/17 09:44 Protonix Packets For Oral Suspension - GT 40 mg DAILY APRIL Administration Prednisone 40 mg 05/05/17 10:00 05/08/17 09:43 Deltasone - GT 40 mg DAILY APRIL Administration ASSESSMENT/PLAN: 61 yo F with pmhx of CVA, NIDDM, HTN, HLD, admitted for acute renal failure. Problem List - Problems (1) Positive QuantiFERON-TB Gold test Assessment/Plan: * Patient placed on isolation * 3 samples taken from gastric content. * 2 preliminary results have been negative. * Will start INH for 9 mo. 300mg PO daily with Vit. B6 50 mg PO daily * Baseline LFT's done (2) Renal failure Assessment/Plan: * Dialyzed today with epogen * Continue prednisone @ 40mg/day will nallely 10mg/week 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 * Renal consult appreciated. (3) Non-insulin dependent type 2 diabetes mellitus Assessment/Plan: * Increase in serum glucose result of IV steroids * decrease Levamir to 10 units * Continue Nepro tube feed via peg * NISS * BGM Q6H (4) HTN (hypertension) Assessment/Plan: * Amlodipine to 10mg PO daily (5) Functional quadriplegia Assessment/Plan: * assist in ADL's Visit type - Emergency Visit Emergency Visit: Yes ED Registration Date: 04/17/17 Care time: The patient presented to the Emergency Department on the above date and was hospitalized for further evaluation of their emergent condition. - New Patient This patient is new to me today: No - Critical Care Critical Care patient: No - Discharge Referral Referred to [facility] No
[2017-05-08] MEDS ORDERED: EPOETIN ALFA 10,000 UNIT/1 ML VIAL IVPUSH ONE (16:00)
[2017-05-08 16:59] LABS: MCH 29.6 pg (25.7-33.7); MCHC 32.7 g/dl (32.0-36.0); MEAN CELL VOLUME 90.6 fl (80-96); MEAN PLT VOLUME 9.6 fl (7.5-11.1); PLATELET COUNT 161 K/MM3 (134-434)
[2017-05-08 17:26] LABS: CALCIUM 7.5 mg/dL (8.5-10.1); COCKROFT - GAULT 12.92; CREATININE 3.7 mg/dL (0.55-1.02); PHOSPHOROUS 3.5 mg/dL (2.5-4.9)
--- NOTE | 2017-05-08 20:55 | PN ---
Teaching Attending Note Name of Resident: Kodi Pritchett ATTENDING PHYSICIAN STATEMENT I saw and evaluated the patient. I reviewed the resident's note and discussed the case with the resident. I agree with the resident's findings and plan as documented. SUBJECTIVE: No new findings. OBJECTIVE: Vital Signs Temperature 98.5 F 05/08/17 18:00 Pulse Rate 74 05/08/17 19:30 Respiratory Rate 18 05/08/17 19:30 Blood Pressure 135/69 05/08/17 19:30 O2 Sat by Pulse Oximetry (%) 98 05/08/17 10:26 CBCD WBC 13.0 K/mm3 (4.0-10.0) H 05/08/17 15:30 RBC 3.00 M/mm3 (3.60-5.2) L 05/08/17 15:30 Hgb 8.9 GM/dL (10.7-15.3) L 05/08/17 15:30 Hct 27.2 % (32.4-45.2) L 05/08/17 15:30 MCV 90.6 fl (80-96) 05/08/17 15:30 MCHC 32.7 g/dl (32.0-36.0) 05/08/17 15:30 RDW 14.0 % (11.6-15.6) 05/08/17 15:30 Plt Count 161 K/MM3 (134-434) D 05/08/17 15:30 MPV 9.6 fl (7.5-11.1) 05/08/17 15:30 CMP Sodium 140 mmol/L (136-145) 05/08/17 15:30 Potassium 4.3 mmol/L (3.5-5.1) 05/08/17 15:30 Chloride 101 mmol/L (98-107) 05/08/17 15:30 Carbon Dioxide 32 mmol/L (21-32) 05/08/17 15:30 Anion Gap 7 (8-16) L 05/08/17 15:30 BUN 49 mg/dL (7-18) H D 05/08/17 15:30 Creatinine 3.7 mg/dL (0.55-1.02) H D 05/08/17 15:30 Creat Clearance w eGFR 19.51 (>60) 05/05/17 05:38 Random Glucose 256 mg/dL (74-106) H D 05/08/17 15:30 Calcium 7.5 mg/dL (8.5-10.1) L 05/08/17 15:30 Total Bilirubin 0.3 mg/dL (0.2-1.0) 05/05/17 05:38 AST 27 U/L (15-37) D 05/05/17 05:38 ALT 13 U/L (12-78) D 05/05/17 05:38 Alkaline Phosphatase 186 U/L (45-117) H 05/05/17 05:38 Total Protein 4.7 g/dl (6.4-8.2) L 05/05/17 05:38 Albumin 1.9 g/dl (3.4-5.0) L 05/05/17 05:38 Current Medications Generic Name Dose Route Start Last Admin Trade Name Freq PRN Reason Stop Dose Admin Amlodipine Besylate 10 mg 05/01/17 14:30 05/08/17 09:43 Norvasc - GT 10 mg DAILY APRIL Administration Insulin Aspart 1 vial 04/30/17 17:30 05/08/17 16:41 Novolog Vial Sliding Scale - SQ 4 units Q6H APRIL Administration Protocol Insulin Detemir 10 units 05/06/17 07:00 05/08/17 06:07 Levemir Vial SQ 10 units AM APRIL Administration Pantoprazole Sodium 40 mg 05/01/17 10:00 05/08/17 09:44 Protonix Packets For Oral Suspension - GT 40 mg DAILY APRIL Administration Prednisone 40 mg 05/05/17 10:00 05/08/17 09:43 Deltasone - GT 40 mg DAILY APRIL Administration Home Medications Medication Instructions Recorded Acetaminophen [Pain Reliever] 500 mg PO DAILY 04/12/17 Aspirin [ASA -] 81 mg PO DAILY 04/12/17 RX: Amlodipine Besylate 5 mg PO DAILY 04/12/17 RX: Glyburide 5 mg PO BID 04/12/17 RX: Simvastatin 20 mg PO HS 04/12/17 RX: Zinc Sulfate 220 mg PO DAILY 04/12/17 Hepatic Panel Total Bilirubin 0.3 mg/dL (0.2-1.0) 05/05/17 05:38 AST 27 U/L (15-37) D 05/05/17 05:38 ALT 13 U/L (12-78) D 05/05/17 05:38 Alkaline Phosphatase 186 U/L (45-117) H 05/05/17 05:38 Albumin 1.9 g/dl (3.4-5.0) L 05/05/17 05:38 PE: per resident's note ASSESSMENT AND PLAN: 61 y/o lady with h/o CVA , NIDDM, HTN, HLP, who presented after her out pt labs showed renal failure. # Acute renal failure with nephrotic syndrome and PR3 aB positive (Bravo's granulomatosis ) with ESRD on HD( has a permacath) on Steroids 40mg po daily . Family opted not to proceed with immunosupressive therapy. Outpatient HD unit placement pending # Positive QuantiFERON-TB Gold test, checking AFB x 3 to r/o TB. On isolation if positive AFB Will start INH for 9 mo. 300mg PO daily with Vit. B6 50 mg PO daily Baseline LFT's within NL limits. Patient AVG was postponed due to patient having positive TB Quantiferon , once TB is ruled out then vascular will proceed with a vein mapping and a graft. ID on the case. #Anemia of chronic disease on Epogen with dialysis #Hypophosphatemia trend Phos levels #Acute Complicated UTI, culture was positive for Pseudomonas Aeruginosa s/p Levaquin (06/05) # Uncontrolled DM : due to steroids .on Levemir 10U, cont SSI q 6 h # HTN: controlled on norvasc 10 mg continue, Goal BP < 140/90 # Nutrition : TF # Functional quadriplegia assist in ADL's DVT Px: SCDs
[2017-05-09] MEDS: INSULIN SLIDING SCALE (NOVOLOG) 1 VIAL SQ SCH ×5 (05:53→23:20)
[2017-05-09] MEDS: INSULIN DETEMIR 100 UNITS/ML MDV SQ SCH (06:52)
[2017-05-09 07:38] LABS: MCH 29.7 pg (25.7-33.7); MCHC 32.8 g/dl (32.0-36.0); MEAN CELL VOLUME 90.6 fl (80-96); MEAN PLT VOLUME 9.7 fl (7.5-11.1); PLATELET COUNT 137 K/MM3 (134-434); WHITE BLOOD COUNT 12.5 K/mm3 (4.0-10.0)
[2017-05-09 08:12] LABS: CALCIUM 7.6 mg/dL (8.5-10.1)
[2017-05-09 08:13] LABS: COCKROFT - GAULT 23.9105; PHOSPHOROUS 2.1 mg/dL (2.5-4.9)
--- NOTE | 2017-05-09 08:43 | PN ---
Teaching Attending Note Name of Resident: Kodi Pritchett ATTENDING PHYSICIAN STATEMENT I saw and evaluated the patient. I reviewed the resident's note and discussed the case with the resident. I agree with the resident's findings and plan as documented. SUBJECTIVE: Patient is comfortable with no acute distress. OBJECTIVE: Vital Signs Temperature 98.6 F 05/09/17 08:10 Pulse Rate 59 L 05/09/17 08:10 Respiratory Rate 20 05/09/17 06:01 Blood Pressure 135/67 05/09/17 08:10 O2 Sat by Pulse Oximetry (%) 98 05/08/17 21:00 GENERAL:nonverbal but awake. HEAD: NC/AT. ENT: moist mucous membranes. NECK: supple. permacath right chest. LUNGS: diminished bilat bases no wheezes, no crackles, no accessory muscle use. HEART: RRR,s1s2 normal 3/6 ANGELINA ABDOMEN: Soft, NT, ND, BS(+) PEG EXTREMITIES: Bilat. nonpitting edema upper ext. Bilat edema LE resolved. R leg s/p AKA NEUROLOGICAL: non verbal. obtunded and contracted. functional quadriplegia CBCD WBC 12.5 K/mm3 (4.0-10.0) H 05/09/17 05:42 RBC 3.20 M/mm3 (3.60-5.2) L 05/09/17 05:42 Hgb 9.5 GM/dL (10.7-15.3) L 05/09/17 05:42 Hct 29.0 % (32.4-45.2) L 05/09/17 05:42 MCV 90.6 fl (80-96) 05/09/17 05:42 MCHC 32.8 g/dl (32.0-36.0) 05/09/17 05:42 RDW 14.0 % (11.6-15.6) 05/09/17 05:42 Plt Count 137 K/MM3 (134-434) 05/09/17 05:42 MPV 9.7 fl (7.5-11.1) 05/09/17 05:42 CMP Sodium 141 mmol/L (136-145) 05/09/17 05:42 Potassium 3.3 mmol/L (3.5-5.1) L D 05/09/17 05:42 Chloride 99 mmol/L (98-107) 05/09/17 05:42 Carbon Dioxide 34 mmol/L (21-32) H 05/09/17 05:42 Anion Gap 8 (8-16) 05/09/17 05:42 BUN 20 mg/dL (7-18) H D 05/09/17 05:42 Creatinine 2.0 mg/dL (0.55-1.02) H D 05/09/17 05:42 Creat Clearance w eGFR 19.51 (>60) 05/05/17 05:38 Random Glucose 233 mg/dL (74-106) H 05/09/17 05:42 Calcium 7.6 mg/dL (8.5-10.1) L 05/09/17 05:42 Total Bilirubin 0.3 mg/dL (0.2-1.0) 05/05/17 05:38 AST 27 U/L (15-37) D 05/05/17 05:38 ALT 13 U/L (12-78) D 05/05/17 05:38 Alkaline Phosphatase 186 U/L (45-117) H 05/05/17 05:38 Total Protein 4.7 g/dl (6.4-8.2) L 05/05/17 05:38 Albumin 1.9 g/dl (3.4-5.0) L 05/05/17 05:38 Home Medications Medication Instructions Recorded Acetaminophen [Pain Reliever] 500 mg PO DAILY 04/12/17 Aspirin [ASA -] 81 mg PO DAILY 04/12/17 RX: Amlodipine Besylate 5 mg PO DAILY 04/12/17 RX: Glyburide 5 mg PO BID 04/12/17 RX: Simvastatin 20 mg PO HS 04/12/17 RX: Zinc Sulfate 220 mg PO DAILY 04/12/17 PE: per resident's note ASSESSMENT AND PLAN: 61 y/o lady with h/o CVA , NIDDM, HTN, HLP, who presented after her out pt labs showed renal failure. # Acute renal failure with nephrotic syndrome and PR3 aB positive (Bravo's granulomatosis ) with ESRD on HD ( has a permacath) on Steroids 40mg po daily . Family opted not to proceed with immunosupressive therapy. Outpatient HD unit placement pending # Positive QuantiFERON-TB Gold test, checking AFB x 3 to r/o TB. On isolation if positive AFB Will start INH for 9 mo. 300mg PO daily with Vit. B6 50 mg PO daily Baseline LFT's within NL limits. Patient AVG was postponed due to patient having positive TB Quantiferon , once TB is ruled out then vascular will proceed with a vein mapping and a graft. ID on the case. #Anemia of chronic disease on Epogen with dialysis #Hypophosphatemia trend Phos levels #Acute Complicated UTI, culture was positive for Pseudomonas Aeruginosa s/p Levaquin (06/05) # Uncontrolled DM : due to steroids .on Levemir 10U, cont SSI q 6 h # HTN: controlled on norvasc 10 mg continue, Goal BP < 140/90 # Nutrition : TF # Functional quadriplegia assist in ADL's DVT Px: SCDs Outpatient HD unit placement pending
[2017-05-09 08:54] LABS: HYPOCHROMIA 1+; PLATELET ESTIMATE ADEQUATE (NORMAL); POLYCHROMASIA 1+
[2017-05-09] MEDS: predniSONE 20 MG TABLET (UD) GT SCH (10:17)
[2017-05-09] MEDS: amLODIPine BESYLATE 5 MG TABLET (FP) GT SCH (10:17)
[2017-05-09] MEDS: PANTOPRAZOLE SOD 40 MG SUSPENSION PACKET GT SCH (10:18)
--- NOTE | 2017-05-09 11:24 | PN ---
Progress Note, Physician Chief Complaint: The patient seen in her room. Comfortable. Poorly responsive. Stable vital signs. G tube feeding in progress. History of Present Illness: The patient is a 61 y/o female, with h/o CVA, Hypertension, HLD, PR3- Poritive vasculitis, with ESRD, now on dialysis. Patient on AntiTB regimen for positive Gold Quantiferon test. Had uneventful HD using Right IJ Permacath yesterday. G tube feeding well tolerated. BP well controlled on the current regimen. Outpatient HD arrangements in progress. Lydia Chavez MD - Current Medication List Current Medications: Active Medications Amlodipine Besylate (Norvasc -) 10 mg GT DAILY [facility] Last Admin: 05/09/17 10:17 Dose: 10 mg Insulin Aspart (Novolog Vial Sliding Scale -) 1 vial SQ Q6H APRIL PRN Reason: Protocol Last Admin: 05/09/17 06:50 Dose: 4 units Insulin Detemir (Levemir Vial) 10 units SQ AM APRIL Last Admin: 05/09/17 06:52 Dose: 10 units Pantoprazole Sodium (Protonix Packets For Oral Suspension -) 40 mg GT DAILY [facility] Last Admin: 05/09/17 10:18 Dose: 40 mg Prednisone (Deltasone -) 40 mg GT DAILY [facility] Last Admin: 05/09/17 10:17 Dose: 40 mg - Objective Vital Signs: Vital Signs Temperature 98.9 F 05/09/17 08:10 Pulse Rate 81 05/09/17 08:10 Respiratory Rate 20 05/09/17 08:10 Blood Pressure 135/59 05/09/17 08:10 O2 Sat by Pulse Oximetry (%) 98 05/08/17 21:00 Constitutional: Yes: Calm Cardiovascular: Yes: Regular Rate and Rhythm, S1, S2 Respiratory: Yes: Diminished, Poor Air Entry Gastrointestinal: Yes: Hypoactive Bowel Sounds Musculoskeletal: Yes: Back Pain, Joint Stiffness Labs: CBC, BMP 05/09/17 05:42 05/09/17 05:42 INR, PTT INR 0.89 (0.82-1.09) 04/21/17 12:05 Problem List - Problems (1) Acute hyperkalemia Code(s): E87.5 - HYPERKALEMIA (2) Renal failure Code(s): N19 - UNSPECIFIED KIDNEY FAILURE Qualifiers: Renal failure chronicity: acute Acute renal failure type: unspecified Qualified Code(s): N17.9 - Acute kidney failure, unspecified (3) H/O: CVA (cerebrovascular accident) Code(s): Z86.73 - PRSNL HX OF TIA (TIA), AND CEREB INFRC W/O RESID DEFICITS (4) Insulin dependent diabetes mellitus Code(s): E11.9 - TYPE 2 DIABETES MELLITUS WITHOUT COMPLICATIONS Z79.4 - [employer] (CURRENT) USE OF INSULIN (5) Acute kidney failure Code(s): N17.9 - ACUTE KIDNEY FAILURE, UNSPECIFIED (6) Chronic kidney disease (CKD) stage G3a/A1, moderately decreased glomerular filtration rate (GFR) between 45-59 mL/min/1.73 square meter and albuminuria creatinine ratio less than 30 mg/g Code(s): N18.3 - CHRONIC KIDNEY DISEASE, STAGE 3 (MODERATE) (7) End stage renal disease Code(s): N18.6 - END STAGE RENAL DISEASE Assessment/Plan 61 y/o female with Acute Kidney InjuryPR-3 positive. Now the patient is dialysis dependent. P-ANCA and C-ANCA negative Patient may require Renal Bx once stable. LYDIA CHAVEZ MD
[2017-05-10] MEDS: INSULIN SLIDING SCALE (NOVOLOG) 1 VIAL SQ SCH ×4 (06:22→22:37)
[2017-05-10] MEDS: INSULIN DETEMIR 100 UNITS/ML MDV SQ SCH (06:23)
--- NOTE | 2017-05-10 08:09 | PN ---
Teaching Attending Note Name of Resident: Kodi Pritchett ATTENDING PHYSICIAN STATEMENT I saw and evaluated the patient. I reviewed the resident's note and discussed the case with the resident. I agree with the resident's findings and plan as documented. SUBJECTIVE: Patient is comfortable , no new event. OBJECTIVE: Vital Signs Temperature 98.4 F 05/10/17 07:57 Pulse Rate 79 05/10/17 07:57 Respiratory Rate 20 05/10/17 08:01 Blood Pressure 146/70 05/10/17 07:57 O2 Sat by Pulse Oximetry (%) 98 05/10/17 08:01 CBCD WBC 12.5 K/mm3 (4.0-10.0) H 05/09/17 05:42 RBC 3.20 M/mm3 (3.60-5.2) L 05/09/17 05:42 Hgb 9.5 GM/dL (10.7-15.3) L 05/09/17 05:42 Hct 29.0 % (32.4-45.2) L 05/09/17 05:42 MCV 90.6 fl (80-96) 05/09/17 05:42 MCHC 32.8 g/dl (32.0-36.0) 05/09/17 05:42 RDW 14.0 % (11.6-15.6) 05/09/17 05:42 Plt Count 137 K/MM3 (134-434) 05/09/17 05:42 MPV 9.7 fl (7.5-11.1) 05/09/17 05:42 CMP Sodium 141 mmol/L (136-145) 05/09/17 05:42 Potassium 3.3 mmol/L (3.5-5.1) L D 05/09/17 05:42 Chloride 99 mmol/L (98-107) 05/09/17 05:42 Carbon Dioxide 34 mmol/L (21-32) H 05/09/17 05:42 Anion Gap 8 (8-16) 05/09/17 05:42 BUN 20 mg/dL (7-18) H D 05/09/17 05:42 Creatinine 2.0 mg/dL (0.55-1.02) H D 05/09/17 05:42 Creat Clearance w eGFR 19.51 (>60) 05/05/17 05:38 Random Glucose 233 mg/dL (74-106) H 05/09/17 05:42 Calcium 7.6 mg/dL (8.5-10.1) L 05/09/17 05:42 Total Bilirubin 0.3 mg/dL (0.2-1.0) 05/05/17 05:38 AST 27 U/L (15-37) D 05/05/17 05:38 ALT 13 U/L (12-78) D 05/05/17 05:38 Alkaline Phosphatase 186 U/L (45-117) H 05/05/17 05:38 Total Protein 4.7 g/dl (6.4-8.2) L 05/05/17 05:38 Albumin 1.9 g/dl (3.4-5.0) L 05/05/17 05:38 Current Medications Generic Name Dose Route Start Last Admin Trade Name Freq PRN Reason Stop Dose Admin Amlodipine Besylate 10 mg 05/01/17 14:30 05/09/17 10:17 Norvasc - GT 10 mg DAILY APRIL Administration Insulin Aspart 1 vial 04/30/17 17:30 05/10/17 06:22 Novolog Vial Sliding Scale - SQ 6 units Q6H APRIL Administration Protocol Insulin Detemir 15 units 05/10/17 07:38 Levemir Vial SQ AM APRIL Pantoprazole Sodium 40 mg 05/01/17 10:00 05/09/17 10:18 Protonix Packets For Oral Suspension - GT 40 mg DAILY APRIL Administration Potassium Chloride 40 meq 05/10/17 08:06 Potassium Chloride Oral Liquid PO 05/10/17 08:07 ONCE ONE Prednisone 40 mg 05/05/17 10:00 05/09/17 10:17 Deltasone - GT 40 mg DAILY APRIL Administration Home Medications Medication Instructions Recorded Acetaminophen [Pain Reliever] 500 mg PO DAILY 04/12/17 Amlodipine Besylate 5 mg PO DAILY 04/12/17 Aspirin [ASA -] 81 mg PO DAILY 04/12/17 Glyburide 5 mg PO BID 04/12/17 Simvastatin 20 mg PO HS 04/12/17 Zinc Sulfate 220 mg PO DAILY 04/12/17 Microbiology 05/04/17 17:46 Blood - Pre-Dialysis Blood Culture - Final NO GROWTH AFTER 5 DAYS INCUBATION 05/04/17 17:46 Blood - Pre-Dialysis Blood Culture - Final NO GROWTH AFTER 5 DAYS INCUBATION 05/07/17 06:00 Gastric Fluid Mycobacterial Culture - Preliminary 05/05/17 21:00 Gastric Fluid AFB Smear Concentration - Final 05/05/17 21:00 Gastric Fluid Mycobacterial Culture - Preliminary 05/06/17 07:42 Drainage AFB Smear Concentration - Final 05/06/17 07:42 Drainage Mycobacterial Culture - Preliminary 04/29/17 14:55 Blood - Shiley Catheter Blood Culture - Final NO GROWTH AFTER 5 DAYS INCUBATION 04/29/17 14:55 Blood - Shiley Catheter Blood Culture - Final NO GROWTH AFTER 5 DAYS INCUBATION 04/30/17 11:20 Blood - Peripheral Venous TB Test (QFT) (SAMUEL) - Final 04/29/17 08:50 Blood - Peripheral Venous Blood Culture - Final NO GROWTH AFTER 5 DAYS INCUBATION 04/29/17 08:30 Blood - Peripheral Venous Blood Culture - Final NO GROWTH AFTER 5 DAYS INCUBATION 04/30/17 01:00 Urine - Urine - Catheterized Urine Culture - Final NO GROWTH OBTAINED 04/17/17 04:00 Urine - Urine Lemon Urine Culture - Final Pseudomonas Aeruginosa ASSESSMENT AND PLAN: 61 y/o lady with h/o CVA , NIDDM, HTN, HLP, who presented after her out pt labs showed renal failure. # Acute renal failure with nephrotic syndrome and PR3 aB positive (Bravo's granulomatosis ) with ESRD on HD ( has a permacath) on Steroids 40mg po daily . Family opted not to proceed with immunosupressive therapy. Outpatient HD unit placement pending # Positive QuantiFERON-TB Gold test, checking AFB x 3 to r/o TB. On isolation if positive AFB Will start INH for 9 mo. 300mg PO daily with Vit. B6 50 mg PO daily Baseline LFT's within NL limits. Patient AVG was postponed due to patient having positive TB Quantiferon , once TB is ruled out then vascular will proceed with a vein mapping and a graft. ID on the case will discuss in am. #Anemia of chronic disease on Epogen with dialysis #Hypophosphatemia trend Phos levels #Acute Complicated UTI, culture was positive for Pseudomonas Aeruginosa s/p Levaquin (06/05) # Uncontrolled DM : due to steroids .on Levemir 10U, cont SSI q 6 h # HTN: controlled on norvasc 10 mg continue, Goal BP < 140/90 # Nutrition : TF # Functional quadriplegia assist in ADL's DVT Px: SCDs Outpatient HD unit placement pending discussed with possible HD in [facility]
[2017-05-10] MEDS ORDERED: POTASSIUM CHLORIDE ORAL LIQUID 20 MEQ/15 ML PO ONE (08:45)
[2017-05-10 09:05] LABS: CALCIUM 7.8 mg/dL (8.5-10.1); COCKROFT - GAULT 14.484; CREATININE 3.3 mg/dL (0.55-1.02); MCH 29.9 pg (25.7-33.7); MCHC 32.7 g/dl (32.0-36.0); MEAN CELL VOLUME 91.3 fl (80-96); MEAN PLT VOLUME 9.3 fl (7.5-11.1); PLATELET COUNT 137 K/MM3 (134-434); RDW 13.9 % (11.6-15.6); WHITE BLOOD COUNT 12.3 K/mm3 (4.0-10.0)
--- NOTE | 2017-05-10 09:30 | PN ---
Physical Exam: SUBJECTIVE: Patient seen and examined at bedside. No overnight events.lying comfortably. OBJECTIVE: Vital Signs Period Temp Pulse Resp BP Sys/Daniel Pulse Ox Last 24 Hr 97.9 F-98.8 F 72-83 18-20 127-150/57-74 98-99 GENERAL:nonverbal but awake. HEAD: NC/AT. ENT: moist mucous membranes. NECK: supple. permacath right chest. LUNGS:Scattered rhonchi, diminished bilat bases no wheezes, no crackles, no accessory muscle use. HEART: RRR,s1s2 normal 3/6 ANGELINA ABDOMEN: Soft, NT, ND, BS(+) PEG EXTREMITIES: Bilat. nonpitting edema upper ext. Bilat edema LE resolved.. R leg s/p AKA NEUROLOGICAL: non verbal. obtunded and contracted. functional quadriplegia Laboratory Results - last 24 hr 05/09/17 05/09/17 05/09/17 11:40 16:41 22:27 WBC RBC Hgb Hct MCV MCHC RDW Plt Count MPV Neutrophils % Lymphocytes % Sodium Potassium Chloride Carbon Dioxide Anion Gap BUN Creatinine POC Glucometer 204 226 277 Random Glucose Calcium 05/10/17 05/10/17 05/10/17 05:34 08:34 08:34 WBC 12.3 H RBC 3.13 L Hgb 9.3 L Hct 28.5 L MCV 91.3 MCHC 32.7 RDW 13.9 Plt Count 137 MPV 9.3 Neutrophils % Y Lymphocytes % Y Sodium 139 Potassium 3.1 L Chloride 96 L Carbon Dioxide 32 Anion Gap 11 BUN 42 H D Creatinine 3.3 H D POC Glucometer 287 Random Glucose 217 H Calcium 7.8 L Active Medications Generic Name Dose Route Start Last Admin Trade Name Freq PRN Reason Stop Dose Admin Amlodipine Besylate 10 mg 05/01/17 14:30 05/09/17 10:17 Norvasc - GT 10 mg DAILY APRIL Administration Insulin Aspart 1 vial 04/30/17 17:30 05/10/17 06:22 Novolog Vial Sliding Scale - SQ 6 units Q6H APRIL Administration Protocol Insulin Detemir 15 units 05/10/17 07:38 Levemir Vial SQ AM APRIL Pantoprazole Sodium 40 mg 05/01/17 10:00 05/09/17 10:18 Protonix Packets For Oral Suspension - GT 40 mg DAILY APRIL Administration Prednisone 40 mg 05/05/17 10:00 05/09/17 10:17 Deltasone - GT 40 mg DAILY APRIL Administration ASSESSMENT/PLAN: 61 yo F with pmhx of CVA, NIDDM, HTN, HLD, admitted for acute renal failure. Problem List - Problems (1) Positive QuantiFERON-TB Gold test Assessment/Plan: * Patient placed on isolation * 3 samples taken from gastric content. * 2 preliminary gram stain results have been negative. * Will start INH for 9 mo. 300mg PO daily with Vit. B6 50 mg PO daily * Baseline LFT's done (2) Renal failure Assessment/Plan: * Dialyzed on Thursday next scheduled Thursday * We are looking for outpatient dialysis center that can accommodate her to discharge her. 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 (3) Non-insulin dependent type 2 diabetes mellitus Assessment/Plan: * Increase in serum glucose result of IV steroids * increased Levamir to 15 units * Continue Nepro tube feed via peg * NISS * BGM Q6H (4) HTN (hypertension) Assessment/Plan: * Amlodipine to 10mg PO daily (5) Functional quadriplegia Assessment/Plan: * assist in ADL's Visit type - Emergency Visit Emergency Visit: Yes ED Registration Date: 04/17/17 Care time: The patient presented to the Emergency Department on the above date and was hospitalized for further evaluation of their emergent condition. - New Patient This patient is new to me today: No - Critical Care Critical Care patient: No
[2017-05-10 10:00] LABS: PLATELET ESTIMATE ADEQUATE (NORMAL)
--- NOTE | 2017-05-10 11:35 | PN ---
Progress Note, Physician Chief Complaint: The patient seen in her room. In no acute distress. Poorly responsive. Stable vital signs. G tube feeding in progress. - Current Medication List Current Medications: Active Medications Amlodipine Besylate (Norvasc -) 10 mg GT DAILY [facility] Last Admin: 05/09/17 10:17 Dose: 10 mg Insulin Aspart (Novolog Vial Sliding Scale -) 1 vial SQ Q6H [facility] PRN Reason: Protocol Last Admin: 05/10/17 06:22 Dose: 6 units Insulin Detemir (Levemir Vial) 15 units SQ AM [facility] Pantoprazole Sodium (Protonix Packets For Oral Suspension -) 40 mg GT DAILY [facility] Last Admin: 05/09/17 10:18 Dose: 40 mg Prednisone (Deltasone -) 40 mg GT DAILY [facility] Last Admin: 05/09/17 10:17 Dose: 40 mg - Objective Vital Signs: Vital Signs Temperature 98.4 F 05/10/17 07:57 Pulse Rate 79 05/10/17 07:57 Respiratory Rate 20 05/10/17 08:01 Blood Pressure 146/70 05/10/17 07:57 O2 Sat by Pulse Oximetry (%) 98 05/10/17 08:01 Labs: CBC, BMP 05/10/17 08:34 05/10/17 08:34 INR, PTT INR 0.89 (0.82-1.09) 04/21/17 12:05 Problem List - Problems (1) Acute hyperkalemia Code(s): E87.5 - HYPERKALEMIA (2) Renal failure Code(s): N19 - UNSPECIFIED KIDNEY FAILURE Qualifiers: Qualified Code(s): N17.9 - Acute kidney failure, unspecified (3) H/O: CVA (cerebrovascular accident) Code(s): Z86.73 - PRSNL HX OF TIA (TIA), AND CEREB INFRC W/O RESID DEFICITS (4) Insulin dependent diabetes mellitus Code(s): E11.9 - TYPE 2 DIABETES MELLITUS WITHOUT COMPLICATIONS Z79.4 - CARE HOME (CURRENT) USE OF INSULIN (5) Acute kidney failure Code(s): N17.9 - ACUTE KIDNEY FAILURE, UNSPECIFIED (6) Chronic kidney disease (CKD) stage G3a/A1, moderately decreased glomerular filtration rate (GFR) between 45-59 mL/min/1.73 square meter and albuminuria creatinine ratio less than 30 mg/g Code(s): N18.3 - CHRONIC KIDNEY DISEASE, STAGE 3 (MODERATE) (7) End stage renal disease Code(s): N18.6 - END STAGE RENAL DISEASE
--- NOTE | 2017-05-10 11:39 | PN ---
Progress Note, Physician Chief Complaint: The patient seen in her room. In no acute distress. Poorly responsive. Stable vital signs. G tube feeding in progress. History of Present Illness: The patient is a 61 y/o female, with h/o CVA, Hypertension, HLD, PR3- Poritive vasculitis, with ESRD, now on dialysis. Patient on AntiTB regimen for positive Gold Quantiferon test. Had uneventful HD using Right IJ Permacath yesterday. G tube feeding well tolerated. BP well controlled on the current regimen. Outpatient HD arrangements in progress. Lydia Chavez MD - Current Medication List Current Medications: Active Medications Amlodipine Besylate (Norvasc -) 10 mg GT DAILY [facility] Last Admin: 05/09/17 10:17 Dose: 10 mg Insulin Aspart (Novolog Vial Sliding Scale -) 1 vial SQ Q6H [facility]IL PRN Reason: Protocol Last Admin: 05/10/17 06:22 Dose: 6 units Insulin Detemir (Levemir Vial) 15 units SQ AM [facility] Pantoprazole Sodium (Protonix Packets For Oral Suspension -) 40 mg GT DAILY [facility] Last Admin: 05/09/17 10:18 Dose: 40 mg Prednisone (Deltasone -) 40 mg GT DAILY [facility] Last Admin: 05/09/17 10:17 Dose: 40 mg - Objective Vital Signs: Vital Signs Temperature 98.4 F 05/10/17 07:57 Pulse Rate 79 05/10/17 07:57 Respiratory Rate 20 05/10/17 08:01 Blood Pressure 146/70 05/10/17 07:57 O2 Sat by Pulse Oximetry (%) 98 05/10/17 08:01 Constitutional: Yes: Calm Eyes: Yes: Conjunctiva Clear HENT: Yes: Normocephalic Neck: Yes: Trachea Midline Cardiovascular: Yes: S1, S2 Respiratory: Yes: Diminished, Rhonchi Gastrointestinal: Yes: Normal Bowel Sounds Labs: CBC, BMP 05/10/17 08:34 05/10/17 08:34 INR, PTT INR 0.89 (0.82-1.09) 04/21/17 12:05 Problem List - Problems (1) Acute hyperkalemia Code(s): E87.5 - HYPERKALEMIA (2) Renal failure Code(s): N19 - UNSPECIFIED KIDNEY FAILURE Qualifiers: Qualified Code(s): N17.9 - Acute kidney failure, unspecified (3) H/O: CVA (cerebrovascular accident) Code(s): Z86.73 - PRSNL HX OF TIA (TIA), AND CEREB INFRC W/O RESID DEFICITS (4) Insulin dependent diabetes mellitus Code(s): E11.9 - TYPE 2 DIABETES MELLITUS WITHOUT COMPLICATIONS Z79.4 - HALF-WAY (CURRENT) USE OF INSULIN (5) Acute kidney failure Code(s): N17.9 - ACUTE KIDNEY FAILURE, UNSPECIFIED (6) Chronic kidney disease (CKD) stage G3a/A1, moderately decreased glomerular filtration rate (GFR) between 45-59 mL/min/1.73 square meter and albuminuria creatinine ratio less than 30 mg/g Code(s): N18.3 - CHRONIC KIDNEY DISEASE, STAGE 3 (MODERATE) (7) End stage renal disease Code(s): N18.6 - END STAGE RENAL DISEASE Assessment/Plan 61 y/o female with Acute Kidney InjuryPR-3 positive. Now the patient is dialysis dependent. The patient's family declined Renal Bx. On INH for positive Gold Quantiferon Will require AV access for outpatient dialysis. Next DHD in AM. LYDIA CHAVEZ MD
[2017-05-10] MEDS: PANTOPRAZOLE SOD 40 MG SUSPENSION PACKET GT SCH (12:14)
[2017-05-10] MEDS: predniSONE 20 MG TABLET (UD) GT SCH (12:15)
[2017-05-10] MEDS: amLODIPine BESYLATE 5 MG TABLET (FP) GT SCH (12:15)
[2017-05-10] MEDS ORDERED: PT OWN MED DRAWER 7, Y5N ONE (12:16)
[2017-05-11] MEDS: INSULIN SLIDING SCALE (NOVOLOG) 1 VIAL SQ SCH ×4 (06:22→23:59)
[2017-05-11] MEDS: INSULIN DETEMIR 100 UNITS/ML MDV SQ SCH (06:22)
[2017-05-11 08:26] LABS: BILIRUBIN,TOTAL 0.3 mg/dL (0.2-1.0); COCKROFT - GAULT 10.7185; CREATININE 4.4 mg/dL (0.55-1.02); TOT PROT 5.1 g/dl (6.4-8.2)
[2017-05-11 09:06] LABS: BASOPHIL 0.6 % (0-2.0); EOSINOPHIL 1.4 % (0-4.5); MCH 30.1 pg (25.7-33.7); MEAN CELL VOLUME 91.1 fl (80-96); MEAN PLT VOLUME 9.3 fl (7.5-11.1); NEUTROPHILS 76.5 % (42.8-82.8); PLATELET COUNT 139 K/MM3 (134-434); RDW 14.5 % (11.6-15.6); WHITE BLOOD COUNT 12.1 K/mm3 (4.0-10.0)
[2017-05-11] MEDS: predniSONE 20 MG TABLET (UD) GT SCH (10:09)
[2017-05-11] MEDS: PANTOPRAZOLE SOD 40 MG SUSPENSION PACKET GT SCH (10:09)
[2017-05-11] MEDS ORDERED: EPOETIN ALFA 20,000 UNIT/1 ML VIAL SQ ONE (11:00)
--- NOTE | 2017-05-11 11:38 | PN ---
Progress Note (short form) - Note Progress Note: Renal Follow up for DEYSI Pt seen and examined at the bedside awake no overnight events for dialysis today Vital Signs Temperature 98.0 F 05/11/17 06:13 Pulse Rate 88 05/11/17 06:13 Respiratory Rate 20 05/11/17 06:13 Blood Pressure 146/67 05/11/17 06:13 O2 Sat by Pulse Oximetry (%) 100 05/10/17 21:00 Intake & Output 05/08/17 05/09/17 05/10/17 05/11/17 23:59 23:59 23:59 23:59 Intake Total 2059 1480 1570 800 Balance 2059 1480 1570 800 Weight 114 lb 8 oz 114 lb 14.4 oz 113 lb Gen: NAD, awake, non-verbal CVS: RRR, No M/R Lungs: CTA Abd: soft NT/ND Ext: R AKA, Trace LLE edema CBC, BMP 05/11/17 06:00 05/11/17 06:05 Current Medications Amlodipine Besylate (Norvasc -) 10 mg GT DAILY [facility] Last Admin: 05/10/17 12:15 Dose: 10 mg Insulin Aspart (Novolog Vial Sliding Scale -) 1 vial SQ Q6H APRIL PRN Reason: Protocol Last Admin: 05/11/17 06:22 Dose: 8 units Insulin Detemir (Levemir Vial) 15 units SQ AM [facility] Last Admin: 05/11/17 06:22 Dose: 15 units Pantoprazole Sodium (Protonix Packets For Oral Suspension -) 40 mg GT DAILY [facility] Last Admin: 05/11/17 10:09 Dose: 40 mg Prednisone (Deltasone -) 40 mg GT DAILY [facility] Last Admin: 05/11/17 10:09 Dose: 40 mg A/P 61 year old woman with PMhx of NIDDM, Hypertension, PVD s/p R AKA, CVA now non- verbal and paralyzed who presented with abnormal outpatient labs that showed renal failure and increasing total body volume overload #Acute Renal Failure with Nephrotic Range Proteinuria and + PR3 aB for dialysis today AVG placement as per Vascualar Taper prednisone (start 30mg starting tomorrow) #R/o occult infection/isolated Fever Quatiferion gold positive Gastric Lavage for AFB negative x 3 Id follow up #Anemia Continue Epogen with dialysis #Hypophosphatemia Trend Phos levels if phos less then 2.5 will need oral supplementation #Hypertension on Amlodpine Goal BP < 140/90 Overall prognosis is guarded (family made aware) outpatient Hd unit placement as per Case Management Jonathan Guzman DO
[2017-05-11] MEDS: amLODIPine BESYLATE 5 MG TABLET (FP) GT SCH (12:13)
--- NOTE | 2017-05-11 12:50 | PN ---
Physical Exam: SUBJECTIVE: Patient seen and examined at bedside. No overnight events. Lying comfortably. OBJECTIVE: Vital Signs Period Temp Pulse Resp BP Sys/Daniel Pulse Ox Last 24 Hr 98.0 F-98.8 F 74-88 18-20 125-154/55-70 100 GENERAL:nonverbal but awake. HEAD: NC/AT. ENT: moist mucous membranes. NECK: supple. permacath right chest. LUNGS:Scattered rhonchi, diminished bilat bases no wheezes, no crackles, no accessory muscle use. HEART: RRR,s1s2 normal 3/6 ANGELINA ABDOMEN: Soft, NT, ND, BS(+) PEG EXTREMITIES: Bilat. nonpitting edema upper ext. Bilat edema LE resolved.. R leg s/p AKA NEUROLOGICAL: non verbal. obtunded and contracted. functional quadriplegia Laboratory Results - last 24 hr 05/10/17 05/11/17 05/11/17 22:35 06:00 06:02 WBC 12.1 H RBC 3.12 L Hgb 9.4 L Hct 28.5 L MCV 91.1 MCHC 33.0 RDW 14.5 Plt Count 139 MPV 9.3 Neutrophils % 76.5 Lymphocytes % 15.2 Monocytes % 6.3 Eosinophils % 1.4 Basophils % 0.6 Sodium Potassium Chloride Carbon Dioxide Anion Gap BUN Creatinine Creat Clearance w eGFR POC Glucometer 322 312 Random Glucose Calcium Phosphorus Total Bilirubin AST ALT Alkaline Phosphatase Total Protein Albumin 05/11/17 05/11/17 06:05 06:05 WBC RBC Hgb Hct MCV MCHC RDW Plt Count MPV Neutrophils % Lymphocytes % Monocytes % Eosinophils % Basophils % Sodium 139 Potassium 3.4 L Chloride 98 Carbon Dioxide 31 Anion Gap 10 BUN 62 H D Creatinine 4.4 H D Creat Clearance w eGFR 10.16 POC Glucometer Random Glucose 269 H D Calcium 8.0 L Phosphorus Cancelled Total Bilirubin 0.3 AST 15 D ALT 12 Alkaline Phosphatase 236 H D Total Protein 5.1 L Albumin 2.0 L Active Medications Generic Name Dose Route Start Last Admin Trade Name Freq PRN Reason Stop Dose Admin Amlodipine Besylate 10 mg 05/01/17 14:30 05/11/17 12:13 Norvasc - GT Not Given DAILY [facility] Insulin Aspart 1 vial 04/30/17 17:30 05/11/17 06:22 Novolog Vial Sliding Scale - SQ 8 units Q6H APRIL Administration Protocol Insulin Detemir 15 units 05/10/17 07:38 05/11/17 06:22 Levemir Vial SQ 15 units AM APRIL Administration Pantoprazole Sodium 40 mg 05/01/17 10:00 05/11/17 10:09 Protonix Packets For Oral Suspension - GT 40 mg DAILY APRIL Administration Prednisone 30 mg 05/12/17 10:00 Deltasone - GT DAILY APRIL ASSESSMENT/PLAN: 61 yo F with pmhx of CVA, NIDDM, HTN, HLD, admitted for acute renal failure. Problem List - Problems (1) Positive QuantiFERON-TB Gold test Assessment/Plan: * Isolation continued * Will get one more gastric sample for TB PCR * 3 samples taken from gastric content. * All 3 preliminary gram stain results have been negative. (2) Renal failure Assessment/Plan: * Dialyzed today * We are looking for outpatient dialysis center that can accommodate her to discharge her. 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 (3) Non-insulin dependent type 2 diabetes mellitus Assessment/Plan: * Increase in serum glucose result of IV steroids * Continue Levamir to 15 units * Continue Nepro tube feed via peg * NISS * BGM Q6H (4) HTN (hypertension) Assessment/Plan: * Amlodipine to 10mg PO daily (5) Functional quadriplegia Assessment/Plan: * assist in ADL's Visit type - Emergency Visit Emergency Visit: Yes ED Registration Date: 04/17/17 Care time: The patient presented to the Emergency Department on the above date and was hospitalized for further evaluation of their emergent condition. - New Patient This patient is new to me today: No - Critical Care Critical Care patient: No
--- NOTE | 2017-05-11 19:36 | PN ---
Teaching Attending Note Name of Resident: Kodi Pritchett ATTENDING PHYSICIAN STATEMENT I saw and evaluated the patient. I reviewed the resident's note and discussed the case with the resident. I agree with the resident's findings and plan as documented. SUBJECTIVE: No New changes comfortably with no acute distress. OBJECTIVE: Vital Signs Temperature 97.9 F 05/11/17 15:00 Pulse Rate 80 05/11/17 16:45 Respiratory Rate 18 05/11/17 16:45 Blood Pressure 127/68 05/11/17 16:45 O2 Sat by Pulse Oximetry (%) 100 05/11/17 09:00 CBCD WBC 12.1 K/mm3 (4.0-10.0) H 05/11/17 06:00 RBC 3.12 M/mm3 (3.60-5.2) L 05/11/17 06:00 Hgb 9.4 GM/dL (10.7-15.3) L 05/11/17 06:00 Hct 28.5 % (32.4-45.2) L 05/11/17 06:00 MCV 91.1 fl (80-96) 05/11/17 06:00 MCHC 33.0 g/dl (32.0-36.0) 05/11/17 06:00 RDW 14.5 % (11.6-15.6) 05/11/17 06:00 Plt Count 139 K/MM3 (134-434) 05/11/17 06:00 MPV 9.3 fl (7.5-11.1) 05/11/17 06:00 CMP Sodium 139 mmol/L (136-145) 05/11/17 06:05 Potassium 3.4 mmol/L (3.5-5.1) L 05/11/17 06:05 Chloride 98 mmol/L (98-107) 05/11/17 06:05 Carbon Dioxide 31 mmol/L (21-32) 05/11/17 06:05 Anion Gap 10 (8-16) 05/11/17 06:05 BUN 62 mg/dL (7-18) H D 05/11/17 06:05 Creatinine 4.4 mg/dL (0.55-1.02) H D 05/11/17 06:05 Creat Clearance w eGFR 10.16 (>60) 05/11/17 06:05 Random Glucose 269 mg/dL (74-106) H D 05/11/17 06:05 Calcium 8.0 mg/dL (8.5-10.1) L 05/11/17 06:05 Total Bilirubin 0.3 mg/dL (0.2-1.0) 05/11/17 06:05 AST 15 U/L (15-37) D 05/11/17 06:05 ALT 12 U/L (12-78) 05/11/17 06:05 Alkaline Phosphatase 236 U/L (45-117) H D 05/11/17 06:05 Total Protein 5.1 g/dl (6.4-8.2) L 05/11/17 06:05 Albumin 2.0 g/dl (3.4-5.0) L 05/11/17 06:05 Current Medications Generic Name Dose Route Start Last Admin Trade Name Freq PRN Reason Stop Dose Admin Amlodipine Besylate 10 mg 05/01/17 14:30 05/11/17 12:13 Norvasc - GT Not Given DAILY [facility] Insulin Aspart 1 vial 04/30/17 17:30 05/11/17 17:41 Novolog Vial Sliding Scale - SQ 2 units Q6H APRIL Administration Protocol Insulin Detemir 15 units 05/10/17 07:38 05/11/17 06:22 Levemir Vial SQ 15 units AM APRIL Administration Pantoprazole Sodium 40 mg 05/01/17 10:00 05/11/17 10:09 Protonix Packets For Oral Suspension - GT 40 mg DAILY APRIL Administration Prednisone 30 mg 05/12/17 10:00 Deltasone - GT DAILY [facility] Home Medications Medication Instructions Recorded Acetaminophen [Pain Reliever] 500 mg PO DAILY 04/12/17 Amlodipine Besylate 5 mg PO DAILY 04/12/17 Aspirin [ASA -] 81 mg PO DAILY 04/12/17 Glyburide 5 mg PO BID 04/12/17 Simvastatin 20 mg PO HS 04/12/17 Zinc Sulfate 220 mg PO DAILY 04/12/17 Microbiology 05/07/17 06:00 Gastric Fluid AFB Smear Concentration - Final 05/07/17 06:00 Gastric Fluid Mycobacterial Culture - Preliminary 05/04/17 17:46 Blood - Pre-Dialysis Blood Culture - Final NO GROWTH AFTER 5 DAYS INCUBATION 05/04/17 17:46 Blood - Pre-Dialysis Blood Culture - Final NO GROWTH AFTER 5 DAYS INCUBATION 05/05/17 21:00 Gastric Fluid AFB Smear Concentration - Final 05/05/17 21:00 Gastric Fluid Mycobacterial Culture - Preliminary 05/06/17 07:42 Drainage AFB Smear Concentration - Final 05/06/17 07:42 Drainage Mycobacterial Culture - Preliminary 04/29/17 14:55 Blood - Shiley Catheter Blood Culture - Final NO GROWTH AFTER 5 DAYS INCUBATION 04/29/17 14:55 Blood - Shiley Catheter Blood Culture - Final NO GROWTH AFTER 5 DAYS INCUBATION 04/30/17 11:20 Blood - Peripheral Venous TB Test (QFT) (SAMUEL) - Final 04/29/17 08:50 Blood - Peripheral Venous Blood Culture - Final NO GROWTH AFTER 5 DAYS INCUBATION 04/29/17 08:30 Blood - Peripheral Venous Blood Culture - Final NO GROWTH AFTER 5 DAYS INCUBATION 04/30/17 01:00 Urine - Urine - Catheterized Urine Culture - Final NO GROWTH OBTAINED 04/17/17 04:00 Urine - Urine Lemon Urine Culture - Final Pseudomonas Aeruginosa PE: as per resident ASSESSMENT AND PLAN: 61 y/o lady with h/o CVA , NIDDM, HTN, HLP, who presented after her out pt labs showed renal failure. # Acute renal failure with nephrotic syndrome and PR3 aB positive (Bravo's granulomatosis ) with ESRD on HD ( has a permacath) on Steroids 40mg po daily . Family opted not to proceed with immunosupressive therapy. Outpatient HD unit placement pending # Positive QuantiFERON-TB Gold test, checking AFB x 3 to r/o TB. On isolation if positive AFB Will start INH for 9 mo. 300mg PO daily with Vit. B6 50 mg PO daily Baseline LFT's within NL limits. Patient AVG was postponed due to patient having positive TB Quantiferon , once TB is ruled out then vascular will proceed with a vein mapping and a graft. ID on the case. isolation continues, Will get one more gastric sample for TB PCR discussed with ID. 3 samples taken from gastric content .Gram stain results have been negative. culture is pending. #Anemia of chronic disease on Epogen with dialysis #Hypophosphatemia trend Phos levels #Acute Complicated UTI, culture was positive for Pseudomonas Aeruginosa s/p Levaquin (06/05) # Uncontrolled DM : due to steroids .on Levemir 10U, cont SSI q 6 h # HTN: controlled on norvasc 10 mg continue, Goal BP < 140/90 # Nutrition : TF # Functional quadriplegia assist in ADL's DVT Px: SCDs Outpatient HD unit placement pending. will discuss with again
[2017-05-12 07:34] LABS: CALCIUM 7.9 mg/dL (8.5-10.1); COCKROFT - GAULT 19.6605; CREATININE 2.4 mg/dL (0.55-1.02); PHOSPHOROUS 1.9 mg/dL (2.5-4.9)
[2017-05-12] MEDS: INSULIN SLIDING SCALE (NOVOLOG) 1 VIAL SQ SCH ×4 (08:30→23:22)
[2017-05-12] MEDS ORDERED: PT OWN MED DRAWER 7, Y5N ONE (09:36)
[2017-05-12] MEDS: amLODIPine BESYLATE 5 MG TABLET (FP) GT SCH (10:22)
[2017-05-12] MEDS: PANTOPRAZOLE SOD 40 MG SUSPENSION PACKET GT SCH (10:25)
[2017-05-12] MEDS: predniSONE 5 MG/5 ML ORAL SOLN- UNIT-DOSE CUP GT SCH (10:26)
[2017-05-12] MEDS: INSULIN DETEMIR 100 UNITS/ML MDV SQ SCH (10:26)
[2017-05-12] MEDS: NAPH,MB-DB/K PH,MBDB POWDER PACKET GT SCH ×2 (11:21→22:50)
--- NOTE | 2017-05-12 12:35 | PN ---
Progress Note, [employer] - Note Progress Note: Asked to reevaluate pt again for PO intake, by Dr. Guzman today. Pt has a GT and has been fed via GT with some PO intake at home.She is non communicative. Pt has improved medically since admission. Pt is managing hersaliva/secretions better but still needs to be suctioned intermittently. She does demonstrate a swallow reflex intermittently. Initially, pt appeared comfortable, without SOB, drooling, coughing. Pt's daughter asked me to try to feed her applesauce. She positioned the pt well , adjusting the HOB and pillow to achieve head flexion. At first pt was unable to open her mouth, likely due to Apraxia. But with time and verbal/tactile cues, she relaxed/opened her mouth and accepted a 1/2 tsp of applesauce. Several swallows were generated, likely indicating pharyngeal residue with attempt to clear her pharynx. With time,pt began to cough. IMP: suspect stasis/aspiration on puree at this time. As pt has a GT at this this, I do not believe PO trials with aspiration risk are indicated at this time. Pt's daughter was educated on the results, with Dr. Pritchett kindly assisting with translation and his additional input. Possibly with time, as pt becomes stronger, pt may return to recent baseline, before admission, when she was tolerating PO trials, as supplement to GT feedings. She was educated on importance of scrupulous mouth care, especially prior to po trial, to reduce risk of aspiration on bacteria in oral cavity. REC:Pt may benefit from suction machine at home/daughter training in use before d/c. HOB elevated chin flexed with pillow support to allow pt to swallow saliva Mouth care Suction PRN
--- NOTE | 2017-05-12 15:19 | PN ---
Progress Note (short form) - Note Progress Note: Renal Follow up for DEYSI Pt seen and examined at the bedside awake and alert s/p dialysis yesterday remains on respiratory isolation no overnight events Vital Signs Temperature 98 F 05/12/17 10:00 Pulse Rate 83 05/12/17 11:19 Respiratory Rate 20 05/12/17 10:00 Blood Pressure 154/74 05/12/17 10:00 O2 Sat by Pulse Oximetry (%) 94 L 05/12/17 11:19 Intake & Output 05/09/17 05/10/17 05/11/17 05/12/17 23:59 23:59 23:59 23:59 Intake Total 1480 1570 800 325 Balance 1480 1570 800 325 Weight 114 lb 14.4 oz 113 lb Gen: NAD, awake, non-verbal CVS: RRR, No M/R Lungs: CTA Abd: soft NT/ND Ext: Trace LE edema CBC, BMP 05/11/17 06:00 05/12/17 05:35 Current Medications Amlodipine Besylate (Norvasc -) 10 mg GT DAILY [facility] Last Admin: 05/12/17 10:22 Dose: 10 mg Insulin Aspart (Novolog Vial Sliding Scale -) 1 vial SQ Q6H APRIL PRN Reason: Protocol Last Admin: 05/12/17 12:17 Dose: 8 units Insulin Detemir (Levemir Vial) 15 units SQ AM [facility] Last Admin: 05/12/17 10:26 Dose: 15 units Pantoprazole Sodium (Protonix Packets For Oral Suspension -) 40 mg GT DAILY [facility] Last Admin: 05/12/17 10:25 Dose: 40 mg Potassium Phos/Sodium Phos (Phos-Nak Packet -) 1 packet GT BID [facility] Last Admin: 05/12/17 11:21 Dose: 1 packet Prednisone (Deltasone -) 30 mg GT DAILY [facility] Last Admin: 05/12/17 10:26 Dose: 30 mg A/P 61 year old woman with PMhx of NIDDM, Hypertension, PVD s/p R AKA, CVA now non- verbal and paralyzed who presented with abnormal outpatient labs that showed renal failure and increasing total body volume overload #Acute Renal Failure with Nephrotic Range Proteinuria and + PR3 aB s/p dialysis yesterday no improvement in renal function thus far continue tapering dose of presnidone AVG placement as per vascular surgery #R/o occult infection/isolated Fever Quatiferion gold positive Gastric Lavage for AFB negative x 3 Id follow up #Anemia Continue Epogen with dialysis #Hypophosphatemia Continue Neutraphos for now may need to change feed one that contains more phos #Hypertension on Amlodpine Goal BP < 140/90 Jonathan Guzman DO
--- NOTE | 2017-05-12 15:26 | PN ---
Physical Exam: SUBJECTIVE: Patient seen and examined at bedside. No overnight events. Lying comfortably and alert. OBJECTIVE: Vital Signs Period Temp Pulse Resp BP Sys/Daniel Pulse Ox Last 24 Hr 97.7 F-98.9 F 64-83 18-20 93-154/57-74 94-100 GENERAL:nonverbal but awake. HEAD: NC/AT. ENT: moist mucous membranes. NECK: supple. permacath right chest. LUNGS:Scattered rhonchi, diminished bilat bases no wheezes, no crackles, no accessory muscle use. HEART: RRR,s1s2 normal 3/6 ANGELINA ABDOMEN: Soft, NT, ND, BS(+) PEG EXTREMITIES: Bilat. nonpitting edema upper ext. Bilat edema LE resolved.. R leg s/p AKA NEUROLOGICAL: non verbal. obtunded and contracted. functional quadriplegia Laboratory Results - last 24 hr 05/11/17 05/11/17 05/12/17 15:58 22:05 05:35 Sodium 142 Potassium 3.6 Chloride 99 Carbon Dioxide 34 H Anion Gap 9 BUN 25 H D Creatinine 2.4 H D POC Glucometer 151 296 Random Glucose 190 H D Calcium 7.9 L Phosphorus 1.9 L 05/12/17 05/12/17 06:08 12:13 Sodium Potassium Chloride Carbon Dioxide Anion Gap BUN Creatinine POC Glucometer 232 339 Random Glucose Calcium Phosphorus Active Medications Generic Name Dose Route Start Last Admin Trade Name Freq PRN Reason Stop Dose Admin Amlodipine Besylate 10 mg 05/01/17 14:30 05/12/17 10:22 Norvasc - GT 10 mg DAILY APRIL Administration Epoetin Miguel 6,000 units 05/13/17 06:00 Epogen - IVPUSH 05/13/17 06:01 ONCE ONE Insulin Aspart 1 vial 04/30/17 17:30 05/12/17 12:17 Novolog Vial Sliding Scale - SQ 8 units Q6H APRIL Administration Protocol Insulin Detemir 15 units 05/10/17 07:38 05/12/17 10:26 Levemir Vial SQ 15 units AM APRIL Administration Pantoprazole Sodium 40 mg 05/01/17 10:00 05/12/17 10:25 Protonix Packets For Oral Suspension - GT 40 mg DAILY APRIL Administration Potassium Phos/Sodium Phos 1 packet 05/12/17 10:30 05/12/17 11:21 Phos-Nak Packet - GT 1 packet BID APRIL Administration Prednisone 30 mg 05/12/17 10:00 05/12/17 10:26 Deltasone - GT 30 mg DAILY APRIL Administration ASSESSMENT/PLAN: 61 yo F with pmhx of CVA, NIDDM, HTN, HLD, admitted for acute renal failure. Problem List - Problems (1) Positive QuantiFERON-TB Gold test Assessment/Plan: * Isolation continued * TB PCR sent * 3 samples taken from gastric content. * All 3 preliminary gram stain results have been negative. (2) Renal failure Assessment/Plan: * Dialyzed yesterday. * We are looking for outpatient dialysis center that can accommodate her to discharge her. 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 (3) Non-insulin dependent type 2 diabetes mellitus Assessment/Plan: * Increase in serum glucose result of IV steroids * Continue Levamir to 15 units * Continue Nepro tube feed via peg * NISS * BGM Q6H (4) HTN (hypertension) Assessment/Plan: * Amlodipine to 10mg PO daily (5) Functional quadriplegia Assessment/Plan: * assist in ADL's Visit type - Emergency Visit Emergency Visit: Yes ED Registration Date: 04/17/17 Care time: The patient presented to the Emergency Department on the above date and was hospitalized for further evaluation of their emergent condition. - New Patient This patient is new to me today: No - Critical Care Critical Care patient: No
--- NOTE | 2017-05-12 18:08 | PN ---
Teaching Attending Note Name of Resident: Kodi Pritchett ATTENDING PHYSICIAN STATEMENT I saw and evaluated the patient. I reviewed the resident's note and discussed the case with the resident. I agree with the resident's findings and plan as documented. SUBJECTIVE: Patient is a comfortable with no acute distress. OBJECTIVE: Vital Signs Temperature 98.5 F 05/12/17 15:59 Pulse Rate 65 05/12/17 15:59 Respiratory Rate 20 05/12/17 15:59 Blood Pressure 137/65 05/12/17 15:59 O2 Sat by Pulse Oximetry (%) 94 L 05/12/17 11:19 CBCD WBC 12.1 K/mm3 (4.0-10.0) H 05/11/17 06:00 RBC 3.12 M/mm3 (3.60-5.2) L 05/11/17 06:00 Hgb 9.4 GM/dL (10.7-15.3) L 05/11/17 06:00 Hct 28.5 % (32.4-45.2) L 05/11/17 06:00 MCV 91.1 fl (80-96) 05/11/17 06:00 MCHC 33.0 g/dl (32.0-36.0) 05/11/17 06:00 RDW 14.5 % (11.6-15.6) 05/11/17 06:00 Plt Count 139 K/MM3 (134-434) 05/11/17 06:00 MPV 9.3 fl (7.5-11.1) 05/11/17 06:00 CMP Sodium 142 mmol/L (136-145) 05/12/17 05:35 Potassium 3.6 mmol/L (3.5-5.1) 05/12/17 05:35 Chloride 99 mmol/L (98-107) 05/12/17 05:35 Carbon Dioxide 34 mmol/L (21-32) H 05/12/17 05:35 Anion Gap 9 (8-16) 05/12/17 05:35 BUN 25 mg/dL (7-18) H D 05/12/17 05:35 Creatinine 2.4 mg/dL (0.55-1.02) H D 05/12/17 05:35 Creat Clearance w eGFR 10.16 (>60) 05/11/17 06:05 Random Glucose 190 mg/dL (74-106) H D 05/12/17 05:35 Calcium 7.9 mg/dL (8.5-10.1) L 05/12/17 05:35 Total Bilirubin 0.3 mg/dL (0.2-1.0) 05/11/17 06:05 AST 15 U/L (15-37) D 05/11/17 06:05 ALT 12 U/L (12-78) 05/11/17 06:05 Alkaline Phosphatase 236 U/L (45-117) H D 05/11/17 06:05 Total Protein 5.1 g/dl (6.4-8.2) L 05/11/17 06:05 Albumin 2.0 g/dl (3.4-5.0) L 05/11/17 06:05 Current Medications Generic Name Dose Route Start Last Admin Trade Name Freq PRN Reason Stop Dose Admin Amlodipine Besylate 10 mg 05/01/17 14:30 05/12/17 10:22 Norvasc - GT 10 mg DAILY APRIL Administration Epoetin Miguel 6,000 units 05/13/17 06:00 Epogen - IVPUSH 05/13/17 06:01 ONCE ONE Insulin Aspart 1 vial 04/30/17 17:30 05/12/17 16:51 Novolog Vial Sliding Scale - SQ Not Given Q6H [facility] Protocol Insulin Detemir 15 units 05/10/17 07:38 05/12/17 10:26 Levemir Vial SQ 15 units AM APRIL Administration Pantoprazole Sodium 40 mg 05/01/17 10:00 05/12/17 10:25 Protonix Packets For Oral Suspension - GT 40 mg DAILY APRIL Administration Potassium Phos/Sodium Phos 1 packet 05/12/17 10:30 05/12/17 11:21 Phos-Nak Packet - GT 1 packet BID APRIL Administration Prednisone 30 mg 05/12/17 10:00 05/12/17 10:26 Deltasone - GT 30 mg DAILY APRIL Administration Home Medications Medication Instructions Recorded Acetaminophen [Pain Reliever] 500 mg PO DAILY 04/12/17 Amlodipine Besylate 5 mg PO DAILY 04/12/17 Aspirin [ASA -] 81 mg PO DAILY 04/12/17 Glyburide 5 mg PO BID 04/12/17 Simvastatin 20 mg PO HS 04/12/17 Zinc Sulfate 220 mg PO DAILY 04/12/17 PE: as per resident ASSESSMENT AND PLAN: 61 y/o lady with h/o CVA , NIDDM, HTN, HLP, who presented after her out pt labs showed renal failure. # Acute renal failure with nephrotic syndrome and PR3 aB positive (Bravo's granulomatosis ) with ESRD on HD ( has a permacath) on Steroids 30mg po daily . Family opted not to proceed with immunosupressive therapy. Outpatient HD unit placement pending. on the case # Positive QuantiFERON-TB Gold test, AFB x 3 is negative so far. On isolation if positive AFB Will start INH for 9 mo. 300mg PO daily with Vit. B6 50 mg PO daily Baseline LFT's within NL limits. Patient AVG was postponed due to patient having positive TB Quantiferon , once TB is ruled out then vascular will proceed with a vein mapping and a graft. ID on the case. isolation continues, Gastric sample for TB PCR discussed with ID. 3 samples taken from gastric content .Gram stain results have been negative. culture PCR TB is pending. #Anemia of chronic disease on Epogen with dialysis # Hypophosphatemia monitor phos level, check with whether needs to be replaced or not. #Acute Complicated UTI, culture was positive for Pseudomonas Aeruginosa s/p Levaquin (06/05) # Uncontrolled DM : due to steroids .on Levemir 10U, cont SSI q 6 h # HTN: controlled on norvasc 10 mg continue, Goal BP < 140/90 # Nutrition : TF # Functional quadriplegia assist in ADL's DVT Px: SCDs Outpatient HD unit placement pending. will discuss with again
[2017-05-13] MEDS: INSULIN SLIDING SCALE (NOVOLOG) 1 VIAL SQ SCH ×4 (06:22→22:41)
[2017-05-13] MEDS: INSULIN DETEMIR 100 UNITS/ML MDV SQ SCH (06:23)
[2017-05-13] MEDS: NAPH,MB-DB/K PH,MBDB POWDER PACKET GT SCH ×2 (09:12→22:42)
[2017-05-13] MEDS: PANTOPRAZOLE SOD 40 MG SUSPENSION PACKET GT SCH (09:12)
[2017-05-13] MEDS: amLODIPine BESYLATE 5 MG TABLET (FP) GT SCH (09:12)
[2017-05-13] MEDS: predniSONE 5 MG/5 ML ORAL SOLN- UNIT-DOSE CUP GT SCH (09:13)
--- NOTE | 2017-05-13 12:54 | PN ---
Progress Note (short form) - Note Progress Note: Renal Follow up for DEYSI Pt seen and examined at the bedside awake and alert no overnight events Vital Signs Temperature 98.0 F 05/13/17 07:42 Pulse Rate 74 05/13/17 10:18 Respiratory Rate 20 05/13/17 08:16 Blood Pressure 134/73 05/13/17 07:42 O2 Sat by Pulse Oximetry (%) 98 05/13/17 10:18 Intake & Output 05/10/17 05/11/17 05/12/17 05/13/17 23:59 23:59 23:59 23:59 Intake Total 0397 078 0982 780 Balance 1057 565 8510 780 Weight 114 lb 14.4 oz 113 lb Gen: NAD, awake, non-verbal CVS: RRR, No M/R Lungs: CTA Abd: soft NT/ND Ext: Trace LE edema CBC, BMP 05/11/17 06:00 05/12/17 05:35 Current Medications Amlodipine Besylate (Norvasc -) 10 mg GT DAILY [facility] Last Admin: 05/13/17 09:12 Dose: 10 mg Epoetin Miguel (Epogen -) 6,000 units IVPUSH ONCE ONE Stop: 05/13/17 06:01 Insulin Aspart (Novolog Vial Sliding Scale -) 1 vial SQ Q6H APRIL PRN Reason: Protocol Last Admin: 05/13/17 11:38 Dose: 8 units Insulin Detemir (Levemir Vial) 15 units SQ AM [facility] Last Admin: 05/13/17 06:23 Dose: 15 units Pantoprazole Sodium (Protonix Packets For Oral Suspension -) 40 mg GT DAILY [facility] Last Admin: 05/13/17 09:12 Dose: 40 mg Potassium Phos/Sodium Phos (Phos-Nak Packet -) 1 packet GT BID [facility] Last Admin: 05/13/17 09:12 Dose: 1 packet Prednisone (Deltasone -) 30 mg GT DAILY [facility] Last Admin: 05/13/17 09:13 Dose: 30 mg A/P 61 year old woman with PMhx of NIDDM, Hypertension, PVD s/p R AKA, CVA now non- verbal and paralyzed who presented with abnormal outpatient labs that showed renal failure and increasing total body volume overload #Acute Renal Failure with Nephrotic Range Proteinuria and + PR3 aB HD today with Labs Trend BUN/Cr no signs of recovery at this time will continue to taper down steroids Q7d AVG placement once cleared from infectious disease perspective #R/o occult infection/isolated Fever Quatiferion gold positive Gastric Lavage for AFB negative x 3 TB PCR to be sent today ID follow up #Anemia Continue Epogen with dialysis #Hypophosphatemia Continue Neutraphos for now #Hypertension on Amlodpine Goal BP < 140/90 Jonathan Guzman DO
[2017-05-13] MEDS ORDERED: EPOETIN ALFA 3,000 UNIT/1 ML ML IVPUSH ONE (14:30)
--- NOTE | 2017-05-13 15:09 | PN ---
Teaching Attending Note Name of Resident: Kodi Pritchett ATTENDING PHYSICIAN STATEMENT I saw and evaluated the patient. I reviewed the resident's note and discussed the case with the resident. I agree with the resident's findings and plan as documented. SUBJECTIVE: Non verbal , caregiver by the bedside, no acute events noted OBJECTIVE: Vital Signs Temperature 98.0 F 05/13/17 07:42 Pulse Rate 80 05/13/17 14:00 Respiratory Rate 18 05/13/17 14:00 Blood Pressure 125/70 05/13/17 14:00 O2 Sat by Pulse Oximetry (%) 98 05/13/17 10:18 ENERAL:nonverbal but awake. HEAD: NC/AT. ENT: moist mucous membranes. NECK: supple. permacath right chest. LUNGS:Scattered rhonchi, diminished bilat bases no wheezes, no crackles, no accessory muscle use. HEART: RRR,s1s2 normal 3/6 ANGELINA ABDOMEN: Soft, NT, ND, BS(+) PEG EXTREMITIES: Bilat. nonpitting edema upper ext. Bilat edema LE resolved.. R leg s/p AKA NEUROLOGICAL: non verbal. obtunded and contracted. functional quadriplegia Laboratory 05/06/17 05/07/17 05/07/17 15:45 00:01 05:41 WBC RBC Hgb Hct MCV MCHC RDW Plt Count MPV Neutrophils % Lymphocytes % Monocytes % Eosinophils % Basophils % Band Neutrophils Platelet Estimate Platelet Comment Polychromasia Hypochromic-Microcytic Sodium Potassium Chloride Carbon Dioxide Anion Gap BUN Creatinine Creat Clearance w eGFR POC Glucometer 152 UNITS UNITS 344 UNITS UNITS 216 UNITS UNITS (()) (()) (()) Random Glucose Calcium Phosphorus Total Bilirubin AST ALT Alkaline Phosphatase Total Protein Albumin 05/07/17 05/07/17 05/07/17 08:05 08:05 11:59 WBC 10.6 K/mm3 H K/mm3 (4.0-10.0) RBC 3.10 M/mm3 L M/mm3 (3.60-5.2) Hgb 9.2 GM/dL L GM/dL (10.7-15.3) Hct 28.2 % L % (32.4-45.2) MCV 90.7 fl fl (80-96) MCHC 32.7 g/dl g/dl (32.0-36.0) RDW 13.7 % % (11.6-15.6) Plt Count 113 K/MM3 L K/MM3 (134-434) MPV 9.3 fl fl (7.5-11.1) Neutrophils % Lymphocytes % Monocytes % Eosinophils % Basophils % Band Neutrophils Platelet Estimate Platelet Comment Polychromasia Hypochromic-Microcytic Sodium 143 mmol/L mmol/L (136-145) Potassium 3.8 mmol/L mmol/L (3.5-5.1) Chloride 103 mmol/L mmol/L (98-107) Carbon Dioxide 31 mmol/L mmol/L (21-32) Anion Gap 9 (8-16) BUN 30 mg/dL H D mg/dL (7-18) Creatinine 2.6 mg/dL H D mg/dL (0.55-1.02) Creat Clearance w eGFR POC Glucometer 144 UNITS UNITS (()) Random Glucose 202 mg/dL H mg/dL (74-106) Calcium 8.1 mg/dL L mg/dL (8.5-10.1) Phosphorus Total Bilirubin AST ALT Alkaline Phosphatase Total Protein Albumin 05/07/17 05/07/17 05/08/17 17:33 23:33 05:01 WBC RBC Hgb Hct MCV MCHC RDW Plt Count MPV Neutrophils % Lymphocytes % Monocytes % Eosinophils % Basophils % Band Neutrophils Platelet Estimate Platelet Comment Polychromasia Hypochromic-Microcytic Sodium Potassium Chloride Carbon Dioxide Anion Gap BUN Creatinine Creat Clearance w eGFR POC Glucometer 316 UNITS UNITS 300 UNITS UNITS 255 UNITS UNITS (()) (()) (()) Random Glucose Calcium Phosphorus Total Bilirubin AST ALT Alkaline Phosphatase Total Protein Albumin 05/08/17 05/08/17 05/08/17 11:32 15:30 15:30 WBC 13.0 K/mm3 H K/mm3 (4.0-10.0) RBC 3.00 M/mm3 L M/mm3 (3.60-5.2) Hgb 8.9 GM/dL L GM/dL (10.7-15.3) Hct 27.2 % L % (32.4-45.2) MCV 90.6 fl fl (80-96) MCHC 32.7 g/dl g/dl (32.0-36.0) RDW 14.0 % % (11.6-15.6) Plt Count 161 K/MM3 D K/MM3 (134-434) MPV 9.6 fl fl (7.5-11.1) Neutrophils % Lymphocytes % Monocytes % Eosinophils % Basophils % Band Neutrophils Platelet Estimate Platelet Comment Polychromasia Hypochromic-Microcytic Sodium 140 mmol/L mmol/L (136-145) Potassium 4.3 mmol/L mmol/L (3.5-5.1) Chloride 101 mmol/L mmol/L (98-107) Carbon Dioxide 32 mmol/L mmol/L (21-32) Anion Gap 7 L (8-16) BUN 49 mg/dL H D mg/dL (7-18) Creatinine 3.7 mg/dL H D mg/dL (0.55-1.02) Creat Clearance w eGFR POC Glucometer 214 UNITS UNITS (()) Random Glucose 256 mg/dL H D mg/dL (74-106) Calcium 7.5 mg/dL L mg/dL (8.5-10.1) Phosphorus 3.5 mg/dL D mg/dL (2.5-4.9) Total Bilirubin AST ALT Alkaline Phosphatase Total Protein Albumin 05/08/17 05/08/17 05/08/17 16:37 19:40 22:07 WBC RBC Hgb Hct MCV MCHC RDW Plt Count MPV Neutrophils % Lymphocytes % Monocytes % Eosinophils % Basophils % Band Neutrophils Platelet Estimate Platelet Comment Polychromasia Hypochromic-Microcytic Sodium Potassium Chloride Carbon Dioxide Anion Gap BUN 10 mg/dL D mg/dL (7-18) Creatinine 1.0 mg/dL D mg/dL (0.55-1.02) Creat Clearance w eGFR POC Glucometer 241 UNITS UNITS 241 UNITS UNITS (()) (()) Random Glucose Calcium Phosphorus Total Bilirubin AST ALT Alkaline Phosphatase Total Protein Albumin 05/09/17 05/09/17 05/09/17 05:42 05:42 05:57 WBC 12.5 K/mm3 H K/mm3 (4.0-10.0) RBC 3.20 M/mm3 L M/mm3 (3.60-5.2) Hgb 9.5 GM/dL L GM/dL (10.7-15.3) Hct 29.0 % L % (32.4-45.2) MCV 90.6 fl fl (80-96) MCHC 32.8 g/dl g/dl (32.0-36.0) RDW 14.0 % % (11.6-15.6) Plt Count 137 K/MM3 K/MM3 (134-434) MPV 9.7 fl fl (7.5-11.1) Neutrophils % 76.0 % % (42.8-82.8) Lymphocytes % 9.0 % D % (8-40) Monocytes % 11.0 % H % (3.8-10.2) Eosinophils % 4.0 % % (0-4.5) Basophils % Band Neutrophils Platelet Estimate Adequate (NORMAL) Platelet Comment No clumping noted Polychromasia 1+ Hypochromic-Microcytic 1+ Sodium 141 mmol/L mmol/L (136-145) Potassium 3.3 mmol/L L D mmol/L (3.5-5.1) Chloride 99 mmol/L mmol/L (98-107) Carbon Dioxide 34 mmol/L H mmol/L (21-32) Anion Gap 8 (8-16) BUN 20 mg/dL H D mg/dL (7-18) Creatinine 2.0 mg/dL H D mg/dL (0.55-1.02) Creat Clearance w eGFR POC Glucometer 225 UNITS UNITS (()) Random Glucose 233 mg/dL H mg/dL (74-106) Calcium 7.6 mg/dL L mg/dL (8.5-10.1) Phosphorus 2.1 mg/dL L D mg/dL (2.5-4.9) Total Bilirubin AST ALT Alkaline Phosphatase Total Protein Albumin 05/09/17 05/09/17 05/09/17 11:40 16:41 22:27 WBC RBC Hgb Hct MCV MCHC RDW Plt Count MPV Neutrophils % Lymphocytes % Monocytes % Eosinophils % Basophils % Band Neutrophils Platelet Estimate Platelet Comment Polychromasia Hypochromic-Microcytic Sodium Potassium Chloride Carbon Dioxide Anion Gap BUN Creatinine Creat Clearance w eGFR POC Glucometer 204 UNITS UNITS 226 UNITS UNITS 277 UNITS UNITS (()) (()) (()) Random Glucose Calcium Phosphorus Total Bilirubin AST ALT Alkaline Phosphatase Total Protein Albumin 05/10/17 05/10/17 05/10/17 05:34 08:34 08:34 WBC 12.3 K/mm3 H K/mm3 (4.0-10.0) RBC 3.13 M/mm3 L M/mm3 (3.60-5.2) Hgb 9.3 GM/dL L GM/dL (10.7-15.3) Hct 28.5 % L % (32.4-45.2) MCV 91.3 fl fl (80-96) MCHC 32.7 g/dl g/dl (32.0-36.0) RDW 13.9 % % (11.6-15.6) Plt Count 137 K/MM3 K/MM3 (134-434) MPV 9.3 fl fl (7.5-11.1) Neutrophils % 71.0 % % (42.8-82.8) Lymphocytes % 17.0 % D % (8-40) Monocytes % 7.0 % % (3.8-10.2) Eosinophils % 2.0 % % (0-4.5) Basophils % 1.0 % % (0-2.0) Band Neutrophils 2.0 % D % (0-10) Platelet Estimate Adequate (NORMAL) Platelet Comment Polychromasia Hypochromic-Microcytic Sodium 139 mmol/L mmol/L (136-145) Potassium 3.1 mmol/L L mmol/L (3.5-5.1) Chloride 96 mmol/L L mmol/L (98-107) Carbon Dioxide 32 mmol/L mmol/L (21-32) Anion Gap 11 (8-16) BUN 42 mg/dL H D mg/dL (7-18) Creatinine 3.3 mg/dL H D mg/dL (0.55-1.02) Creat Clearance w eGFR POC Glucometer 287 UNITS UNITS (()) Random Glucose 217 mg/dL H mg/dL (74-106) Calcium 7.8 mg/dL L mg/dL (8.5-10.1) Phosphorus Total Bilirubin AST ALT Alkaline Phosphatase Total Protein Albumin 05/10/17 05/11/17 05/11/17 22:35 06:00 06:02 WBC 12.1 K/mm3 H K/mm3 (4.0-10.0) RBC 3.12 M/mm3 L M/mm3 (3.60-5.2) Hgb 9.4 GM/dL L GM/dL (10.7-15.3) Hct 28.5 % L % (32.4-45.2) MCV 91.1 fl fl (80-96) MCHC 33.0 g/dl g/dl (32.0-36.0) RDW 14.5 % % (11.6-15.6) Plt Count 139 K/MM3 K/MM3 (134-434) MPV 9.3 fl fl (7.5-11.1) Neutrophils % 76.5 % % (42.8-82.8) Lymphocytes % 15.2 % % (8-40) Monocytes % 6.3 % % (3.8-10.2) Eosinophils % 1.4 % % (0-4.5) Basophils % 0.6 % % (0-2.0) Band Neutrophils Platelet Estimate Platelet Comment Polychromasia Hypochromic-Microcytic Sodium Potassium Chloride Carbon Dioxide Anion Gap BUN Creatinine Creat Clearance w eGFR POC Glucometer 322 UNITS UNITS 312 UNITS UNITS (()) (()) Random Glucose Calcium Phosphorus Total Bilirubin AST ALT Alkaline Phosphatase Total Protein Albumin 05/11/17 05/11/17 05/11/17 06:05 06:05 13:12 WBC RBC Hgb Hct MCV MCHC RDW Plt Count MPV Neutrophils % Lymphocytes % Monocytes % Eosinophils % Basophils % Band Neutrophils Platelet Estimate Platelet Comment Polychromasia Hypochromic-Microcytic Sodium 139 mmol/L mmol/L (136-145) Potassium 3.4 mmol/L L mmol/L (3.5-5.1) Chloride 98 mmol/L mmol/L (98-107) Carbon Dioxide 31 mmol/L mmol/L (21-32) Anion Gap 10 (8-16) BUN 62 mg/dL H D mg/dL (7-18) Creatinine 4.4 mg/dL H D mg/dL (0.55-1.02) Creat Clearance w eGFR 10.16 (>60) POC Glucometer 157 UNITS UNITS (()) Random Glucose 269 mg/dL H D mg/dL (74-106) Calcium 8.0 mg/dL L mg/dL (8.5-10.1) Phosphorus Cancelled Total Bilirubin 0.3 mg/dL mg/dL (0.2-1.0) AST 15 U/L D U/L (15-37) ALT 12 U/L U/L (12-78) Alkaline Phosphatase 236 U/L H D U/L (45-117) Total Protein 5.1 g/dl L g/dl (6.4-8.2) Albumin 2.0 g/dl L g/dl (3.4-5.0) 05/11/17 05/11/17 05/12/17 15:58 22:05 05:35 WBC RBC Hgb Hct MCV MCHC RDW Plt Count MPV Neutrophils % Lymphocytes % Monocytes % Eosinophils % Basophils % Band Neutrophils Platelet Estimate Platelet Comment Polychromasia Hypochromic-Microcytic Sodium 142 mmol/L mmol/L (136-145) Potassium 3.6 mmol/L mmol/L (3.5-5.1) Chloride 99 mmol/L mmol/L (98-107) Carbon Dioxide 34 mmol/L H mmol/L (21-32) Anion Gap 9 (8-16) BUN 25 mg/dL H D mg/dL (7-18) Creatinine 2.4 mg/dL H D mg/dL (0.55-1.02) Creat Clearance w eGFR POC Glucometer 151 UNITS UNITS 296 UNITS UNITS (()) (()) Random Glucose 190 mg/dL H D mg/dL (74-106) Calcium 7.9 mg/dL L mg/dL (8.5-10.1) Phosphorus 1.9 mg/dL L mg/dL (2.5-4.9) Total Bilirubin AST ALT Alkaline Phosphatase Total Protein Albumin 05/12/17 05/12/17 05/12/17 06:08 12:13 16:43 WBC RBC Hgb Hct MCV MCHC RDW Plt Count MPV Neutrophils % Lymphocytes % Monocytes % Eosinophils % Basophils % Band Neutrophils Platelet Estimate Platelet Comment Polychromasia Hypochromic-Microcytic Sodium Potassium Chloride Carbon Dioxide Anion Gap BUN Creatinine Creat Clearance w eGFR POC Glucometer 232 UNITS UNITS 339 UNITS UNITS 129 UNITS UNITS (()) (()) (()) Random Glucose Calcium Phosphorus Total Bilirubin AST ALT Alkaline Phosphatase Total Protein Albumin 05/12/17 05/13/17 05/13/17 22:59 05:11 11:06 WBC RBC Hgb Hct MCV MCHC RDW Plt Count MPV Neutrophils % Lymphocytes % Monocytes % Eosinophils % Basophils % Band Neutrophils Platelet Estimate Platelet Comment Polychromasia Hypochromic-Microcytic Sodium Potassium Chloride Carbon Dioxide Anion Gap BUN Creatinine Creat Clearance w eGFR POC Glucometer 197 UNITS UNITS 214 UNITS UNITS 351 UNITS UNITS (()) (()) (()) Random Glucose Calcium Phosphorus Total Bilirubin AST ALT Alkaline Phosphatase Total Protein Albumin ASSESSMENT AND PLAN: Acute Kidney Failure - secondary to nephrotic syndrome , no signs of improvement , serology consistent with wegeners vs polyangiitis * taper prednisone * will need HD vascular access when TB is ruled out * monitor renal function daily * needs arrangement of OP HD Positive Quantiferon Gold * AFB from gastric lavage negative x 3 * PCR pending * prophylactic treatment * continue isolation for now Functional Quadriplegia * Turn & position frequently , decub prevention DM * c/w current meds DVT PPX * SCD Problem List - Problems (1) Acute kidney failure Code(s): N17.9 - ACUTE KIDNEY FAILURE, UNSPECIFIED (2) Functional quadriplegia Code(s): R53.2 - FUNCTIONAL QUADRIPLEGIA
[2017-05-13 15:16] LABS: MCH 29.4 pg (25.7-33.7); MCHC 32.3 g/dl (32.0-36.0); MEAN CELL VOLUME 91.2 fl (80-96); MEAN PLT VOLUME 9.8 fl (7.5-11.1); PLATELET COUNT 160 K/MM3 (134-434); RDW 14.6 % (11.6-15.6); WHITE BLOOD COUNT 12.4 K/mm3 (4.0-10.0)
[2017-05-13 16:54] LABS: ALBUMIN 2.1 g/dl (3.4-5.0); BILIRUBIN,TOTAL 0.4 mg/dL (0.2-1.0); CALCIUM 7.9 mg/dL (8.5-10.1); COCKROFT - GAULT 11.798; PHOSPHOROUS 2.8 mg/dL (2.5-4.9); TOT PROT 5.2 g/dl (6.4-8.2)
--- NOTE | 2017-05-13 22:56 | PN ---
Physical Exam: SUBJECTIVE: Patient seen and examinedt bedside. No overnight events. Lying comfortably and alert. OBJECTIVE: Vital Signs Period Temp Pulse Resp BP Sys/Daniel Pulse Ox Last 24 Hr 98.0 F-99.0 F 74-95 18-20 97-134/56-75 98-98 GENERAL:nonverbal but awake. HEAD: NC/AT. ENT: moist mucous membranes. NECK: supple. permacath right chest. LUNGS:Scattered rhonchi, diminished bilat bases no wheezes, no crackles, no accessory muscle use. HEART: RRR,s1s2 normal 3/6 ANGELINA ABDOMEN: Soft, NT, ND, BS(+) PEG EXTREMITIES: Bilat. nonpitting edema upper ext. Bilat edema LE resolved.. R leg s/p AKA NEUROLOGICAL: non verbal. obtunded and contracted. functional quadriplegia Laboratory Results - last 24 hr 05/12/17 05/13/17 05/13/17 22:59 05:11 11:06 WBC RBC Hgb Hct MCV MCHC RDW Plt Count MPV Sodium Potassium Chloride Carbon Dioxide Anion Gap BUN Creatinine Creat Clearance w eGFR POC Glucometer 197 214 351 Random Glucose Calcium Phosphorus Total Bilirubin AST ALT Alkaline Phosphatase Total Protein Albumin 05/13/17 05/13/17 05/13/17 14:30 14:30 15:52 WBC 12.4 H RBC 3.23 L Hgb 9.5 L Hct 29.5 L MCV 91.2 MCHC 32.3 RDW 14.6 Plt Count 160 MPV 9.8 Sodium 141 Potassium 3.5 Chloride 98 Carbon Dioxide 31 Anion Gap 12 BUN 50 H D Creatinine 4.0 H D Creat Clearance w eGFR 11.35 POC Glucometer 157 Random Glucose 206 H Calcium 7.9 L Phosphorus 2.8 D Total Bilirubin 0.4 D AST 17 ALT 14 Alkaline Phosphatase 176 H D Total Protein 5.2 L Albumin 2.1 L Active Medications Generic Name Dose Route Start Last Admin Trade Name Freq PRN Reason Stop Dose Admin Amlodipine Besylate 10 mg 05/01/17 14:30 05/13/17 09:12 Norvasc - GT 10 mg DAILY APRIL Administration Insulin Aspart 1 vial 04/30/17 17:30 05/13/17 22:41 Novolog Vial Sliding Scale - SQ 4 units Q6H APRIL Administration Protocol Insulin Detemir 15 units 05/10/17 07:38 05/13/17 06:23 Levemir Vial SQ 15 units AM APRIL Administration Pantoprazole Sodium 40 mg 05/01/17 10:00 05/13/17 09:12 Protonix Packets For Oral Suspension - GT 40 mg DAILY APRIL Administration Potassium Phos/Sodium Phos 1 packet 05/12/17 10:30 05/13/17 22:42 Phos-Nak Packet - GT 1 packet BID APRIL Administration Prednisone 30 mg 05/12/17 10:00 05/13/17 09:13 Deltasone - GT 30 mg DAILY APRIL Administration ASSESSMENT/PLAN: 61 yo F with pmhx of CVA, NIDDM, HTN, HLD, admitted for acute renal failure. Problem List - Problems (1) Positive QuantiFERON-TB Gold test Assessment/Plan: * Isolation continued * TB PCR sent * 3 samples taken from gastric content. * All 3 preliminary gram stain results have been negative. (2) Renal failure Assessment/Plan: * Dialyzed yesterday. * We are looking for outpatient dialysis center that can accommodate her to discharge her. 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 (3) Non-insulin dependent type 2 diabetes mellitus Assessment/Plan: * Increase in serum glucose result of IV steroids * Continue Levamir to 15 units * Continue Nepro tube feed via peg * NISS * BGM Q6H (4) HTN (hypertension) Assessment/Plan: * Amlodipine to 10mg PO daily (5) Functional quadriplegia Assessment/Plan: * assist in ADL's Visit type - Emergency Visit Emergency Visit: Yes ED Registration Date: 04/17/17 Care time: The patient presented to the Emergency Department on the above date and was hospitalized for further evaluation of their emergent condition. - New Patient This patient is new to me today: No - Critical Care Critical Care patient: No - Discharge Referral Referred to [facility] Med P.C.: No
[2017-05-14] MEDS: INSULIN DETEMIR 100 UNITS/ML MDV SQ SCH (06:34)
[2017-05-14] MEDS: INSULIN SLIDING SCALE (NOVOLOG) 1 VIAL SQ SCH ×3 (06:34→18:31)
[2017-05-14 08:14] LABS: MCH 29.8 pg (25.7-33.7); MCHC 32.2 g/dl (32.0-36.0); MEAN CELL VOLUME 92.7 fl (80-96); MEAN PLT VOLUME 9.2 fl (7.5-11.1); PLATELET COUNT 115 K/MM3 (134-434); RDW 14.9 % (11.6-15.6); WHITE BLOOD COUNT 9.4 K/mm3 (4.0-10.0)
[2017-05-14 08:49] LABS: CALCIUM 7.7 mg/dL (8.5-10.1); COCKROFT - GAULT 18.1475; CREATININE 2.6 mg/dL (0.55-1.02); MAGNESIUM 2.3 mg/dL (1.8-2.4); PHOSPHOROUS 2.9 mg/dL (2.5-4.9)
[2017-05-14] MEDS ORDERED: PT OWN MED DRAWER 7, Y5N ONE (10:24)
[2017-05-14] MEDS: predniSONE 5 MG/5 ML ORAL SOLN- UNIT-DOSE CUP GT SCH (10:34)
[2017-05-14] MEDS: amLODIPine BESYLATE 5 MG TABLET (FP) GT SCH (10:34)
[2017-05-14] MEDS: NAPH,MB-DB/K PH,MBDB POWDER PACKET GT SCH ×2 (10:34→23:00)
[2017-05-14] MEDS: PANTOPRAZOLE SOD 40 MG SUSPENSION PACKET GT SCH (10:34)
--- NOTE | 2017-05-14 12:32 | PN ---
Teaching Attending Note Name of Resident: Kodi Pritchett ATTENDING PHYSICIAN STATEMENT I saw and evaluated the patient. I reviewed the resident's note and discussed the case with the resident. I agree with the resident's findings and plan as documented. SUBJECTIVE:no acute events overnight. non communicative OBJECTIVE: Vital Signs Temperature 98.9 F 05/14/17 05:45 Pulse Rate 80 05/14/17 05:45 Respiratory Rate 20 05/14/17 05:45 Blood Pressure 143/73 05/14/17 05:45 O2 Sat by Pulse Oximetry (%) 100 05/13/17 21:00 ENERAL:nonverbal but awake. HEAD: NC/AT. ENT: moist mucous membranes. NECK: supple. permacath right chest. LUNGS:Scattered rhonchi, diminished bilat bases no wheezes, no crackles, no accessory muscle use. HEART: RRR,s1s2 normal 3/6 ANGELINA ABDOMEN: Soft, NT, ND, BS(+) PEG EXTREMITIES: Bilat. nonpitting edema upper ext. Bilat edema LE resolved.. R leg s/p AKA NEUROLOGICAL: non verbal. obtunded and contracted. functional quadriplegia Abnormal Lab Results 05/13/17 05/13/17 05/14/17 14:30 14:30 05:48 WBC 12.4 H RBC 3.23 L Hgb 9.5 L Hct 29.5 L Plt Count Potassium 3.4 L Carbon Dioxide 34 H BUN 50 H D 26 H D Creatinine 4.0 H D 2.6 H D Random Glucose 206 H 232 H Calcium 7.9 L 7.7 L Alkaline Phosphatase 176 H D Total Protein 5.2 L Albumin 2.1 L 05/14/17 05:48 WBC RBC 3.07 L Hgb 9.2 L Hct 28.5 L Plt Count 115 L D Potassium Carbon Dioxide BUN Creatinine Random Glucose Calcium Alkaline Phosphatase Total Protein Albumin Active Medications Amlodipine Besylate (Norvasc -) 10 mg GT DAILY [facility] Last Admin: 05/14/17 10:34 Dose: 10 mg Insulin Aspart (Novolog Vial Sliding Scale -) 1 vial SQ Q6H APRIL PRN Reason: Protocol Last Admin: 05/14/17 06:34 Dose: 6 units Insulin Detemir (Levemir Vial) 15 units SQ AM APRIL Last Admin: 05/14/17 06:34 Dose: 15 units Pantoprazole Sodium (Protonix Packets For Oral Suspension -) 40 mg GT DAILY [facility] Last Admin: 05/14/17 10:34 Dose: 40 mg Potassium Phos/Sodium Phos (Phos-Nak Packet -) 1 packet GT BID [facility] Last Admin: 05/14/17 10:34 Dose: 1 packet Prednisone (Deltasone -) 30 mg GT DAILY [facility] Last Admin: 05/14/17 10:34 Dose: 30 mg ASSESSMENT AND PLAN: Acute Kidney Failure - secondary to nephrotic syndrome , improvement in cr level today , serology consistent with wegeners vs polyangiitis * taper prednisone * will need HD vascular access when TB is ruled out * monitor renal function daily * needs arrangement of OP HD Positive Quantiferon Gold * AFB from gastric lavage negative x 3 * PCR pending * prophylactic treatment * continue isolation for now Functional Quadriplegia * Turn & position frequently , decub prevention DM * c/w current meds DVT PPX * SCD Problem List - Problems (1) Acute kidney failure Code(s): N17.9 - ACUTE KIDNEY FAILURE, UNSPECIFIED (2) Functional quadriplegia Code(s): R53.2 - FUNCTIONAL QUADRIPLEGIA
--- NOTE | 2017-05-14 14:52 | PN ---
Progress Note (short form) - Note Progress Note: Renal Follow up for DEYSI Pt seen and examined at the bedside awake and alert family at the bedside no overnight events s/p dialysis yesterday Vital Signs Temperature 98.9 F 05/14/17 05:45 Pulse Rate 80 05/14/17 05:45 Respiratory Rate 20 05/14/17 05:45 Blood Pressure 143/73 05/14/17 05:45 O2 Sat by Pulse Oximetry (%) 100 05/13/17 21:00 Intake & Output 05/11/17 05/12/17 05/13/17 05/14/17 23:59 23:59 23:59 23:59 Intake Total 800 1170 1550 800 Balance 800 1170 1550 800 Weight 113 lb Gen: NAD, awake, non-verbal CVS: RRR, No M/R Lungs: CTA Abd: soft NT/ND Ext: Trace LE edema CBC, BMP 05/14/17 05:48 05/14/17 05:48 Laboratory Tests 05/11/17 05/14/17 06:05 05:48 Phosphorus 2.9 Magnesium 2.3 Albumin 2.0 L Current Medications Amlodipine Besylate (Norvasc -) 10 mg GT DAILY [facility] Last Admin: 05/14/17 10:34 Dose: 10 mg Insulin Aspart (Novolog Vial Sliding Scale -) 1 vial SQ Q6H [facility] PRN Reason: Protocol Last Admin: 05/14/17 06:34 Dose: 6 units Insulin Detemir (Levemir Vial) 15 units SQ AM [facility] Last Admin: 05/14/17 06:34 Dose: 15 units Pantoprazole Sodium (Protonix Packets For Oral Suspension -) 40 mg GT DAILY [facility] Last Admin: 05/14/17 10:34 Dose: 40 mg Potassium Phos/Sodium Phos (Phos-Nak Packet -) 1 packet GT BID [facility] Last Admin: 05/14/17 10:34 Dose: 1 packet Prednisone (Deltasone -) 30 mg GT DAILY [facility] Last Admin: 05/14/17 10:34 Dose: 30 mg A/P 61 year old woman with PMhx of NIDDM, Hypertension, PVD s/p R AKA, CVA now non- verbal and paralyzed who presented with abnormal outpatient labs that showed renal failure and increasing total body volume overload #Acute Renal Failure with Nephrotic Range Proteinuria and + PR3 aB s/p dialysis yesterday, no acute indication for dialysis today Tapering Prednisone dose Q weekly AVG placement on hold until pt cleared for TB next dialysis is tomorrow #R/o occult infection/isolated Fever Quatiferion gold positive Gastric Lavage for AFB negative x 3 TB PCR pending ID follow up #Anemia Continue Epogen with dialysis #Hypophosphatemia Continue Neutraphos for now #Hypertension on Amlodpine Goal BP < 140/90 Jonathan Guzman DO
--- NOTE | 2017-05-14 15:23 | PN ---
Physical Exam: SUBJECTIVE: Patient seen and examined at bedside. No overnight events. Alert and comfortable. OBJECTIVE: Vital Signs Period Temp Pulse Resp BP Sys/Daniel Pulse Ox Last 24 Hr 98.9 F-99.6 F 78-87 18-20 106-145/60-75 100 GENERAL:nonverbal but awake. HEAD: NC/AT. ENT: moist mucous membranes. NECK: supple. permacath right chest. LUNGS:Scattered rhonchi, diminished bilat bases no wheezes, no crackles, no accessory muscle use. HEART: RRR,s1s2 normal 3/6 ANGELINA ABDOMEN: Soft, NT, ND, BS(+) PEG EXTREMITIES: Bilat. nonpitting edema upper ext. Bilat edema LE resolved.. R leg s/p AKA NEUROLOGICAL: non verbal. obtunded and contracted. functional quadriplegia Laboratory Results - last 24 hr 05/13/17 05/13/17 05/13/17 14:30 14:30 15:52 WBC 12.4 H RBC 3.23 L Hgb 9.5 L Hct 29.5 L MCV 91.2 MCHC 32.3 RDW 14.6 Plt Count 160 MPV 9.8 Sodium 141 Potassium 3.5 Chloride 98 Carbon Dioxide 31 Anion Gap 12 BUN 50 H D Creatinine 4.0 H D Creat Clearance w eGFR 11.35 POC Glucometer 157 Random Glucose 206 H Calcium 7.9 L Phosphorus 2.8 D Magnesium Total Bilirubin 0.4 D AST 17 ALT 14 Alkaline Phosphatase 176 H D Total Protein 5.2 L Albumin 2.1 L 05/13/17 05/14/17 05/14/17 22:38 05:42 05:48 WBC RBC Hgb Hct MCV MCHC RDW Plt Count MPV Sodium 141 Potassium 3.4 L Chloride 98 Carbon Dioxide 34 H Anion Gap 9 BUN 26 H D Creatinine 2.6 H D Creat Clearance w eGFR POC Glucometer 265 268 Random Glucose 232 H Calcium 7.7 L Phosphorus 2.9 Magnesium 2.3 Total Bilirubin AST ALT Alkaline Phosphatase Total Protein Albumin 05/14/17 05/14/17 05:48 11:42 WBC 9.4 RBC 3.07 L Hgb 9.2 L Hct 28.5 L MCV 92.7 MCHC 32.2 RDW 14.9 Plt Count 115 L D MPV 9.2 Sodium Potassium Chloride Carbon Dioxide Anion Gap BUN Creatinine Creat Clearance w eGFR POC Glucometer 184 Random Glucose Calcium Phosphorus Magnesium Total Bilirubin AST ALT Alkaline Phosphatase Total Protein Albumin Active Medications Generic Name Dose Route Start Last Admin Trade Name Freq PRN Reason Stop Dose Admin Amlodipine Besylate 10 mg 05/01/17 14:30 05/14/17 10:34 Norvasc - GT 10 mg DAILY APRIL Administration Epoetin Miguel 6,000 units 05/15/17 06:00 Epogen - IVPUSH 05/15/17 06:01 ONCE ONE Insulin Aspart 1 vial 04/30/17 17:30 05/14/17 06:34 Novolog Vial Sliding Scale - SQ 6 units Q6H APRIL Administration Protocol Insulin Detemir 15 units 05/10/17 07:38 05/14/17 06:34 Levemir Vial SQ 15 units AM APRIL Administration Pantoprazole Sodium 40 mg 05/01/17 10:00 05/14/17 10:34 Protonix Packets For Oral Suspension - GT 40 mg DAILY APRIL Administration Potassium Phos/Sodium Phos 1 packet 05/12/17 10:30 05/14/17 10:34 Phos-Nak Packet - GT 1 packet BID APRIL Administration Prednisone 30 mg 05/12/17 10:00 05/14/17 10:34 Deltasone - GT 30 mg DAILY APRIL Administration ASSESSMENT/PLAN: 61 yo F with pmhx of CVA, NIDDM, HTN, HLD, admitted for acute renal failure. Problem List - Problems (1) Positive QuantiFERON-TB Gold test Assessment/Plan: * Isolation continued * TB PCR pending * 3 samples taken from gastric content. * All 3 preliminary gram stain results have been negative. * Waiting for final culture results to place patient. (2) Renal failure Assessment/Plan: * Dialyzed yesterday. * We are looking for outpatient dialysis center that can accommodate her to discharge her. 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 (3) Non-insulin dependent type 2 diabetes mellitus Assessment/Plan: * Increase in serum glucose result of IV steroids * Continue Levamir to 15 units * Continue Nepro tube feed via peg * NISS * BGM Q6H (4) HTN (hypertension) Assessment/Plan: * Amlodipine to 10mg PO daily (5) Functional quadriplegia Assessment/Plan: * assist in ADL's * sacral decubitus ulcer - reposition daily Visit type - Emergency Visit Emergency Visit: Yes ED Registration Date: 04/17/17 Care time: The patient presented to the Emergency Department on the above date and was hospitalized for further evaluation of their emergent condition. - New Patient This patient is new to me today: No - Critical Care Critical Care patient: No
[2017-05-15] MEDS: INSULIN SLIDING SCALE (NOVOLOG) 1 VIAL SQ SCH ×4 (04:19→18:17)
[2017-05-15] MEDS: INSULIN DETEMIR 100 UNITS/ML MDV SQ SCH (06:18)
[2017-05-15 07:50] LABS: ANION GAP 8 (8-16); CALCIUM 7.6 mg/dL (8.5-10.1); CO2 35 mmol/L (21-32); CREATININE 3.7 mg/dL (0.55-1.02); GLUCOSE,RANDOM 252 mg/dL (74-106)
[2017-05-15] MEDS ORDERED: EPOETIN ALFA 3,000 UNIT/1 ML ML IVPUSH ONE (08:00)
[2017-05-15 09:19] LABS: MCH 29.7 pg (25.7-33.7); MCHC 32.4 g/dl (32.0-36.0); MEAN CELL VOLUME 91.6 fl (80-96); MEAN PLT VOLUME 9.9 fl (7.5-11.1); PLATELET COUNT 113 K/MM3 (134-434); RDW 14.9 % (11.6-15.6)
--- NOTE | 2017-05-15 10:04 | PN ---
Physical Exam: SUBJECTIVE: Patient seen and examined at bedside. No overnight events. nonverbal ,lying comfortably and alert. OBJECTIVE: Vital Signs Period Temp Pulse Resp BP Sys/Daniel Pulse Ox Last 24 Hr 97.1 F-99.4 F 62-81 18-20 120-152/60-76 100 GENERAL:nonverbal but awake. HEAD: NC/AT. ENT: moist mucous membranes. NECK: supple. permacath right chest. LUNGS:Scattered rhonchi, diminished bilat bases no wheezes, no crackles, no accessory muscle use. HEART: RRR,s1s2 normal 3/6 ANGELINA ABDOMEN: Soft, NT, ND, BS(+) PEG EXTREMITIES: Bilat. nonpitting edema upper ext. Bilat edema LE resolved.. R leg s/p AKA NEUROLOGICAL: non verbal. obtunded and contracted. functional quadriplegia Laboratory Results - last 24 hr 05/14/17 05/14/17 05/14/17 11:42 15:53 22:42 WBC RBC Hgb Hct MCV MCHC RDW Plt Count MPV Sodium Potassium Chloride Carbon Dioxide Anion Gap BUN Creatinine POC Glucometer 184 186 214 Random Glucose Calcium Phosphorus 05/15/17 05/15/17 05/15/17 05:35 06:12 07:45 WBC 8.0 RBC 2.97 L Hgb 8.8 L Hct 27.2 L MCV 91.6 MCHC 32.4 RDW 14.9 Plt Count 113 L MPV 9.9 Sodium 138 Potassium 4.1 D Chloride 95 L Carbon Dioxide 35 H Anion Gap 8 BUN 45 H D Creatinine 3.7 H D POC Glucometer 260 Random Glucose 252 H Calcium 7.6 L Phosphorus 05/15/17 07:45 WBC RBC Hgb Hct MCV MCHC RDW Plt Count MPV Sodium Potassium Chloride Carbon Dioxide Anion Gap BUN Creatinine POC Glucometer Random Glucose Calcium Phosphorus 3.9 D Active Medications Generic Name Dose Route Start Last Admin Trade Name Freq PRN Reason Stop Dose Admin Amlodipine Besylate 10 mg 05/01/17 14:30 05/14/17 10:34 Norvasc - GT 10 mg DAILY APRIL Administration Insulin Aspart 1 vial 04/30/17 17:30 05/15/17 06:17 Novolog Vial Sliding Scale - SQ 6 units Q6H APRIL Administration Protocol Insulin Detemir 15 units 05/10/17 07:38 05/15/17 06:18 Levemir Vial SQ 15 units AM APRIL Administration Pantoprazole Sodium 40 mg 05/01/17 10:00 05/14/17 10:34 Protonix Packets For Oral Suspension - GT 40 mg DAILY APRIL Administration Potassium Phos/Sodium Phos 1 packet 05/12/17 10:30 05/14/17 23:00 Phos-Nak Packet - GT 1 packet BID APRIL Administration Prednisone 30 mg 05/12/17 10:00 05/14/17 10:34 Deltasone - GT 30 mg DAILY APRIL Administration ASSESSMENT/PLAN: 61 yo F with pmhx of CVA, NIDDM, HTN, HLD, admitted for acute renal failure Problem List - Problems (1) Positive QuantiFERON-TB Gold test Assessment/Plan: * Isolation continued * TB PCR pending * 3 samples taken from gastric content. * All 3 preliminary gram stain results have been negative. * Waiting for final culture results to place patient. (2) Renal failure Assessment/Plan: * Dialyze today. * We are looking for outpatient dialysis center that can accommodate her to discharge her. 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 (3) Non-insulin dependent type 2 diabetes mellitus Assessment/Plan: * Increase in serum glucose result of IV steroids * Continue Levamir to 15 units * Continue Nepro tube feed via peg * NISS * BGM Q6H (4) HTN (hypertension) Assessment/Plan: * Amlodipine to 10mg PO daily (5) Functional quadriplegia Assessment/Plan: * assist in ADL's * sacral decubitus ulcer - reposition daily Visit type - Emergency Visit Emergency Visit: Yes ED Registration Date: 04/17/17 Care time: The patient presented to the Emergency Department on the above date and was hospitalized for further evaluation of their emergent condition. - New Patient This patient is new to me today: No - Critical Care Critical Care patient: No - Discharge Referral Referred to [facility] No
--- NOTE | 2017-05-15 12:02 | PN ---
Progress Note (short form) - Note Progress Note: Renal Follow up for DEYSI Pt seen and examined during dialysis BP was initially low and required albumin but improved throughout the treatment catheter functioning well Goal UF is 2L no overnight events remains on isolation Vital Signs Temperature 98.6 F 05/15/17 07:40 Pulse Rate 70 05/15/17 11:30 Respiratory Rate 18 05/15/17 11:30 Blood Pressure 138/56 05/15/17 11:30 O2 Sat by Pulse Oximetry (%) 100 05/14/17 21:00 Intake & Output 05/12/17 05/13/17 05/14/17 05/15/17 23:59 23:59 23:59 23:59 Intake Total 1170 1550 800 800 Balance 1170 1550 800 800 Weight 109 lb Gen: NAD, awake, non-verbal CVS: RRR, No M/R Lungs: CTA Abd: soft NT/ND Ext: Trace LE edema CBC, BMP 05/15/17 07:45 05/15/17 05:35 Current Medications Amlodipine Besylate (Norvasc -) 10 mg GT DAILY [facility] Last Admin: 05/14/17 10:34 Dose: 10 mg Insulin Aspart (Novolog Vial Sliding Scale -) 1 vial SQ Q6H APRIL PRN Reason: Protocol Last Admin: 05/15/17 11:24 Dose: Not Given Insulin Detemir (Levemir Vial) 15 units SQ AM [facility] Last Admin: 05/15/17 06:18 Dose: 15 units Pantoprazole Sodium (Protonix Packets For Oral Suspension -) 40 mg GT DAILY [facility] Last Admin: 05/14/17 10:34 Dose: 40 mg Potassium Phos/Sodium Phos (Phos-Nak Packet -) 1 packet GT BID [facility] Last Admin: 05/14/17 23:00 Dose: 1 packet Prednisone (Deltasone -) 30 mg GT DAILY [facility] Last Admin: 05/14/17 10:34 Dose: 30 mg A/P 61 year old woman with PMhx of NIDDM, Hypertension, PVD s/p R AKA, CVA now non- verbal and paralyzed who presented with abnormal outpatient labs that showed renal failure and increasing total body volume overload #Acute Renal Failure with Nephrotic Range Proteinuria and + PR3 aB Pt without signs of recovery at this time will continue maintenance dialysis 3x weekly AVG placement when isolation discontinued Taper prednisone Q weekly Dose all meds for intermittent HD #R/o occult infection/isolated Fever Quatiferion gold positive Gastric Lavage for AFB negative x 3 TB PCR pending ID follow up #Anemia Continue Epogen with dialysis #Hypophosphatemia Continue Neutraphos for now #Hypertension on Amlodpine Goal BP < 140/90 Jonathan Guzman DO
[2017-05-15] MEDS: amLODIPine BESYLATE 5 MG TABLET (FP) GT SCH (12:34)
[2017-05-15] MEDS: PANTOPRAZOLE SOD 40 MG SUSPENSION PACKET GT SCH (12:34)
[2017-05-15] MEDS: predniSONE 5 MG/5 ML ORAL SOLN- UNIT-DOSE CUP GT SCH (12:35)
[2017-05-15] MEDS: NAPH,MB-DB/K PH,MBDB POWDER PACKET GT SCH ×2 (12:35→21:31)
--- NOTE | 2017-05-15 13:21 | PN ---
Teaching Attending Note Name of Resident: Kodi Pritchett ATTENDING PHYSICIAN STATEMENT I saw and evaluated the patient. I reviewed the resident's note and discussed the case with the resident. I agree with the resident's findings and plan as documented. SUBJECTIVE: OBJECTIVE: Vital Signs Temperature 98.6 F 05/15/17 07:40 Pulse Rate 70 05/15/17 11:30 Respiratory Rate 18 05/15/17 11:30 Blood Pressure 138/56 05/15/17 11:30 O2 Sat by Pulse Oximetry (%) 100 05/14/17 21:00 ENERAL:nonverbal but awake. HEAD: NC/AT. ENT: moist mucous membranes. NECK: supple. permacath right chest. LUNGS:Scattered rhonchi, diminished bilat bases no wheezes, no crackles, no accessory muscle use. HEART: RRR,s1s2 normal 3/6 ANGELINA ABDOMEN: Soft, NT, ND, BS(+) PEG EXTREMITIES: Bilat. nonpitting edema upper ext. Bilat edema LE resolved.. R leg s/p AKA NEUROLOGICAL: non verbal. obtunded and contracted. functional quadriplegia CBC, BMP 05/15/17 07:45 05/15/17 05:35 ASSESSMENT AND PLAN: Acute Kidney Failure - secondary to nephrotic syndrome , improvement in cr level today , serology consistent with wegeners vs polyangiitis * taper prednisone * will need HD vascular access when TB is ruled out * monitor renal function daily * needs arrangement of OP HD Positive Quantiferon Gold * AFB from gastric lavage negative x 3 * PCR is still pending * prophylactic treatment * continue isolation for now * awaiting for pcr results Functional Quadriplegia * Turn & position frequently , decub prevention DM * c/w current meds Dispo : D/C home with arrangement of OP dialysis once isolation is discontinued Problem List - Problems (1) Acute kidney failure Code(s): N17.9 - ACUTE KIDNEY FAILURE, UNSPECIFIED (2) Functional quadriplegia Code(s): R53.2 - FUNCTIONAL QUADRIPLEGIA
[2017-05-16] MEDS: INSULIN SLIDING SCALE (NOVOLOG) 1 VIAL SQ SCH ×5 (00:28→22:00)
[2017-05-16] MEDS: INSULIN DETEMIR 100 UNITS/ML MDV SQ SCH (06:16)
[2017-05-16 08:32] LABS: ANION GAP 8 (8-16); CALCIUM 8.3 mg/dL (8.5-10.1); CO2 34 mmol/L (21-32); CREATININE 2.7 mg/dL (0.55-1.02); GLUCOSE,RANDOM 187 mg/dL (74-106)
[2017-05-16] MEDS: predniSONE 5 MG/5 ML ORAL SOLN- UNIT-DOSE CUP GT SCH (09:32)
[2017-05-16] MEDS: PANTOPRAZOLE SOD 40 MG SUSPENSION PACKET GT SCH (09:33)
[2017-05-16] MEDS: amLODIPine BESYLATE 5 MG TABLET (FP) GT SCH (09:33)
[2017-05-16] MEDS: NAPH,MB-DB/K PH,MBDB POWDER PACKET GT SCH (09:33)
--- NOTE | 2017-05-16 09:51 | PN ---
Progress Note (short form) - Note Progress Note: Renal Follow up for DEYSI Pt seen and examined at the bedside awake no overnight events s/p dialysis yesterday on isolation Vital Signs Temperature 97.9 F 05/16/17 06:04 Pulse Rate 82 05/16/17 06:04 Respiratory Rate 20 05/16/17 06:04 Blood Pressure 149/70 05/16/17 06:04 O2 Sat by Pulse Oximetry (%) 96 05/15/17 21:00 Intake & Output 05/13/17 05/14/17 05/15/17 05/16/17 23:59 23:59 23:59 23:59 Intake Total 6796 705 1698 100 Balance 1616 005 1833 100 Weight 109 lb 106 lb 6.4 oz Gen: NAD, awake, non-verbal CVS: RRR, No M/R Lungs: CTA Abd: soft NT/ND Ext: Trace LE edema CBC, BMP 05/15/17 07:45 05/16/17 05:35 Current Medications Amlodipine Besylate (Norvasc -) 10 mg GT DAILY [facility] Last Admin: 05/16/17 09:33 Dose: 10 mg Insulin Aspart (Novolog Vial Sliding Scale -) 1 vial SQ Q6H APRIL PRN Reason: Protocol Last Admin: 05/16/17 06:16 Dose: 6 units Insulin Detemir (Levemir Vial) 15 units SQ AM [facility] Last Admin: 05/16/17 06:16 Dose: 15 units Pantoprazole Sodium (Protonix Packets For Oral Suspension -) 40 mg GT DAILY [facility] Last Admin: 05/16/17 09:33 Dose: 40 mg Prednisone (Deltasone -) 30 mg GT DAILY [facility] Last Admin: 05/16/17 09:32 Dose: 30 mg Sodium Polystyrene Sulfonate (Kayexalate -) 15 gm GT ONCE ONE Stop: 05/16/17 09:49 A/P 61 year old woman with PMhx of NIDDM, Hypertension, PVD s/p R AKA, CVA now non- verbal and paralyzed who presented with abnormal outpatient labs that showed renal failure and increasing total body volume overload #Acute Renal Failure with Nephrotic Range Proteinuria and + PR3 aB s/p dialysis yesterday, tolerated it well K is elevated this am (? related to Neutra-phos) D/c Neutraphos (contains some K) Give Kayexalate 15g via GT continue Nephro tube feeds next dialysis is planned for Thursday #R/o occult infection/isolated Fever Quatiferion gold positive Gastric Lavage for AFB negative x 3 TB PCR pending ID follow up #Anemia Continue Epogen with dialysis #Hypophosphatemia holding Neutraphos Ternd phos dialy #Hypertension on Amlodpine Goal BP < 140/90 Jonathan Guzman DO
[2017-05-16] MEDS ORDERED: SODIUM POLYSTYRENE SULFONATE 15 GM/60 ML BOTTLE GT ONE (10:45)
--- NOTE | 2017-05-16 12:10 | PN ---
Physical Exam: SUBJECTIVE: Patient seen and examined. OBJECTIVE: no acute events Vital Signs Period Temp Pulse Resp BP Sys/Daniel Pulse Ox Last 24 Hr 97.8 F-98.9 F 68-91 18-20 122-162/40-81 96-98 ENERAL:nonverbal but awake. HEAD: NC/AT. ENT: moist mucous membranes. NECK: supple. permacath right chest. LUNGS:Scattered rhonchi, diminished bilat bases no wheezes, no crackles, no accessory muscle use. HEART: RRR,s1s2 normal 3/6 ANGELINA ABDOMEN: Soft, NT, ND, BS(+) PEG EXTREMITIES: Bilat. nonpitting edema upper ext. Bilat edema LE resolved.. R leg s/p AKA NEUROLOGICAL: non verbal. obtunded and contracted. functional quadriplegia Laboratory Results - last 24 hr 05/15/17 05/16/17 05/16/17 15:59 00:12 05:35 Sodium 142 Potassium 5.3 H D Chloride 100 Carbon Dioxide 34 H Anion Gap 8 BUN 28 H D Creatinine 2.7 H D POC Glucometer 201 198 Random Glucose 187 H D Calcium 8.3 L 05/16/17 06:10 Sodium Potassium Chloride Carbon Dioxide Anion Gap BUN Creatinine POC Glucometer 213 Random Glucose Calcium Active Medications Generic Name Dose Route Start Last Admin Trade Name Freq PRN Reason Stop Dose Admin Amlodipine Besylate 10 mg 05/01/17 14:30 05/16/17 09:33 Norvasc - GT 10 mg DAILY PARIL Administration Insulin Aspart 1 vial 04/30/17 17:30 05/16/17 11:34 Novolog Vial Sliding Scale - SQ 4 units Q6H APRIL Administration Protocol Insulin Detemir 15 units 05/10/17 07:38 05/16/17 06:16 Levemir Vial SQ 15 units AM APRIL Administration Pantoprazole Sodium 40 mg 05/01/17 10:00 05/16/17 09:33 Protonix Packets For Oral Suspension - GT 40 mg DAILY APRIL Administration Prednisone 30 mg 05/12/17 10:00 05/16/17 09:32 Deltasone - GT 30 mg DAILY APRIL Administration ASSESSMENT/PLAN: Acute Kidney Failure - secondary to nephrotic syndrome , improvement in cr level today , serology consistent with wegeners vs polyangiitis * taper prednisone * will need HD vascular access when TB is ruled out * monitor renal function daily * needs arrangement of OP HD Positive Quantiferon Gold * AFB from gastric lavage negative x 3 * PCR is still pending * prophylactic treatment * continue isolation for now * awaiting for final pcr results, should be resulted thursday Functional Quadriplegia * Turn & position frequently , decub prevention DM * c/w current meds Dispo : D/C home with arrangement of OP dialysis once isolation is discontinued Problem List - Problems (1) Acute kidney failure Code(s): N17.9 - ACUTE KIDNEY FAILURE, UNSPECIFIED (2) Functional quadriplegia Code(s): R53.2 - FUNCTIONAL QUADRIPLEGIA Visit type - Emergency Visit Emergency Visit: No - New Patient This patient is new to me today: No - Critical Care Critical Care patient: No - Discharge Referral Referred to [facility] Med [facility] No
[2017-05-17] MEDS: INSULIN DETEMIR 100 UNITS/ML MDV SQ SCH (06:00)
[2017-05-17] MEDS: INSULIN SLIDING SCALE (NOVOLOG) 1 VIAL SQ SCH ×4 (06:00→23:00)
[2017-05-17 07:46] LABS: ANION GAP 9 (8-16); CALCIUM 8.4 mg/dL (8.5-10.1); CO2 34 mmol/L (21-32); CREATININE 3.9 mg/dL (0.55-1.02); GLUCOSE,RANDOM 140 mg/dL (74-106); MAGNESIUM 2.8 mg/dL (1.8-2.4); PHOSPHOROUS 4.4 mg/dL (2.5-4.9)
--- NOTE | 2017-05-17 09:16 | PN ---
Physical Exam: SUBJECTIVE: Patient seen and examined at bedside. Son present. OBJECTIVE: Vital Signs Period Temp Pulse Resp BP Sys/Daniel Pulse Ox Last 24 Hr 97.9 F-98.9 F 68-72 18-20 122-138/49-75 98 GENERAL/NEURO: The patient is awake, non verbal at baseline; does not follow commands HEAD: Normal with no signs of trauma. EYES: PERRL, sclera anicteric, conjunctiva clear. No ptosis. LUNGS: Breath sounds equal, clear to auscultation bilaterally, no wheezes, no crackles, no accessory muscle use. HEART: Regular rate and rhythm, S1, S2 without murmur, rub or gallop. ABDOMEN: Soft, nontender, nondistended, normoactive bowel sounds, no guarding, no rebound; PEG present, surrounding skin intact RLE: AKA, well-healed scar LLE: 2+ pulses, warm, well-perfused, no edema. Laboratory Results - last 24 hr 05/16/17 05/16/17 05/16/17 11:32 16:44 21:54 Sodium Potassium Chloride Carbon Dioxide Anion Gap BUN Creatinine POC Glucometer 247 160 215 Random Glucose Calcium Phosphorus Magnesium 05/17/17 05/17/17 05:35 05:53 Sodium 142 Potassium 3.9 D Chloride 99 Carbon Dioxide 34 H Anion Gap 9 BUN 46 H D Creatinine 3.9 H D POC Glucometer 150 Random Glucose 140 H D Calcium 8.4 L Phosphorus 4.4 Magnesium 2.8 H D Active Medications Generic Name Dose Route Start Last Admin Trade Name Freq PRN Reason Stop Dose Admin Amlodipine Besylate 10 mg 05/01/17 14:30 05/16/17 09:33 Norvasc - GT 10 mg DAILY APRIL Administration Insulin Aspart 1 vial 04/30/17 17:30 05/17/17 06:00 Novolog Vial Sliding Scale - SQ Not Given Q6H [facility] Protocol Insulin Detemir 15 units 05/10/17 07:38 05/17/17 06:00 Levemir Vial SQ 15 units AM APRIL Administration Pantoprazole Sodium 40 mg 05/01/17 10:00 05/16/17 09:33 Protonix Packets For Oral Suspension - GT 40 mg DAILY APRIL Administration Prednisone 30 mg 05/12/17 10:00 05/16/17 09:32 Deltasone - GT 30 mg DAILY APRIL Administration ASSESSMENT/PLAN 61 year-old woman with PMH of HTN, IDDM, PVD s/p R AKA, CVA non-verbal and paralyzed who presented with abnormal outpatient labs that showed renal failure and increasing total body volume overload Acute Kidney Failure secondary to nephrotic syndrome --continue prednisone --HD tomorrow --will need HD vascular access when TB is ruled out Hypertension --BP well-controlled --continue amlodipine r/o occult infection/isolated fever Positive Quantiferon Gold --AFB from gastric lavage negative x 3 --PCR is still pending s/p CVA Functional quadriplegia --dependent for all ADLs IDDM --continue Levemir qAM --Novolog sliding scale coverage Anemia --continue Epogen with dialysis Dispo: continues to require inpatient care. Full code. Visit type - Emergency Visit Emergency Visit: Yes ED Registration Date: 04/17/17 Care time: The patient presented to the Emergency Department on the above date and was hospitalized for further evaluation of their emergent condition. - New Patient This patient is new to me today: Yes Date on this admission: 05/17/17 - Critical Care Critical Care patient: No
[2017-05-17] MEDS: amLODIPine BESYLATE 5 MG TABLET (FP) GT SCH (11:20)
[2017-05-17] MEDS: PANTOPRAZOLE SOD 40 MG SUSPENSION PACKET GT SCH (11:20)
[2017-05-17] MEDS: predniSONE 5 MG/5 ML ORAL SOLN- UNIT-DOSE CUP GT SCH (11:20)
[2017-05-18] MEDS: INSULIN SLIDING SCALE (NOVOLOG) 1 VIAL SQ SCH ×4 (01:15→17:26)
[2017-05-18] MEDS: INSULIN DETEMIR 100 UNITS/ML MDV SQ SCH (06:11)
[2017-05-18 07:47] LABS: BASOPHIL 0.8 % (0-2.0); EOSINOPHIL 5.7 % (0-4.5); MCH 29.5 pg (25.7-33.7); MCHC 32.6 g/dl (32.0-36.0); MEAN CELL VOLUME 90.4 fl (80-96); MEAN PLT VOLUME 9.5 fl (7.5-11.1); NEUTROPHILS 66.6 % (42.8-82.8); PLATELET COUNT 131 K/MM3 (134-434); RDW 14.8 % (11.6-15.6)
[2017-05-18 08:01] LABS: ALBUMIN 2.5 g/dl (3.4-5.0); ALK PHOS 167 U/L (45-117); ANION GAP 8 (8-16); BILIRUBIN,TOTAL 0.7 mg/dL (0.2-1.0); CALCIUM 8.2 mg/dL (8.5-10.1); CO2 36 mmol/L (21-32); CREATININE 4.9 mg/dL (0.55-1.02); GLUCOSE,RANDOM 75 mg/dL (74-106); MAGNESIUM 3.2 mg/dL (1.8-2.4); SGOT/AST 14 U/L (15-37); SGPT/ALT 13 U/L (12-78); TOT PROT 5.3 g/dl (6.4-8.2)
[2017-05-18 08:56] LABS: PHOSPHOROUS 5.6 mg/dL (2.5-4.9)
[2017-05-18] MEDS: predniSONE 5 MG/5 ML ORAL SOLN- UNIT-DOSE CUP GT SCH ×2 (09:37→16:28)
[2017-05-18] MEDS: amLODIPine BESYLATE 5 MG TABLET (FP) GT SCH (09:38)
[2017-05-18] MEDS: PANTOPRAZOLE SOD 40 MG SUSPENSION PACKET GT SCH ×2 (09:38→16:28)
--- NOTE | 2017-05-18 11:31 | PN ---
Progress Note (short form) - Note Progress Note: Renal Follow up for DEYSI Pt seen and examined during dialysis BP stable, goal UF is 2.5L catheter with good function no overnight events daughter at the bedside Vital Signs Temperature 98.2 F 05/18/17 09:55 Pulse Rate 52 L 05/18/17 10:30 Respiratory Rate 18 05/18/17 10:30 Blood Pressure 70/40 05/18/17 10:30 O2 Sat by Pulse Oximetry (%) 98 05/16/17 21:00 Intake & Output 05/15/17 05/16/17 05/17/17 05/18/17 23:59 23:59 23:59 23:59 Intake Total 1000 1180 390 65 Balance 1000 1180 390 65 Weight 109 lb 106 lb 6.4 oz 106 lb 3.2 oz 107 lb 3.2 oz Gen: NAD, awake, non-verbal CVS: RRR, No M/R Lungs: CTA Abd: soft NT/ND Ext: Trace LE edema CBC, BMP 05/18/17 05:35 05/18/17 05:35 Laboratory Tests 05/16/17 05/18/17 05:35 05:35 Calcium 8.3 L Phosphorus 5.6 H D Magnesium 3.2 H Albumin 2.5 L Current Medications Amlodipine Besylate (Norvasc -) 10 mg GT DAILY [facility] Last Admin: 05/18/17 09:38 Dose: Not Given Epoetin Miguel (Procrit -) 6,000 unit IVPUSH ONCE ONE Stop: 05/18/17 12:01 Insulin Aspart (Novolog Vial Sliding Scale -) 1 vial SQ Q6H [facility] PRN Reason: Protocol Last Admin: 05/18/17 06:09 Dose: Not Given Insulin Detemir (Levemir Vial) 15 units SQ AM [facility] Last Admin: 05/18/17 06:11 Dose: Not Given Pantoprazole Sodium (Protonix Packets For Oral Suspension -) 40 mg GT DAILY [facility] Last Admin: 05/18/17 09:38 Dose: Not Given Prednisone (Deltasone -) 30 mg GT DAILY [facility] Last Admin: 05/18/17 09:37 Dose: Not Given A/P 61 year old woman with PMhx of NIDDM, Hypertension, PVD s/p R AKA, CVA now non- verbal and paralyzed who presented with abnormal outpatient labs that showed renal failure and increasing total body volume overload #Acute Renal Failure with Nephrotic Range Proteinuria and + PR3 aB tolerating dialysis well today AVG placement once TB is ruled out Dose all meds for intermittent HD #R/o occult infection/isolated Fever Quatiferion gold positive Gastric Lavage for AFB negative x 3 TB PCR pending ID follow up #Anemia Continue Epogen with dialysis #Hypophosphatemia Phos level elevated today off supplament Trend for now #Hypertension on Amlodpine Goal BP < 140/90 Jonathan Guzman DO
[2017-05-18] MEDS ORDERED: EPOETIN ALFA 3,000 UNIT/1 ML ML IVPUSH ONE (12:00)
--- NOTE | 2017-05-18 13:25 | PN ---
Physical Exam: SUBJECTIVE: Patient seen and examined at bedside. No overnight events. nonverbal ,lying comfortably and alert. OBJECTIVE: Vital Signs Period Temp Pulse Resp BP Sys/Daniel Pulse Ox Last 24 Hr 97.6 F-98.6 F 62-85 18-20 70-149/40-88 GENERAL:nonverbal but awake. HEAD: NC/AT. ENT: moist mucous membranes. NECK: supple. permacath right chest. LUNGS:Scattered rhonchi, diminished bilat bases no wheezes, no crackles, no accessory muscle use. HEART: RRR,s1s2 normal 3/6 ANGELINA ABDOMEN: Soft, NT, ND, BS(+) PEG EXTREMITIES: No edema, 2+ DP of left LE. R leg s/p AKA NEUROLOGICAL: non verbal. alert and awake. contracted. functional quadriplegia Laboratory Results - last 24 hr 05/17/17 05/18/17 05/18/17 22:01 05:35 05:35 WBC 9.0 RBC 3.26 L Hgb 9.6 L Hct 29.5 L MCV 90.4 MCHC 32.6 RDW 14.8 Plt Count 131 L MPV 9.5 Neutrophils % 66.6 Lymphocytes % 18.7 D Monocytes % 8.2 Eosinophils % 5.7 H D Basophils % 0.8 Sodium 142 Potassium 4.7 D Chloride 98 Carbon Dioxide 36 H Anion Gap 8 BUN 66 H D Creatinine 4.9 H D Creat Clearance w eGFR 8.98 POC Glucometer 209 Random Glucose 75 D Calcium 8.2 L Phosphorus 5.6 H D Magnesium 3.2 H Total Bilirubin 0.7 D AST 14 L ALT 13 Alkaline Phosphatase 167 H Total Protein 5.3 L Albumin 2.5 L 05/18/17 05/18/17 05/18/17 05:35 05:57 11:43 WBC RBC Hgb Hct MCV MCHC RDW Plt Count MPV Neutrophils % Lymphocytes % Monocytes % Eosinophils % Basophils % Sodium Potassium Chloride Carbon Dioxide Anion Gap BUN Creatinine Creat Clearance w eGFR POC Glucometer 101 249 Random Glucose Calcium Phosphorus Cancelled Magnesium Total Bilirubin AST ALT Alkaline Phosphatase Total Protein Albumin Active Medications Generic Name Dose Route Start Last Admin Trade Name Freq PRN Reason Stop Dose Admin Amlodipine Besylate 10 mg 05/01/17 14:30 05/18/17 09:38 Norvasc - GT Not Given DAILY APRIL Insulin Aspart 1 vial 04/30/17 17:30 05/18/17 11:59 Novolog Vial Sliding Scale - SQ Not Given Q6H [facility] Protocol Insulin Detemir 15 units 05/10/17 07:38 05/18/17 06:11 Levemir Vial SQ Not Given AM [facility] Pantoprazole Sodium 40 mg 05/01/17 10:00 05/18/17 09:38 Protonix Packets For Oral Suspension - GT Not Given DAILY [facility] Prednisone 30 mg 05/12/17 10:00 05/18/17 09:37 Deltasone - GT Not Given DAILY [facility] ASSESSMENT/PLAN: 61 yo F with pmhx of CVA, NIDDM, HTN, HLD, admitted for acute renal failure Problem List - Problems (1) Positive QuantiFERON-TB Gold test Assessment/Plan: * Isolation continued * TB PCR pending * 3 samples taken from gastric content have been (-) * Waiting to place AVG for dialysis (2) Renal failure Assessment/Plan: * Dialyze today. * We are looking for outpatient dialysis center that can accommodate her to discharge her. 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 (3) Non-insulin dependent type 2 diabetes mellitus Assessment/Plan: * Increase in serum glucose result of IV steroids * Continue Levamir to 15 units * Continue Nepro tube feed via peg * NISS * BGM Q6H (4) HTN (hypertension) Assessment/Plan: * Amlodipine to 10mg PO daily (5) Functional quadriplegia Assessment/Plan: * assist in ADL's * sacral decubitus ulcer - reposition daily Visit type - Emergency Visit Emergency Visit: Yes ED Registration Date: 04/17/17 Care time: The patient presented to the Emergency Department on the above date and was hospitalized for further evaluation of their emergent condition. - New Patient This patient is new to me today: No - Critical Care Critical Care patient: No - Discharge Referral Referred to [facility] Med P.C.: No
[2017-05-18] MEDS ORDERED: PT OWN MED DRAWER 7, Y5N ONE (16:46)
--- NOTE | 2017-05-18 17:42 | PN ---
Teaching Attending Note Name of Resident: Kodi Pritchett ATTENDING PHYSICIAN STATEMENT I saw and evaluated the patient. I reviewed the resident's note and discussed the case with the resident. I agree with the resident's findings and plan as documented. SUBJECTIVE: no events over night OBJECTIVE: NAD, non verbal , contracted. looks comfortable, more alert today CV: RRR, 3/6 SM at apex. Lungs: unable to evaluate R hemithorax due to HD cath. celar anteriorly ovr L hemithorax Ext: contracted upper ext. No edema on LE . AKA on R . ASSESSMENT AND PLAN: 61 y/o lady with h/o CVA , NIDDM, HTN, HLP, who presented after her out pt labs showed renal failure. 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 cont prednisone taper for more permanent HD access later this admission 2- R/O TB : gastric fluid smear Neg x3 PCR pending 3- complicated UTI : completed abx , no more fever 4- DM : cont current regimen levemir and SSI 5- HTN : cont norvasc HLOC
--- NOTE | 2017-05-18 19:41 | PN ---
Progress Note (short form) - Note Progress Note: Vascular Surgery Pt seen and examined. Will be on standby for avg placement once cleared. Robin Aviles DO
[2017-05-19] MEDS: NYSTATIN 100,000 UNIT/GM TOPICAL CREAM 15 GM TUBE TP SCH ×3 (01:16→21:30)
[2017-05-19] MEDS: INSULIN SLIDING SCALE (NOVOLOG) 1 VIAL SQ SCH ×4 (06:10→23:00)
[2017-05-19] MEDS: INSULIN DETEMIR 100 UNITS/ML MDV SQ SCH (06:26)
[2017-05-19 07:41] LABS: MCH 29.5 pg (25.7-33.7); MCHC 32.6 g/dl (32.0-36.0); MEAN CELL VOLUME 90.5 fl (80-96); MEAN PLT VOLUME 9.5 fl (7.5-11.1); PLATELET COUNT 73 K/MM3 (134-434); RDW 14.5 % (11.6-15.6); WHITE BLOOD COUNT 7.8 K/mm3 (4.0-10.0)
[2017-05-19 09:17] LABS: ALK PHOS 192 U/L (45-117); ANION GAP 10 (8-16); CALCIUM 8.3 mg/dL (8.5-10.1); CO2 31 mmol/L (21-32); CREATININE 3.2 mg/dL (0.55-1.02)
[2017-05-19 09:22] LABS: GLUCOSE,RANDOM 400 mg/dL (74-106)
[2017-05-19] MEDS: PANTOPRAZOLE SOD 40 MG SUSPENSION PACKET GT SCH (10:00)
[2017-05-19] MEDS: predniSONE 5 MG/5 ML ORAL SOLN- UNIT-DOSE CUP GT SCH (10:00)
[2017-05-19] MEDS: amLODIPine BESYLATE 5 MG TABLET (FP) GT SCH (10:00)
--- NOTE | 2017-05-19 11:22 | PN ---
Progress Note (short form) - Note Progress Note: Renal Follow up for DEYSI Pt seen and examined at the bedside awake and alert no overnight events s/p dialysis yesterday Vital Signs Temperature 99.0 F 05/19/17 06:00 Pulse Rate 90 05/19/17 06:00 Respiratory Rate 20 05/19/17 06:00 Blood Pressure 154/74 05/19/17 06:00 O2 Sat by Pulse Oximetry (%) 95 05/18/17 21:00 Intake & Output 05/16/17 05/17/17 05/18/17 05/19/17 23:59 23:59 23:59 23:59 Intake Total 1180 390 65 800 Balance 1180 390 65 800 Weight 106 lb 6.4 oz 106 lb 3.2 oz 107 lb 3.2 oz 105 lb 6.4 oz Gen: NAD, awake, non-verbal CVS: RRR, No M/R Lungs: CTA Abd: soft NT/ND Ext: Trace LE edema CBC, BMP 05/19/17 07:00 05/19/17 05:40 Current Medications Amlodipine Besylate (Norvasc -) 10 mg GT DAILY [facility] Last Admin: 05/18/17 09:38 Dose: Not Given Insulin Aspart (Novolog Vial Sliding Scale -) 1 vial SQ Q6H [facility] PRN Reason: Protocol Last Admin: 05/19/17 06:10 Dose: 8 units Insulin Detemir (Levemir Vial) 15 units SQ AM [facility] Last Admin: 05/19/17 06:26 Dose: 15 units Nystatin (Mycostatin Cream -) 1 applic TP BID [facility] Last Admin: 05/19/17 01:16 Dose: 1 applic Pantoprazole Sodium (Protonix Packets For Oral Suspension -) 40 mg GT DAILY [facility] Last Admin: 05/18/17 16:28 Dose: 40 mg Prednisone (Deltasone -) 20 mg GT DAILY [facility] A/P 61 year old woman with PMhx of NIDDM, Hypertension, PVD s/p R AKA, CVA now non- verbal and paralyzed who presented with abnormal outpatient labs that showed renal failure and increasing total body volume overload #Acute Renal Failure with Nephrotic Range Proteinuria and + PR3 aB no acute indication for dialysis today, next treatment planned for tomorrow will decrease prednisone to 20mg Daily AVG placement when cleared for surgery #R/o occult infection/isolated Fever Quatiferion gold positive Gastric Lavage for AFB negative x 3 TB PCR pending ID follow up #Anemia Continue Epogen with dialysis #Hypophosphatemia Trend phos levels #Hypertension on Amlodpine Goal BP < 140/90 Jonathan Guzman DO
--- NOTE | 2017-05-19 12:49 | PN ---
Teaching Attending Note Name of Resident: Kodi Pritchett ATTENDING PHYSICIAN STATEMENT I saw and evaluated the patient. I reviewed the resident's note and discussed the case with the resident. I agree with the resident's findings and plan as documented. SUBJECTIVE: no events over night OBJECTIVE: NAD, non verbal , contracted. looks comfortable, alert CV: RRR, 3/6 SM at apex. Lungs:decreased breath sounds at bases with minimal crackles at bases Ext: contracted upper ext. No edema on LE . AKA on R . ASSESSMENT AND PLAN: 61 y/o lady with h/o CVA , NIDDM, HTN, HLP, who presented after her out pt labs showed renal failure. 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 cont prednisone taper , 20 mg day 1 for more AV graft later this admission 2- R/O TB : gastric fluid smear Neg x3 PCR pending 3- Complicated UTI : completed abx , no more fever 4- DM : one AM sugar of 400 , with NL AG . last AM sugar of 101. will monitor on current regimen and reasses the need for insulin adjustment . expect sugar to improve with tapering steroids 5- HTN : cont norvasc HLOC
[2017-05-19] MEDS: HYDROCORTISONE 1% TOPICAL CREAM 30 GM TUBE TP PRN (14:00)
--- NOTE | 2017-05-19 14:25 | PN ---
Physical Exam: SUBJECTIVE: Patient seen and examined at bedside. No overnight events. nonverbal ,lying comfortably and alert. OBJECTIVE: Vital Signs Period Temp Pulse Resp BP Sys/Daniel Pulse Ox Last 24 Hr 97.9 F-99.2 F 74-90 18-20 115-154/55-78 94-95 GENERAL:nonverbal but awake. HEAD: NC/AT. ENT: moist mucous membranes. NECK: supple. permacath right chest. LUNGS:Scattered rhonchi, diminished bilat bases no wheezes, no crackles, no accessory muscle use. HEART: RRR,s1s2 normal 3/6 ANGELINA ABDOMEN: Soft, NT, ND, BS(+) PEG EXTREMITIES: No edema, 2+ DP of left LE. R leg s/p AKA NEUROLOGICAL: non verbal. alert and awake. contracted. functional quadriplegia Laboratory Results - last 24 hr 05/18/17 05/18/17 05/19/17 17:23 22:04 05:40 WBC RBC Hgb Hct MCV MCHC RDW Plt Count MPV Sodium 139 Potassium 3.4 L D Chloride 98 Carbon Dioxide 31 Anion Gap 10 BUN 37 H D Creatinine 3.2 H D POC Glucometer 374 317 Random Glucose 400 H* D Calcium 8.3 L GGT 13 Alkaline Phosphatase 192 H 05/19/17 05/19/17 05/19/17 06:07 07:00 11:34 WBC 7.8 RBC 3.46 L Hgb 10.2 L Hct 31.3 L MCV 90.5 MCHC 32.6 RDW 14.5 Plt Count 73 L D MPV 9.5 Sodium Potassium Chloride Carbon Dioxide Anion Gap BUN Creatinine POC Glucometer 379 233 Random Glucose Calcium GGT Alkaline Phosphatase Active Medications Generic Name Dose Route Start Last Admin Trade Name Freq PRN Reason Stop Dose Admin Amlodipine Besylate 10 mg 05/01/17 14:30 05/19/17 10:00 Norvasc - GT 10 mg DAILY APRIL Administration Epoetin Miguel 6,000 units 05/20/17 08:00 Epogen - IVPUSH 05/20/17 08:01 ONCE ONE Hydrocortisone 1 applic 05/19/17 11:31 Hytone 1% Cream - TP BID PRN FOR ITCHING Insulin Aspart 1 vial 04/30/17 17:30 05/19/17 11:48 Novolog Vial Sliding Scale - SQ 4 units Q6H [facility]IL Administration Protocol Insulin Detemir 15 units 05/10/17 07:38 05/19/17 06:26 Levemir Vial SQ 15 units AM [facility] Administration Nystatin 1 applic 05/18/17 22:00 05/19/17 01:16 Mycostatin Cream - TP 1 applic BID [facility]IL Administration Pantoprazole Sodium 40 mg 05/01/17 10:00 05/19/17 10:00 Protonix Packets For Oral Suspension - GT 40 mg DAILY [facility] Administration Prednisone 20 mg 05/19/17 10:15 05/19/17 10:00 Deltasone - GT 20 mg DAILY [facility] Administration ASSESSMENT/PLAN: 61 yo F with pmhx of CVA, NIDDM, HTN, HLD, admitted for acute renal failure Problem List - Problems (1) Positive QuantiFERON-TB Gold test Assessment/Plan: * Isolation continued * TB PCR pending * 3 samples taken from gastric content have been (-) * Waiting to place AVG for dialysis (2) Renal failure Assessment/Plan: * Dialyze yesterday * We are looking for outpatient dialysis center that can accommodate her to discharge her. * Continue prednisone @ 20mg/day will nallely 10mg/week 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 * Renal consult appreciated. (3) Non-insulin dependent type 2 diabetes mellitus Assessment/Plan: * Increase in serum glucose result of IV steroids * Continue Levamir to 15 units * Continue Nepro tube feed via peg * NISS * BGM Q6H (4) HTN (hypertension) Assessment/Plan: * Amlodipine to 10mg PO daily (5) Functional quadriplegia Assessment/Plan: * assist in ADL's * sacral decubitus ulcer - reposition daily Visit type - Emergency Visit Emergency Visit: Yes ED Registration Date: 04/17/17 Care time: The patient presented to the Emergency Department on the above date and was hospitalized for further evaluation of their emergent condition. - New Patient This patient is new to me today: No - Critical Care Critical Care patient: No - Discharge Referral Referred to [facility] Med P.C.: No
[2017-05-20] MEDS: INSULIN SLIDING SCALE (NOVOLOG) 1 VIAL SQ SCH ×4 (06:55→23:04)
[2017-05-20] MEDS: INSULIN DETEMIR 100 UNITS/ML MDV SQ SCH (06:56)
[2017-05-20 07:39] LABS: MCH 29.3 pg (25.7-33.7); MCHC 32.5 g/dl (32.0-36.0); MEAN CELL VOLUME 89.9 fl (80-96); MEAN PLT VOLUME 9.6 fl (7.5-11.1); PLATELET COUNT 103 K/MM3 (134-434); RDW 14.7 % (11.6-15.6); WHITE BLOOD COUNT 8.2 K/mm3 (4.0-10.0)
[2017-05-20 08:25] LABS: ALBUMIN 2.4 g/dl (3.4-5.0); PHOSPHOROUS 3.9 mg/dL (2.5-4.9); SGOT/AST 12 U/L (15-37)
[2017-05-20] MEDS ORDERED: EPOETIN ALFA 3,000 UNIT/1 ML ML IVPUSH ONE (08:30)
[2017-05-20 08:31] LABS: ALK PHOS 208 U/L (45-117); ANION GAP 9 (8-16); BILIRUBIN,TOTAL 0.3 mg/dL (0.2-1.0); CALCIUM 8.1 mg/dL (8.5-10.1); CO2 33 mmol/L (21-32); CREATININE 4.3 mg/dL (0.55-1.02); SGPT/ALT 13 U/L (12-78); TOT PROT 5.3 g/dl (6.4-8.2)
[2017-05-20 09:01] LABS: GLUCOSE,RANDOM 305 mg/dL (74-106)
--- NOTE | 2017-05-20 11:07 | PN ---
Physical Exam: SUBJECTIVE:Patient seen and examined at bedside. No overnight events. nonverbal ,lying comfortably and alert. OBJECTIVE: Vital Signs Period Temp Pulse Resp BP Sys/Daniel Pulse Ox Last 24 Hr 97.0 F-98.6 F 65-85 18-20 92-154/48-67 96 GENERAL:nonverbal but awake. HEAD: NC/AT. ENT: moist mucous membranes. NECK: supple. permacath right chest. LUNGS:Scattered rhonchi, diminished bilat bases no wheezes, no crackles, no accessory muscle use. HEART: RRR,s1s2 normal 3/6 ANGELINA ABDOMEN: Soft, NT, ND, BS(+) PEG EXTREMITIES: No edema, 2+ DP of left LE. R leg s/p AKA NEUROLOGICAL: non verbal. alert and awake. contracted. functional quadriplegia Laboratory Results - last 24 hr 05/19/17 05/19/17 05/19/17 11:34 15:43 22:53 WBC RBC Hgb Hct MCV MCHC RDW Plt Count MPV Sodium Potassium Chloride Carbon Dioxide Anion Gap BUN Creatinine Creat Clearance w eGFR POC Glucometer 233 236 393 Random Glucose Calcium Phosphorus Total Bilirubin AST ALT Alkaline Phosphatase Total Protein Albumin 05/20/17 05/20/17 05/20/17 05:48 07:00 07:00 WBC 8.2 RBC 3.20 L Hgb 9.4 L Hct 28.8 L MCV 89.9 MCHC 32.5 RDW 14.7 Plt Count 103 L D MPV 9.6 Sodium 138 Potassium 3.5 Chloride 96 L Carbon Dioxide 33 H Anion Gap 9 BUN 62 H D Creatinine 4.3 H D Creat Clearance w eGFR 10.44 POC Glucometer 347 Random Glucose 305 H* D Calcium 8.1 L Phosphorus 3.9 D Total Bilirubin 0.3 D AST 12 L ALT 13 Alkaline Phosphatase 208 H Total Protein 5.3 L Albumin 2.4 L Active Medications Generic Name Dose Route Start Last Admin Trade Name Freq PRN Reason Stop Dose Admin Amlodipine Besylate 10 mg 05/01/17 14:30 05/19/17 10:00 Norvasc - GT 10 mg DAILY APRIL Administration Hydrocortisone 1 applic 05/19/17 11:31 05/19/17 14:00 Hytone 1% Cream - TP 1 applic BID PRN Administration FOR ITCHING Insulin Aspart 1 vial 04/30/17 17:30 05/20/17 06:55 Novolog Vial Sliding Scale - SQ 8 units Q6H APRIL Administration Protocol Insulin Detemir 15 units 05/10/17 07:38 05/20/17 06:56 Levemir Vial SQ 15 units AM [facility] Administration Nystatin 1 applic 05/18/17 22:00 05/19/17 21:30 Mycostatin Cream - TP 1 applic BID APRIL Administration Pantoprazole Sodium 40 mg 05/01/17 10:00 05/19/17 10:00 Protonix Packets For Oral Suspension - GT 40 mg DAILY [facility] Administration Prednisone 20 mg 05/19/17 10:15 05/19/17 10:00 Deltasone - GT 20 mg DAILY [facility] Administration ASSESSMENT/PLAN: 61 yo F with pmhx of CVA, NIDDM, HTN, HLD, admitted for acute renal failure Problem List - Problems (1) Positive QuantiFERON-TB Gold test Assessment/Plan: * TB PCR is negative * Isolation discontinued. * 3 samples taken from gastric content have been (-) * AVG for dialysis (2) Renal failure Assessment/Plan: * Dialyze today * We are looking for outpatient dialysis center that can accommodate her to discharge her. * Continue prednisone @ 20mg/day will nallely 10mg/week 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 * Renal consult appreciated. (3) Non-insulin dependent type 2 diabetes mellitus Assessment/Plan: * Increase in serum glucose result of IV steroids * Continue Levamir to 15 units * Continue Nepro tube feed via peg * NISS * BGM Q6H (4) HTN (hypertension) Assessment/Plan: * Amlodipine to 10mg PO daily (5) Functional quadriplegia Assessment/Plan: * assist in ADL's * sacral decubitus ulcer - reposition daily Visit type - Emergency Visit Emergency Visit: Yes ED Registration Date: 04/17/17 Care time: The patient presented to the Emergency Department on the above date and was hospitalized for further evaluation of their emergent condition. - New Patient This patient is new to me today: No - Critical Care Critical Care patient: No
--- NOTE | 2017-05-20 11:12 | PN ---
Progress Note (short form) - Note Progress Note: VAscular Surgery Pt cleared for avg Will place on thursday at 230pm. Robin Aviles DO
--- NOTE | 2017-05-20 11:19 | PN ---
Teaching Attending Note Name of Resident: Kodi Pritchett ATTENDING PHYSICIAN STATEMENT I saw and evaluated the patient. I reviewed the resident's note and discussed the case with the resident. I agree with the resident's findings and plan as documented. SUBJECTIVE: Patient is more awake, but nonverbal, just stares around. Daughter at bedside. OBJECTIVE: Vital Signs Temperature 98.3 F 05/20/17 06:55 Pulse Rate 69 05/20/17 09:30 Respiratory Rate 18 05/20/17 09:30 Blood Pressure 92/49 05/20/17 09:30 O2 Sat by Pulse Oximetry (%) 96 05/19/17 21:00 CBCD WBC 8.2 K/mm3 (4.0-10.0) 05/20/17 07:00 RBC 3.20 M/mm3 (3.60-5.2) L 05/20/17 07:00 Hgb 9.4 GM/dL (10.7-15.3) L 05/20/17 07:00 Hct 28.8 % (32.4-45.2) L 05/20/17 07:00 MCV 89.9 fl (80-96) 05/20/17 07:00 MCHC 32.5 g/dl (32.0-36.0) 05/20/17 07:00 RDW 14.7 % (11.6-15.6) 05/20/17 07:00 Plt Count 103 K/MM3 (134-434) L D 05/20/17 07:00 MPV 9.6 fl (7.5-11.1) 05/20/17 07:00 CMP Sodium 138 mmol/L (136-145) 05/20/17 07:00 Potassium 3.5 mmol/L (3.5-5.1) 05/20/17 07:00 Chloride 96 mmol/L (98-107) L 05/20/17 07:00 Carbon Dioxide 33 mmol/L (21-32) H 05/20/17 07:00 Anion Gap 9 (8-16) 05/20/17 07:00 BUN 62 mg/dL (7-18) H D 05/20/17 07:00 Creatinine 4.3 mg/dL (0.55-1.02) H D 05/20/17 07:00 Creat Clearance w eGFR 10.44 (>60) 05/20/17 07:00 Random Glucose 305 mg/dL (74-106) H* D 05/20/17 07:00 Calcium 8.1 mg/dL (8.5-10.1) L 05/20/17 07:00 Total Bilirubin 0.3 mg/dL (0.2-1.0) D 05/20/17 07:00 AST 12 U/L (15-37) L 05/20/17 07:00 ALT 13 U/L (12-78) 05/20/17 07:00 Alkaline Phosphatase 208 U/L (45-117) H 05/20/17 07:00 Total Protein 5.3 g/dl (6.4-8.2) L 05/20/17 07:00 Albumin 2.4 g/dl (3.4-5.0) L 05/20/17 07:00 Current Medications Generic Name Dose Route Start Last Admin Trade Name Freq PRN Reason Stop Dose Admin Amlodipine Besylate 10 mg 05/01/17 14:30 05/19/17 10:00 Norvasc - GT 10 mg DAILY APRIL Administration Hydrocortisone 1 applic 05/19/17 11:31 05/19/17 14:00 Hytone 1% Cream - TP 1 applic BID PRN Administration FOR ITCHING Insulin Aspart 1 vial 04/30/17 17:30 05/20/17 06:55 Novolog Vial Sliding Scale - SQ 8 units Q6H APRIL Administration Protocol Insulin Detemir 15 units 05/10/17 07:38 05/20/17 06:56 Levemir Vial SQ 15 units AM APRIL Administration Nystatin 1 applic 05/18/17 22:00 05/19/17 21:30 Mycostatin Cream - TP 1 applic BID APRIL Administration Pantoprazole Sodium 40 mg 05/01/17 10:00 05/19/17 10:00 Protonix Packets For Oral Suspension - GT 40 mg DAILY APRIL Administration Prednisone 20 mg 05/19/17 10:15 05/19/17 10:00 Deltasone - GT 20 mg DAILY APRIL Administration Home Medications Medication Instructions Recorded Acetaminophen [Pain Reliever] 500 mg PO DAILY 04/12/17 Amlodipine Besylate 5 mg PO DAILY 04/12/17 Aspirin [ASA -] 81 mg PO DAILY 04/12/17 Glyburide 5 mg PO BID 05/14/17 Simvastatin 20 mg PO HS 04/12/17 Zinc Sulfate 220 mg PO DAILY 04/12/17 PE: per resident's note ASSESSMENT AND PLAN: 61 y/o lady with h/o CVA , NIDDM, HTN, HLP, who presented after her out pt labs showed renal failure. # Positive QuantiFERON-TB Gold test, AFB x 3 is negative so far. Off isolation now since TB PCR is negative , was reported earlier today 05/20/2017. # Acute renal failure with nephrotic syndrome and PR3 aB positive (Bravo's granulomatosis ) with ESRD on HD (MW) ( has a permacath. now) , for AVG. on Steroids 20mg po daily with a weekly 10mg taper dose. Family opted not to proceed with immunosupressive therapy. Outpatient HD unit placement pending. on the case. # Acute Thrombocytopenia improving. #Anemia of chronic disease on Epogen with dialysis #s/p Acute Complicated UTI, culture was positive for Pseudomonas Aeruginosa s/ p Levaquin (06/05) #Uncontrolled DM : due to steroids .on Levemir 15U, cont SSI q 6 h # HTN: controlled on norvasc 10 mg continue, Goal BP < 140/90; BP is on a low side today, but just had a dialysis today. # Nutrition : TF # Functional quadriplegia assist due to having CVA , on PEG tube. DVT Px: SCDs Outpatient HD unit placement pending. will discuss with
[2017-05-20] MEDS: NYSTATIN 100,000 UNIT/GM TOPICAL CREAM 15 GM TUBE TP SCH ×2 (12:07→23:01)
[2017-05-20] MEDS: PANTOPRAZOLE SOD 40 MG SUSPENSION PACKET GT SCH (12:07)
[2017-05-20] MEDS: amLODIPine BESYLATE 5 MG TABLET (FP) GT SCH (12:07)
[2017-05-20] MEDS: predniSONE 5 MG/5 ML ORAL SOLN- UNIT-DOSE CUP GT SCH (12:07)
[2017-05-20] MEDS: HYDROCORTISONE 1% TOPICAL CREAM 30 GM TUBE TP PRN (12:08)
--- NOTE | 2017-05-20 12:17 | PN ---
Progress Note (short form) - Note Progress Note: Renal Follow up for DEYSI Pt seen and examined at the bedside no overnight events awaiting HD today Resp isolation discontinued at AFB PCR negative Vital Signs Temperature 98.3 F 05/20/17 06:55 Pulse Rate 67 05/20/17 10:10 Respiratory Rate 18 05/20/17 10:10 Blood Pressure 111/51 05/20/17 10:10 O2 Sat by Pulse Oximetry (%) 96 05/19/17 21:00 Intake & Output 05/17/17 05/18/17 05/19/17 05/20/17 23:59 23:59 23:59 23:59 Intake Total 514 45 9748 800 Balance 562 06 7296 800 Weight 106 lb 3.2 oz 107 lb 3.2 oz 105 lb 6.4 oz 106 lb 8 oz Gen: NAD, awake, non-verbal CVS: RRR, No M/R Lungs: CTA Abd: soft NT/ND Ext: Trace LE edema CBC, BMP 05/20/17 07:00 05/20/17 07:00 Current Medications Amlodipine Besylate (Norvasc -) 10 mg GT DAILY [facility] Last Admin: 05/20/17 12:07 Dose: 10 mg Hydrocortisone (Hytone 1% Cream -) 1 applic TP BID PRN PRN Reason: FOR ITCHING Last Admin: 05/20/17 12:08 Dose: 1 applic Insulin Aspart (Novolog Vial Sliding Scale -) 1 vial SQ Q6H APRIL PRN Reason: Protocol Last Admin: 05/20/17 12:07 Dose: 2 units Insulin Detemir (Levemir Vial) 15 units SQ AM [facility] Last Admin: 05/20/17 06:56 Dose: 15 units Nystatin (Mycostatin Cream -) 1 applic TP BID [facility]IL Last Admin: 05/20/17 12:07 Dose: 1 applic Pantoprazole Sodium (Protonix Packets For Oral Suspension -) 40 mg GT DAILY [facility] Last Admin: 05/20/17 12:07 Dose: 40 mg Prednisone (Deltasone -) 20 mg GT DAILY [facility] Last Admin: 05/20/17 12:07 Dose: 20 mg A/P 61 year old woman with PMhx of NIDDM, Hypertension, PVD s/p R AKA, CVA now non- verbal and paralyzed who presented with abnormal outpatient labs that showed renal failure and increasing total body volume overload #Acute Renal Failure with Nephrotic Range Proteinuria and + PR3 aB Hd today with UF as tolerated for AVG placement on Thursday Outpatient HD arranged at [facility] HD on TTS schedule Dose all meds for intermittent HD continue Prednisone taper #R/o occult infection/isolated Fever Quatiferion gold positive Gastric Lavage for AFB negative x 3 TB PCR negative ? need for Tx for latent TB #Anemia Continue Epogen with dialysis #Hypophosphatemia Trend phos levels #Hypertension on Amlodpine Goal BP < 140/90 Jonathan Guzman DO
[2017-05-21] MEDS: INSULIN DETEMIR 100 UNITS/ML MDV SQ SCH (06:09)
[2017-05-21] MEDS: INSULIN SLIDING SCALE (NOVOLOG) 1 VIAL SQ SCH ×4 (06:10→23:59)
[2017-05-21] MEDS: predniSONE 5 MG/5 ML ORAL SOLN- UNIT-DOSE CUP GT SCH (09:17)
[2017-05-21] MEDS: NYSTATIN 100,000 UNIT/GM TOPICAL CREAM 15 GM TUBE TP SCH ×2 (09:17→22:42)
[2017-05-21] MEDS: PANTOPRAZOLE SOD 40 MG SUSPENSION PACKET GT SCH (09:18)
[2017-05-21] MEDS: amLODIPine BESYLATE 5 MG TABLET (FP) GT SCH (09:18)
--- NOTE | 2017-05-21 10:45 | SPA.PREOP ---
- PRE-OP NOTE Dx: ESRD on HD Planned Procedure: Left UE Creation of AV Graft Surgeon: Dr. Rd Aviles Consent: To be obtained after surgeon explains all risks, benefits and alternatives. Last Vital Signs Temp Pulse Resp BP Pulse Ox 97.9 F 66 20 117/61 96 05/21/17 06:00 05/21/17 06:00 05/21/17 06:00 05/21/17 06:00 05/20/17 21:00 Lab Results WBC 8.2 K/mm3 (4.0-10.0) 05/20/17 07:00 RBC 3.20 M/mm3 (3.60-5.2) L 05/20/17 07:00 Hgb 9.4 GM/dL (10.7-15.3) L 05/20/17 07:00 Hct 28.8 % (32.4-45.2) L 05/20/17 07:00 MCV 89.9 fl (80-96) 05/20/17 07:00 MCHC 32.5 g/dl (32.0-36.0) 05/20/17 07:00 RDW 14.7 % (11.6-15.6) 05/20/17 07:00 Plt Count 103 K/MM3 (134-434) L D 05/20/17 07:00 Sodium 138 mmol/L (136-145) 05/20/17 07:00 Potassium 3.5 mmol/L (3.5-5.1) 05/20/17 07:00 Chloride 96 mmol/L (98-107) L 05/20/17 07:00 Carbon Dioxide 33 mmol/L (21-32) H 05/20/17 07:00 Anion Gap 9 (8-16) 05/20/17 07:00 BUN 62 mg/dL (7-18) H D 05/20/17 07:00 Creatinine 4.3 mg/dL (0.55-1.02) H D 05/20/17 07:00 Random Glucose 305 mg/dL (74-106) H* D 05/20/17 07:00 Calcium 8.1 mg/dL (8.5-10.1) L 05/20/17 07:00 Blood Type O POSITIVE 04/27/17 08:20 Antibody Screen Negative 04/27/17 08:20 INR 0.89 (0.82-1.09) 04/21/17 12:05 - ASSESSMENT/PLAN 1. Make NPO after midnight 2. GI/DVT PPX 3. Medical optimization / clearance Problem List - Problems (1) End stage renal disease Code(s): N18.6 - END STAGE RENAL DISEASE Visit type - Case Type Case Type: ED Admission
--- NOTE | 2017-05-21 15:23 | PN ---
Progress Note (short form) - Note Progress Note: Renal Follow up for DEYSI Pt seen and examined at the bedside awake no overnight events on Tube feeds s/p dialysis yesterday Vital Signs Temperature 98.7 F 05/21/17 14:00 Pulse Rate 95 H 05/21/17 14:00 Respiratory Rate 20 05/21/17 14:00 Blood Pressure 105/70 05/21/17 14:00 O2 Sat by Pulse Oximetry (%) 96 05/20/17 21:00 Intake & Output 05/18/17 05/19/17 05/20/17 05/21/17 23:59 23:59 23:59 23:59 Intake Total 65 1640 1700 780 Balance 65 1640 1700 780 Weight 107 lb 3.2 oz 105 lb 6.4 oz 106 lb 8 oz 106 lb 9.6 oz Gen: NAD, awake, non-verbal CVS: RRR, No M/R Lungs: CTA Abd: soft NT/ND Ext: Trace LE edema CBC, BMP 05/20/17 07:00 05/20/17 07:00 Current Medications Amlodipine Besylate (Norvasc -) 10 mg GT DAILY [facility] Last Admin: 05/21/17 09:18 Dose: 10 mg Hydrocortisone (Hytone 1% Cream -) 1 applic TP BID PRN PRN Reason: FOR ITCHING Last Admin: 05/20/17 12:08 Dose: 1 applic Insulin Aspart (Novolog Vial Sliding Scale -) 1 vial SQ Q6H APRIL PRN Reason: Protocol Last Admin: 05/21/17 11:44 Dose: 2 units Insulin Detemir (Levemir Vial) 15 units SQ AM [facility] Last Admin: 05/21/17 06:09 Dose: 15 units Nystatin (Mycostatin Cream -) 1 applic TP BID APRIL Last Admin: 05/21/17 09:17 Dose: 1 applic Pantoprazole Sodium (Protonix Packets For Oral Suspension -) 40 mg GT DAILY [facility] Last Admin: 05/21/17 09:18 Dose: 40 mg Prednisone (Deltasone -) 20 mg GT DAILY [facility] Last Admin: 05/21/17 09:17 Dose: 20 mg A/P 61 year old woman with PMhx of NIDDM, Hypertension, PVD s/p R AKA, CVA now non- verbal and paralyzed who presented with abnormal outpatient labs that showed renal failure and increasing total body volume overload #Acute Renal Failure with Nephrotic Range Proteinuria and + PR3 aB no acute indication for dialysis today for AVG placement tomorrow will plan next dialysis for Thursday as pt will be TTS schedule as a outpatient and will attempt to use AVG that day Dose all meds for intermittent HD taper steroids every week #R/o occult infection/isolated Fever Quatiferion gold positive Gastric Lavage for AFB negative x 3 TB PCR negative ? need for Tx for latent TB #Anemia Continue Epogen with dialysis #Hypophosphatemia Trend phos levels #Hypertension on Amlodpine Goal BP < 140/90 Jonathan Guzman DO
--- NOTE | 2017-05-21 15:26 | PN ---
Teaching Attending Note Name of Resident: Kodi Pritchett ATTENDING PHYSICIAN STATEMENT I saw and evaluated the patient. I reviewed the resident's note and discussed the case with the resident. I agree with the resident's findings and plan as documented. SUBJECTIVE: Patient is going for A-V graft in am. No new changes. OBJECTIVE: Vital Signs Temperature 98.7 F 05/21/17 14:00 Pulse Rate 95 H 05/21/17 14:00 Respiratory Rate 20 05/21/17 14:00 Blood Pressure 105/70 05/21/17 14:00 O2 Sat by Pulse Oximetry (%) 96 05/20/17 21:00 CBCD WBC 8.2 K/mm3 (4.0-10.0) 05/20/17 07:00 RBC 3.20 M/mm3 (3.60-5.2) L 05/20/17 07:00 Hgb 9.4 GM/dL (10.7-15.3) L 05/20/17 07:00 Hct 28.8 % (32.4-45.2) L 05/20/17 07:00 MCV 89.9 fl (80-96) 05/20/17 07:00 MCHC 32.5 g/dl (32.0-36.0) 05/20/17 07:00 RDW 14.7 % (11.6-15.6) 05/20/17 07:00 Plt Count 103 K/MM3 (134-434) L D 05/20/17 07:00 MPV 9.6 fl (7.5-11.1) 05/20/17 07:00 CMP Sodium 138 mmol/L (136-145) 05/20/17 07:00 Potassium 3.5 mmol/L (3.5-5.1) 05/20/17 07:00 Chloride 96 mmol/L (98-107) L 05/20/17 07:00 Carbon Dioxide 33 mmol/L (21-32) H 05/20/17 07:00 Anion Gap 9 (8-16) 05/20/17 07:00 BUN 62 mg/dL (7-18) H D 05/20/17 07:00 Creatinine 4.3 mg/dL (0.55-1.02) H D 05/20/17 07:00 Creat Clearance w eGFR 10.44 (>60) 05/20/17 07:00 Random Glucose 305 mg/dL (74-106) H* D 05/20/17 07:00 Calcium 8.1 mg/dL (8.5-10.1) L 05/20/17 07:00 Total Bilirubin 0.3 mg/dL (0.2-1.0) D 05/20/17 07:00 AST 12 U/L (15-37) L 05/20/17 07:00 ALT 13 U/L (12-78) 05/20/17 07:00 Alkaline Phosphatase 208 U/L (45-117) H 05/20/17 07:00 Total Protein 5.3 g/dl (6.4-8.2) L 05/20/17 07:00 Albumin 2.4 g/dl (3.4-5.0) L 05/20/17 07:00 Current Medications Generic Name Dose Route Start Last Admin Trade Name Freq PRN Reason Stop Dose Admin Amlodipine Besylate 10 mg 05/01/17 14:30 05/21/17 09:18 Norvasc - GT 10 mg DAILY APRIL Administration Hydrocortisone 1 applic 05/19/17 11:31 05/20/17 12:08 Hytone 1% Cream - TP 1 applic BID PRN Administration FOR ITCHING Insulin Aspart 1 vial 04/30/17 17:30 05/21/17 11:44 Novolog Vial Sliding Scale - SQ 2 units Q6H APRIL Administration Protocol Insulin Detemir 15 units 05/10/17 07:38 05/21/17 06:09 Levemir Vial SQ 15 units AM APRIL Administration Nystatin 1 applic 05/18/17 22:00 05/21/17 09:17 Mycostatin Cream - TP 1 applic BID APRIL Administration Pantoprazole Sodium 40 mg 05/01/17 10:00 05/21/17 09:18 Protonix Packets For Oral Suspension - GT 40 mg DAILY APRIL Administration Prednisone 20 mg 05/19/17 10:15 05/21/17 09:17 Deltasone - GT 20 mg DAILY APRIL Administration Home Medications Medication Instructions Recorded Acetaminophen [Pain Reliever] 500 mg PO DAILY 04/12/17 Amlodipine Besylate 5 mg PO DAILY 04/12/17 Aspirin [ASA -] 81 mg PO DAILY 04/12/17 Glyburide 5 mg PO BID 04/12/17 Simvastatin 20 mg PO HS 04/12/17 Zinc Sulfate 220 mg PO DAILY 04/12/17 PE: per resident's note ASSESSMENT AND PLAN: 61 y/o lady with h/o CVA , NIDDM, HTN, HLP, who presented after her out pt labs showed renal failure. # Acute renal failure with nephrotic syndrome and PR3 aB positive (Bravo's granulomatosis ) with ESRD on HD (MWF) ( has a permacath. now) , Patient is going for A-V graft in am. On Steroids 20mg po daily. Family opted not to proceed with immunosupressive therapy. on the case. # Positive QuantiFERON-TB Gold test, AFB x 3 is negative so far. Off isolation now since TB PCR is negative , was reported earlier today 05/20/2017. # Acute Thrombocytopenia improving. #Anemia of chronic disease on Epogen with dialysis #s/p Acute Complicated UTI, culture was positive for Pseudomonas Aeruginosa s/ p Levaquin (06/05) #Uncontrolled DM : due to steroids .on Levemir 15U, cont SSI q 6 h # HTN: controlled on norvasc 10 mg continue, Goal BP < 140/90; BP is on a low side today, but just had a dialysis today. # Nutrition : TF # Functional quadriplegia assist due to having CVA , on PEG tube. DVT Px: SCDs Outpatient HD unit placement pending. will discuss with
--- NOTE | 2017-05-21 15:31 | PN ---
Physical Exam: SUBJECTIVE: Patient seen and examined at bedside. No overnight events. nonverbal ,lying comfortably and alert. OBJECTIVE: Vital Signs Period Temp Pulse Resp BP Sys/Daniel Pulse Ox Last 24 Hr 97.9 F-99.4 F 66-95 18-20 105-138/60-70 96 GENERAL:nonverbal but awake. HEAD: NC/AT. ENT: moist mucous membranes. NECK: supple. permacath right chest. LUNGS:Scattered rhonchi, diminished bilat bases no wheezes, no crackles, no accessory muscle use. HEART: RRR,s1s2 normal 3/6 ANGELINA ABDOMEN: Soft, NT, ND, BS(+) PEG EXTREMITIES: No edema, 2+ DP of left LE. R leg s/p AKA NEUROLOGICAL: non verbal. alert and awake. contracted. functional quadriplegia Laboratory Results - last 24 hr 05/20/17 05/20/17 05/20/17 10:00 15:47 22:41 POC Glucometer 286 336 Hepatitis C Antibody 0.1 05/21/17 05/21/17 05:43 11:43 POC Glucometer 220 194 Hepatitis C Antibody Active Medications Generic Name Dose Route Start Last Admin Trade Name Freq PRN Reason Stop Dose Admin Amlodipine Besylate 10 mg 05/01/17 14:30 05/21/17 09:18 Norvasc - GT 10 mg DAILY APRIL Administration Hydrocortisone 1 applic 05/19/17 11:31 05/20/17 12:08 Hytone 1% Cream - TP 1 applic BID PRN Administration FOR ITCHING Insulin Aspart 1 vial 04/30/17 17:30 05/21/17 11:44 Novolog Vial Sliding Scale - SQ 2 units Q6H APRIL Administration Protocol Insulin Detemir 15 units 05/10/17 07:38 05/21/17 06:09 Levemir Vial SQ 15 units AM APRIL Administration Nystatin 1 applic 05/18/17 22:00 05/21/17 09:17 Mycostatin Cream - TP 1 applic BID APRIL Administration Pantoprazole Sodium 40 mg 05/01/17 10:00 05/21/17 09:18 Protonix Packets For Oral Suspension - GT 40 mg DAILY APRIL Administration Prednisone 20 mg 05/19/17 10:15 05/21/17 09:17 Deltasone - GT 20 mg DAILY APRIL Administration ASSESSMENT/PLAN: 61 yo F with pmhx of CVA, NIDDM, HTN, HLD, admitted for acute renal failure Problem List - Problems (1) Renal failure Assessment/Plan: * Dialyze yesterday * Patient has been accepted at [facility] for dialysis. * She will get AVG tomorrow by Dr. Aviles and then plan for dialysis on Thursday then discharge Thursday. * Continue prednisone @ 20mg/day will nallely 10mg/week 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 * Renal consult appreciated. (2) Positive QuantiFERON-TB Gold test Assessment/Plan: * TB PCR is negative * 3 samples taken from gastric content have been (-) * AVG for dialysis (3) Non-insulin dependent type 2 diabetes mellitus Assessment/Plan: * Increase in serum glucose result of IV steroids * Continue Levamir to 15 units * Continue Nepro tube feed via peg * NISS * BGM Q6H (4) HTN (hypertension) Assessment/Plan: * Amlodipine to 10mg PO daily (5) Functional quadriplegia Assessment/Plan: * assist in ADL's * sacral decubitus ulcer - reposition daily Visit type - Emergency Visit Emergency Visit: Yes ED Registration Date: 04/17/17 Care time: The patient presented to the Emergency Department on the above date and was hospitalized for further evaluation of their emergent condition. - New Patient This patient is new to me today: No - Critical Care Critical Care patient: No - Discharge Referral Referred to [facility] Med P.C.: No
[2017-05-22 00:08] LABS: HEP B SURFACE AB Non Reactive (.)
[2017-05-22] MEDS: INSULIN SLIDING SCALE (NOVOLOG) 1 VIAL SQ SCH ×3 (06:00→23:30)
[2017-05-22] MEDS: INSULIN DETEMIR 100 UNITS/ML MDV SQ SCH (06:30)
[2017-05-22 08:03] LABS: ANION GAP 11 (8-16); CALCIUM 8.3 mg/dL (8.5-10.1); CO2 33 mmol/L (21-32); CREATININE 4.3 mg/dL (0.55-1.02); GLUCOSE,RANDOM 202 mg/dL (74-106)
[2017-05-22 08:05] LABS: BASOPHIL 0.6 % (0-2.0); EOSINOPHIL 5.8 % (0-4.5); MCH 28.9 pg (25.7-33.7); MCHC 32.3 g/dl (32.0-36.0); MEAN CELL VOLUME 89.5 fl (80-96); MEAN PLT VOLUME 9.7 fl (7.5-11.1); NEUTROPHILS 60.9 % (42.8-82.8); PLATELET COUNT 141 K/MM3 (134-434); WHITE BLOOD COUNT 8.9 K/mm3 (4.0-10.0)
--- NOTE | 2017-05-22 12:12 | PN ---
Physical Exam: SUBJECTIVE: Patient seen and examined at bedside. No overnight events. nonverbal ,lying comfortably . OBJECTIVE: Vital Signs Period Temp Pulse Resp BP Sys/Daniel Pulse Ox Last 24 Hr 97.6 F-98.8 F 71-95 20-20 105-140/62-75 96 GENERAL:nonverbal but awake. HEAD: NC/AT. ENT: moist mucous membranes. NECK: supple. permacath right chest. LUNGS:Scattered rhonchi, diminished bilat bases no wheezes, no crackles, no accessory muscle use. HEART: RRR,s1s2 normal 3/6 ANGELINA ABDOMEN: Soft, NT, ND, BS(+) PEG EXTREMITIES: No edema, 2+ DP of left LE. R leg s/p AKA NEUROLOGICAL: non verbal. alert and awake. contracted. functional quadriplegia Laboratory Results - last 24 hr 05/20/17 05/21/17 05/21/17 10:00 16:53 21:30 WBC RBC Hgb Hct MCV MCHC RDW Plt Count MPV Neutrophils % Lymphocytes % Monocytes % Eosinophils % Basophils % Sodium Potassium Chloride Carbon Dioxide Anion Gap BUN Creatinine POC Glucometer 361 274 Random Glucose Calcium Hep A IgM Ab Confirm Negative Hepatitis A Ab Total Positive H Hep Bs Antigen Negative Hep Bs Antibody Non reactive Hep B Core Total Ab Negative Hepatitis C Antibody 0.1 Blood Type Antibody Screen 05/22/17 05/22/17 05/22/17 05:45 06:00 06:00 WBC 8.9 RBC 3.77 Hgb 10.9 D Hct 33.7 D MCV 89.5 MCHC 32.3 RDW 15.0 Plt Count 141 D MPV 9.7 Neutrophils % 60.9 Lymphocytes % 23.6 D Monocytes % 9.1 Eosinophils % 5.8 H Basophils % 0.6 Sodium Potassium Chloride Carbon Dioxide Anion Gap BUN Creatinine POC Glucometer 216 Random Glucose Calcium Hep A IgM Ab Confirm Hepatitis A Ab Total Hep Bs Antigen Hep Bs Antibody Hep B Core Total Ab Hepatitis C Antibody Blood Type O POSITIVE Antibody Screen Negative 05/22/17 06:00 WBC RBC Hgb Hct MCV MCHC RDW Plt Count MPV Neutrophils % Lymphocytes % Monocytes % Eosinophils % Basophils % Sodium 140 Potassium 4.1 Chloride 96 L Carbon Dioxide 33 H Anion Gap 11 BUN 61 H Creatinine 4.3 H POC Glucometer Random Glucose 202 H D Calcium 8.3 L Hep A IgM Ab Confirm Hepatitis A Ab Total Hep Bs Antigen Hep Bs Antibody Hep B Core Total Ab Hepatitis C Antibody Blood Type Antibody Screen Active Medications Generic Name Dose Route Start Last Admin Trade Name Freq PRN Reason Stop Dose Admin Amlodipine Besylate 10 mg 05/01/17 14:30 05/21/17 09:18 Norvasc - GT 10 mg DAILY APRIL Administration Hydrocortisone 1 applic 05/19/17 11:31 05/20/17 12:08 Hytone 1% Cream - TP 1 applic BID PRN Administration FOR ITCHING Insulin Aspart 1 vial 04/30/17 17:30 05/22/17 06:00 Novolog Vial Sliding Scale - SQ Not Given Q6H APRIL Protocol Insulin Detemir 15 units 05/10/17 07:38 05/22/17 06:30 Levemir Vial SQ Not Given AM APRIL Nystatin 1 applic 05/18/17 22:00 05/21/17 22:42 Mycostatin Cream - TP 1 applic BID APRIL Administration Pantoprazole Sodium 40 mg 05/01/17 10:00 05/21/17 09:18 Protonix Packets For Oral Suspension - GT 40 mg DAILY APRIL Administration Prednisone 20 mg 05/19/17 10:15 05/21/17 09:17 Deltasone - GT 20 mg DAILY APRIL Administration ASSESSMENT/PLAN: 61 yo F with pmhx of CVA, NIDDM, HTN, HLD, admitted for acute renal failure Problem List - Problems (1) Renal failure Assessment/Plan: * Dialyze today * Patient has been accepted at [facility] for dialysis. * AVG today ;Dr. Aviles * Continue prednisone @ 20mg/day will nallely 10mg/week 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 * Renal consult appreciated. (2) Positive QuantiFERON-TB Gold test Assessment/Plan: * TB PCR is negative * 3 samples taken from gastric content have been (-) * AVG for dialysis pending. (3) Non-insulin dependent type 2 diabetes mellitus Assessment/Plan: * Increase in serum glucose result of IV steroids * Continue Levamir to 15 units * Continue Nepro tube feed via peg * NISS * BGM Q6H (4) HTN (hypertension) Assessment/Plan: * Amlodipine to 10mg PO daily (5) Functional quadriplegia Assessment/Plan: * assist in ADL's * sacral decubitus ulcer - reposition daily Visit type - Emergency Visit Emergency Visit: Yes ED Registration Date: 04/17/17 Care time: The patient presented to the Emergency Department on the above date and was hospitalized for further evaluation of their emergent condition. - New Patient This patient is new to me today: No - Critical Care Critical Care patient: No - Discharge Referral Referred to [facility] Med P.C.: No
[2017-05-22] MEDS ORDERED: ceFAZolin SODIUM 1 GM VIAL IVPB ONE (13:14)
[2017-05-22] MEDS ORDERED: LIDOCAINE HCL 1%, 10 MG/ML (50 mL VIAL) IJ ONE (13:16)
[2017-05-22] MEDS ORDERED: LIDOCAINE HCL 1%, 10 MG/ML (50 mL VIAL) INF ONE (13:16)
[2017-05-22] MEDS ORDERED: LIDOCAINE HCL 1%, 10 MG/ML (20ML VIAL) ONE (13:48)
[2017-05-22] MEDS ORDERED: HEPARIN NA (PORCINE) 5,000 UNITS/ML 1ML VIAL ONE ×2 (13:48→15:41)
[2017-05-22] MEDS ORDERED: POVIDONE-IODINE OINTMENT 10% - 28.4 GM TUBE ONE (13:49)
[2017-05-22] MEDS ORDERED: ROPIVACAINE HCL 0.5% 30ML VIAL ONE (13:54)
[2017-05-22] MEDS ORDERED: MIDAZOLAM HCL 2 MG/2 ML SINGLE DOSE VIAL ONE ×2 (13:57)
[2017-05-22] MEDS ORDERED: PROPOFOL 20 ML ONE (15:04)
--- NOTE | 2017-05-22 15:38 | PN ---
Teaching Attending Note Name of Resident: Kodi Pritchett ATTENDING PHYSICIAN STATEMENT I saw and evaluated the patient. I reviewed the resident's note and discussed the case with the resident. I agree with the resident's findings and plan as documented. SUBJECTIVE: Patient has no new complains, going for AV-Graft placement today. OBJECTIVE: Vital Signs Temperature 97.6 F 05/22/17 10:00 Pulse Rate 73 05/22/17 12:53 Respiratory Rate 20 05/22/17 12:53 Blood Pressure 129/70 05/22/17 12:53 O2 Sat by Pulse Oximetry (%) 96 05/21/17 21:00 CBCD WBC 8.9 K/mm3 (4.0-10.0) 05/22/17 06:00 RBC 3.77 M/mm3 (3.60-5.2) 05/22/17 06:00 Hgb 10.9 GM/dL (10.7-15.3) D 05/22/17 06:00 Hct 33.7 % (32.4-45.2) D 05/22/17 06:00 MCV 89.5 fl (80-96) 05/22/17 06:00 MCHC 32.3 g/dl (32.0-36.0) 05/22/17 06:00 RDW 15.0 % (11.6-15.6) 05/22/17 06:00 Plt Count 141 K/MM3 (134-434) D 05/22/17 06:00 MPV 9.7 fl (7.5-11.1) 05/22/17 06:00 CMP Sodium 140 mmol/L (136-145) 05/22/17 06:00 Potassium 4.1 mmol/L (3.5-5.1) 05/22/17 06:00 Chloride 96 mmol/L (98-107) L 05/22/17 06:00 Carbon Dioxide 33 mmol/L (21-32) H 05/22/17 06:00 Anion Gap 11 (8-16) 05/22/17 06:00 BUN 61 mg/dL (7-18) H 05/22/17 06:00 Creatinine 4.3 mg/dL (0.55-1.02) H 05/22/17 06:00 Creat Clearance w eGFR 10.44 (>60) 05/20/17 07:00 Random Glucose 202 mg/dL (74-106) H D 05/22/17 06:00 Calcium 8.3 mg/dL (8.5-10.1) L 05/22/17 06:00 Total Bilirubin 0.3 mg/dL (0.2-1.0) D 05/20/17 07:00 AST 12 U/L (15-37) L 05/20/17 07:00 ALT 13 U/L (12-78) 05/20/17 07:00 Alkaline Phosphatase 208 U/L (45-117) H 05/20/17 07:00 Total Protein 5.3 g/dl (6.4-8.2) L 05/20/17 07:00 Albumin 2.4 g/dl (3.4-5.0) L 05/20/17 07:00 Current Medications Generic Name Dose Route Start Last Admin Trade Name Freq PRN Reason Stop Dose Admin Amlodipine Besylate 10 mg 05/01/17 14:30 05/21/17 09:18 Norvasc - GT 10 mg DAILY APRIL Administration Hydrocortisone 1 applic 05/19/17 11:31 05/20/17 12:08 Hytone 1% Cream - TP 1 applic BID PRN Administration FOR ITCHING Insulin Aspart 1 vial 04/30/17 17:30 05/22/17 06:00 Novolog Vial Sliding Scale - SQ Not Given Q6H [facility] Protocol Insulin Detemir 15 units 05/10/17 07:38 05/22/17 06:30 Levemir Vial SQ Not Given AM APRIL Nystatin 1 applic 05/18/17 22:00 05/21/17 22:42 Mycostatin Cream - TP 1 applic BID APRIL Administration Pantoprazole Sodium 40 mg 05/01/17 10:00 05/21/17 09:18 Protonix Packets For Oral Suspension - GT 40 mg DAILY APRIL Administration Prednisone 20 mg 05/19/17 10:15 05/21/17 09:17 Deltasone - GT 20 mg DAILY APRIL Administration Home Medications Medication Instructions Recorded Acetaminophen [Pain Reliever] 500 mg PO DAILY 04/12/17 Amlodipine Besylate 5 mg PO DAILY 04/12/17 Aspirin [ASA -] 81 mg PO DAILY 04/12/17 Glyburide 5 mg PO BID 04/12/17 Simvastatin 20 mg PO HS 05/14/17 Zinc Sulfate 220 mg PO DAILY 04/12/17 PE: per resident's note ASSESSMENT AND PLAN: 61 y/o lady with h/o CVA , NIDDM, HTN, HLP, who presented after her out pt labs showed renal failure. Patient is going for AV-graft placement today. will have dialysis in am if functional then will be discharged home with scheduled dialysis as per # Acute renal failure with nephrotic syndrome and PR3 aB positive (Bravo's granulomatosis ) with ESRD on HD ([facility]) ( has a permacath. now) , Patient is going for A-V graft today. On Steroids 20mg po daily. Family opted not to proceed with immunosupressive therapy. on the case. # Positive QuantiFERON-TB Gold test, AFB x 3 is negative so far. Off isolation now since TB PCR is negative , was reported earlier today 05/20/2017. # Acute Thrombocytopenia improving will follow. #Anemia of chronic disease on Epogen with dialysis #s/p Acute Complicated UTI, culture was positive for Pseudomonas Aeruginosa s/ p Levaquin (06/05) #Uncontrolled DM : due to steroids .on Levemir 15U, cont SSI q 6 h # HTN: controlled on norvasc 10 mg continue, Goal BP < 140/90; BP is on a low side today, but just had a dialysis today. # Nutrition : TF # Functional quadriplegia assist due to having CVA , on PEG tube. DVT Px: SCDs Outpatient HD unit placement is arranged by .
--- NOTE | 2017-05-22 15:44 | PN ---
Progress Note (short form) - Note Progress Note: Renal Follow up for DEYSI Pt seen and examined at the bedside no overnight events awaiting AVG placement Vital Signs Temperature 97.6 F 05/22/17 10:00 Pulse Rate 73 05/22/17 12:53 Respiratory Rate 20 05/22/17 12:53 Blood Pressure 129/70 05/22/17 12:53 O2 Sat by Pulse Oximetry (%) 96 05/21/17 21:00 Intake & Output 05/19/17 05/20/17 05/21/17 05/22/17 23:59 23:59 23:59 23:59 Intake Total 1640 1700 1445 220 Output Total 20 20 Balance 1640 1700 1425 200 Weight 105 lb 6.4 oz 106 lb 8 oz 106 lb 9.6 oz 108 lb 9.6 oz Gen: NAD, awake, non-verbal CVS: RRR, No M/R Lungs: CTA Abd: soft NT/ND Ext: Trace LE edema CBC, BMP 05/22/17 06:00 05/22/17 06:00 Current Medications Amlodipine Besylate (Norvasc -) 10 mg GT DAILY [facility] Last Admin: 05/21/17 09:18 Dose: 10 mg Hydrocortisone (Hytone 1% Cream -) 1 applic TP BID PRN PRN Reason: FOR ITCHING Last Admin: 05/20/17 12:08 Dose: 1 applic Insulin Aspart (Novolog Vial Sliding Scale -) 1 vial SQ Q6H APRIL PRN Reason: Protocol Last Admin: 05/22/17 06:00 Dose: Not Given Insulin Detemir (Levemir Vial) 15 units SQ AM [facility] Last Admin: 05/22/17 06:30 Dose: Not Given Nystatin (Mycostatin Cream -) 1 applic TP BID APRIL Last Admin: 05/21/17 22:42 Dose: 1 applic Pantoprazole Sodium (Protonix Packets For Oral Suspension -) 40 mg GT DAILY [facility] Last Admin: 05/21/17 09:18 Dose: 40 mg Prednisone (Deltasone -) 20 mg GT DAILY [facility] Last Admin: 05/21/17 09:17 Dose: 20 mg A/P 61 year old woman with PMhx of NIDDM, Hypertension, PVD s/p R AKA, CVA now non- verbal and paralyzed who presented with abnormal outpatient labs that showed renal failure and increasing total body volume overload #Acute Renal Failure with Nephrotic Range Proteinuria and + PR3 aB for AVG placement today HD tomorrow using new graft stable for discharge after HD tomorrow #R/o occult infection/isolated Fever Quatiferion gold positive Gastric Lavage for AFB negative x 3 TB PCR negative #Anemia Continue Epogen with dialysis #Hypophosphatemia Trend phos levels #Hypertension on Amlodpine Goal BP < 140/90 Jonathan Guzman DO
--- NOTE | 2017-05-22 17:03 | OP ---
Operative Note - Note: Operative Date: 05/22/17 Pre-Operative Diagnosis: ESRD Operation: insertion of left avg Post-Operative Diagnosis: Same as Pre-op Surgeon: Robin Aviles Anesthesia: Fractional Estimated Blood Loss (mls): 40 Operative Report Dictated: Yes
[2017-05-22] MEDS ORDERED: ONDANSETRON 4 MG/2 ML VIAL IVPUSH PRN ×3 (17:14→18:14)
[2017-05-22] MEDS ORDERED: HYDROCORTISONE 1% TOPICAL CREAM 30 GM TUBE TP PRN ×2 (17:36→18:14)
[2017-05-22] MEDS: NYSTATIN 100,000 UNIT/GM TOPICAL CREAM 15 GM TUBE TP SCH ×2 (18:02→21:34)
[2017-05-22] MEDS: amLODIPine BESYLATE 5 MG TABLET (FP) GT SCH (18:03)
[2017-05-22] MEDS: PANTOPRAZOLE SOD 40 MG SUSPENSION PACKET GT SCH (18:03)
[2017-05-22] MEDS: predniSONE 5 MG/5 ML ORAL SOLN- UNIT-DOSE CUP GT SCH (18:04)
[2017-05-22] MEDS ORDERED: morphine CARPU-JECT 2 MG/1 ML DISP.SYRIN IVPUSH PRN (19:37)
[2017-05-22] MEDS ORDERED: INSULIN (NOVOLOG) ASPART 100 UNITS/ML 10ML VIAL ONE (21:07)
[2017-05-22] MEDS ORDERED: INSULIN SLIDING SCALE (NOVOLOG) 1 VIAL SQ SCH (22:00)
[2017-05-22] MEDS ORDERED: NYSTATIN 100,000 UNIT/GM TOPICAL CREAM 15 GM TUBE TP SCH (22:00)
[2017-05-23] MEDS: INSULIN SLIDING SCALE (NOVOLOG) 1 VIAL SQ SCH ×3 (06:31→18:27)
[2017-05-23] MEDS ORDERED: INSULIN DETEMIR 100 UNITS/ML MDV SQ SCH ×2 (07:00)
[2017-05-23 08:18] LABS: MCHC 32.3 g/dl (32.0-36.0); MEAN CELL VOLUME 89.9 fl (80-96); MEAN PLT VOLUME 9.3 fl (7.5-11.1); PLATELET COUNT 135 K/MM3 (134-434); RDW 15.1 % (11.6-15.6); WHITE BLOOD COUNT 10.5 K/mm3 (4.0-10.0)
[2017-05-23 08:26] LABS: ANION GAP 11 (8-16); CALCIUM 8.3 mg/dL (8.5-10.1); CO2 37 mmol/L (21-32); CREATININE 5.7 mg/dL (0.55-1.02)
[2017-05-23 08:55] LABS: GLUCOSE,RANDOM 312 mg/dL (74-106)
--- NOTE | 2017-05-23 08:56 | PN ---
Progress Note (short form) - Note Progress Note: Renal Follow up for DEYSI Pt seen and examined at the bedside no overnight events AVG placement done yesterday for HD today Vital Signs Temperature 99.5 F 05/23/17 06:26 Pulse Rate 90 05/23/17 06:26 Respiratory Rate 20 05/23/17 06:26 Blood Pressure 116/66 05/23/17 06:26 O2 Sat by Pulse Oximetry (%) 96 05/22/17 20:07 Intake & Output 05/20/17 05/21/17 05/22/17 05/23/17 23:59 23:59 23:59 23:59 Intake Total 1700 1445 745 660 Output Total 20 60 Balance 1700 1425 685 660 Weight 106 lb 8 oz 106 lb 9.6 oz 105 lb 3.2 oz 105 lb 5 oz Gen: NAD, awake, non-verbal CVS: RRR, No M/R Lungs: CTA Abd: soft NT/ND Ext: Trace LE edema CBC, BMP 05/23/17 07:00 Current Medications Amlodipine Besylate (Norvasc -) 10 mg GT DAILY [facility] Epoetin Miguel (Epogen -) 8,000 units IVPUSH ONCE ONE Stop: 05/23/17 08:13 Heparin Sodium (Porcine) (Heparin -) 1,000 unit IVPUSH ONCE ONE Stop: 05/23/17 08:55 Hydrocortisone (Hytone 1% Cream -) 1 applic TP BID PRN PRN Reason: FOR ITCHING Insulin Aspart (Novolog Vial Sliding Scale -) 1 vial SQ Q6HPO [facility] PRN Reason: Protocol Last Admin: 05/23/17 06:31 Dose: 6 units Insulin Detemir (Levemir Vial) 15 units SQ AM [facility] Last Admin: 05/23/17 06:31 Dose: 15 units Morphine Sulfate (Morphine Injection -) 2 mg IVPUSH Q4H PRN PRN Reason: PAIN Last Admin: 05/22/17 21:32 Dose: 2 mg Nystatin (Mycostatin Cream -) 1 applic TP BID [facility] Last Admin: 05/22/17 21:34 Dose: 1 applic Pantoprazole Sodium (Protonix Packets For Oral Suspension -) 40 mg GT DAILY [facility] Prednisone (Deltasone -) 20 mg GT DAILY [facility] A/P 61 year old woman with PMhx of NIDDM, Hypertension, PVD s/p R AKA, CVA now non- verbal and paralyzed who presented with abnormal outpatient labs that showed renal failure and increasing total body volume overload #Acute Renal Failure with Nephrotic Range Proteinuria and + PR3 aB for HD today via new AVG tunneled HD catheter to be removed prior to discharge continue maintenance HD on TTS schedule as outpatient #R/o occult infection/isolated Fever Quatiferion gold positive Gastric Lavage for AFB negative x 3 TB PCR negative #Anemia Continue Epogen with dialysis #Hypophosphatemia Trend phos levels #Hypertension on Amlodpine Goal BP < 140/90 Jonathan Guzman DO
[2017-05-23] MEDS ORDERED: HEPARIN NA (PORCINE) 5,000 UNITS/ML 1ML VIAL IVPUSH ONE (09:15)
[2017-05-23] MEDS ORDERED: PANTOPRAZOLE SOD 40 MG SUSPENSION PACKET GT SCH ×2 (10:00)
[2017-05-23] MEDS ORDERED: predniSONE 5 MG/5 ML ORAL SOLN- UNIT-DOSE CUP GT SCH (10:00)
[2017-05-23] MEDS ORDERED: EPOETIN ALFA 10,000 UNIT/1 ML VIAL IVPUSH ONE (10:00)
[2017-05-23] MEDS ORDERED: predniSONE 20 MG TABLET (UD) GT SCH (10:00)
[2017-05-23] MEDS ORDERED: amLODIPine BESYLATE 5 MG TABLET (FP) GT SCH (10:00)
[2017-05-23] MEDS ORDERED: amLODIPine BESYLATE 10 MG TABLET (FP) GT SCH (10:00)
[2017-05-23] MEDS ORDERED: INSULIN (NOVOLOG) ASPART 100 UNITS/ML 10ML VIAL ONE (13:25)
[2017-05-23] MEDS: NYSTATIN 100,000 UNIT/GM TOPICAL CREAM 15 GM TUBE TP SCH (13:36)
--- NOTE | 2017-05-23 16:14 | DS ---
Physical Exam: SUBJECTIVE: Patient seen and examined OBJECTIVE: Vital Signs Temperature 97.4 F L 05/23/17 13:14 Pulse Rate 74 05/23/17 13:14 Respiratory Rate 20 05/23/17 13:14 Blood Pressure 105/54 05/23/17 13:14 O2 Sat by Pulse Oximetry (%) 96 05/23/17 14:03 PHYSICAL EXAM GENERAL: The patient is awake, alert, and fully oriented, in no acute distress. HEAD: Normal with no signs of trauma. EYES: PERRL, extraocular movements intact, sclera anicteric, conjunctiva clear. ENT: Ears normal, nares patent, oropharynx clear without exudates, moist mucous membranes. NECK: Trachea midline, full range of motion, supple. LUNGS: Breath sounds equal, clear to auscultation bilaterally, no wheezes, no crackles, no accessory muscle use. HEART: Regular rate and rhythm, S1, S2 without murmur, rub or gallop. ABDOMEN: Soft, nontender, nondistended, normoactive bowel sounds, no guarding, no rebound, no hepatosplenomegaly, no masses. EXTREMITIES: 2+ pulses, warm, well-perfused, no edema. NEUROLOGICAL: Cranial nerves II through XII grossly intact. Normal speech, gait not observed. PSYCH: Normal mood, normal affect. SKIN: Warm, dry, normal turgor, no rashes or lesions noted. LABS Laboratory Results - last 24 hr 05/22/17 05/22/17 05/23/17 19:04 21:04 05:27 WBC RBC Hgb Hct MCV MCHC RDW Plt Count MPV Sodium Potassium Chloride Carbon Dioxide Anion Gap BUN Creatinine POC Glucometer 291 271 292 Random Glucose Calcium 05/23/17 05/23/17 05/23/17 07:00 07:00 13:23 WBC 10.5 H RBC 3.72 Hgb 10.8 Hct 33.4 MCV 89.9 MCHC 32.3 RDW 15.1 Plt Count 135 MPV 9.3 Sodium 142 Potassium 4.3 Chloride 94 L Carbon Dioxide 37 H Anion Gap 11 BUN 79 H D Creatinine 5.7 H D POC Glucometer 199 Random Glucose 312 H* D Calcium 8.3 L Current Medications Generic Name Dose Route Start Last Admin Trade Name Freq PRN Reason Stop Dose Admin Amlodipine Besylate 10 mg 05/23/17 10:00 05/23/17 13:16 Norvasc - GT Not Given DAILY APRIL Hydrocortisone 1 applic 05/22/17 18:14 Hytone 1% Cream - TP BID PRN FOR ITCHING Insulin Aspart 1 vial 05/23/17 00:00 05/23/17 13:36 Novolog Vial Sliding Scale - SQ 2 units Q6HPO APRIL Administration Protocol Insulin Detemir 15 units 05/23/17 07:00 05/23/17 06:31 Levemir Vial SQ 15 units AM APRIL Administration Morphine Sulfate 2 mg 05/22/17 19:37 05/22/17 21:32 Morphine Injection - IVPUSH 2 mg Q4H PRN Administration PAIN Nystatin 1 applic 05/22/17 22:00 05/23/17 13:36 Mycostatin Cream - TP 1 applic BID APRIL Administration Pantoprazole Sodium 40 mg 05/23/17 10:00 05/23/17 13:18 Protonix Packets For Oral Suspension - GT 40 mg DAILY APRIL Administration Prednisone 20 mg 05/23/17 10:00 05/23/17 13:17 Deltasone - GT 20 mg DAILY APRIL Administration Home Medications Medication Instructions Recorded Acetaminophen [Pain Reliever] 500 mg PO DAILY 04/12/17 Amlodipine Besylate 5 mg PO DAILY 04/12/17 Aspirin [ASA -] 81 mg PO DAILY 04/12/17 Glyburide 5 mg PO BID 04/12/17 Simvastatin 20 mg PO HS 04/12/17 Zinc Sulfate 220 mg PO DAILY 04/12/17 HOSPITAL COURSE: Date of Admission:04/17/17 Date of Discharge: 05/23/17 Patient's daughter at bedside. S/p AVG yesterday. Patient had dialysis today and AVG was used successfully. Patient is getting home today by [place], Discussed with who suggested that the Port a cath to be removed on June 01, 2017. Patient will call for an appointment. Phone was used for translation. Discharge Summary Reason For Visit: RENAL FAILURE ACUTE HYPERKALEMIA Current Active Problems Acute hyperkalemia (Acute) Acute kidney failure (Acute) Chronic kidney disease (CKD) stage G3a/A1, moderately decreased glomerular filtration rate (GFR) between 45-59 mL/min/1.73 square meter and albuminuria creatinine ratio less than 30 mg/g (Acute) End stage renal disease (Acute) Functional quadriplegia (Acute) HTN (hypertension) (Acute) Non-insulin dependent type 2 diabetes mellitus (Acute) Normochromic anemia (Acute) Positive QuantiFERON-TB Gold test (Acute) Renal failure (Acute) Condition: Improved - Instructions Diet, Activity, Other Instructions: Nephro cans 4 cans= (each can is equal 240ml), 4x per day. In between cans give 40ml of water 6x per day. 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Nirav Aviles's office for an appointment. Blood glucose check at least 2x per day. Follow with the clinic at [facility]. Referrals: Robin Aviles MD [Staff Physician] - 1 Week (June 01 2017) Jonathan Guzman MD [Staff Physician] - Disposition: HOME - Home Medications Comprehensive Discharge Medication List: Ambulatory Orders Acetaminophen [Pain Reliever] 500 mg PO DAILY 04/12/17 Amlodipine Besylate 5 mg PO DAILY 04/12/17 Aspirin [ASA -] 81 mg PO DAILY 04/12/17 Glyburide 5 mg PO BID 04/12/17 Simvastatin 20 mg PO HS 04/12/17 Zinc Sulfate 220 mg PO DAILY 04/12/17 - Discharge Referral Referred to [facility] No
[2017-05-23 17:56] VITALS: BP 153/79; PULSE 93; TEMP 98.6
--- NOTE | 2017-05-25 13:54 | OP ---
DATE OF OPERATION: 05/22/2017 PREOPERATIVE DIAGNOSIS: End-stage renal disease. POSTOPERATIVE DIAGNOSIS: End-stage renal disease. PROCEDURE: Insertion of left arteriovenous graft. SURGEON: Robin Dang DO ANESTHESIA: Fractional with supraclavicular nerve block. BLOOD LOSS: 40 mL. The patient is a 58-year-old female who has end-stage renal disease and needs permanent dialysis access placement. It was decided that she would need to be dialyzed right away after AV graft and, thus, an Acuseal graft was ordered for the patient; thus, this way she can get dialysis as soon as possible right after the graft is inserted. She does have a PermCath in her right chest that we want to take out. The patient's family was consented for the patient understanding all risks, benefits, and alternatives and then taken to the operating room. Once in the operating suite, she was laid on the operating table in supine manner and Anesthesia performed a supraclavicular nerve block for the left upper extremity. We then prepped and draped the left upper extremity in sterile surgical manner. Using ultrasound guidance, we marked the axillary vein, and it was marked with a skin marker on the skin. We then marked our brachial artery under ultrasound guidance as well, above the antecubital space. We then went ahead and first, using a 15 blade, made a 6-cm incision near the axilla of the left upper extremity. Bovie electrocautery was used to control hemostasis, and we were able to get down to the axillary vein going through all the subcutaneous tissue using Bovie electrocautery. We then dissected the axillary vein anteriorly and posteriorly, and Vesseloops were placed around it. We then went to the antecubital fossa and went above it and made a 5-cm incision there. Bovie electrocautery was used to control hemostasis and we then dissected down through the brachial sheath and got down to the brachial artery. Brachial artery was dissected anteriorly and posteriorly, and Vesseloops were placed around it. We then went ahead and placed our guest services representative from the arterial to the venous end, and we then placed our 4-7 Acuseal graft in the guest services representative and tunneled the graft through. At this point, we beveled the arterial portion using scissors. We then went ahead and administered 5000 units of IV heparin. After 3 minutes, we got distal and proximal control on the artery. We then used a 15 blade and made an arteriotomy, which was extended to 7 mm using Vergara scissors. We then used a 6-0 Prolene double-arm, leaving knots sitting on the outside on the graft and inside on the artery and ran a suture around it to from an anastomosis between the artery and graft. Once completed, we opened the distal artery first, then the proximal artery, and there was good flow in our AV graft, and the graft was clamped with a vascular clamp. We then cut the graft to size lengthwise for the venous anastomosis and beveled the graft to about 8 mm. We then went ahead and got distal and proximal control on the vein. We then used a 15 blade and made a venotomy on the vein and extended it to 8 mm using Vergara scissors. We then placed a 6-0 Prolene double-arm to put stay sutures on the vein. We then used a 6-0 Prolene double-arm, leaving knots sitting on the outside on the graft and inside on the vein and ran the suture around to from an anastomosis between the vein and the graft. Once completed, we opened the distal vein first, then the proximal vein. We then opened the AV graft, and there was good flow in our AV graft. There was a good thrill in the AV graft. At this point, we irrigated both wounds copiously. Then, 3-0 Vicryl was used, and subcutaneous tissue was approximated in an interrupted manner for both wounds, and the skin was closed with skin lisha. The area was wet and dried. Then, 4x4s, Tegaderms were placed. The patient tolerated the procedure with no complications. The patient was transferred to PACU in stable condition. ROBIN DANG DO [id number]
--- NOTE | 2017-05-25 23:31 | DS ---
Physical Exam: SUBJECTIVE:Patient seen and examined at bedside. No overnight events. nonverbal ,lying comfortably . OBJECTIVE: PHYSICAL EXAM GENERAL:nonverbal but awake. HEAD: NC/AT. ENT: moist mucous membranes. NECK: supple. permacath right chest. LUNGS:Scattered rhonchi, diminished bilat bases no wheezes, no crackles, no accessory muscle use. HEART: RRR,s1s2 normal 3/6 ANGELINA ABDOMEN: Soft, NT, ND, BS(+) PEG EXTREMITIES: No edema, 2+ DP of left LE. R leg s/p AKA NEUROLOGICAL: non verbal. alert and awake. contracted. functional quadriplegia LABS Laboratory Last Values WBC 10.5 K/mm3 (4.0-10.0) H 05/23/17 07:00 RBC 3.72 M/mm3 (3.60-5.2) 05/23/17 07:00 Hgb 10.8 GM/dL (10.7-15.3) 05/23/17 07:00 Hct 33.4 % (32.4-45.2) 05/23/17 07:00 MCV 89.9 fl (80-96) 05/23/17 07:00 MCHC 32.3 g/dl (32.0-36.0) 05/23/17 07:00 RDW 15.1 % (11.6-15.6) 05/23/17 07:00 Plt Count 135 K/MM3 (134-434) 05/23/17 07:00 MPV 9.3 fl (7.5-11.1) 05/23/17 07:00 Neutrophils % 60.9 % (42.8-82.8) 05/22/17 06:00 Lymphocytes % 23.6 % (8-40) D 05/22/17 06:00 Monocytes % 9.1 % (3.8-10.2) 05/22/17 06:00 Eosinophils % 5.8 % (0-4.5) H 05/22/17 06:00 Basophils % 0.6 % (0-2.0) 05/22/17 06:00 Band Neutrophils 2.0 % (0-10) D 05/10/17 08:34 Platelet Estimate Adequate (NORMAL) 05/10/17 08:34 Platelet Comment No clumping noted 05/09/17 05:42 Platelet Comment No clotting detected 04/30/17 06:05 Polychromasia 1+ 05/09/17 05:42 Hypochromic-Microcytic 1+ 05/09/17 05:42 ESR 125 mm/hr (0-30) H 04/26/17 07:10 Haptoglobin 247 mg/dL (34-200) H 04/17/17 16:40 INR 0.89 (0.82-1.09) 04/21/17 12:05 Puncture Site Right radial 04/24/17 01:57 ABG pH 7.40 (7.35-7.45) 04/24/17 01:57 ABG pCO2 at Pt Temp 50.8 mmHg (35-45) H 04/24/17 01:57 ABG pO2 at Pt Temp 58.5 mmHg (80-100) L 04/24/17 01:57 ABG HCO3 30.4 meq/L (22-26) H 04/24/17 01:57 ABG O2 Sat (Measured) 92.6 % (90-98.9) 04/24/17 01:57 ABG O2 Content 10.9 % vol (15-22) L 04/24/17 01:57 ABG Base Excess 5.4 meq/l (-2-2) H 04/24/17 01:57 Tereso Test Positive 04/24/17 01:57 O2 Delivery Device N/c 04/24/17 01:57 Oxygen Flow Rate 3lpm 04/24/17 01:57 Sodium 142 mmol/L (136-145) 05/23/17 07:00 Potassium 4.3 mmol/L (3.5-5.1) 05/23/17 07:00 Chloride 94 mmol/L (98-107) L 05/23/17 07:00 Carbon Dioxide 37 mmol/L (21-32) H 05/23/17 07:00 Anion Gap 11 (8-16) 05/23/17 07:00 BUN 79 mg/dL (7-18) H D 05/23/17 07:00 Creatinine 5.7 mg/dL (0.55-1.02) H D 05/23/17 07:00 Creat Clearance w eGFR 10.44 (>60) 05/20/17 07:00 POC Glucometer 199 UNITS (()) 05/23/17 13:23 Random Glucose 312 mg/dL (74-106) H* D 05/23/17 07:00 Calcium 8.3 mg/dL (8.5-10.1) L 05/23/17 07:00 Iron 29 ug/dL (27-139) 04/20/17 06:30 TIBC 201 ug/dL (250-450) L 04/20/17 06:30 Iron Saturation 14 % (15-55) L 04/20/17 06:30 Transferrin 196 mg/dL (200-370) L 04/17/17 07:45 Phosphorus 3.9 mg/dL (2.5-4.9) D 05/20/17 07:00 Magnesium 3.2 mg/dL (1.8-2.4) H 05/18/17 05:35 Ferritin 65.274 ng/ml (6.9-282.5) 04/17/17 07:45 Total Bilirubin 0.3 mg/dL (0.2-1.0) D 05/20/17 07:00 GGT 13 U/L (5-85) 05/19/17 05:40 AST 12 U/L (15-37) L 05/20/17 07:00 ALT 13 U/L (12-78) 05/20/17 07:00 Alkaline Phosphatase 208 U/L (45-117) H 05/20/17 07:00 LD Total 287 U/L (84-246) H D 04/17/17 16:40 C-Reactive Protein 1.3 MG/DL (0.00-0.3) H 04/26/17 07:10 Prot Electrophoresis (.) 04/22/17 06:18 Serum Total Protein 5.2 g/dL (6.0-8.5) L 04/22/17 06:18 Globulin 2.8 g/dL (2.2-3.9) 04/22/17 06:18 Albumin/Globulin Ratio 0.9 (0.7-1.7) 04/22/17 06:18 Ubyrd-3-Lqqrxcanb 0.2 gm/dL (0.0-0.4) 04/22/17 06:18 Albno-6-Kopmicmmy 1.0 gm/dL (0.4-1.0) 04/22/17 06:18 Beta Globulins 0.8 gm/dL (0.7-1.3) 04/22/17 06:18 Gamma Globulins 0.9 gm/dL (0.4-1.8) 04/22/17 06:18 Total Protein 5.3 g/dl (6.4-8.2) L 05/20/17 07:00 Albumin 2.4 g/dl (3.4-5.0) L 05/20/17 07:00 Triglycerides 211 mg/dL (35-160) H D 04/18/17 06:00 Cholesterol 157 mg/dL (50-200) 04/18/17 06:00 Total LDL Cholesterol 92 mg/dL (5-100) 04/18/17 06:00 HDL Cholesterol 45 mg/dL (40-60) D 04/18/17 06:00 Vitamin B12 Cancelled 04/18/17 07:00 Serum Folate Cancelled 04/18/17 07:00 Urine Color Yellow 04/30/17 01:00 Urine Appearance Cloudy 04/30/17 01:00 Urine pH 7.0 (5.0-8.0) 04/30/17 01:00 Ur Specific [place] 1.020 (1.005-1.025) 04/30/17 01:00 Urine Protein 3+ (NEGATIVE) H 04/30/17 01:00 Urine Glucose (UA) 3+ (NEGATIVE) H 04/30/17 01:00 Urine Ketones Negative (NEGATIVE) 04/30/17 01:00 Urine Blood Negative (NEGATIVE) 04/30/17 01:00 Urine Nitrite Negative (NEGATIVE) 04/30/17 01:00 Urine Bilirubin Negative (NEGATIVE) 04/30/17 01:00 Urine Urobilinogen Negative E.U./dl (0.2-1.0) 04/30/17 01:00 Ur Leukocyte Esterase 2+ (NEGATIVE) H D 04/30/17 01:00 Urine RBC 5 /hpf (0-3) 04/30/17 01:00 Urine WBC 917 /hpf (3-5) 04/30/17 01:00 Ur Epithelial Cells Rare /hpf (FEW) 04/17/17 12:00 Urine Bacteria Few /hpf (NONE SEEN) 04/30/17 01:00 Urine Mucus Rare 04/17/17 12:00 Urine Eosinophils None seen % (.) 04/17/17 04:00 U Random Total Protein 415 mg/dl (5-11.9) H 04/21/17 10:55 Ur Random Sodium 30 MMOL/L 04/17/17 04:00 Ur Random Potassium 31.3 MMOL/L 04/17/17 04:00 Ur Random Chloride 29 MMOL/L 04/17/17 04:00 Ur Random Urea Nitrogn 370 mg/dL 04/17/17 18:00 Urine Creatinine 24.4 mg/dL (20-320) 04/21/17 10:55 Protein/Creatinin Ratio 26.02 MG/DL 04/17/17 04:00 Stool Occult Blood Positive (NEGATIVE) 04/17/17 15:04 ROLANDA M-Ernesto Not observed g/dL (Not Observed) 04/22/17 06:18 LAURA Screen Negative (.) 04/17/17 16:40 c-ANCA <1:20 titer (Neg:<1:20) 04/17/17 16:40 Proteinase 3 (PR3) 5.3 U/mL (0.0-3.5) H 04/17/17 16:40 p-ANCA <1:20 titer (Neg:<1:20) 04/17/17 16:40 Atypical p-ANCA <1:20 titer (Neg:<1:20) 04/17/17 16:40 Myeloperoxidase Ab <9.0 U/mL (0.0-9.0) 04/17/17 16:40 Hep-Induced Plt Ab Rapid 0.895 OD (0.000-0.400) H 05/02/17 10:05 Tot Complement (CH50) 60 U/mL (42-60) 04/17/17 16:40 RPR Titer Nonreactive (NONREACTIVE) 04/17/17 16:40 Hepatitis A IgM Ab Negative (Negative) 04/17/17 16:40 Hep B Core IgM Ab Negative (Negative) 04/17/17 16:40 Hep A IgM Ab Confirm Negative (Negative) 05/20/17 10:00 Hepatitis A Ab Total Positive (Negative) H 05/20/17 10:00 Hep Bs Antigen Negative (Negative) 05/20/17 10:00 Hep Bs Antibody Non reactive (.) 05/20/17 10:00 Hepatitis C Ab (EIA) 0.2 s/co ratio (0.0-0.9) 04/17/17 16:40 Hep B Core Total Ab Negative (Negative) 05/20/17 10:00 Hepatitis C Antibody 0.1 s/co ratio (0.0-0.9) 05/20/17 10:00 HIV 1&2 Ag/Ab, 4th Gen Cancelled 04/22/17 08:45 HIV 1&2 Antibody Screen Negative 04/22/17 10:00 HIV P24 Antigen Negative 04/22/17 10:00 Blood Type O POSITIVE 05/22/17 06:00 Antibody Screen Negative 05/22/17 06:00 Crossmatch See Detail 04/27/17 08:20 HOSPITAL COURSE: 61 yo F with pmhx of CVA, NIDDM, HTN, HLD, admitted for acute renal failure. Date of Admission:04/17/17 Date of Discharge: 05/25/17 Discharge Summary Reason For Visit: RENAL FAILURE ACUTE HYPERKALEMIA Condition: Improved - Instructions Diet, Activity, Other Instructions: Nephro cans 4 cans= (each can is equal 240ml), 4x per day. In between cans give 40ml of water 6x per day. 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 Dr[address]Nirav Aviles's office for an appointment. Blood glucose check at least 2x per day. Follow with the clinic at [facility]. Referrals: Robin Aviles MD [Staff Physician] - 1 Week (June 01 2017) Jonathan Guzman MD [Staff Physician] - Disposition: HOME - Home Medications Comprehensive Discharge Medication List: Ambulatory Orders Zinc Sulfate 220 mg PO DAILY 04/12/17 Amlodipine Besylate [Norvasc -] 10 mg GT DAILY #30 tablet 05/23/17 Insulin (Levemir) [Levemir Vial] 15 units SQ AM #100 ml 05/23/17 Insulin Sliding Scale [Novolog Vial Sliding Scale -] 1 vial SQ Q6HPO #100 units 05/23/17 Nephro 240 ml .ROUTE Q6H #980 ml 05/23/17 Nystatin Cream [Mycostatin Cream -] 1 applic TP BID applic 05/23/17 Pantoprazole Suspension [Protonix Packets For Oral Suspension -] 40 mg GT DAILY #30 packet 05/23/17 Prednisone Oral Solution [Deltasone Oral Solution 5 MG/5 ML -] 20 mg GT DAILY # 120 ml 05/23/17 Problem List - Problems (1) Renal failure (2) Positive QuantiFERON-TB Gold test (3) Non-insulin dependent type 2 diabetes mellitus (4) HTN (hypertension) (5) Functional quadriplegia This patient is new to me today: No Emergency Visit: Yes ED Registration Date: 04/17/17 Care time: The patient presented to the Emergency Department on the above date and was hospitalized for further evaluation of their emergent condition. Critical Care patient: No - Discharge Referral Referred to [facility] No
== END 2017-05-23 19:07 | disposition home or self-care (01) | DRG 447 ==
LOC: JER 19:25 → JERBED 04-17 07:03 → J4S 04-17 07:21 → J5S 04-21 18:29 → J4W 05-04 21:04 → J6S 05-22 18:13
PROVIDERS: ADMIT Internal Medicine; ATTEND Internal Medicine
PROC: 3E0H76Z Introduction of Nutritional Substance into Lower GI, Via Natural or Artificial Opening (ICD-10-PCS; 2017-04-18)
PROC: 06HM33Z Insertion of Infusion Device into Right Femoral Vein, Percutaneous Approach (ICD-10-PCS; principal; 2017-04-21)
PROC: 05HM33Z Insertion of Infusion Device into Right Internal Jugular Vein, Percutaneous Approach (ICD-10-PCS; 2017-04-22)
PROC: 02H633Z Insertion of Infusion Device into Right Atrium, Percutaneous Approach (ICD-10-PCS; 2017-04-30)
PROC: 03180JF Bypass Left Brachial Artery to Lower Arm Vein with Synthetic Substitute, Open Approach (ICD-10-PCS; 2017-05-22)
PROC: 30233N1 Transfusion of Nonautologous Red Blood Cells into Peripheral Vein, Percutaneous Approach (ICD-10-PCS; 2017-05-22)
PROC: 5A1D60Z (ICD-10-PCS; 2017-05-22)
DX: N17.9 Acute kidney failure, unspecified (principal); M31.31 Wegener's granulomatosis with renal involvement; E87.5 Hyperkalemia; F03.90 Unspecified dementia, unspecified severity, without behavioral disturbance, psychotic disturbance, mood disturbance, and anxiety; E78.5 Hyperlipidemia, unspecified; I73.9 Peripheral vascular disease, unspecified; E87.1 Hypo-osmolality and hyponatremia; G83.9 Paralytic syndrome, unspecified; E11.21 Type 2 diabetes mellitus with diabetic nephropathy; R53.2 Functional quadriplegia; E11.65 Type 2 diabetes mellitus with hyperglycemia; N14.1 Nephropathy induced by other drugs, medicaments and biological substances; T39.395A Adverse effect of other nonsteroidal anti-inflammatory drugs [NSAID], initial encounter; M30.0 Polyarteritis nodosa; R50.9 Fever, unspecified; E83.39 Other disorders of phosphorus metabolism; I12.0 Hypertensive chronic kidney disease with stage 5 chronic kidney disease or end stage renal disease; E11.22 Type 2 diabetes mellitus with diabetic chronic kidney disease; N18.6 End stage renal disease; L89.312 Pressure ulcer of right buttock, stage 2; N39.0 Urinary tract infection, site not specified; B96.5 Pseudomonas (aeruginosa) (mallei) (pseudomallei) as the cause of diseases classified elsewhere; R76.11 Nonspecific reaction to tuberculin skin test without active tuberculosis; R91.8 Other nonspecific abnormal finding of lung field; D63.8 Anemia in other chronic diseases classified elsewhere; Z86.73 Personal history of transient ischemic attack (TIA), and cerebral infarction without residual deficits; Z43.1 Encounter for attention to gastrostomy; Z89.611 Acquired absence of right leg above knee; Z99.2 Dependence on renal dialysis
CPT/HCPCS: 36415; 36430; 36600; 71010-TC; 71250-TC; 76000-TC; 76775-TC; 80048; 80053; 80061; 80074; 81003; 81015; 82272; 82436; 82565; 82570; 82607; 82728; 82746; 82803; 82947; 82977; 83010; 83520; 83540; 83550; 83615; 83721; 83735; 84075; 84100; 84133; 84155; 84156; 84165; 84300; 84466; 84520; 84540; 85025; 85027; 85610; 85651; 86022; 86038; 86140; 86162; 86256; 86480; 86593; 86704; 86706; 86708; 86803; 86850; 86900; 86901; 86922; 87040; 87086; 87116; 87186; 87205; 87206; 87340; 87389; 87556; 93005; 93010; 93970-TC; 93975; 94640; 94760; 99282-25; J0885; J1644; P9038; P9058

== ENCOUNTER 2017-08-08 08:09 | Inpatient (IN) | payer OTHER ==
--- NOTE | 2017-08-08 08:29 | PDOC ---
History of Present Illness - General History Source: Family (Daughter) Exam Limitations: No Limitations - History of Present Illness Initial Comments: 08/08/17 09:29 The patient is a 61 year old female, with a significant past medical history of CVA (paralyzed, non-verbal, obtunded state), Dementia, DM, HTN, HLD, s/p peg tube, ESRD (HD on ,,,Thu) who presents to the emergency department with clotting of L arm AV shunt and fever. Patients daughter states dialysis center was not able to access port on L arm due to clotting. She also reports fever ( 100.1) today and increased redness to L arm. Patient's last full HD was on 08/06/2017. Allergies: NKA Past surgical history: Right AKA, G-tube left abdomen Social history: None PCP:Mignon Olivera MD Nephrology: Dr. Jonathan Guzman <Regine Bowman - Last Filed: 08/08/17 12:58> <Karen Armstrong - Last Filed: 08/08/17 16:02> - General Chief Complaint: Dialysis Shunt Problem Stated Complaint: DIALYSIS SHUNT PROBLEM Time Seen by Provider: 08/08/17 08:28 Past History <Regine Bowman - Last Filed: 08/08/17 12:58> - Past Medical History Anemia: No Asthma: No Cancer: No Cardiac Disorders: No CVA: Yes (PARALYZED/NON VERBAL/OBTUNDED STATE) COPD: No CHF: No Dementia: Yes Diabetes: Yes Dialysis: Yes (- SAT) GI Disorders: Yes (GTUBE LEFT ABD) Disorders: No HTN: Yes Hypercholesterolemia: Yes Liver Disease: No Suicide Attempt (Hx): No Seizures: (family unsure- patient in on kera) Thyroid Disease: No - Surgical History Abdominal Surgery: No Appendectomy: No Cardiac Surgery: No Cholecystectomy: No GI Surgery: Yes (GT PLACEMENT) Lung Surgery: No Neurologic Surgery: No Orthopedic Surgery: Yes (R. AKA) - Immunization History Immunization Up to Date: No - Psycho/Social/Smoking Cessation Hx Anxiety: No Suicidal Ideation: No Smoking Status: No Smoking History: Never smoked Have you smoked in the past 12 months: No Number of Cigarettes Smoked Daily: 0 Hx Alcohol Use: No Drug/Substance Use Hx: No Substance Use Type: None Hx Substance Use Treatment: No <Karen Armstrong - Last Filed: 08/08/17 16:02> - Past Medical History Allergies/Adverse Reactions: Allergies Allergy/AdvReac Type Severity Reaction Status Date / Time No Known Allergies Allergy Verified 08/08/17 08:15 Home Medications: Ambulatory Orders Amlodipine Besylate [Norvasc -] 10 mg GT DAILY #30 tablet 05/23/17 Insulin (Levemir) [Levemir Vial] 15 units SQ AM #100 ml 05/23/17 Insulin Sliding Scale [Novolog Vial Sliding Scale -] 1 vial SQ Q6HPO #100 units 05/23/17 Nystatin Cream [Mycostatin Cream -] 1 applic TP BID applic 05/23/17 Pantoprazole Suspension [Protonix Packets For Oral Suspension -] 40 mg GT DAILY #30 packet 05/23/17 Lidocaine 5% Top. Ointment [Xylocaine 5% Top. Ointment -] 1 applic TP DAILY #1 tube 06/01/17 Aspirin [ASA -] 81 mg GT DAILY 08/08/17 Furosemide [Lasix -] 40 mg GT DAILY 08/08/17 Sevelamer HCl [Renagel] 800 mg GT TID 08/08/17 Review of Systems - Review of Systems Able to Perform ROS?: Yes Comments:: 08/08/17 09:30 Unable to obtain ROS due to patients clinical condition. <Regine Bowman - Last Filed: 08/08/17 12:58> *Physical Exam - Vital Signs Last Vital Signs Temp Pulse Resp BP Pulse Ox 98.7 F 66 18 111/48 95 08/08/17 08:11 08/08/17 08:11 08/08/17 08:11 08/08/17 08:11 08/08/17 08:11 <Regine Bowman - Last Filed: 08/08/17 12:58> - Vital Signs Last Vital Signs Temp Pulse Resp BP Pulse Ox 98.7 F 66 18 111/48 95 08/08/17 08:11 08/08/17 08:11 08/08/17 08:11 08/08/17 08:11 08/08/17 08:11 - Physical Exam Comments: GENERAL: Awake, alert, in no acute distress. Nonverbal. HEAD: No signs of trauma EYES: PERRLA, EOMI, sclera anicteric, conjunctiva clear ENT: Auricles normal inspection, hearing grossly normal, nares patent, oropharynx clear without exudates. Moist mucosa NECK: Normal ROM, supple, no lymphadenopathy, JVD, or masses LUNGS: Good air entry B/L. Scattered wheezes. HEART: Regular rate and rhythm, normal S1 and S2, no murmurs, rubs or gallops ABDOMEN: Soft, nontender, normoactive bowel sounds. No guarding, no rebound. No masses EXTREMITIES: R AKA, well-healed stump. L upper arm AVF, no thrill palpated, with overlying erythema. Normal range of motion, no edema. No clubbing or cyanosis. No cords, erythema, or tenderness NEUROLOGICAL: Limited by nonverbal state. SKIN: Warm, Dry, normal turgor. +Sacral decub with erythema, skin breakdown, no drainage. +Erythematous rash to the creases of the upper thighs in the diaper area. <Karen Armstrong - Last Filed: 08/08/17 16:02> Heart Score/ECG Review - ECG Impressions Comment:: EKG read 09:11- NSR with RBBB, no acute ST/T changes Compared with EKG 04/16/2017- no significant changes <Karen Armstrong - Last Filed: 08/08/17 16:02> ED Treatment Course - LABORATORY CBC & Chemistry Diagram: 08/08/17 09:03 08/08/17 09:03 - ADDITIONAL ORDERS Additional order review: 08/08/17 09:03 RBC 4.46 MCV 84.8 MCHC 32.8 RDW 18.5 H D MPV 9.3 Neutrophils % Y Lymphocytes % Y <Regine Bowman - Last Filed: 08/08/17 12:58> - LABORATORY CBC & Chemistry Diagram: 08/08/17 09:03 08/08/17 09:03 <Karen Armstrong - Last Filed: 08/08/17 16:02> Medical Decision Making - Medical Decision Making 08/08/17 09:42 CXR Impression: No acute chest pathology. R jugular line removed since prior study on 04/30/2017. Reported by Cristian Wagner MD 08/08/17 10:47 CTAP Impression: Tiny limited by lack of contrast to evaluate the visceral organs. Small right pleural effusion. Significant amount of retained stool throughout the colon especially the rectum and rectosigmoid colon compatible with fecal impaction. Possible abnormal distention of the common duct. Small amount of fluid in the region of the gallbladder head of pancreas cannot be excluded. If further evaluation is clinically warranted recommend MRCP. Reported by:Reported By: Sanjay Sheppard MD 08/08/17 11:36 Discussed case with Hospitalist for admission with resident. Dr. Cowan accepted admission under Med Surg. <Regine Bowman - Last Filed: 08/08/17 12:58> - Medical Decision Making Patient with history of ESRD on HD, missed dialysis and today due to shunt malfunction. Exam shows diaper rash, L upper extremity cellulitis in the distribution of the shunt. Patient was covered by empiric abx in ED, subsequently gave a urine sample (she makes very little urine), brown and cloudy in appearance. Admitted to hospitalist. Dr. Guzman has evaluated and discussed with Dr. Aviles regarding the shunt. <Karen Armstrong - Last Filed: 08/08/17 16:02> *DC/Admit/Observation/Transfer - Attestations Scribe Attestion: 08/08/17 09:30 Documentation prepared by Regine Bowman, acting as medical scientist for Karen Armstrong MD <Regine Bowman - Last Filed: 08/08/17 12:58> - Discharge Dispostion Admit: Yes <Karen Armstrong - Last Filed: 08/08/17 16:02> Diagnosis at time of Disposition: End stage renal disease AV shunt malfunction Qualifiers: Encounter type: initial encounter Qualified Code(s): T82.591A - Other mechanical complication of surgically created arteriovenous shunt, initial encounter Fever Qualifiers: Fever type: unspecified Qualified Code(s): R50.9 - Fever, unspecified Cellulitis Qualifiers: Site of cellulitis: extremity Site of cellulitis of extremity: upper extremity Laterality: left Qualified Code(s): L03.114 - Cellulitis of left upper limb UTI (urinary tract infection) Qualifiers: Urinary tract infection type: site unspecified Hematuria presence: without hematuria Qualified Code(s): N39.0 - Urinary tract infection, site not specified - Discharge Dispostion Condition at time of disposition: Guarded - Referrals
[2017-08-08 09:25] LABS: MCH 27.8 pg (25.7-33.7); MCHC 32.8 g/dl (32.0-36.0); MEAN CELL VOLUME 84.8 fl (80-96); MEAN PLT VOLUME 9.3 fl (7.5-11.1); PLATELET COUNT 196 K/MM3 (134-434); RDW 18.5 % (11.6-15.6); WHITE BLOOD COUNT 22.1 K/mm3 (4.0-10.0)
[2017-08-08 09:38] LABS: ANION GAP 14 (8-16); BILIRUBIN,TOTAL 0.3 mg/dL (0.2-1.0); CALCIUM 8.6 mg/dL (8.5-10.1); CO2 26 mmol/L (21-32); CREATININE 4.1 mg/dL (0.55-1.02); SGPT/ALT 21 U/L (12-78); TOT PROT 5.7 g/dl (6.4-8.2)
[2017-08-08 09:39] LABS: ALK PHOS 208 U/L (45-117); INR 0.88 (0.82-1.09); PROTHROMBIN TIME (PATIENT) 9.7 SEC (9.98-11.88)
[2017-08-08 09:41] LABS: SGOT/AST 27 U/L (15-37)
[2017-08-08 09:52] LABS: GLUCOSE,RANDOM 302 mg/dL (74-106)
[2017-08-08] MEDS ORDERED: VANCOMYCIN 1 GRAM (PRE-DOCKED) 250 ML IVPB ONE (09:59)
[2017-08-08] MEDS ORDERED: PIPERACILLIN/TAZOB 3.375 GM 50 ML IVPB ONE (09:59)
[2017-08-08] MEDS ORDERED: VANCOMYCIN 1,000 MG in DEXTROSE 5%-WATER - 250 ML IVPB SCH (10:00)
[2017-08-08] MEDS ORDERED: PIPERACILLIN/TAZOB 3.375 GM 3.375 GM in DEXTROSE 5%-WATER - 50 ML IVPB ONE (10:23)
--- NOTE | 2017-08-08 11:02 | CON.NEP ---
Consult Consult Specialty:: Nephrology Referred by:: Dr. Armstrong Reason for Consultation:: ESRD on Hd with non functioning AVG - History of Present Illness Chief Complaint: clotted AVG History of Present Illness: This is a 61 year old woman with PMhx of ESRD on HD (recently stated s/p DEYSI w/ o recovery secondary to suspected Vascultitis (+PR3 ab) but no Bx), DM, PVD, CVA (now non-verbal) who was sent from outpatient HD unit with non-functioning AVG and found to have WBC of 22K. Last dialysis was Thursday w/o complication. Pts family reprots having a low grade fever on Thursday. No cough, SOB. ? abd pain and some vomiting earlier this week. 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: CVA (s/p hemorrhagic stroke) Cardio/Vascular: Yes: HTN, Other (PAD) Renal/: Yes: Renal Failure ...: No Musculoskeletal: Yes: Other Endocrine: Yes: Diabetes Mellitus Dermatology: Yes: Other (eschar left heel) - Alcohol/Substance Use Hx Alcohol Use: No - Smoking History Smoking history: Never smoked Have you smoked in the past 12 months: No Aproximately how many cigarettes per day: 0 - Social History History of Recent Travel: No Home Medications - Allergies Allergies/Adverse Reactions: Allergies Allergy/AdvReac Type Severity Reaction Status Date / Time No Known Allergies Allergy Verified 08/08/17 08:15 - Home Medications Home Medications: Ambulatory Orders Amlodipine Besylate [Norvasc -] 10 mg GT DAILY #30 tablet 05/23/17 Insulin (Levemir) [Levemir Vial] 15 units SQ AM #100 ml 05/23/17 Insulin Sliding Scale [Novolog Vial Sliding Scale -] 1 vial SQ Q6HPO #100 units 05/23/17 Nystatin Cream [Mycostatin Cream -] 1 applic TP BID applic 05/23/17 Pantoprazole Suspension [Protonix Packets For Oral Suspension -] 40 mg GT DAILY #30 packet 05/23/17 Lidocaine 5% Top. Ointment [Xylocaine 5% Top. Ointment -] 1 applic TP DAILY #1 tube 06/01/17 Aspirin [ASA -] 81 mg GT DAILY 08/08/17 Furosemide [Lasix -] 40 mg GT DAILY 08/08/17 Sevelamer HCl [Renagel] 800 mg GT TID 08/08/17 Family Disease History - Family Disease History Family Disease History: Diabetes: Mother Review of Systems Unable to obtain ROS, reason: b/c of clinical status Nephrology Consult - Height Height: 5 ft 3 in - Weight Weight: 120 lb - BMI Body Mass Index (BMI): 21.2 - Lab Results CBC,BMP: CBC, BMP 08/08/17 09:03 08/08/17 09:03 Anion Gap: Anion Gap Anion Gap 14 (8-16) 08/08/17 09:03 - Imaging Chest X-ray: Report Reviewed Cat Scan: Report Reviewed - Physical Examination Vital Signs: Vital Signs Temperature 98.4 F 08/08/17 09:37 Pulse Rate 72 08/08/17 09:37 Respiratory Rate 16 08/08/17 09:37 Blood Pressure 109/53 08/08/17 09:37 O2 Sat by Pulse Oximetry (%) 97 08/08/17 09:37 Constitutional: Yes: No Distress, Calm Eyes: Yes: Conjunctiva Clear HENT: Yes: Atraumatic Neck: Yes: Supple Cardiovascular: Yes: Regular Rate and Rhythm. No: Murmur, Rub Respiratory: Yes: Regular, Diminished Gastrointestinal: Yes: Normal Bowel Sounds, Distention, Tenderness Renal/: No: Bladder Distention Extremities: No: Cold, Cool, Cyanosis Problem List - Problems (1) ESRD (end stage renal disease) on dialysis Code(s): N18.6 - END STAGE RENAL DISEASE Z99.2 - DEPENDENCE ON RENAL DIALYSIS (2) Leukocytosis Code(s): D72.829 - ELEVATED WHITE BLOOD CELL COUNT, UNSPECIFIED (3) Vomiting Code(s): R11.10 - VOMITING, UNSPECIFIED (4) Acute constipation Code(s): K59.00 - CONSTIPATION, UNSPECIFIED (5) Diabetes mellitus Code(s): E11.9 - TYPE 2 DIABETES MELLITUS WITHOUT COMPLICATIONS Assessment/Plan 61 year old woman with PMhx of ESRD on HD (recently stated s/p DEYSI w/o recovery secondary to suspected Vascultitis (+PR3 ab) but no Bx), DM, PVD, CVA (now non- verbal) who was sent from outpatient HD unit with non-functioning AVG and found to have WBC of 22K. #ESRD on HD with clotted AVG Labs reviewed, no acute indication for dialysis at this time Vascular to see patient and plan declott when clinically stable Dose all meds for Cr Cl less then 15 Renal diet #Leukocytosis/suspected Sepsis CT fo Abd showed no definitive pathology Blood cultures collected check urine cultures Empiric Abx coverage check amylase/lipase #CVA/Non-verbal/Quadriplegia supportive care Thank you Jonathan Guzman DO
[2017-08-08 11:23] LABS: TOTAL CELLS COUNTED 100
[2017-08-08 11:50] LABS: URINE APPEARANCE TURBID; URINE BILIRUBIN NEGATIVE (NEGATIVE); URINE BLOOD 3+ (NEGATIVE); URINE COLOR YELLOW; URINE GLUCOSE (UA) 2+ (NEGATIVE); URINE KETONE NEGATIVE (NEGATIVE); URINE NITRITE NEGATIVE (NEGATIVE); URINE UROBILINOGEN NEGATIVE mg/dL (0.2-1.0)
[2017-08-08 12:02] LABS: AMYLASE 36 U/L (25-115)
[2017-08-08 12:11] LABS: URINE LEUK ESTERASE 1+ (NEGATIVE); URINE PROTEIN 2+ (NEGATIVE)
[2017-08-08 12:13] LABS: URINE RBC 27 /hpf (0-3); URINE WBC 1535 /hpf (3-5)
[2017-08-08 13:51] VITALS: BMI 21.6
[2017-08-08] MEDS ORDERED: INSULIN SLIDING SCALE (NOVOLOG) 1 VIAL SQ SCH (16:30)
--- NOTE | 2017-08-08 16:35 | PN ---
Teaching Attending Note Name of Resident: Nisreen Batista ATTENDING PHYSICIAN STATEMENT I saw and evaluated the patient. I reviewed the resident's note and discussed the case with the resident. I agree with the resident's findings and plan as documented. SUBJECTIVE: CC: non functional L AVF . HPI: hx obtained from sonand daughter at bed side . Mon went to HD today , but fistula was not functional. was supposed to see Dr. Aviles as out pt for this. daughter reported a fever 2 days ago. no diarrhea or change in urine habits. in ER, she was found to have leukocytosis , and was given ABx OBJECTIVE: NAD, non verbal , contracted. looks comfortable, opens eyes. HEENT: pupils are roundn minimally reactive tolight , L sided cataract. CV: RRR, 3/6 SM at apex. 2/6 SM at RUSB . Lungs: CTAB , decreased breath sounds b/l bases, otherwise clear Abd: soft, NT, ND , NL BS . FT in epigastric area with clean skin around it Ext: contracted upper ext. no edema on upper or lwoer ext , except for skin over L AVF( erythema, edema , increased warmth ) , no bruit heard over fistula Skin:excoriated skin in groins and over R buttock cheek with no sacral ulcer. pasty stool covering the area, full inspection is not possible . 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 - vascular consult pending - NPO after MN 2- leukocytosis : likely due to UTI as has significant pyuria . no obvious infected ulcers on limited inspection of skin - follow blood cx - had psudomonas inurine last time , need to cover empirically. - vascular input and ID input appreciated regarding possible graft as source of infection - received zosyn and vanco in ER . I would avoid levaquin due to prolonged QTC last admission , will review EKG this time. possibly can use zosyn. 3- CKD on HD. seen by renal . appreciate input - no urgent need for HD. - resume home lasix 4- HTN: cont Norvasc 5- Nutrition : TF . Nepro 4 times daily 6- DM : levemir and SSI HLOC
[2017-08-08] MEDS ORDERED: INSULIN (NOVOLOG) ASPART 100 UNITS/ML 10ML VIAL ONE (16:48)
--- NOTE | 2017-08-08 17:27 | HP ---
CHIEF COMPLAINT: non-functioning AVF PCP: Mignon Polanco HISTORY OF PRESENT ILLNESS: History taken from son and daughter. Patient is a non-verbal 61 yo F with significant past history of CVA (quadriplegic), R AKA, Diabetes, HTN, dementia, ESRD, s/p peg tube (5 years ago), Wegners Granulomatosis came to the ED by recommendation of the dialysis center when they were unable to access the port on her left arm because of clotting. They also endorse temp of 100, redness and warmth in the L arm. ER course was notable for: (1) CXR- no acute pathology (2) ABD CT- small right pleural effusions (3) U/A positive Recent Travel: none PAST MEDICAL HISTORY: CVA (5 years ago), Diabetes, HTN, Dementia, HLD, Wegeners granulomatosis PAST SURGICAL HISTORY: s/p peg tube, R BKA Social History: Smoking: none Alcohol: none Drugs: none Family History: mother and father diabetes Allergies No Known Allergies Allergy (Verified 08/08/17 08:15) HOME MEDICATIONS: Home Medications Medication Instructions Recorded Amlodipine Besylate [Norvasc -] 10 mg GT DAILY #30 tablet 05/23/17 Insulin (Levemir) [Levemir Vial] 15 units SQ AM #100 ml 05/23/17 Insulin Sliding Scale [Novolog 1 vial SQ Q6HPO #100 units 05/23/17 Vial Sliding Scale -] Nystatin Cream [Mycostatin Cream -] 1 applic TP BID applic 05/23/17 Pantoprazole Suspension [Protonix 40 mg GT DAILY #30 packet 05/23/17 Packets For Oral Suspension -] Lidocaine 5% Top. Ointment 1 applic TP DAILY #1 tube 06/01/17 [Xylocaine 5% Top. Ointment -] Aspirin [ASA -] 81 mg GT DAILY 08/08/17 Furosemide [Lasix -] 40 mg GT DAILY 08/08/17 Sevelamer HCl [Renagel] 800 mg GT TID 08/08/17 REVIEW OF SYSTEMS CONSTITUTIONAL: Absent: fever, chills, diaphoresis, generalized weakness, malaise, loss of appetite, weight change HEENT: Absent: rhinorrhea, nasal congestion, throat pain, throat swelling, difficulty swallowing, mouth swelling, ear pain, eye pain, visual changes CARDIOVASCULAR: Absent: chest pain, syncope, palpitations, irregular heart rate, lightheadedness , peripheral edema RESPIRATORY: Absent: cough, shortness of breath, dyspnea with exertion, orthopnea, wheezing, stridor, hemoptysis GASTROINTESTINAL: Absent: abdominal pain, abdominal distension, nausea, vomiting, diarrhea, constipation, melena, hematochezia GENITOURINARY: Absent: dysuria, frequency, urgency, hesitancy, hematuria, flank pain, genital pain MUSCULOSKELETAL: Absent: myalgia, arthralgia, joint swelling, back pain, neck pain SKIN: Absent: rash, itching, pallor HEMATOLOGIC/IMMUNOLOGIC: Absent: easy bleeding, easy bruising, lymphadenopathy, frequent infections ENDOCRINE: Absent: unexplained weight gain, unexplained weight loss, heat intolerance, cold intolerance NEUROLOGIC: Absent: headache, focal weakness or paresthesias, dizziness, unsteady gait, seizure, mental status changes, bladder or bowel incontinence PSYCHIATRIC: Absent: anxiety, depression, suicidal or homicidal ideation, hallucinations. PHYSICAL EXAMINATION Vital Signs - 24 hr 08/08/17 08/08/17 08/08/17 12:12 13:44 14:29 Temperature 98.2 F 98.8 F 97.9 F Pulse Rate 76 75 Pulse Rate [ 74 Left Apical] Respiratory 16 18 18 Rate Blood Pressure 124/50 120/50 Blood Pressure 122/55 [Right Arm] O2 Sat by Pulse 96 Oximetry (%) 08/08/17 14:55 Temperature Pulse Rate Pulse Rate [ Left Apical] Respiratory Rate Blood Pressure Blood Pressure [Right Arm] O2 Sat by Pulse 99 Oximetry (%) GENERAL: NAD, non-verbal EYES:injected, Pupils pinpoint, minimally reactive to light. Cataracts present b/l EARS, NOSE, THROAT: oropharynx clear without exudates. Moist mucous membranes. NECK: without lymphadenopathy, JVD, or masses. LUNGS: clear to auscultation bilaterally. No wheezes, and no crackles. No accessory muscle use. HEART: Regular rate and rhythm, 2/6 systolic murmber in right upper sternal border. ABDOMEN: Soft, nontender, not distended, normoactive bowel sounds, no guarding, no rebound, no masses. No hepatomegaly or splenomegaly. EXT: Left arm erythematous, warm, and edematous over the L AVF. RUE and LUE contracted. Skin excoriations in groin and over right buttock cheek. Laboratory Results - last 24 hr 08/08/17 13:30 Lactic Acid 1.1 ASSESSMENT/PLAN: Patient is a non-verbal 61 yo F with significant past history of CVA ( quadriplegic), R AKA, Diabetes, HTN, dementia, ESRD, s/p peg tube (5 years ago) , Wegners Granulomatosis came to the ED with a dysfunctional Left AVF and was found to have leukocytosis. # Left arm dysfunctional AV Fistula -Vasulcar Surgery (Dr. Aviles) Consulted -NPO after midnight #Leukocytosis likely secondary to UTI -Pyuria on U/A: WBC of 1535 -previous admission was found to have pseudomonas in urine -ID consulted -Vascular consulted regarding graft being a possible source of income. #Chronic Kidney Disease -nephrology on board -continue home Lasix #HTN -resume Amplodipine 10mg #Nutrition -Nepro 4 times daily #Diabetes -Continue Levemir -Continue SSI #FEN: -No IV fluids -Nepro 4 times daily #PPX: Heparin 5000 SQ Visit type - Emergency Visit Emergency Visit: Yes ED Registration Date: 08/08/17 Care time: The patient presented to the Emergency Department on the above date and was hospitalized for further evaluation of their emergent condition. - New Patient This patient is new to me today: Yes Date on this admission: 08/08/17 - Critical Care Critical Care patient: No
[2017-08-08] MEDS ORDERED: GENTAMICIN INJECTION 90 MG in SODIUM CHLORIDE 100 ML IVPB ONE (20:59)
[2017-08-08] MEDS ORDERED: ACETAMINOPHEN 650 MG/20.3 ML ORAL SOLUTION (CUPS) NGT ONE (21:02)
[2017-08-08] MEDS ORDERED: ACETAMINOPHEN 650 MG SUPP.RECT PR ONE (21:53)
[2017-08-08] MEDS: NYSTATIN 100,000 UNIT/GM TOPICAL CREAM 15 GM TUBE TP SCH (22:38)
[2017-08-08] MEDS ORDERED: INSULIN (NOVOLOG) ASPART 100 UNITS/ML 10ML VIAL SQ ONE (23:19)
[2017-08-08] MEDS: INSULIN SLIDING SCALE (NOVOLOG) 1 VIAL SQ SCH (23:28)
[2017-08-09] MEDS ORDERED: METOCLOPRAMIDE HCL INJECTION 10 MG/2 ML VIAL IVPUSH ONE (00:14)
[2017-08-09] MEDS ORDERED: PIPERACILLIN/TAZOB 2.25 GM 2.25 GM in DEXTROSE 5%-WATER - 50 ML IVPB ONE ×2 (02:49→06:45)
[2017-08-09] MEDS ORDERED: HEPARIN NA (PORCINE) 5,000 UNITS/ML 1ML VIAL SQ SCH (06:00)
[2017-08-09] MEDS ORDERED: PIPERACILLIN/TAZOBACTAM 2.25 GM VIAL IVPB ONE (06:47)
[2017-08-09] MEDS ORDERED: DEXTROSE 5%-WATER - 50 ML IVPB ONE (06:47)
[2017-08-09] MEDS ORDERED: INSULIN DETEMIR 100 UNITS/ML MDV SQ SCH ×3 (07:00→09:30)
[2017-08-09] MEDS ORDERED: PT OWN MED DRAWER 7, Y5N ONE ×2 (07:19→21:06)
[2017-08-09] MEDS ORDERED: SEVELAMER CARBONATE 0.8 GM POWDER PACKET GT SCH ×2 (08:00→12:00)
[2017-08-09 08:11] LABS: BASOPHIL 0.2 % (0-2.0); EOSINOPHIL 1.6 % (0-4.5); MCH 27.2 pg (25.7-33.7); MCHC 31.8 g/dl (32.0-36.0); MEAN CELL VOLUME 85.5 fl (80-96); MEAN PLT VOLUME 9.1 fl (7.5-11.1); PLATELET COUNT 226 K/MM3 (134-434); RDW 18.4 % (11.6-15.6); WHITE BLOOD COUNT 25.6 K/mm3 (4.0-10.0)
[2017-08-09] MEDS ORDERED: ACETAMINOPHEN 325 MG TABLET (FP) PO PRN ×2 (08:21→11:11)
[2017-08-09] MEDS ORDERED: METOCLOPRAMIDE HCL INJECTION 10 MG/2 ML VIAL IVPB PRN ×2 (08:24→11:11)
[2017-08-09 08:43] LABS: ALBUMIN 2.1 g/dl (3.4-5.0); ANION GAP 19 (8-16); CALCIUM 8.3 mg/dL (8.5-10.1); CO2 23 mmol/L (21-32); MAGNESIUM 3.4 mg/dL (1.8-2.4)
[2017-08-09 08:55] LABS: ALK PHOS 181 U/L (45-117); BILIRUBIN,TOTAL 0.6 mg/dL (0.2-1.0); CREATININE 5.2 mg/dL (0.55-1.02); SGOT/AST 13 U/L (15-37); SGPT/ALT 18 U/L (12-78); TOT PROT 5.4 g/dl (6.4-8.2)
--- NOTE | 2017-08-09 09:19 | PN ---
Progress Note (short form) - Note Progress Note: Renal follow up for ESRD on HD Pt seen and examined at the bedside + N/V overnight Febrile this am ARM with some bleeding near AVG site Vital Signs Temperature 101 F H 08/09/17 06:00 Pulse Rate 92 H 08/09/17 06:00 Respiratory Rate 20 08/09/17 06:00 Blood Pressure 127/45 08/09/17 06:00 O2 Sat by Pulse Oximetry (%) 92 L 08/08/17 21:00 Intake & Output 08/06/17 08/07/17 08/08/17 08/09/17 23:59 23:59 23:59 23:59 Intake Total 550 0 Balance 550 0 Weight 122 lb Gen: NAD CVS: RRR, No M/R Lungs: CTA, no rales or wheeze Abd: soft NT/ND Ext: no edema, clubbing or cyanosis CBC, BMP 08/09/17 06:45 08/09/17 06:45 Current Medications Acetaminophen (Tylenol -) 650 mg PO Q6H PRN PRN Reason: FEVER OR PAIN Last Admin: 08/09/17 09:02 Dose: 650 mg Amlodipine Besylate (Norvasc -) 10 mg GT DAILY APRIL Aspirin (Asa -) 81 mg GT DAILY APRIL Furosemide (Lasix -) 80 mg GT DAILY APRIL Heparin Sodium (Porcine) (Heparin -) 5,000 unit SQ TID [facility] Last Admin: 08/09/17 06:58 Dose: 5,000 unit Insulin Aspart (Novolog Vial Sliding Scale -) 1 vial SQ QID APRIL PRN Reason: Protocol Last Admin: 08/08/17 23:28 Dose: Not Given Insulin Detemir (Levemir Vial) 20 units SQ AM APRIL Metoclopramide HCl (Reglan Injection -) 10 mg IVPB Q6H PRN PRN Reason: NAUSEA AND/OR VOMITING Nystatin (Mycostatin Cream -) 1 applic TP BID [facility] Last Admin: 08/08/17 22:38 Dose: 1 applic Pantoprazole Sodium (Protonix Packets For Oral Suspension -) 40 mg GT DAILY APRIL Sevelamer Carbonate (Renvela Powder Packet -) 0.8 gm GT TIDCM APRIL Last Admin: 08/09/17 08:56 Dose: Not Given 61 year old woman with PMhx of ESRD on HD (recently stated s/p DEYSI w/o recovery secondary to suspected Vascultitis (+PR3 ab) but no Bx), DM, PVD, CVA (now non- verbal) who was sent from outpatient HD unit with non-functioning AVG and found to have WBC of 22K. #ESRD on HD with clotted AVG for AVG removal today no indication for CHIEF MEDICAL DIRECTOR today Trend BUN/Cr and electrolytes #Leukocytosis/suspected Sepsis UA is positive but blood cultures grew MSSA rosaline from infected graft to have AVG removed today in [place] ABx coverage repeat blood cultures will need discussion with family regarding goals of care Thank you Jonathan Guzman DO Problem List - Problems (1) ESRD (end stage renal disease) on dialysis Code(s): N18.6 - END STAGE RENAL DISEASE Z99.2 - DEPENDENCE ON RENAL DIALYSIS (2) Leukocytosis Code(s): D72.829 - ELEVATED WHITE BLOOD CELL COUNT, UNSPECIFIED (3) Vomiting Code(s): R11.10 - VOMITING, UNSPECIFIED (4) Acute constipation Code(s): K59.00 - CONSTIPATION, UNSPECIFIED (5) Diabetes mellitus Code(s): E11.9 - TYPE 2 DIABETES MELLITUS WITHOUT COMPLICATIONS
--- NOTE | 2017-08-09 09:25 | PN ---
Progress Note (short form) - Note Progress Note: Subjective: cont to have fever . had vomiting x 3 last night . bleeding form L AVF Objective: Vital Signs: Last Vital Signs Temp Pulse Resp BP Pulse Ox 101 F H 92 H 20 127/45 92 L 08/09/17 06:00 08/09/17 06:00 08/09/17 06:00 08/09/17 06:00 08/08/17 21:00 Laboratory Results - last 24 hr 08/08/17 08/08/17 08/08/17 09:03 09:03 09:03 WBC 22.1 H D RBC 4.46 Hgb 12.4 D Hct 37.9 MCV 84.8 MCH 27.8 MCHC 32.8 RDW 18.5 H D Plt Count 196 D MPV 9.3 Total Counted 100 Neutrophils % Y Neutrophils % (Manual) 86 H Lymphocytes % Y Lymphocytes % (Manual) 9 Monocytes % Monocytes % (Manual) 5 Eosinophils % Basophils % INR 0.88 Sodium 131 L Potassium 3.2 L D Chloride 91 L Carbon Dioxide 26 D Anion Gap 14 BUN 63 H D Creatinine 4.1 H D Creat Clearance w eGFR 11.03 POC Glucometer Random Glucose 302 H* Lactic Acid Calcium 8.6 Magnesium Total Bilirubin 0.3 AST 27 D ALT 21 D Alkaline Phosphatase 208 H Total Protein 5.7 L Albumin 2.0 L Total Amylase 36 D Lipase 120 Urine Color Urine Appearance Urine pH Ur Specific [place] Urine Protein Urine Glucose (UA) Urine Ketones Urine Blood Urine Nitrite Urine Bilirubin Urine Urobilinogen Ur Leukocyte Esterase Urine RBC Urine WBC Blood Type Antibody Screen 08/08/17 08/08/17 08/08/17 09:21 09:21 11:10 WBC RBC Hgb Hct MCV MCH MCHC RDW Plt Count MPV Total Counted Neutrophils % Neutrophils % (Manual) Lymphocytes % Lymphocytes % (Manual) Monocytes % Monocytes % (Manual) Eosinophils % Basophils % INR Sodium Potassium Chloride Carbon Dioxide Anion Gap BUN Creatinine Creat Clearance w eGFR POC Glucometer Random Glucose Lactic Acid 1.0 Calcium Magnesium Total Bilirubin AST ALT Alkaline Phosphatase Total Protein Albumin Total Amylase Lipase Urine Color Yellow Urine Appearance Turbid Urine pH 5.0 D Ur Specific [place] 1.020 Urine Protein 2+ H Urine Glucose (UA) 2+ H Urine Ketones Negative Urine Blood 3+ H Urine Nitrite Negative Urine Bilirubin Negative Urine Urobilinogen Negative Ur Leukocyte Esterase 1+ H Urine RBC 27 Urine WBC 1535 Blood Type O POSITIVE Antibody Screen Negative 08/08/17 08/08/17 08/09/17 13:30 16:46 03:40 WBC RBC Hgb Hct MCV MCH MCHC RDW Plt Count MPV Total Counted Neutrophils % Neutrophils % (Manual) Lymphocytes % Lymphocytes % (Manual) Monocytes % Monocytes % (Manual) Eosinophils % Basophils % INR Sodium Potassium Chloride Carbon Dioxide Anion Gap BUN Creatinine Creat Clearance w eGFR POC Glucometer 345 Random Glucose Lactic Acid 1.1 1.3 Calcium Magnesium Total Bilirubin AST ALT Alkaline Phosphatase Total Protein Albumin Total Amylase Lipase Urine Color Urine Appearance Urine pH Ur Specific [place] Urine Protein Urine Glucose (UA) Urine Ketones Urine Blood Urine Nitrite Urine Bilirubin Urine Urobilinogen Ur Leukocyte Esterase Urine RBC Urine WBC Blood Type Antibody Screen 08/09/17 08/09/17 06:45 06:45 WBC 25.6 H RBC 4.11 Hgb 11.2 Hct 35.1 MCV 85.5 MCH 27.2 MCHC 31.8 L RDW 18.4 H Plt Count 226 MPV 9.1 Total Counted Neutrophils % 89.0 H D Neutrophils % (Manual) Lymphocytes % 4.6 L D Lymphocytes % (Manual) Monocytes % 4.6 Monocytes % (Manual) Eosinophils % 1.6 Basophils % 0.2 INR Sodium 131 L Potassium 3.2 L Chloride 89 L Carbon Dioxide 23 Anion Gap 19 H BUN 80 H D Creatinine 5.2 H D Creat Clearance w eGFR 8.38 POC Glucometer Random Glucose Lactic Acid Calcium 8.3 L Magnesium 3.4 H Total Bilirubin 0.6 D AST 13 L D ALT 18 Alkaline Phosphatase 181 H Total Protein 5.4 L Albumin 2.1 L Total Amylase Lipase Urine Color Urine Appearance Urine pH Ur Specific [place] Urine Protein Urine Glucose (UA) Urine Ketones Urine Blood Urine Nitrite Urine Bilirubin Urine Urobilinogen Ur Leukocyte Esterase Urine RBC Urine WBC Blood Type Antibody Screen Physical Exam: NAD, non verbal , contracted. looks comfortable HEENT: pupils are round minimally reactive to light , L sided cataract. CV: RRR, 3/6 SM at apex. 2/6 SM at RUSB . Lungs: CTAB , decreased breath sounds b/l bases, otherwise clear Abd: soft, NT, ND , NL BS . FT in epigastric area with clean skin around it Ext: contracted upper ext. no edema on lower ext .skin over L AVF( erythema, edema , increased warmth ) worse compared to yesterday , no bruit heard over fistula . a bleeding spot seen ( oozing ) . 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 especially with blood cx showing MSSA . she also might have complicated UTI. - received zosyn at 7 am , also a dose of genta last night . dos eof vanco yesterday - will d/w ID naficillin for mSSA and also need G- coverage for UTI - check Echo for vegetations - d/w Dr. Guzman. graft to be removed - repeat blood cx 2- Dysfunctional AVF: clotted and infected - removal of graft today 3- DM : sugar 400. - give 10 units of novolog - give 15 of levemir - repeat BMP ( possibly the elevated AG is form renal failure rather than DKA) - check ketone in urine now - repeat finger stick - if ketones are now present, might need to use insulin gtt. 4- CKD on HD. D/W renal . no need for HD today - possible shiley for HD tomorrow if family wishes to cont 5- HTN: cont Norvasc 5- Nutrition :resume feeding after sx. HLOC will d/w daughter the code status Visit type - Emergency Visit Emergency Visit: Yes ED Registration Date: 08/08/17 Care time: The patient presented to the Emergency Department on the above date and was hospitalized for further evaluation of their emergent condition. - New Patient This patient is new to me today: No - Critical Care Critical Care patient: No
[2017-08-09] MEDS ORDERED: INSULIN (NOVOLOG) ASPART 100 UNITS/ML 10ML VIAL ONE (09:30)
--- NOTE | 2017-08-09 09:52 | EKG ---
Test Reason : Blood Pressure : / mmHG Vent. Rate : 070 BPM Atrial Rate : 070 BPM P-R Int : 150 ms QRS Dur : 168 ms QT Int : 458 ms P-R-T Axes : 067 262 047 degrees QTc Int : 494 ms NORMAL SINUS RHYTHM RIGHT BUNDLE BRANCH BLOCK POSSIBLE LATERAL INFARCT , AGE UNDETERMINED ABNORMAL ECG Confirmed by MD AYDY, LUIZA ([id number]) on 08/09/2017 9:51:59 AM Referred By: Confirmed By:LUIZA CONTEH MD
[2017-08-09] MEDS ORDERED: ASPIRIN 81 MG CHEWABLE TABLETS GT SCH (10:00)
[2017-08-09] MEDS ORDERED: amLODIPine BESYLATE 10 MG TABLET (FP) GT SCH (10:00)
[2017-08-09] MEDS ORDERED: FUROSEMIDE 40 MG TABLET (FP) GT SCH (10:00)
[2017-08-09] MEDS ORDERED: PANTOPRAZOLE SOD 40 MG SUSPENSION PACKET GT SCH (10:00)
[2017-08-09] MEDS ORDERED: PROPOFOL 20 ML ONE (10:12)
[2017-08-09] MEDS ORDERED: HEPARIN NA (PORCINE) 5,000 UNITS/ML 1ML VIAL ONE (10:19)
[2017-08-09 10:31] LABS: GLUCOSE,RANDOM 396 mg/dL (74-106)
[2017-08-09 10:32] LABS: PHOSPHOROUS 0.5 mg/dL (2.5-4.9)
[2017-08-09] MEDS ORDERED: LIDOCAINE HCL 1%, 10 MG/ML (20ML VIAL) INF ONE (10:38)
[2017-08-09] MEDS ORDERED: HEPARIN NA (PORCINE) 5,000 UNITS/ML 1ML VIAL SQ ONE (10:40)
[2017-08-09] MEDS ORDERED: POVIDONE-IODINE OINTMENT 10% - 28.4 GM TUBE TP ONE (10:49)
--- NOTE | 2017-08-09 10:49 | OP ---
Operative Note - Note: Operative Date: 08/09/17 Pre-Operative Diagnosis: Infected left avg Operation: Ligation and removal of left avg Post-Operative Diagnosis: Same as Pre-op Surgeon: Robin Aviles Anesthesia: Fractional Estimated Blood Loss (mls): 30 Operative Report Dictated: Yes
[2017-08-09] MEDS ORDERED: POTASSIUM PHOSPHATE 15 MM in SODIUM CHLORIDE 250 ML IVPB ONE (10:58)
[2017-08-09] MEDS ORDERED: NAPH,MB-DB/K PH,MBDB POWDER PACKET PO ONE ×2 (10:59→19:41)
--- NOTE | 2017-08-09 11:06 | SURG ---
Surgery Tile Burner Note Tile Burner: Saeed Santos PA-C Date of Service: 08/09/17 Diagnosis: Infected left arm av graft Procedure: Ligation and removal of left arm av graft I was present for the entirety of the operative procedure. For further detail, please refer to operative report. Visit type - Case Type Case Type: ED Admission - New patient This patient is new to me today: Yes Date on this admission: 08/09/17
[2017-08-09] MEDS: INSULIN SLIDING SCALE (NOVOLOG) 1 VIAL SQ SCH ×2 (12:12→16:58)
[2017-08-09] MEDS: NYSTATIN 100,000 UNIT/GM TOPICAL CREAM 15 GM TUBE TP SCH ×2 (12:12→21:17)
[2017-08-09 13:19] LABS: ANION GAP 17 (8-16); CALCIUM 8.2 mg/dL (8.5-10.1); CO2 24 mmol/L (21-32); CREATININE 5.4 mg/dL (0.55-1.02)
[2017-08-09 13:34] LABS: GLUCOSE,RANDOM 331 mg/dL (74-106)
[2017-08-09] MEDS ORDERED: INSULIN SLIDING SCALE (NOVOLOG) 1 VIAL SQ SCH (14:00)
[2017-08-09] MEDS: HEPARIN NA (PORCINE) 5,000 UNITS/ML 1ML VIAL SQ SCH ×2 (15:17→21:16)
--- NOTE | 2017-08-09 16:30 | PN ---
Progress Note (short form) - Note Progress Note: ID Consult dictated S/P removal of infected L UE AVG MSSA bacteremia ESRD Await final c/s Nafcillin 2gm q4h Echo Discussed with family at bedside
[2017-08-09 16:54] LABS: URINE APPEARANCE TURBID; URINE BILIRUBIN NEGATIVE (NEGATIVE); URINE BLOOD 3+ (NEGATIVE); URINE COLOR YELLOW; URINE GLUCOSE (UA) 3+ (NEGATIVE); URINE KETONE NEGATIVE (NEGATIVE); URINE NITRITE NEGATIVE (NEGATIVE); URINE UROBILINOGEN NEGATIVE mg/dL (0.2-1.0)
[2017-08-09 17:07] LABS: URINE LEUK ESTERASE 2+ (NEGATIVE); URINE PROTEIN 2+ (NEGATIVE)
[2017-08-09 17:13] LABS: URINE BACTERIA MANY /hpf (NONE SEEN); URINE RBC 115 /hpf (0-3); URINE WBC 1547 /hpf (3-5)
[2017-08-09] MEDS ORDERED: NAFCILLIN - 2 GM in SODIUM CHLORIDE 100 ML IVPB SCH (19:30)
--- NOTE | 2017-08-09 20:07 | CONS ---
DATE OF CONSULTATION: DATE OF DICTATION: 08/09/2017 The patient is a 61-year-old female evaluated for sepsis. She was admitted to the hospital on August 08, 2017, with reported fever and occluded left upper extremity AV graft. History was obtained from the chart, as she cannot give a history secondary to dementia. She had a hemodialysis session on Thursday. Family reports that she had developed fever to 100.1 and erythema involving the left upper extremity. She was evaluated in the emergency room, where she had a markedly elevated white blood cell count and Vascular Surgery evaluated her. She was determined to have an infected AV graft. She was taken to the operating room, where it was excised. Blood cultures are now positive for presumed methicillin-sensitive Staphylococcus aureus. She is unable to give any additional history. PAST MEDICAL HISTORY: Positive for stroke, dementia, end-stage renal disease, diabetes mellitus, hypertension, hyperlipidemia. PAST SURGICAL HISTORY: Status post left AV graft, feeding gastrostomy, right [id number] amputation. No known allergies. LABORATORY: White count 25.6, hematocrit 35.1, platelet count 226. BUN 81, creatinine 5.4. Urinalysis: 1547 white cells. Blood cultures presumed methicillin-sensitive Staphylococcus aureus. PHYSICAL EXAMINATION: General: She is awake. She is not verbally responsive. Vital Signs: Temperature 98.2. Blood pressure 107/45. Pulse 81, regular. Respiration 20 per minute. Eyes: Sclerae anicteric. Heart Sounds: S1, S2. Lungs: Grossly clear. Poor inspiratory effort. Abdomen: Soft, obese. No tenderness elicited. Feeding gastrostomy tube is in place. Extremities: Status post right [id number] amputation. The left upper extremity has a postoperative surgical dressing in place. IMPRESSION: 1. Status post removal of infected left upper extremity AV graft. 2. Methicillin-sensitive Staphylococcus aureus bacteremia. 3. End-stage renal disease, on hemodialysis. 4. Dementia. Await final identification of blood culture. Patient has been given doses of vancomycin and gentamicin. Will continue nafcillin 2 g IV piggyback every 4 hours, obtain echocardiogram and follow blood cultures. Case discussed with patient's family present at the bedside. Thank you for the kind referral. KWAME VALLE M.D. [id number]
[2017-08-09] MEDS: NAFCILLIN - 2 GM in DEXTROSE 5%-WATER - 100 ML IVPB SCH (21:16)
--- NOTE | 2017-08-09 21:20 | OP ---
DATE OF OPERATION: 08/09/2017 PREOPERATIVE DIAGNOSIS: Infected left arteriovenous graft. POSTOPERATIVE DIAGNOSIS: Infected left arteriovenous graft. PROCEDURE: Ligation and removal of left arteriovenous graft. SURGEON: Robin Dang DO ANESTHESIA: Fractional. BLOOD LOSS: 30 mL. SURGEON: Robin Dang DO HEAT CURER: JUDY Lugo The patient is a 61-year-old female who comes in with an infected left AV graft. She had fevers of 102 and there was pus draining from her left arm. She has had fever for over 3 days. She was admitted last night with a white count of 22,000, given antibiotics as we saw her today, and it was decided that she needs to have the graft removed. Patient's family was consented for the procedure, understanding all risks, benefits, and alternatives. She was then taken to the operating room. Once in the operating room, placed on operating table in supine manner, and the area of the left arm was prepped and draped in a sterile surgical manner. Under ultrasound guidance, we were able to visualize the proximal and distal AV graft, and a transverse incision was drawn over the graft using a skin marker. We then went ahead and started out and we gave the patient 10 mL of lidocaine 1% in the proximal and distal AV grafts over our incisions. We then went ahead and used a 15 blade and made a transverse incision of about 4 cm over the proximal AV graft. Bovie electrocautery used to control hemostasis, and we dissected out the proximal AV graft with a right angle, and we would then clamp the proximal AV graft. We then went distally and made a 4-cm incision using a 15 blade. Using Bovie electrocautery we dissected out the distal AV graft. We isolated with a right angle and a clamp was placed distally. We then used heavy scissors and transected the graft. We then used 0 silk suture ligature and the distal AV graft was suture ligated. We then went proximally and ligated the graft using heavy scissors there. We then used 3-0 Prolene and a running stitch was placed in the proximal AV graft to suture ligate the graft. We then went ahead and took a clamp and removed the body of the graft and it was sent off for culture and pathology, the defect of the graft, which was irrigated copiously. We then used 3-0 Vicryl and the subcutaneous tissue was approximated in an interrupted manner for both wounds and skin lisha were placed over both incisions. The area was wet and dried. A 4 x 4 and Tegaderms were placed with a Kerlix. Patient tolerated the procedure, no complication. Patient transferred back in stable condition. Total blood loss 30 mL. ROBIN DANG DO [id number]
[2017-08-10] MEDS: NAFCILLIN - 2 GM in DEXTROSE 5%-WATER - 100 ML IVPB SCH ×7 (00:32→21:23)
[2017-08-10] MEDS: HEPARIN NA (PORCINE) 5,000 UNITS/ML 1ML VIAL SQ SCH ×3 (06:03→21:16)
[2017-08-10] MEDS: INSULIN SLIDING SCALE (NOVOLOG) 1 VIAL SQ SCH ×3 (06:15→17:20)
[2017-08-10] MEDS ORDERED: PT OWN MED DRAWER 7, Y5N ONE ×2 (06:20→21:23)
[2017-08-10] MEDS ORDERED: INSULIN DETEMIR 100 UNITS/ML MDV SQ SCH ×2 (07:00)
[2017-08-10 07:59] LABS: BASOPHIL 0.4 % (0-2.0); EOSINOPHIL 0.4 % (0-4.5); MCH 27.2 pg (25.7-33.7); MCHC 31.7 g/dl (32.0-36.0); MEAN PLT VOLUME 8.7 fl (7.5-11.1); NEUTROPHILS 94.7 % (42.8-82.8); PLATELET COUNT 279 K/MM3 (134-434); RDW 19.3 % (11.6-15.6); WHITE BLOOD COUNT 22.2 K/mm3 (4.0-10.0)
[2017-08-10] MEDS ORDERED: INSULIN DETEMIR 100 UNITS/ML MDV SQ ONE (08:30)
--- NOTE | 2017-08-10 08:30 | PN ---
Progress Note (short form) - Note Progress Note: Anesthesia Post op Pt seen and examined Phone Screener in the room S:unable to communicate breathing O; Vital Signs Temperature 100.1 F H 08/10/17 07:49 Pulse Rate 75 08/10/17 07:49 Respiratory Rate 20 08/10/17 07:49 Blood Pressure 98/38 08/10/17 07:49 O2 Sat by Pulse Oximetry (%) 100 08/09/17 22:00 CBC, BMP 08/10/17 07:15 Current Active Problems AV shunt malfunction (Acute) Acute constipation (Acute) Cellulitis (Acute) Diabetes mellitus (Acute) ESRD (end stage renal disease) on dialysis (Acute) End stage renal disease (Acute) Fever (Acute) Leukocytosis (Acute) UTI (urinary tract infection) (Acute) Vomiting (Acute) A/P:s/p av graft excision Critical, febrile/sepsis Continue current care Cristian Cordon MD
[2017-08-10 08:41] LABS: ANION GAP 18 (8-16); CALCIUM 7.6 mg/dL (8.5-10.1); CO2 23 mmol/L (21-32); CREATININE 5.7 mg/dL (0.55-1.02); MAGNESIUM 3.5 mg/dL (1.8-2.4)
[2017-08-10 08:48] LABS: GLUCOSE,RANDOM 381 mg/dL (74-106)
--- NOTE | 2017-08-10 09:33 | PN ---
Progress Note, Physician Chief Complaint: ID Currently receiving Nafcillin 2 grs q 4 H Nonverbal Temps mostly down normal - Current Medication List Current Medications: Active Medications Acetaminophen (Tylenol Oral Solution -) 650 mg GT Q6H PRN PRN Reason: FEVER OR PAIN Aspirin (Asa -) 81 mg GT DAILY [facility] Furosemide (Lasix -) 80 mg GT DAILY [facility] Heparin Sodium (Porcine) (Heparin -) 5,000 unit SQ TID [facility] [place] Last Admin: 08/10/17 06:03 Dose: 5,000 unit Nafcillin Sodium 2 gm/ (Dextrose) 100 mls @ 100 mls/hr IVPB Q4H-IV APRIL PRN Reason: Protocol Last Admin: 08/10/17 06:03 Dose: 100 mls/hr Insulin Aspart (Novolog Vial Sliding Scale -) 1 vial SQ TIDAC APRIL PRN Reason: Protocol Last Admin: 08/10/17 06:15 Dose: 10 units Insulin Detemir (Levemir Vial) 15 units SQ AM [facility] [place] Last Admin: 08/10/17 06:15 Dose: 15 units Metoclopramide HCl (Reglan Injection -) 10 mg IVPB Q6H PRN PRN Reason: NAUSEA AND/OR VOMITING Nystatin (Mycostatin Cream -) 1 applic TP BID [facility] [place] Last Admin: 08/09/17 21:17 Dose: 1 applic Pantoprazole Sodium (Protonix Packets For Oral Suspension -) 40 mg GT DAILY [facility] [place] - Objective Vital Signs: Vital Signs Temperature 100.1 F H 08/10/17 07:49 Pulse Rate 75 08/10/17 07:49 Respiratory Rate 20 08/10/17 07:49 Blood Pressure 98/38 08/10/17 07:49 O2 Sat by Pulse Oximetry (%) 100 08/09/17 22:00 Constitutional: Yes: Calm Eyes: Yes: Other (Crusted OD with dry pus Left conjunctiva no peterchiae) Cardiovascular: Yes: Regular Rate and Rhythm, S1, S2. No: Murmur Respiratory: Yes: WNL, Regular, CTA Bilaterally Gastrointestinal: Yes: WNL, Normal Bowel Sounds, Soft. No: Tenderness, Tenderness, Epigastrium Extremities: Yes: Other (AV revision) Labs: CBC, BMP 08/10/17 07:15 08/10/17 07:15 INR, PTT INR 0.88 (0.82-1.09) 08/08/17 09:03 Assessment/Plan Microbiology 08/09/17 11:25 Tissue-Other Gram Stain - Final 08/09/17 11:25 Arm - Left Upper Gram Stain - Final 08/09/17 00:55 Blood - Peripheral Venous Blood Culture - Preliminary Pending Organism 08/08/17 11:10 Urine - Urine - Catheterized Urine Culture - Preliminary Staphylococcus Latex Coag Pos 08/08/17 09:21 Blood - Peripheral Venous Blood Culture - Preliminary Presumptive Mssa (Pbp2a Neg) 08/08/17 09:21 Blood - Peripheral Venous Blood Culture - Preliminary Presumptive Mssa (Pbp2a Neg) Laboratory Tests 08/09/17 08/10/17 13:30 07:15 WBC 22.2 H Plt Count 279 D Ur Leukocyte Esterase 2+ H Urine RBC 115 Urine WBC 1547 Urine Bacteria Many Assessment S/P removal of an AVG graft infected with complicating MSSA bacteremia on Nafcillin DIABETIC Plan Repeat the blood cultures ESR CRP ECHO Repeat blood cultures Pyuria noted may be staphylococcal etiology [facility]
[2017-08-10] MEDS ORDERED: FUROSEMIDE 40 MG TABLET (FP) GT SCH (10:00)
[2017-08-10] MEDS ORDERED: amLODIPine BESYLATE 10 MG TABLET (FP) GT SCH (10:00)
[2017-08-10] MEDS: PANTOPRAZOLE SOD 40 MG SUSPENSION PACKET GT SCH (10:12)
[2017-08-10] MEDS: ASPIRIN 81 MG CHEWABLE TABLETS GT SCH (10:14)
[2017-08-10] MEDS: NYSTATIN 100,000 UNIT/GM TOPICAL CREAM 15 GM TUBE TP SCH ×2 (11:07→21:15)
[2017-08-10 12:24] LABS: PHOSPHOROUS 2.4 mg/dL (2.5-4.9)
[2017-08-10] MEDS: GENTAMICIN SULFATE 0.3% OPHTHALMIC (EYE DROPS) 5ML BOTTLE OD SCH ×2 (14:15→21:15)
--- NOTE | 2017-08-10 15:15 | PN ---
Teaching Attending Note Name of Resident: Nisreen Batista ATTENDING PHYSICIAN STATEMENT I saw and evaluated the patient. I reviewed the resident's note and discussed the case with the resident. I agree with the resident's findings and plan as documented. SUBJECTIVE: no event over night . OBJECTIVE: NAD, non verbal , contracted. looks comfortable HEENT: pupils are round minimally reactive to light, L sided cataract. CV: RRR, 3/6 SM at apex. 2/6 SM at RUSB . Lungs: CTAB , decreased breath sounds b/l bases, otherwise clear Abd: soft, NT, ND , NL BS . FT in epigastric area with clean skin around it Ext: contracted upper ext. no edema on lower ext .skin over L AVF( erythema, edema , increased warmth ) improved , and now with 2 horizontal surgical wounds with lisha . 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 urine cx with coag neg staph - cont naficillin - echo pending - follow repeated blood cx . - lactic elevated , hold lasix and monitor . can't give fluids as missed HD 2- Dysfunctional infected AVF: removed yesterday 3- DM : poorly controlled - increase levemir to 20 in am - SSI 4- CKD on HD. D/W renal . no indication fo HD today. lauro get shiley tomorrow and do HD 5- HTN: hold norvasc 6- Nutrition :TF. dietition to covert to continuous TF . will d/w family code status family meeting tomorrow at 5 pm
--- NOTE | 2017-08-10 17:20 | PN ---
Physical Exam: SUBJECTIVE: Patient seen and examined. No acute events over night. OBJECTIVE: Vital Signs Period Temp Pulse Resp BP Sys/Daniel Pulse Ox Last 24 Hr 98.3 F-100.5 F 59-81 16-20 98-120/38-90 100 GENERAL: NAD, non-verbal EYES:injected, Pupils pinpoint, minimally reactive to light. Cataracts present b/l EARS, NOSE, THROAT: oropharynx clear without exudates. Moist mucous membranes. NECK: without lymphadenopathy, JVD, or masses. LUNGS: clear to auscultation bilaterally. No wheezes, and no crackles. No accessory muscle use. HEART: Regular rate and rhythm,3/6 Systolic murmber in apex, 2/6 systolic murmer in right upper sternal border. ABDOMEN: Soft, nontender, not distended, normoactive bowel sounds, no guarding, no rebound, no masses. No hepatomegaly or splenomegaly. EXT: s/p Left arm AV fistula removed, erythematous and warm on site.RUE and LUE contracted. Skin excoriations in groin and over right buttock cheek. Laboratory Results - last 24 hr 08/08/17 08/09/17 08/09/17 22:45 07:01 09:28 WBC RBC Hgb Hct MCV MCH MCHC RDW Plt Count MPV Neutrophils % Lymphocytes % Monocytes % Eosinophils % Basophils % Sodium Potassium Chloride Carbon Dioxide Anion Gap BUN Creatinine POC Glucometer 405 407 442 Random Glucose Lactic Acid Calcium Phosphorus Magnesium C-Reactive Protein Urine Color Urine Appearance Urine pH Ur Specific Colo Urine Protein Urine Glucose (UA) Urine Ketones Urine Blood Urine Nitrite Urine Bilirubin Urine Urobilinogen Ur Leukocyte Esterase Urine RBC Urine WBC Urine Bacteria 08/09/17 08/09/17 08/09/17 11:25 13:30 16:54 WBC RBC Hgb Hct MCV MCH MCHC RDW Plt Count MPV Neutrophils % Lymphocytes % Monocytes % Eosinophils % Basophils % Sodium Potassium Chloride Carbon Dioxide Anion Gap BUN Creatinine POC Glucometer 374 133 Random Glucose Lactic Acid Calcium Phosphorus Magnesium C-Reactive Protein Urine Color Yellow Urine Appearance Turbid Urine pH 6.0 Ur Specific Colo 1.020 Urine Protein 2+ H Urine Glucose (UA) 3+ H Urine Ketones Negative Urine Blood 3+ H Urine Nitrite Negative Urine Bilirubin Negative Urine Urobilinogen Negative Ur Leukocyte Esterase 2+ H Urine RBC 115 Urine WBC 1547 Urine Bacteria Many 08/09/17 08/09/17 08/09/17 17:15 17:15 19:00 WBC RBC Hgb Hct MCV MCH MCHC RDW Plt Count MPV Neutrophils % Lymphocytes % Monocytes % Eosinophils % Basophils % Sodium 135 L Potassium 3.4 L D Chloride Carbon Dioxide Anion Gap BUN Creatinine POC Glucometer Random Glucose Lactic Acid Calcium Phosphorus 2.2 L D Magnesium C-Reactive Protein Urine Color Urine Appearance Urine pH Ur Specific Colo Urine Protein Urine Glucose (UA) Urine Ketones Urine Blood Urine Nitrite Urine Bilirubin Urine Urobilinogen Ur Leukocyte Esterase Urine RBC Urine WBC Urine Bacteria 08/10/17 08/10/17 08/10/17 06:09 07:00 07:15 WBC 22.2 H RBC 4.22 Hgb 11.5 Hct 36.2 MCV 86.0 MCH 27.2 MCHC 31.7 L RDW 19.3 H Plt Count 279 D MPV 8.7 Neutrophils % 94.7 H Lymphocytes % 3.1 L D Monocytes % 1.4 L Eosinophils % 0.4 Basophils % 0.4 Sodium Potassium Chloride Carbon Dioxide Anion Gap BUN Creatinine POC Glucometer 363 Random Glucose Lactic Acid Calcium Phosphorus Cancelled Magnesium C-Reactive Protein Urine Color Urine Appearance Urine pH Ur Specific Colo Urine Protein Urine Glucose (UA) Urine Ketones Urine Blood Urine Nitrite Urine Bilirubin Urine Urobilinogen Ur Leukocyte Esterase Urine RBC Urine WBC Urine Bacteria 08/10/17 08/10/17 08/10/17 07:15 07:15 09:00 WBC RBC Hgb Hct MCV MCH MCHC RDW Plt Count MPV Neutrophils % Lymphocytes % Monocytes % Eosinophils % Basophils % Sodium 132 L Potassium 3.9 Chloride 91 L Carbon Dioxide 23 Anion Gap 18 H BUN 97 H Creatinine 5.7 H POC Glucometer Random Glucose 381 H* Lactic Acid 2.8 H* Calcium 7.6 L Phosphorus 2.4 L Magnesium 3.5 H C-Reactive Protein 33.0 H D Cancelled Urine Color Urine Appearance Urine pH Ur Specific Colo Urine Protein Urine Glucose (UA) Urine Ketones Urine Blood Urine Nitrite Urine Bilirubin Urine Urobilinogen Ur Leukocyte Esterase Urine RBC Urine WBC Urine Bacteria 08/10/17 11:37 WBC RBC Hgb Hct MCV MCH MCHC RDW Plt Count MPV Neutrophils % Lymphocytes % Monocytes % Eosinophils % Basophils % Sodium Potassium Chloride Carbon Dioxide Anion Gap BUN Creatinine POC Glucometer 234 Random Glucose Lactic Acid Calcium Phosphorus Magnesium C-Reactive Protein Urine Color Urine Appearance Urine pH Ur Specific Colo Urine Protein Urine Glucose (UA) Urine Ketones Urine Blood Urine Nitrite Urine Bilirubin Urine Urobilinogen Ur Leukocyte Esterase Urine RBC Urine WBC Urine Bacteria Active Medications Generic Name Dose Route Start Last Admin Trade Name Berto PRN Reason Stop Dose Admin Acetaminophen 650 mg 08/09/17 11:40 Tylenol Oral Solution - GT Q6H PRN FEVER OR PAIN Aspirin 81 mg 08/10/17 10:00 08/10/17 10:14 Asa - GT 81 mg DAILY APRIL Administration Gentamicin Sulfate 1 drop 08/10/17 13:30 Gentamicin 0.3% Eye Drops - OD BID APRIL Heparin Sodium (Porcine) 5,000 unit 08/09/17 14:00 08/10/17 06:03 Heparin - SQ 5,000 unit TID APRIL Administration Nafcillin Sodium 2 gm/ 100 mls @ 100 mls/hr 08/09/17 19:45 08/10/17 10:14 Dextrose IVPB 100 mls/hr Q4H-IV APRIL Administration Protocol Insulin Aspart 1 vial 08/09/17 16:30 08/10/17 12:52 Novolog Vial Sliding Scale - SQ 6 units TIDAC APRIL Administration Protocol Insulin Detemir 20 units 08/11/17 07:00 Levemir Vial SQ AM APRIL Metoclopramide HCl 10 mg 08/09/17 11:11 Reglan Injection - IVPB Q6H PRN NAUSEA AND/OR VOMITING Nystatin 1 applic 08/09/17 22:00 08/10/17 11:07 Mycostatin Cream - TP 1 applic BID APRIL Administration Pantoprazole Sodium 40 mg 08/10/17 10:00 08/10/17 10:12 Protonix Packets For Oral Suspension - GT 40 mg DAILY APRIL Administration ASSESSMENT/PLAN: Patient is a non-verbal 61 yo F with significant past history of CVA ( quadriplegic), R AKA, Diabetes, HTN, dementia, ESRD, s/p peg tube (5 years ago) , Wegners Granulomatosis came to the ED with a dysfunctional Left AVF and was found to have leukocytosis. # Severe Sepsis from infected Left arm dysfunctional AV Fistula -AV fistula removed yesterday -Urine cultures positive for Staph -continue nafcillin 2gm -f/u echo -f/u repeat blood cultures #Chronic Kidney Disease -nephrology on board -No indication for HD today -stopped lasix today - possible Shiley tomorrow with HD #HTN -Held Norvasc #Nutrition Start continuous tube feeding as per Press Leader #Diabetes -Continue Levemir and increase to 20 units tomorrow. -Continue SSI #FEN: -No IV fluids - Transition to Continous tube feeding. #PPX: Heparin 5000 SQ Discussed with Daughter code status and educated on diagnosis of patient. Daughter wants full code for now. Will further discuss code status and Dialysis planning tomorrow with family at 5pm. Visit type - Emergency Visit Emergency Visit: Yes ED Registration Date: 08/08/17 Care time: The patient presented to the Emergency Department on the above date and was hospitalized for further evaluation of their emergent condition. - New Patient This patient is new to me today: No - Critical Care Critical Care patient: No
--- NOTE | 2017-08-10 18:59 | PN ---
Progress Note (short form) - Note Progress Note: Renal follow up for ESRD on HD Pt seen and examined at the bedside this am awake, getting ECHO febrile this morning getting Abx s/p graft removal in OR yesterday Vital Signs Temperature 98.7 F 08/10/17 15:43 Pulse Rate 59 L 08/10/17 15:43 Respiratory Rate 16 08/10/17 15:43 Blood Pressure 98/42 08/10/17 15:43 O2 Sat by Pulse Oximetry (%) 98 08/10/17 09:00 Intake & Output 08/07/17 08/08/17 08/09/17 08/10/17 23:59 23:59 23:59 23:59 Intake Total 550 755 850 Output Total 30 Balance 550 725 850 Weight 122 lb Gen: NAD CVS: RRR, No M/R Lungs: CTA, no rales or wheeze Abd: soft NT/ND Ext: no edema, clubbing or cyanosis CBC, BMP 08/10/17 07:15 08/10/17 07:15 Laboratory Tests 05/19/17 05/23/17 08/10/17 05:40 07:00 07:15 Lactic Acid Calcium 8.3 L 8.3 L 7.6 L Phosphorus 2.4 L Magnesium 3.5 H 08/10/17 09:00 Lactic Acid 2.8 H* Calcium Phosphorus Magnesium Current Medications Acetaminophen (Tylenol Oral Solution -) 650 mg GT Q6H PRN PRN Reason: FEVER OR PAIN Aspirin (Asa -) 81 mg GT DAILY [facility] Last Admin: 08/10/17 10:14 Dose: 81 mg Gentamicin Sulfate (Gentamicin 0.3% Eye Drops -) 1 drop OD BID APRIL Last Admin: 08/10/17 14:15 Dose: 1 drop Heparin Sodium (Porcine) (Heparin -) 5,000 unit SQ TID APRIL Last Admin: 08/10/17 14:12 Dose: 5,000 unit Nafcillin Sodium 2 gm/ (Dextrose) 100 mls @ 100 mls/hr IVPB Q4H-IV APRIL PRN Reason: Protocol Last Admin: 08/10/17 17:15 Dose: 100 mls/hr Insulin Aspart (Novolog Vial Sliding Scale -) 1 vial SQ TIDAC APRIL PRN Reason: Protocol Last Admin: 08/10/17 12:52 Dose: 6 units Insulin Detemir (Levemir Vial) 20 units SQ AM [facility] Metoclopramide HCl (Reglan Injection -) 10 mg IVPB Q6H PRN PRN Reason: NAUSEA AND/OR VOMITING Nystatin (Mycostatin Cream -) 1 applic TP BID [facility] Last Admin: 08/10/17 11:07 Dose: 1 applic Pantoprazole Sodium (Protonix Packets For Oral Suspension -) 40 mg GT DAILY [facility] Last Admin: 08/10/17 10:12 Dose: 40 mg 61 year old woman with PMhx of ESRD on HD (recently stated s/p DEYSI w/o recovery secondary to suspected Vascultitis (+PR3 ab) but no Bx), DM, PVD, CVA (now non- verbal) who was sent from outpatient HD unit with non-functioning AVG and found to have WBC of 22K. #ESRD on HD with clotted AVG AVG remvoed yesterday labs and clinical status reviewed, no indication for QUALITY CONTROL COORDINATOR today Trend BUN/Cr and electrolytes if HD is indicated tomorrow will need femoral catheter #Staph Bacteremia continue Abx as per ID AVG removed f/u repeat cultures will need discussion with family regarding goals of care Thank you Jonathan Guzman DO Problem List - Problems (1) ESRD (end stage renal disease) on dialysis Code(s): N18.6 - END STAGE RENAL DISEASE Z99.2 - DEPENDENCE ON RENAL DIALYSIS (2) Leukocytosis Code(s): D72.829 - ELEVATED WHITE BLOOD CELL COUNT, UNSPECIFIED (3) Vomiting Code(s): R11.10 - VOMITING, UNSPECIFIED (4) Acute constipation Code(s): K59.00 - CONSTIPATION, UNSPECIFIED (5) Diabetes mellitus Code(s): E11.9 - TYPE 2 DIABETES MELLITUS WITHOUT COMPLICATIONS
[2017-08-11] MEDS ORDERED: PT OWN MED DRAWER 7, Y5N ONE ×5 (01:15→20:58)
[2017-08-11] MEDS: NAFCILLIN - 2 GM in DEXTROSE 5%-WATER - 100 ML IVPB SCH ×6 (01:19→21:37)
[2017-08-11] MEDS ORDERED: INSULIN (NOVOLOG) ASPART 100 UNITS/ML 10ML VIAL ONE ×2 (06:01→06:34)
[2017-08-11] MEDS: HEPARIN NA (PORCINE) 5,000 UNITS/ML 1ML VIAL SQ SCH ×3 (06:09→21:36)
[2017-08-11] MEDS: INSULIN SLIDING SCALE (NOVOLOG) 1 VIAL SQ SCH ×3 (06:32→17:56)
[2017-08-11] MEDS ORDERED: INSULIN DETEMIR 100 UNITS/ML MDV SQ ONE ×2 (06:35→11:53)
[2017-08-11] MEDS ORDERED: INSULIN DETEMIR 100 UNITS/ML MDV SQ SCH (07:00)
[2017-08-11 07:28] LABS: MCH 27.3 pg (25.7-33.7); MEAN CELL VOLUME 85.3 fl (80-96); MEAN PLT VOLUME 8.4 fl (7.5-11.1); PLATELET COUNT 322 K/MM3 (134-434); RDW 19.5 % (11.6-15.6); WHITE BLOOD COUNT 21.3 K/mm3 (4.0-10.0)
[2017-08-11 08:00] LABS: ANION GAP 17 (8-16); CALCIUM 7.3 mg/dL (8.5-10.1); CO2 24 mmol/L (21-32); CREATININE 6.1 mg/dL (0.55-1.02)
[2017-08-11 08:48] LABS: GLUCOSE,RANDOM 361 mg/dL (74-106)
[2017-08-11] MEDS: GENTAMICIN SULFATE 0.3% OPHTHALMIC (EYE DROPS) 5ML BOTTLE OD SCH ×2 (09:21→21:38)
[2017-08-11] MEDS: PANTOPRAZOLE SOD 40 MG SUSPENSION PACKET GT SCH (09:22)
[2017-08-11] MEDS: ACETAMINOPHEN 650 MG/20.3 ML ORAL SOLUTION (CUPS) GT PRN (09:22)
[2017-08-11] MEDS: ASPIRIN 81 MG CHEWABLE TABLETS GT SCH (09:22)
[2017-08-11] MEDS: NYSTATIN 100,000 UNIT/GM TOPICAL CREAM 15 GM TUBE TP SCH ×2 (09:23→21:38)
[2017-08-11 10:18] LABS: INR 0.95 (0.82-1.09); PROTHROMBIN TIME (PATIENT) 10.4 SEC (9.98-11.88)
[2017-08-11] MEDS ORDERED: SODIUM CHLORIDE 250 ML IV STA (11:48)
[2017-08-11] MEDS ORDERED: SODIUM CHLORIDE 1,000 ML IV SCH (12:00)
--- NOTE | 2017-08-11 12:41 | PATH ---
Surgical Pathology Report Patient Name: KIRILL DIAZ Med. Rec. #: [id number] /Age/Gender: 1955 (Age: 61) / F Account: [id number] Location: [facility] MED/SURG Taken: 08/09/2017 Received: 08/10/2017 Reported: 08/11/2017 Physicians: Robin Aviles Specimen(s) Received REMOVED AV GRAFT LEFT SIDE Clinical History Infected AV graft left arm Final Diagnosis AV GRAFT, LEFT ARM, REMOVAL: SYNTHETIC VASCULAR GRAFT, WITH ATTACHED HEMORRHAGIC MATERIAL. Comment: Recommend correlation with clinical findings and follow up as clinically indicated. Electronically Signed Hema Goff M.D. Gross Description Received in formalin labeled "removed AV graft," are 2 bailey, cylindrical portions of graft measuring 3.0 and 6.0 cm in length. Pin Attacher sections are submitted in one cassette. /08/10/201708/10/2017
--- NOTE | 2017-08-11 13:04 | PN ---
Progress Note, Physician History of Present Illness: Not verbally responsive Low grade temp Repeat BC prelim no growth Echo no vegetations - Current Medication List Current Medications: Active Medications Acetaminophen (Tylenol Oral Solution -) 650 mg GT Q6H PRN PRN Reason: FEVER OR PAIN Last Admin: 08/11/17 09:22 Dose: 650 mg Aspirin (Asa -) 81 mg GT DAILY [facility] Last Admin: 08/11/17 09:22 Dose: 81 mg Gentamicin Sulfate (Gentamicin 0.3% Eye Drops -) 1 drop OD BID [facility] Last Admin: 08/11/17 09:21 Dose: 1 drop Heparin Sodium (Porcine) (Heparin -) 5,000 unit SQ TID [facility] Last Admin: 08/11/17 06:09 Dose: 5,000 unit Nafcillin Sodium 2 gm/ (Dextrose) 100 mls @ 100 mls/hr IVPB Q4H-IV APRIL PRN Reason: Protocol Last Admin: 08/11/17 09:22 Dose: 100 mls/hr Sodium Chloride (Normal Saline -) 1,000 mls @ 75 mls/hr IV ASDIR [facility] Insulin Aspart (Novolog Vial Sliding Scale -) 1 vial SQ TIDAC [facility] PRN Reason: Protocol Last Admin: 08/11/17 11:39 Dose: 6 units Insulin Detemir (Levemir Vial) 25 units SQ AM [facility] Metoclopramide HCl (Reglan Injection -) 10 mg IVPB Q6H PRN PRN Reason: NAUSEA AND/OR VOMITING Nystatin (Mycostatin Cream -) 1 applic TP BID [facility] Last Admin: 08/11/17 09:23 Dose: 1 applic Pantoprazole Sodium (Protonix Packets For Oral Suspension -) 40 mg GT DAILY [facility] Last Admin: 08/11/17 09:22 Dose: 40 mg - Objective Vital Signs: Vital Signs Temperature 100.5 F H 08/11/17 09:06 Pulse Rate 81 08/11/17 09:06 Respiratory Rate 19 08/11/17 09:06 Blood Pressure 98/42 08/11/17 09:06 O2 Sat by Pulse Oximetry (%) 98 08/10/17 21:00 Constitutional: Yes: No Distress, Obese Cardiovascular: Yes: Regular Rate and Rhythm, S1, S2 Respiratory: Yes: Diminished Gastrointestinal: Yes: Normal Bowel Sounds, Soft, Abdomen, Obese. No: Tenderness Extremities: Yes: Other (erythema L UE surgical site) Labs: CBC, BMP 08/11/17 06:00 08/11/17 06:00 INR, PTT INR 0.95 (0.82-1.09) 08/11/17 06:00 Assessment/Plan S/P excision, infected AVG MSSA bacteremia ESRD Continue nafcillin Check repeat BC
--- NOTE | 2017-08-11 15:48 | PN ---
Teaching Attending Note Name of Resident: Nsireen Batista ATTENDING PHYSICIAN STATEMENT I saw and evaluated the patient. I reviewed the resident's note and discussed the case with the resident. I agree with the resident's findings and plan as documented. SUBJECTIVE: no event over night OBJECTIVE: NAD, non verbal , contracted. looks comfortable HEENT: pupils are round minimally reactive to light, L sided cataract. CV: RRR, 3/6 SM at apex. 2/6 SM at RUSB . Lungs: CTAB , decreased breath sounds b/l bases, otherwise clear Abd: soft, NT, ND , NL BS . FT in epigastric area with clean skin around it Ext: contracted upper ext. no edema on lower ext .skin over L AVF with improved erythema, edema , warmth, and with 2 horizontal surgical wounds with lisha . 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 s/p removal of graft Hypotensive this am - cont naficillin and genta - echo with no vegetation - follow repeated blood cx . -lactic acid normalized - started on IVF 2- DM : poorly controlled - increase levemir to 25 in am - SSI 3- CKD on HD. D/W renal , no HD today due to hypotension 4- HTN:hypotensive now . hold norvasc 5- Nutrition Bolus TF with free water Family meeting today to d/w code and goals of care
[2017-08-11] MEDS ORDERED: SODIUM CHLORIDE 0.9% 500 ML INFUS.BAG IV ONE (17:00)
--- NOTE | 2017-08-11 17:50 | PN ---
Progress Note (short form) - Note Progress Note: Renal follow up for ESRD on HD Pt seen and examined at the bedside spoke with family pt hypotensive and febrile this am will defer dialysis on IVF, requiring IV boloues Vital Signs Temperature 97.9 F 08/11/17 17:32 Pulse Rate 68 08/11/17 17:32 Respiratory Rate 18 08/11/17 17:32 Blood Pressure 100/33 08/11/17 17:32 O2 Sat by Pulse Oximetry (%) 98 08/10/17 21:00 Intake & Output 08/08/17 08/09/17 08/10/17 08/11/17 23:59 23:59 23:59 23:59 Intake Total 899 342 1598 500 Output Total 30 Balance 418 748 5541 500 Weight 122 lb Gen: NAD CVS: RRR, No M/R Lungs: CTA, no rales or wheeze Abd: soft NT/ND Ext: no edema, clubbing or cyanosis CBC, BMP 08/11/17 06:00 08/11/17 06:00 Current Medications Acetaminophen (Tylenol Oral Solution -) 650 mg GT Q6H PRN PRN Reason: FEVER OR PAIN Last Admin: 08/11/17 09:22 Dose: 650 mg Aspirin (Asa -) 81 mg GT DAILY [facility] Last Admin: 08/11/17 09:22 Dose: 81 mg Gentamicin Sulfate (Gentamicin 0.3% Eye Drops -) 1 drop OD BID APRIL Last Admin: 08/11/17 09:21 Dose: 1 drop Heparin Sodium (Porcine) (Heparin -) 5,000 unit SQ TID APRIL Last Admin: 08/11/17 14:00 Dose: 5,000 unit Nafcillin Sodium 2 gm/ (Dextrose) 100 mls @ 100 mls/hr IVPB Q4H-IV APRIL PRN Reason: Protocol Last Admin: 08/11/17 13:59 Dose: 100 mls/hr Sodium Chloride (Normal Saline -) 1,000 mls @ 100 mls/hr IV ASDIR APRIL Insulin Aspart (Novolog Vial Sliding Scale -) 1 vial SQ TIDAC APRIL PRN Reason: Protocol Last Admin: 08/11/17 11:39 Dose: 6 units Insulin Detemir (Levemir Vial) 25 units SQ AM [facility] Metoclopramide HCl (Reglan Injection -) 10 mg IVPB Q6H PRN PRN Reason: NAUSEA AND/OR VOMITING Nystatin (Mycostatin Cream -) 1 applic TP BID [facility] Last Admin: 08/11/17 09:23 Dose: 1 applic Pantoprazole Sodium (Protonix Packets For Oral Suspension -) 40 mg GT DAILY [facility] Last Admin: 08/11/17 09:22 Dose: 40 mg 61 year old woman with PMhx of ESRD on HD (recently stated s/p DEYSI w/o recovery secondary to suspected Vascultitis (+PR3 ab) but no Bx), DM, PVD, CVA (now non- verbal) who was sent from outpatient HD unit with non-functioning AVG and found to have WBC of 22K. #ESRD on HD with clotted AVG unable to do dialysis today given low BP/Hemodynamic instability will reacess in AM for further dialysis #Staph Bacteremia f/u cultures continue nafillin Q8h Bolous IVF to keep MAP > 65 Family discussion had with family Family made Pt DNR/DNI but want to continue Hd as needed at this time prognosisi guarded Thank you Jonathan Guzman DO Problem List - Problems (1) ESRD (end stage renal disease) on dialysis Code(s): N18.6 - END STAGE RENAL DISEASE Z99.2 - DEPENDENCE ON RENAL DIALYSIS (2) Leukocytosis Code(s): D72.829 - ELEVATED WHITE BLOOD CELL COUNT, UNSPECIFIED (3) Vomiting Code(s): R11.10 - VOMITING, UNSPECIFIED (4) Acute constipation Code(s): K59.00 - CONSTIPATION, UNSPECIFIED (5) Diabetes mellitus Code(s): E11.9 - TYPE 2 DIABETES MELLITUS WITHOUT COMPLICATIONS
--- NOTE | 2017-08-11 18:52 | PN ---
Physical Exam: SUBJECTIVE: Patient seen and examined. No acute events over night. OBJECTIVE: Patient seen and examined. No acute events over night. Son and daughter say she seems much worse today. Vital Signs Period Temp Pulse Resp BP Sys/Daniel Pulse Ox Last 24 Hr 97.9 F-100.5 F 68-81 16-20 81-101/32-57 98 GENERAL: NAD, non-verbal EYES:injected, Pupils pinpoint, minimally reactive to light. Cataracts present b/l EARS, NOSE, THROAT: oropharynx clear without exudates. Moist mucous membranes. NECK: without lymphadenopathy, JVD, or masses. LUNGS: clear to auscultation bilaterally. No wheezes, and no crackles. No accessory muscle use. HEART: Regular rate and rhythm,3/6 Systolic murmber in apex, 2/6 systolic murmer in right upper sternal border. ABDOMEN: Soft, nontender, not distended, normoactive bowel sounds, no guarding, no rebound, no masses. No hepatomegaly or splenomegaly. EXT: s/p Left arm AV fistula removed, erythematous and warm on site.RUE and LUE contracted. Skin excoriations in groin and over right buttock cheek. Laboratory Results - last 24 hr 08/10/17 08/10/17 08/10/17 18:34 20:45 21:10 WBC RBC Hgb Hct MCV MCH MCHC RDW Plt Count MPV ESR INR Sodium Potassium Chloride Carbon Dioxide Anion Gap BUN Creatinine POC Glucometer 223 282 Random Glucose Lactic Acid 1.5 Calcium 08/11/17 08/11/17 08/11/17 05:59 06:00 06:00 WBC 21.3 H RBC 4.10 Hgb 11.2 Hct 35.0 MCV 85.3 MCH 27.3 MCHC 32.0 RDW 19.5 H Plt Count 322 MPV 8.4 ESR 37 H INR Sodium Potassium Chloride Carbon Dioxide Anion Gap BUN Creatinine POC Glucometer 367 Random Glucose Lactic Acid Calcium 08/11/17 08/11/17 08/11/17 06:00 06:00 06:00 WBC RBC Hgb Hct MCV MCH MCHC RDW Plt Count MPV ESR INR 0.95 Sodium 131 L Potassium 3.9 Chloride 90 L Carbon Dioxide 24 Anion Gap 17 H BUN 119 H* D Creatinine 6.1 H POC Glucometer Random Glucose 361 H* Lactic Acid 1.8 Calcium 7.3 L 08/11/17 08/11/17 08/11/17 06:59 11:31 14:06 WBC RBC Hgb Hct MCV MCH MCHC RDW Plt Count MPV ESR INR Sodium Potassium Chloride Carbon Dioxide Anion Gap BUN Creatinine POC Glucometer 370 292 209 Random Glucose Lactic Acid Calcium 08/11/17 17:52 WBC RBC Hgb Hct MCV MCH MCHC RDW Plt Count MPV ESR INR Sodium Potassium Chloride Carbon Dioxide Anion Gap BUN Creatinine POC Glucometer 268 Random Glucose Lactic Acid Calcium Active Medications Generic Name Dose Route Start Last Admin Trade Name Freq PRN Reason Stop Dose Admin Acetaminophen 650 mg 08/09/17 11:40 08/11/17 09:22 Tylenol Oral Solution - GT 650 mg Q6H PRN Administration FEVER OR PAIN Aspirin 81 mg 08/10/17 10:00 08/11/17 09:22 Asa - GT 81 mg DAILY APRIL Administration Gentamicin Sulfate 1 drop 08/10/17 13:30 08/11/17 09:21 Gentamicin 0.3% Eye Drops - OD 1 drop BID APRIL Administration Heparin Sodium (Porcine) 5,000 unit 08/09/17 14:00 08/11/17 14:00 Heparin - SQ 5,000 unit TID APRIL Administration Nafcillin Sodium 2 gm/ 100 mls @ 100 mls/hr 08/09/17 19:45 08/11/17 17:56 Dextrose IVPB 100 mls/hr Q4H-IV APRIL Administration Protocol Sodium Chloride 1,000 mls @ 100 mls/hr 08/11/17 17:39 Normal Saline - IV ASDIR APRIL Insulin Aspart 1 vial 08/09/17 16:30 08/11/17 17:56 Novolog Vial Sliding Scale - SQ 6 units TIDAC [facility] Administration Protocol Insulin Detemir 25 units 08/11/17 11:54 Levemir Vial SQ AM [facility] Metoclopramide HCl 10 mg 08/09/17 11:11 Reglan Injection - IVPB Q6H PRN NAUSEA AND/OR VOMITING Nystatin 1 applic 08/09/17 22:00 08/11/17 09:23 Mycostatin Cream - TP 1 applic BID APRIL Administration Pantoprazole Sodium 40 mg 08/10/17 10:00 08/11/17 09:22 Protonix Packets For Oral Suspension - GT 40 mg DAILY [facility] Administration ASSESSMENT/PLAN: Patient is a non-verbal 61 yo F with significant past history of CVA ( quadriplegic), R AKA, Diabetes, HTN, dementia, ESRD, s/p peg tube (5 years ago) , Wegners Granulomatosis came to the ED with a dysfunctional Left AVF and was found to have severe sepsis from infected AVF. # Severe Sepsis from infected Left arm dysfunctional AV Fistula -s/p AV fistula removal 2 days ago -Urine cultures positive for Staph -continue nafcillin 2gm -echo with no vegetation -lactic acid normalized -Started on Fluids 100cc/hour NS #Chronic Kidney Disease -nephrology on board -No indication for HD today- hypotensive #HTN- -now hypotensive likely from sepsis. -Held Norvasc #Nutrition Start continuous tube feeding as per Odd Shoe Examiner #Diabetes -poorly controlled likely from sepsis state -Continue Levemir 25 -Continue SSI #FEN: -NS 100cc/hour - Transition to Continuous tube feeding. #PPX: Heparin 5000 SQ Visit type - Emergency Visit Emergency Visit: Yes ED Registration Date: 08/08/17 Care time: The patient presented to the Emergency Department on the above date and was hospitalized for further evaluation of their emergent condition. - New Patient This patient is new to me today: No - Critical Care Critical Care patient: No
[2017-08-11] MEDS: SODIUM CHLORIDE 1,000 ML IV SCH (20:55)
[2017-08-12] MEDS: NAFCILLIN - 2 GM in DEXTROSE 5%-WATER - 100 ML IVPB SCH ×6 (01:29→22:04)
[2017-08-12] MEDS: INSULIN DETEMIR 100 UNITS/ML MDV SQ SCH (06:25)
[2017-08-12] MEDS: HEPARIN NA (PORCINE) 5,000 UNITS/ML 1ML VIAL SQ SCH ×3 (06:25→21:53)
[2017-08-12] MEDS: INSULIN SLIDING SCALE (NOVOLOG) 1 VIAL SQ SCH ×3 (06:26→17:56)
[2017-08-12 08:25] LABS: MCH 27.5 pg (25.7-33.7); MCHC 32.1 g/dl (32.0-36.0); MEAN CELL VOLUME 85.7 fl (80-96); PLATELET COUNT 390 K/MM3 (134-434)
[2017-08-12 08:30] LABS: WHITE BLOOD COUNT 34.5 K/mm3 (4.0-10.0)
[2017-08-12 08:52] LABS: ALBUMIN 1.4 g/dl (3.4-5.0); ALK PHOS 214 U/L (45-117); ANION GAP 18 (8-16); BILIRUBIN,TOTAL 2.6 mg/dL (0.2-1.0); CO2 22 mmol/L (21-32); CREATININE 6.1 mg/dL (0.55-1.02); SGOT/AST 14 U/L (15-37); SGPT/ALT 13 U/L (12-78); TOT PROT 4.8 g/dl (6.4-8.2)
[2017-08-12 09:00] LABS: CALCIUM 6.1 mg/dL (8.5-10.1); GLUCOSE,RANDOM 483 mg/dL (74-106)
[2017-08-12] MEDS: PANTOPRAZOLE SOD 40 MG SUSPENSION PACKET GT SCH (10:04)
[2017-08-12] MEDS: ASPIRIN 81 MG CHEWABLE TABLETS GT SCH (10:04)
[2017-08-12] MEDS: GENTAMICIN SULFATE 0.3% OPHTHALMIC (EYE DROPS) 5ML BOTTLE OD SCH ×2 (10:04→22:08)
[2017-08-12] MEDS: NYSTATIN 100,000 UNIT/GM TOPICAL CREAM 15 GM TUBE TP SCH ×2 (10:06→22:08)
[2017-08-12 10:15] LABS: TOTAL CELLS COUNTED 100
[2017-08-12 10:16] LABS: METAMYELOCYTE 1 % (0-2)
[2017-08-12] MEDS ORDERED: SODIUM CHLORIDE 250 ML IV STA (10:30)
[2017-08-12] MEDS ORDERED: LIDOCAINE HCL 1%, 10 MG/ML (20ML VIAL) ONE (11:45)
--- NOTE | 2017-08-12 12:19 | PN ---
Progress Note (short form) - Note Progress Note: Renal follow up for ESRD on HD Pt seen and examined at the bedside no fevers overnight, BP still marginal repeat blood cultures growing staph in 1/2 bottles daughter at bedside Vital Signs Temperature 98.0 F 08/12/17 08:25 Pulse Rate 80 08/12/17 08:25 Respiratory Rate 24 08/12/17 08:25 Blood Pressure 101/44 08/12/17 08:25 O2 Sat by Pulse Oximetry (%) 97 08/11/17 21:00 Intake & Output 08/09/17 08/10/17 08/11/17 08/12/17 23:59 23:59 23:59 23:59 Intake Total 755 1950 3250 1650 Output Total 30 Balance 725 1950 3250 1650 Gen: NAD CVS: RRR, No M/R Lungs: CTA, no rales or wheeze Abd: soft NT/ND Ext: no edema, clubbing or cyanosis CBC, BMP 08/12/17 07:45 08/12/17 07:45 Current Medications Acetaminophen (Tylenol Oral Solution -) 650 mg GT Q6H PRN PRN Reason: FEVER OR PAIN Last Admin: 08/11/17 09:22 Dose: 650 mg Albumin Human (Albumin Human 25%) 12.5 gm IVPB Q30M [facility] Aspirin (Asa -) 81 mg GT DAILY [facility] Last Admin: 08/12/17 10:04 Dose: 81 mg Gentamicin Sulfate (Gentamicin 0.3% Eye Drops -) 1 drop OD BID APRIL Last Admin: 08/12/17 10:04 Dose: 1 drop Heparin Sodium (Porcine) (Heparin -) 5,000 unit SQ TID [facility] Last Admin: 08/12/17 06:25 Dose: 5,000 unit Nafcillin Sodium 2 gm/ (Dextrose) 100 mls @ 100 mls/hr IVPB Q4H-IV APRIL PRN Reason: Protocol Last Admin: 08/12/17 10:04 Dose: 100 mls/hr Sodium Chloride (Normal Saline -) 1,000 mls @ 100 mls/hr IV ASDIR [facility] Last Admin: 08/11/17 20:55 Dose: Not Given Insulin Aspart (Novolog Vial Sliding Scale -) 1 vial SQ TIDAC APRIL PRN Reason: Protocol Last Admin: 08/12/17 06:26 Dose: 10 units Insulin Detemir (Levemir Vial) 25 units SQ AM [facility] Last Admin: 08/12/17 06:25 Dose: 25 unit Metoclopramide HCl (Reglan Injection -) 10 mg IVPB Q6H PRN PRN Reason: NAUSEA AND/OR VOMITING Nystatin (Mycostatin Cream -) 1 applic TP BID [facility] Last Admin: 08/12/17 10:06 Dose: 1 applic Pantoprazole Sodium (Protonix Packets For Oral Suspension -) 40 mg GT DAILY [facility] Last Admin: 08/12/17 10:04 Dose: 40 mg 61 year old woman with PMhx of ESRD on HD (recently stated s/p DEYSI w/o recovery secondary to suspected Vascultitis (+PR3 ab) but no Bx), DM, PVD, CVA (now non- verbal) who was sent from outpatient HD unit with non-functioning AVG and found to have WBC of 22K. #ESRD on HD with clotted AVG will plan to do HD today desptie marginal BP as BUN very high requested vascular sx to place trialysis catheter will plan for 3hr treatment with 0 UF will use Na modeling, low temp, and IV albumin to maintain BP while on dialysis Dose all meds for Cr Cl less then 10 #Staph Bacteremia 1 bottle of the repeat cultures growing stabph (coag neg) continue Nafcillin TID Repeat cultures today with HD Prognosis guarded Thank you Jonathan Guzman DO Problem List - Problems (1) ESRD (end stage renal disease) on dialysis Code(s): N18.6 - END STAGE RENAL DISEASE Z99.2 - DEPENDENCE ON RENAL DIALYSIS (2) Leukocytosis Code(s): D72.829 - ELEVATED WHITE BLOOD CELL COUNT, UNSPECIFIED (3) Vomiting Code(s): R11.10 - VOMITING, UNSPECIFIED (4) Acute constipation Code(s): K59.00 - CONSTIPATION, UNSPECIFIED (5) Diabetes mellitus Code(s): E11.9 - TYPE 2 DIABETES MELLITUS WITHOUT COMPLICATIONS
--- NOTE | 2017-08-12 12:31 | PROC ---
Central Line Insertion - Procedure Note TIME OUT performed prior to this procedure with verbal confirmation of correct patient identity, correct side, agreement of the procedure, correct patient position, availability of necessary equipment. The consent form is complete and accurate. Risk of possible infection and bleeding have been discussed with the patient's daughter/HCP. Safety precautions based on patient history or medication use has been addressed. Indication: Other (s/p removal of infected LUE AV graft and needs HD. ) Consent on Chart: Yes Central Line: Dialysis Cath, Tri Lumen Position: Reverse Trendelenberg Area prepped with Chlorhexidine solution then draped using sterile barrier protection. Anesthesia: Lidocaine 1% Technique used: Seldinger Ultrasound Guided Assistance: Yes Site: Right Femoral Dark venous non-pulsatile flow noted from hub of needle. The catheter was introduced. Guide wire removed intact. Each port aspirated then flushed with sterile normal saline and capped. Line secured to skin with nylon suture. Biopatch placed around base of line. Sterile occlusive dressing applied. No complications. Patient tolerated the procedure well. HD notified.
[2017-08-12] MEDS: SODIUM CHLORIDE 1,000 ML IV SCH ×2 (13:15→17:57)
[2017-08-12] MEDS ORDERED: SODIUM CHLORIDE 1,000 ML IV STA (14:18)
[2017-08-12] MEDS: ALBUMIN HUMAN 25% 12.5 GM/50 ML VIAL IVPB SCH ×4 (15:00→16:30)
--- NOTE | 2017-08-12 16:06 | PN ---
Physical Exam: SUBJECTIVE: Patient seen and examined. No acute events over night. OBJECTIVE: Vital Signs Period Temp Pulse Resp BP Sys/Daniel Pulse Ox Last 24 Hr 97.6 F-98.9 F 62-86 18-24 77-132/33-49 93-97 GENERAL: NAD, non-verbal EYES:injected, Pupils pinpoint, minimally reactive to light. Cataracts present b/l EARS, NOSE, THROAT: oropharynx clear without exudates. Moist mucous membranes. NECK: without lymphadenopathy, JVD, or masses. LUNGS: clear to auscultation bilaterally. No wheezes, and no crackles. No accessory muscle use. HEART: Regular rate and rhythm,3/6 Systolic murmber in apex, 2/6 systolic murmer in right upper sternal border. ABDOMEN: Soft, nontender, not distended, normoactive bowel sounds, no guarding, no rebound, no masses. No hepatomegaly or splenomegaly. EXT: s/p Left arm AV fistula removed, erythematous and warm on site.RUE and LUE contracted. Skin excoriations in groin and over right buttock cheek. Laboratory Results - last 24 hr 08/11/17 08/12/17 08/12/17 17:52 06:22 07:45 WBC 34.5 H* D RBC 4.18 Hgb 11.5 Hct 35.8 MCV 85.7 MCH 27.5 MCHC 32.1 RDW 20.0 H Plt Count 390 D MPV 8.0 Total Counted 100 Neutrophils % Y Neutrophils % (Manual) 97 H* Lymphocytes % Y Lymphocytes % (Manual) 1 L D Monocytes % (Manual) 1 L Sodium Potassium Chloride Carbon Dioxide Anion Gap BUN Creatinine Creat Clearance w eGFR POC Glucometer 268 399 Random Glucose Calcium Total Bilirubin AST ALT Alkaline Phosphatase Total Protein Albumin 08/12/17 08/12/17 07:45 12:30 WBC RBC Hgb Hct MCV MCH MCHC RDW Plt Count MPV Total Counted Neutrophils % Neutrophils % (Manual) Lymphocytes % Lymphocytes % (Manual) Monocytes % (Manual) Sodium 130 L Potassium 4.2 Chloride 90 L Carbon Dioxide 22 Anion Gap 18 H BUN 120 H* Creatinine 6.1 H Creat Clearance w eGFR 6.97 POC Glucometer 379 Random Glucose 483 H* D Calcium 6.1 L* Total Bilirubin 2.6 H D AST 14 L ALT 13 D Alkaline Phosphatase 214 H Total Protein 4.8 L Albumin 1.4 L D Active Medications Generic Name Dose Route Start Last Admin Trade Name Freq PRN Reason Stop Dose Admin Acetaminophen 650 mg 08/09/17 11:40 08/11/17 09:22 Tylenol Oral Solution - GT 650 mg Q6H PRN Administration FEVER OR PAIN Albumin Human 12.5 gm 08/12/17 15:00 08/12/17 15:30 Albumin Human 25% IVPB 08/12/17 16:31 12.5 gm Q30M APRIL Administration Aspirin 81 mg 08/10/17 10:00 08/12/17 10:04 Asa - GT 81 mg DAILY APRIL Administration Gentamicin Sulfate 1 drop 08/10/17 13:30 08/12/17 10:04 Gentamicin 0.3% Eye Drops - OD 1 drop BID APRIL Administration Heparin Sodium (Porcine) 5,000 unit 08/09/17 14:00 08/12/17 14:29 Heparin - SQ Not Given TID APRIL Nafcillin Sodium 2 gm/ 100 mls @ 100 mls/hr 08/09/17 19:45 08/12/17 10:04 Dextrose IVPB 100 mls/hr Q4H-IV APRIL Administration Protocol Sodium Chloride 1,000 mls @ 100 mls/hr 08/11/17 17:39 08/12/17 13:15 Normal Saline - IV 100 mls/hr ASDIR APRIL Administration Insulin Aspart 1 vial 08/09/17 16:30 08/12/17 12:35 Novolog Vial Sliding Scale - SQ 10 units TIDAC APRIL Administration Protocol Insulin Detemir 25 units 08/11/17 11:54 08/12/17 06:25 Levemir Vial SQ 25 unit AM APRIL Administration Metoclopramide HCl 10 mg 08/09/17 11:11 Reglan Injection - IVPB Q6H PRN NAUSEA AND/OR VOMITING Nystatin 1 applic 08/09/17 22:00 08/12/17 10:06 Mycostatin Cream - TP 1 applic BID APRIL Administration Pantoprazole Sodium 40 mg 08/10/17 10:00 08/12/17 10:04 Protonix Packets For Oral Suspension - GT 40 mg DAILY APRIL Administration ASSESSMENT/PLAN: Patient is a non-verbal 61 yo F with significant past history of CVA ( quadriplegic), R AKA, Diabetes, HTN, dementia, ESRD, s/p peg tube (5 years ago) , Samir Granulomatocolby came to the ED with a dysfunctional Left AVF and was found to have severe sepsis from infected AVF. # Severe Sepsis from infected Left arm dysfunctional AV Fistula -s/p AV fistula removal 3 days ago -Urine cultures positive for Staph -continue IV antibioitics nafcillin 2gm -echo with no vegetation -continue IV Fluids 100cc/hour NS #Chronic Kidney Disease -nephrology on board -Patient started hemodialysis today due to increase in BUN -f/up post dialysis blood cultures -consulted Dr. Aviles for trialysis catheter placement #HTN- -now hypotensive likely from sepsis. -Held Norvasc #Nutrition Start continuous tube feeding as per [employer] #Diabetes -poorly controlled likely from sepsis state -Continue Levemir 25 -Continue SSI #FEN: -NS 100cc/hour -Transition to Continuous tube feeding. #PPX: Heparin 5000 SQ Visit type - Emergency Visit Emergency Visit: Yes ED Registration Date: 08/08/17 Care time: The patient presented to the Emergency Department on the above date and was hospitalized for further evaluation of their emergent condition. - New Patient This patient is new to me today: No - Critical Care Critical Care patient: No
--- NOTE | 2017-08-12 16:13 | PN ---
Teaching Attending Note Name of Resident: Nisreen Batista ATTENDING PHYSICIAN STATEMENT I saw and evaluated the patient. I reviewed the resident's note and discussed the case with the resident. I agree with the resident's findings and plan as documented. SUBJECTIVE: Patient is lying in bed nonverbal, having dialysis OBJECTIVE: Vital Signs Temperature 98.2 F 08/12/17 14:20 Pulse Rate 73 08/12/17 15:20 Respiratory Rate 18 08/12/17 15:20 Blood Pressure 93/45 08/12/17 15:20 O2 Sat by Pulse Oximetry (%) 93 L 08/12/17 13:06 CBCD WBC 34.5 K/mm3 (4.0-10.0) H* D 08/12/17 07:45 RBC 4.18 M/mm3 (3.60-5.2) 08/12/17 07:45 Hgb 11.5 GM/dL (10.7-15.3) 08/12/17 07:45 Hct 35.8 % (32.4-45.2) 08/12/17 07:45 MCV 85.7 fl (80-96) 08/12/17 07:45 MCHC 32.1 g/dl (32.0-36.0) 08/12/17 07:45 RDW 20.0 % (11.6-15.6) H 08/12/17 07:45 Plt Count 390 K/MM3 (134-434) D 08/12/17 07:45 MPV 8.0 fl (7.5-11.1) 08/12/17 07:45 CMP Sodium 130 mmol/L (136-145) L 08/12/17 07:45 Potassium 4.2 mmol/L (3.5-5.1) 08/12/17 07:45 Chloride 90 mmol/L (98-107) L 08/12/17 07:45 Carbon Dioxide 22 mmol/L (21-32) 08/12/17 07:45 Anion Gap 18 (8-16) H 08/12/17 07:45 BUN 120 mg/dL (7-18) H* 08/12/17 07:45 Creatinine 6.1 mg/dL (0.55-1.02) H 08/12/17 07:45 Creat Clearance w eGFR 6.97 (>60) 08/12/17 07:45 Random Glucose 483 mg/dL (74-106) H* D 08/12/17 07:45 Calcium 6.1 mg/dL (8.5-10.1) L* 08/12/17 07:45 Total Bilirubin 2.6 mg/dL (0.2-1.0) H D 08/12/17 07:45 AST 14 U/L (15-37) L 08/12/17 07:45 ALT 13 U/L (12-78) D 08/12/17 07:45 Alkaline Phosphatase 214 U/L (45-117) H 08/12/17 07:45 Total Protein 4.8 g/dl (6.4-8.2) L 08/12/17 07:45 Albumin 1.4 g/dl (3.4-5.0) L D 08/12/17 07:45 Home Medications Medication Instructions Recorded Amlodipine Besylate [Norvasc -] 10 mg GT DAILY #30 tablet 05/23/17 Insulin (Levemir) [Levemir Vial] 15 units SQ AM #100 ml 05/23/17 Insulin Sliding Scale [Novolog 1 vial SQ Q6HPO #100 units 05/23/17 Vial Sliding Scale -] Nystatin Cream [Mycostatin Cream -] 1 applic TP BID applic 05/23/17 Pantoprazole Suspension [Protonix 40 mg GT DAILY #30 packet 05/23/17 Packets For Oral Suspension -] Lidocaine 5% Top. Ointment 1 applic TP DAILY #1 tube 06/01/17 [Xylocaine 5% Top. Ointment -] Aspirin [ASA -] 81 mg GT DAILY 08/08/17 Furosemide [Lasix -] 80 mg GT DAILY 08/08/17 Sevelamer HCl [Renagel] 800 mg GT TID 08/08/17 Current Medications Generic Name Dose Route Start Last Admin Trade Name Freq PRN Reason Stop Dose Admin Acetaminophen 650 mg 08/09/17 11:40 08/11/17 09:22 Tylenol Oral Solution - GT 650 mg Q6H PRN Administration FEVER OR PAIN Albumin Human 12.5 gm 08/12/17 15:00 08/12/17 15:30 Albumin Human 25% IVPB 08/12/17 16:31 12.5 gm Q30M APRIL Administration Aspirin 81 mg 08/10/17 10:00 08/12/17 10:04 Asa - GT 81 mg DAILY APRIL Administration Gentamicin Sulfate 1 drop 08/10/17 13:30 08/12/17 10:04 Gentamicin 0.3% Eye Drops - OD 1 drop BID APRIL Administration Heparin Sodium (Porcine) 5,000 unit 08/09/17 14:00 08/12/17 14:29 Heparin - SQ Not Given TID APRIL Nafcillin Sodium 2 gm/ 100 mls @ 100 mls/hr 08/09/17 19:45 08/12/17 10:04 Dextrose IVPB 100 mls/hr Q4H-IV APRIL Administration Protocol Sodium Chloride 1,000 mls @ 100 mls/hr 08/11/17 17:39 08/12/17 13:15 Normal Saline - IV 100 mls/hr ASDIR APRIL Administration Insulin Aspart 1 vial 08/09/17 16:30 08/12/17 12:35 Novolog Vial Sliding Scale - SQ 10 units TIDAC APRIL Administration Protocol Insulin Detemir 25 units 08/11/17 11:54 08/12/17 06:25 Levemir Vial SQ 25 unit AM APRIL Administration Metoclopramide HCl 10 mg 08/09/17 11:11 Reglan Injection - IVPB Q6H PRN NAUSEA AND/OR VOMITING Nystatin 1 applic 08/09/17 22:00 08/12/17 10:06 Mycostatin Cream - TP 1 applic BID APRIL Administration Pantoprazole Sodium 40 mg 08/10/17 10:00 08/12/17 10:04 Protonix Packets For Oral Suspension - GT 40 mg DAILY APRIL Administration Home Medications Medication Instructions Recorded Amlodipine Besylate [Norvasc -] 10 mg GT DAILY #30 tablet 05/23/17 Insulin (Levemir) [Levemir Vial] 15 units SQ AM #100 ml 05/23/17 Insulin Sliding Scale [Novolog 1 vial SQ Q6HPO #100 units 05/23/17 Vial Sliding Scale -] Nystatin Cream [Mycostatin Cream -] 1 applic TP BID applic 05/23/17 Pantoprazole Suspension [Protonix 40 mg GT DAILY #30 packet 05/23/17 Packets For Oral Suspension -] Lidocaine 5% Top. Ointment 1 applic TP DAILY #1 tube 06/01/17 [Xylocaine 5% Top. 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 s/p removal of graft 08/09 , continues to be hypotensive. As per Nephro given bolus of IVF and given an albumin, cont naficillin and genta ; echo with no vegetation , follow repeated blood cx . DM : poorly controlled on levemir to 25 in am , SSI # CKD on HD. D/W renal , having HD # HTN: hypotensive continue to hold norvasc # Nutrition Bolus TF with free water DVT PX: Heparin sq
[2017-08-12] MEDS: ACETAMINOPHEN 650 MG/20.3 ML ORAL SOLUTION (CUPS) GT PRN (18:28)
[2017-08-12] MEDS ORDERED: PT OWN MED DRAWER 7, Y5N ONE (20:02)
[2017-08-13] MEDS: NAFCILLIN - 2 GM in DEXTROSE 5%-WATER - 100 ML IVPB SCH ×6 (01:02→21:37)
[2017-08-13] MEDS: SODIUM CHLORIDE 1,000 ML IV SCH ×2 (01:03→15:30)
[2017-08-13] MEDS ORDERED: INSULIN (NOVOLOG) ASPART 100 UNITS/ML 10ML VIAL ONE (06:21)
[2017-08-13] MEDS: HEPARIN NA (PORCINE) 5,000 UNITS/ML 1ML VIAL SQ SCH ×3 (06:26→21:38)
[2017-08-13] MEDS: INSULIN DETEMIR 100 UNITS/ML MDV SQ SCH (06:26)
[2017-08-13] MEDS: INSULIN SLIDING SCALE (NOVOLOG) 1 VIAL SQ SCH ×3 (06:27→18:03)
[2017-08-13 08:27] LABS: MCH 27.1 pg (25.7-33.7); MCHC 32.3 g/dl (32.0-36.0); MEAN CELL VOLUME 83.8 fl (80-96); MEAN PLT VOLUME 7.5 fl (7.5-11.1); PLATELET COUNT 357 K/MM3 (134-434); RDW 19.6 % (11.6-15.6); WHITE BLOOD COUNT 18.7 K/mm3 (4.0-10.0)
[2017-08-13 08:53] LABS: ANION GAP 15 (8-16); CO2 23 mmol/L (21-32); CREATININE 4.2 mg/dL (0.55-1.02); GLUCOSE,RANDOM 176 mg/dL (74-106)
[2017-08-13] MEDS: PANTOPRAZOLE SOD 40 MG SUSPENSION PACKET GT SCH (09:00)
[2017-08-13] MEDS: ASPIRIN 81 MG CHEWABLE TABLETS GT SCH (09:00)
[2017-08-13] MEDS: NYSTATIN 100,000 UNIT/GM TOPICAL CREAM 15 GM TUBE TP SCH ×2 (09:02→21:38)
[2017-08-13] MEDS: GENTAMICIN SULFATE 0.3% OPHTHALMIC (EYE DROPS) 5ML BOTTLE OD SCH ×2 (09:02→21:38)
[2017-08-13] MEDS: ACETAMINOPHEN 650 MG/20.3 ML ORAL SOLUTION (CUPS) GT PRN (09:03)
--- NOTE | 2017-08-13 11:37 | PN ---
Physical Exam: SUBJECTIVE: Patient seen and examined. Non-verbal. No acute events over night. OBJECTIVE: Vital Signs Period Temp Pulse Resp BP Sys/Daniel Pulse Ox Last 24 Hr 97.6 F-99.3 F 66-86 18-24 77-134/36-58 93-93 GENERAL: NAD, non-verbal EYES:injected, Pupils pinpoint, minimally reactive to light. Cataracts present b/l EARS, NOSE, THROAT: oropharynx clear without exudates. Moist mucous membranes. NECK: without lymphadenopathy, JVD, or masses. LUNGS: clear to auscultation bilaterally. No wheezes, and no crackles. No accessory muscle use. HEART: Regular rate and rhythm,3/6 Systolic murmber in apex, 2/6 systolic murmer in right upper sternal border. ABDOMEN: Soft, nontender, not distended, normoactive bowel sounds, no guarding, no rebound, no masses. No hepatomegaly or splenomegaly. EXT: s/p Left arm AV fistula removed, erythematous and warm on site. Skin excoriations in groin and over right buttock cheek. Laboratory Results - last 24 hr 08/12/17 08/12/17 08/13/17 12:30 17:54 06:12 WBC RBC Hgb Hct MCV MCH MCHC RDW Plt Count MPV Sodium Potassium Chloride Carbon Dioxide Anion Gap BUN Creatinine POC Glucometer 379 150 176 Random Glucose Calcium 08/13/17 08/13/17 08:10 08:10 WBC 18.7 H D RBC 3.56 L Hgb 9.7 L D Hct 29.9 L D MCV 83.8 MCH 27.1 MCHC 32.3 RDW 19.6 H Plt Count 357 MPV 7.5 Sodium 136 Potassium 3.4 L Chloride 98 Carbon Dioxide 23 Anion Gap 15 BUN 75 H D Creatinine 4.2 H D POC Glucometer Random Glucose 176 H D Calcium 6.0 L* Active Medications Generic Name Dose Route Start Last Admin Trade Name Freq PRN Reason Stop Dose Admin Acetaminophen 650 mg 08/09/17 11:40 08/13/17 09:03 Tylenol Oral Solution - GT 650 mg Q6H PRN Administration FEVER OR PAIN Aspirin 81 mg 08/10/17 10:00 08/13/17 09:00 Asa - GT 81 mg DAILY APRIL Administration Gentamicin Sulfate 1 drop 08/10/17 13:30 08/13/17 09:02 Gentamicin 0.3% Eye Drops - OD 1 drop BID APRIL Administration Heparin Sodium (Porcine) 5,000 unit 08/09/17 14:00 08/13/17 06:26 Heparin - SQ 5,000 unit TID APRIL Administration Nafcillin Sodium 2 gm/ 100 mls @ 100 mls/hr 08/09/17 19:45 08/13/17 09:01 Dextrose IVPB 100 mls/hr Q4H-IV APRIL Administration Protocol Sodium Chloride 1,000 mls @ 100 mls/hr 08/11/17 17:39 08/13/17 01:03 Normal Saline - IV 100 mls/hr ASDIR APRIL Administration Insulin Aspart 1 vial 08/09/17 16:30 08/13/17 06:27 Novolog Vial Sliding Scale - SQ 2 units TIDAC APRIL Administration Protocol Insulin Detemir 25 units 08/11/17 11:54 08/13/17 06:26 Levemir Vial SQ 25 unit AM APRIL Administration Metoclopramide HCl 10 mg 08/09/17 11:11 Reglan Injection - IVPB Q6H PRN NAUSEA AND/OR VOMITING Nystatin 1 applic 08/09/17 22:00 08/13/17 09:02 Mycostatin Cream - TP 1 applic BID APRIL Administration Pantoprazole Sodium 40 mg 08/10/17 10:00 08/13/17 09:00 Protonix Packets For Oral Suspension - GT 40 mg DAILY APRIL Administration ASSESSMENT/PLAN: Patient is a non-verbal 61 yo F with significant past history of CVA ( quadriplegic), R AKA, Diabetes, HTN, dementia, ESRD, s/p peg tube (5 years ago) , Wegners Granulomatosis came to the ED with a dysfunctional Left AVF and was found to have severe sepsis from infected AVF. # Severe Sepsis from infected Left arm dysfunctional AV Fistula -s/p AV fistula removal 3 days ago -Urine cultures positive for Staph -continue IV antibioitics nafcillin 2gm -White cell slightly lower today. -echo with no vegetation -continue IV Fluids 60 cc/hour NS -Hypotensive #Chronic Kidney Disease -nephrology on board -Patient started hemodialysis yesterday due to increase in BUN, BUN/Creatinine slight improved. -f/up post dialysis blood cultures -consulted Dr. Aviles for trialysis catheter placement #HTN- -now hypotensive likely from sepsis. -Held Norvasc #Nutrition Start continuous tube feeding as per [employer] #Diabetes -poorly controlled likely from sepsis state -Went down to Levemir 20. Glucose was 70 at lunch time. -Continue SSI #Pain Tramadol 25 once #FEN: -NS 60cc/hour -Transition to Continuous tube feeding. #PPX: Heparin 5000 SQ Visit type - Emergency Visit Emergency Visit: Yes ED Registration Date: 08/08/17 Care time: The patient presented to the Emergency Department on the above date and was hospitalized for further evaluation of their emergent condition. - New Patient This patient is new to me today: No - Critical Care Critical Care patient: No
[2017-08-13] MEDS ORDERED: SODIUM CHLORIDE NASAL SPRAY 44 ML BOTTLE NS PRN (11:49)
--- NOTE | 2017-08-13 12:09 | PN ---
Teaching Attending Note Name of Resident: Nisreen Batista ATTENDING PHYSICIAN STATEMENT I saw and evaluated the patient. I reviewed the resident's note and discussed the case with the resident. I agree with the resident's findings and plan as documented. SUBJECTIVE: Patient is lying in bed with no change. OBJECTIVE: Vital Signs Temperature 99.3 F 08/13/17 02:00 Pulse Rate 81 08/13/17 02:00 Respiratory Rate 20 08/13/17 02:00 Blood Pressure 106/58 08/13/17 02:00 O2 Sat by Pulse Oximetry (%) 93 L 08/12/17 21:00 CBCD WBC 18.7 K/mm3 (4.0-10.0) H D 08/13/17 08:10 RBC 3.56 M/mm3 (3.60-5.2) L 08/13/17 08:10 Hgb 9.7 GM/dL (10.7-15.3) L D 08/13/17 08:10 Hct 29.9 % (32.4-45.2) L D 08/13/17 08:10 MCV 83.8 fl (80-96) 08/13/17 08:10 MCHC 32.3 g/dl (32.0-36.0) 08/13/17 08:10 RDW 19.6 % (11.6-15.6) H 08/13/17 08:10 Plt Count 357 K/MM3 (134-434) 08/13/17 08:10 MPV 7.5 fl (7.5-11.1) 08/13/17 08:10 CMP Sodium 136 mmol/L (136-145) 08/13/17 08:10 Potassium 3.4 mmol/L (3.5-5.1) L 08/13/17 08:10 Chloride 98 mmol/L (98-107) 08/13/17 08:10 Carbon Dioxide 23 mmol/L (21-32) 08/13/17 08:10 Anion Gap 15 (8-16) 08/13/17 08:10 BUN 75 mg/dL (7-18) H D 08/13/17 08:10 Creatinine 4.2 mg/dL (0.55-1.02) H D 08/13/17 08:10 Creat Clearance w eGFR 6.97 (>60) 08/12/17 07:45 Random Glucose 176 mg/dL (74-106) H D 08/13/17 08:10 Calcium 6.0 mg/dL (8.5-10.1) L* 08/13/17 08:10 Total Bilirubin 2.6 mg/dL (0.2-1.0) H D 08/12/17 07:45 AST 14 U/L (15-37) L 08/12/17 07:45 ALT 13 U/L (12-78) D 08/12/17 07:45 Alkaline Phosphatase 214 U/L (45-117) H 08/12/17 07:45 Total Protein 4.8 g/dl (6.4-8.2) L 08/12/17 07:45 Albumin 1.4 g/dl (3.4-5.0) L D 08/12/17 07:45 Current Medications Generic Name Dose Route Start Last Admin Trade Name Freq PRN Reason Stop Dose Admin Acetaminophen 650 mg 08/09/17 11:40 08/13/17 09:03 Tylenol Oral Solution - GT 650 mg Q6H PRN Administration FEVER OR PAIN Aspirin 81 mg 08/10/17 10:00 08/13/17 09:00 Asa - GT 81 mg DAILY APRIL Administration Gentamicin Sulfate 1 drop 08/10/17 13:30 08/13/17 09:02 Gentamicin 0.3% Eye Drops - OD 1 drop BID APRIL Administration Heparin Sodium (Porcine) 5,000 unit 08/09/17 14:00 08/13/17 06:26 Heparin - SQ 5,000 unit TID APRIL Administration Nafcillin Sodium 2 gm/ 100 mls @ 100 mls/hr 08/09/17 19:45 08/13/17 09:01 Dextrose IVPB 100 mls/hr Q4H-IV APRIL Administration Protocol Sodium Chloride 1,000 mls @ 100 mls/hr 08/11/17 17:39 08/13/17 01:03 Normal Saline - IV 100 mls/hr ASDIR APRIL Administration Insulin Aspart 1 vial 08/09/17 16:30 08/13/17 06:27 Novolog Vial Sliding Scale - SQ 2 units TIDAC APRIL Administration Protocol Insulin Detemir 25 units 08/11/17 11:54 08/13/17 06:26 Levemir Vial SQ 25 unit AM APRIL Administration Metoclopramide HCl 10 mg 08/09/17 11:11 Reglan Injection - IVPB Q6H PRN NAUSEA AND/OR VOMITING Nystatin 1 applic 08/09/17 22:00 08/13/17 09:02 Mycostatin Cream - TP 1 applic BID APRIL Administration Pantoprazole Sodium 40 mg 08/10/17 10:00 08/13/17 09:00 Protonix Packets For Oral Suspension - GT 40 mg DAILY APRIL Administration Sodium Chloride 2 spray 08/13/17 11:49 [place] Nasal [place] - NS BID PRN NASAL CONGESTION Home Medications Medication Instructions Recorded Amlodipine Besylate [Norvasc -] 10 mg GT DAILY #30 tablet 05/23/17 Insulin (Levemir) [Levemir Vial] 15 units SQ AM #100 ml 05/23/17 Insulin Sliding Scale [Novolog 1 vial SQ Q6HPO #100 units 05/23/17 Vial Sliding Scale -] Nystatin Cream [Mycostatin Cream -] 1 applic TP BID applic 05/23/17 Pantoprazole Suspension [Protonix 40 mg GT DAILY #30 packet 05/23/17 Packets For Oral Suspension -] Lidocaine 5% Top. Ointment 1 applic TP DAILY #1 tube 06/01/17 [Xylocaine 5% Top. Ointment -] Aspirin [ASA -] 81 mg GT DAILY 08/08/17 Furosemide [Lasix -] 80 mg GT DAILY 08/08/17 Sevelamer HCl [Renagel] 800 mg GT TID 08/08/17 Microbiology 08/10/17 10:00 Blood - Peripheral Venous Blood Culture - Preliminary NO GROWTH OBTAINED AFTER 72 HOURS, INCUBATION TO CONTINUE FOR 2 DAYS. 08/10/17 10:00 Blood - Peripheral Venous Blood Culture - Preliminary Staphylococcus Aureus 08/09/17 11:25 Arm - Left Upper Gram Stain - Final 08/09/17 11:25 Arm - Left Upper Wound Culture - Final Staphylococcus Aureus 08/09/17 11:25 Tissue-Other Gram Stain - Final 08/09/17 11:25 Tissue-Other Tissue Culture - Final Staphylococcus Aureus 08/09/17 11:25 Tissue-Other Anaerobic Culture - Final NO ANAEROBES WERE ISOLATED 08/09/17 00:55 Blood - Peripheral Venous Blood Culture - Final Staphylococcus Aureus 08/09/17 00:40 Blood - Peripheral Venous Blood Culture - Final Staphylococcus Aureus 08/08/17 09:21 Blood - Peripheral Venous Blood Culture - Final Staphylococcus Aureus 08/08/17 09:21 Blood - Peripheral Venous Blood Culture - Final Staphylococcus Aureus 08/08/17 11:10 Urine - Urine - Catheterized Urine Culture - Final Staphylococcus Aureus PE: as per resident's note ASSESSMENT AND PLAN: 61 y/o lady with h/o CVA , NIDDM, HTN, HLP, 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 s/p removal of graft 08/09 ,Blood pressure improved today, s/p hypotensive. cont naficillin , echo with no vegetation . Id on the case. Repeat blood culture is negative so far. Leukocytosis is improving. DM : on levemir , will reduce the dose since the blood sugar is in 77 at lunch time. SSI # CKD on HD. D/W renal , having HD # Hx of HTN:Bp meds are hold due to hypotension. # Nutrition Bolus TF with free water # Bacterial conjuctivitis on Gentamicin continue DVT PX: Heparin sq
[2017-08-13] MEDS ORDERED: INSULIN DETEMIR 100 UNITS/ML MDV SQ SCH (12:13)
[2017-08-13] MEDS ORDERED: traMADol HCL 50 MG TABLET PEG ONE (12:30)
[2017-08-13] MEDS ORDERED: PT OWN MED DRAWER 7, Y5N ONE ×2 (14:45→17:21)
--- NOTE | 2017-08-13 15:46 | PN ---
Progress Note (short form) - Note Progress Note: Renal follow up for ESRD on HD Pt seen and examined at the bedside no fevers this am s/p HD yesterday BP is improved getting swollen Vital Signs Temperature 99.3 F 08/13/17 02:00 Pulse Rate 81 08/13/17 02:00 Respiratory Rate 20 08/13/17 02:00 Blood Pressure 106/58 08/13/17 02:00 O2 Sat by Pulse Oximetry (%) 93 L 08/12/17 21:00 Intake & Output 08/10/17 08/11/17 08/12/17 08/13/17 23:59 23:59 23:59 23:59 Intake Total 1950 3250 2850 Output Total 1 Balance 1950 3250 2849 Gen: NAD CVS: RRR, No M/R Lungs: CTA, no rales or wheeze Abd: soft NT/ND Ext: no edema, clubbing or cyanosis CBC, BMP 08/13/17 08:10 08/13/17 08:10 Laboratory Tests 08/13/17 08:10 Calcium 6.0 L* Current Medications Acetaminophen (Tylenol Oral Solution -) 650 mg GT Q6H PRN PRN Reason: FEVER OR PAIN Last Admin: 08/13/17 09:03 Dose: 650 mg Aspirin (Asa -) 81 mg GT DAILY [facility] Last Admin: 08/13/17 09:00 Dose: 81 mg Gentamicin Sulfate (Gentamicin 0.3% Eye Drops -) 1 drop OD BID APRIL Last Admin: 08/13/17 09:02 Dose: 1 drop Heparin Sodium (Porcine) (Heparin -) 5,000 unit SQ TID APRIL Last Admin: 08/13/17 14:43 Dose: 5,000 unit Nafcillin Sodium 2 gm/ (Dextrose) 100 mls @ 100 mls/hr IVPB Q4H-IV APRIL PRN Reason: Protocol Last Admin: 08/13/17 14:47 Dose: 100 mls/hr Sodium Chloride (Normal Saline -) 1,000 mls @ 60 mls/hr IV ASDIR [facility] Last Admin: 08/13/17 15:30 Dose: Not Given Insulin Aspart (Novolog Vial Sliding Scale -) 1 vial SQ TIDAC APRIL PRN Reason: Protocol Last Admin: 08/13/17 12:50 Dose: Not Given Insulin Detemir (Levemir Vial) 20 units SQ AM [facility] Metoclopramide HCl (Reglan Injection -) 10 mg IVPB Q6H PRN PRN Reason: NAUSEA AND/OR VOMITING Nystatin (Mycostatin Cream -) 1 applic TP BID [facility] Last Admin: 08/13/17 09:02 Dose: 1 applic Pantoprazole Sodium (Protonix Packets For Oral Suspension -) 40 mg GT DAILY [facility] Last Admin: 08/13/17 09:00 Dose: 40 mg Sodium Chloride ([place] Nas[place] -) 2 spray NS BID PRN PRN Reason: NASAL CONGESTION 61 year old woman with PMhx of ESRD on HD (recently stated s/p DEYSI w/o recovery secondary to suspected Vascultitis (+PR3 ab) but no Bx), DM, PVD, CVA (now non- verbal) who was sent from outpatient HD unit with non-functioning AVG and found to have WBC of 22K. #ESRD on HD with clotted AVG no acute indication for [employer] today will plan next HD tomorrow with UF if tolerated dose all meds for Cr Cl less then 10 will need [facility] access once infection is cleared if pts family wishes to continue HD #Staph Bacteremia 2nd set of cultures grew staph in 1 bottle, repeat set drawn yesterday with HD decrease IVF given edema keep MAP > 65 Prognosis guarded DNR/DNI Thank you Jonathan Guzman DO Problem List - Problems (1) ESRD (end stage renal disease) on dialysis Code(s): N18.6 - END STAGE RENAL DISEASE Z99.2 - DEPENDENCE ON RENAL DIALYSIS (2) Leukocytosis Code(s): D72.829 - ELEVATED WHITE BLOOD CELL COUNT, UNSPECIFIED (3) Vomiting Code(s): R11.10 - VOMITING, UNSPECIFIED (4) Acute constipation Code(s): K59.00 - CONSTIPATION, UNSPECIFIED (5) Diabetes mellitus Code(s): E11.9 - TYPE 2 DIABETES MELLITUS WITHOUT COMPLICATIONS
[2017-08-14] MEDS: NAFCILLIN - 2 GM in DEXTROSE 5%-WATER - 100 ML IVPB SCH ×6 (01:54→22:56)
[2017-08-14] MEDS ORDERED: INSULIN (NOVOLOG) ASPART 100 UNITS/ML 10ML VIAL ONE (06:01)
[2017-08-14] MEDS: HEPARIN NA (PORCINE) 5,000 UNITS/ML 1ML VIAL SQ SCH ×3 (06:07→22:56)
[2017-08-14] MEDS: INSULIN SLIDING SCALE (NOVOLOG) 1 VIAL SQ SCH ×3 (06:54→17:59)
[2017-08-14] MEDS: NYSTATIN 100,000 UNIT/GM TOPICAL CREAM 15 GM TUBE TP SCH ×2 (07:30→22:56)
[2017-08-14] MEDS: GENTAMICIN SULFATE 0.3% OPHTHALMIC (EYE DROPS) 5ML BOTTLE OD SCH ×2 (07:30→22:56)
[2017-08-14] MEDS: ACETAMINOPHEN 650 MG/20.3 ML ORAL SOLUTION (CUPS) GT PRN (07:49)
[2017-08-14] MEDS: ASPIRIN 81 MG CHEWABLE TABLETS GT SCH (09:16)
[2017-08-14] MEDS: PANTOPRAZOLE SOD 40 MG SUSPENSION PACKET GT SCH (09:16)
[2017-08-14 09:21] LABS: MCH 27.2 pg (25.7-33.7); MCHC 32.4 g/dl (32.0-36.0); MEAN CELL VOLUME 83.7 fl (80-96); MEAN PLT VOLUME 7.7 fl (7.5-11.1); PLATELET COUNT 420 K/MM3 (134-434); RDW 20.2 % (11.6-15.6); WHITE BLOOD COUNT 18.8 K/mm3 (4.0-10.0)
[2017-08-14 09:38] LABS: ANION GAP 12 (8-16); CO2 24 mmol/L (21-32); CREATININE 4.6 mg/dL (0.55-1.02); PHOSPHOROUS 4.8 mg/dL (2.5-4.9)
[2017-08-14 10:17] LABS: CALCIUM 5.7 mg/dL (8.5-10.1); GLUCOSE,RANDOM 319 mg/dL (74-106)
--- NOTE | 2017-08-14 10:46 | PN ---
Physical Exam: SUBJECTIVE: Patient seen and examined. Non-verbal. No acute events over night. OBJECTIVE: Vital Signs Period Temp Pulse Resp BP Sys/Daniel Pulse Ox Last 24 Hr 98.8 F-99 F 72-85 18-20 86-132/33-104 GENERAL: NAD, non-verbal EYES:injected, Pupils pinpoint, minimally reactive to light. Cataracts present b/l EARS, NOSE, THROAT: oropharynx clear without exudates. Moist mucous membranes. NECK: without lymphadenopathy, JVD, or masses. LUNGS: clear to auscultation bilaterally. No wheezes, and no crackles. No accessory muscle use. HEART: Regular rate and rhythm,3/6 Systolic murmber in apex, 2/6 systolic murmer in right upper sternal border. ABDOMEN: Soft, nontender, not distended, normoactive bowel sounds, no guarding, no rebound, no masses. No hepatomegaly or splenomegaly. EXT: s/p Left arm AV fistula removed, erythematous and warm on site. Skin excoriations in groin and over right buttock cheek. Laboratory Results - last 24 hr 08/12/17 08/13/17 08/13/17 14:15 11:58 15:09 WBC RBC Hgb Hct MCV MCH MCHC RDW Plt Count MPV Sodium Potassium Chloride Carbon Dioxide Anion Gap BUN Creatinine POC Glucometer 74 75 Random Glucose Calcium Phosphorus Hepatitis C Antibody <0.1 08/13/17 08/13/17 08/13/17 17:53 17:56 21:44 WBC RBC Hgb Hct MCV MCH MCHC RDW Plt Count MPV Sodium Potassium Chloride Carbon Dioxide Anion Gap BUN Creatinine POC Glucometer 47 57 154 Random Glucose Calcium Phosphorus Hepatitis C Antibody 08/14/17 08/14/17 08/14/17 06:05 08:30 08:30 WBC 18.8 H RBC 3.41 L Hgb 9.3 L Hct 28.6 L MCV 83.7 MCH 27.2 MCHC 32.4 RDW 20.2 H Plt Count 420 MPV 7.7 Sodium 133 L Potassium 4.0 Chloride 97 L Carbon Dioxide 24 Anion Gap 12 BUN 90 H Creatinine 4.6 H POC Glucometer 299 Random Glucose 319 H* D Calcium 5.7 L* Phosphorus 4.8 D Hepatitis C Antibody Active Medications Generic Name Dose Route Start Last Admin Trade Name Freq PRN Reason Stop Dose Admin Acetaminophen 650 mg 08/09/17 11:40 08/14/17 07:49 Tylenol Oral Solution - GT 650 mg Q6H PRN Administration FEVER OR PAIN Aspirin 81 mg 08/10/17 10:00 08/14/17 09:16 Asa - GT Not Given DAILY [facility] Gentamicin Sulfate 1 drop 08/10/17 13:30 08/13/17 21:38 Gentamicin 0.3% Eye Drops - OD 1 drop BID APRIL Administration Heparin Sodium (Porcine) 5,000 unit 08/09/17 14:00 08/14/17 06:07 Heparin - SQ 5,000 unit TID APRIL Administration Nafcillin Sodium 2 gm/ 100 mls @ 100 mls/hr 08/09/17 19:45 08/14/17 06:06 Dextrose IVPB 100 mls/hr Q4H-IV [facility] Administration Protocol Sodium Chloride 1,000 mls @ 60 mls/hr 08/13/17 15:15 08/13/17 15:30 Normal Saline - IV Not Given ASDIR [facility] Insulin Aspart 1 vial 08/09/17 16:30 08/14/17 06:54 Novolog Vial Sliding Scale - SQ Not Given TIDAC [facility] Protocol Insulin Detemir 20 units 08/13/17 12:13 08/14/17 06:53 Levemir Vial SQ 22 unit AM [facility] Administration Metoclopramide HCl 10 mg 08/09/17 11:11 Reglan Injection - IVPB Q6H PRN NAUSEA AND/OR VOMITING Nystatin 1 applic 08/09/17 22:00 08/13/17 21:38 Mycostatin Cream - TP 1 applic BID APRIL Administration Pantoprazole Sodium 40 mg 08/10/17 10:00 08/14/17 09:16 Protonix Packets For Oral Suspension - GT Not Given DAILY [facility] Sodium Chloride 2 spray 08/13/17 11:49 08/13/17 18:26 [place] Nasal [place] - NS 2 spray BID PRN Administration NASAL CONGESTION ASSESSMENT/PLAN: Patient is a non-verbal 61 yo F with significant past history of CVA ( quadriplegic), R AKA, Diabetes, HTN, dementia, ESRD, s/p peg tube (5 years ago) , Wegners Granulomatosis came to the ED with a dysfunctional Left AVF and was found to have severe sepsis from infected AVF. # Severe Sepsis from infected Left arm dysfunctional AV Fistula -s/p AV fistula removal 4 days ago -continue IV antibioitics nafcillin 2gm -Urine cultures positive for Staph -pre-dialysis blood cultures negative -echo with no vegetation -continue IV Fluids 60 cc/hour NS -Hypotensive #Chronic Kidney Disease -nephrology on board -Patient had hemodialysis today -consulted Dr. Aviles for trialysis catheter placement #HTN- -now hypotensive likely from sepsis. -Held Norvasc #Nutrition Start continuous tube feeding as per Technical Business Systems Analyst #Diabetes -poorly controlled likely from sepsis state -Continue Levemir 20. Glucose was 70 at lunch time. -Continue SSI #FEN: -NS 60cc/hour -Transition to Continuous tube feeding. #PPX: Heparin 5000 SQ Visit type - Emergency Visit Emergency Visit: Yes ED Registration Date: 08/08/17 Care time: The patient presented to the Emergency Department on the above date and was hospitalized for further evaluation of their emergent condition. - New Patient This patient is new to me today: No - Critical Care Critical Care patient: No
[2017-08-14 10:49] LABS: MAGNESIUM 2.8 mg/dL (1.8-2.4)
--- NOTE | 2017-08-14 11:05 | PN ---
Progress Note, Physician History of Present Illness: Awake, not verbally responsive Presently receiving dialysis via femoral catheter Afebrile Repeat BC (08/12) no growth - Current Medication List Current Medications: Active Medications Acetaminophen (Tylenol Oral Solution -) 650 mg GT Q6H PRN PRN Reason: FEVER OR PAIN Last Admin: 08/14/17 07:49 Dose: 650 mg Aspirin (Asa -) 81 mg GT DAILY [facility] Last Admin: 08/14/17 09:16 Dose: Not Given Gentamicin Sulfate (Gentamicin 0.3% Eye Drops -) 1 drop OD BID [facility] Last Admin: 08/13/17 21:38 Dose: 1 drop Heparin Sodium (Porcine) (Heparin -) 5,000 unit SQ TID [facility] Last Admin: 08/14/17 06:07 Dose: 5,000 unit Nafcillin Sodium 2 gm/ (Dextrose) 100 mls @ 100 mls/hr IVPB Q4H-IV APRIL PRN Reason: Protocol Last Admin: 08/14/17 06:06 Dose: 100 mls/hr Sodium Chloride (Normal Saline -) 1,000 mls @ 60 mls/hr IV ASDIR [facility] Last Admin: 08/13/17 15:30 Dose: Not Given Insulin Aspart (Novolog Vial Sliding Scale -) 1 vial SQ TIDAC APRIL PRN Reason: Protocol Last Admin: 08/14/17 06:54 Dose: Not Given Insulin Detemir (Levemir Vial) 20 units SQ AM [facility] Last Admin: 08/14/17 06:53 Dose: 22 unit Metoclopramide HCl (Reglan Injection -) 10 mg IVPB Q6H PRN PRN Reason: NAUSEA AND/OR VOMITING Nystatin (Mycostatin Cream -) 1 applic TP BID [facility] Last Admin: 08/13/17 21:38 Dose: 1 applic Pantoprazole Sodium (Protonix Packets For Oral Suspension -) 40 mg GT DAILY [facility] Last Admin: 08/14/17 09:16 Dose: Not Given Sodium Chloride ([place] -) 2 spray NS BID PRN PRN Reason: NASAL CONGESTION Last Admin: 08/13/17 18:26 Dose: 2 spray - Objective Vital Signs: Vital Signs Temperature 98.8 F 08/14/17 08:55 Pulse Rate 80 08/14/17 11:00 Respiratory Rate 18 08/14/17 11:00 Blood Pressure 106/54 08/14/17 11:00 O2 Sat by Pulse Oximetry (%) 93 L 08/12/17 21:00 Constitutional: Yes: No Distress, Obese Eyes: Yes: Conjunctiva Clear Cardiovascular: Yes: Regular Rate and Rhythm, S1, S2 Respiratory: Yes: CTA Bilaterally Gastrointestinal: Yes: Normal Bowel Sounds, Soft. No: Tenderness Labs: CBC, BMP 08/14/17 08:30 08/14/17 08:30 INR, PTT INR 0.95 (0.82-1.09) 08/11/17 06:00 Assessment/Plan S/P excision, infected AVG MSSA bacteremia ESRD Continue nafcillin Check repeat BC Will need residential antibiotics (6w after last +BC) at hemodialysis
--- NOTE | 2017-08-14 12:25 | PN ---
Progress Note (short form) - Note Progress Note: Renal follow up for ESRD on HD Pt seen and examined during dialysis BP stable, goal UF is 1.5L, only able to get 250 blood flow via catheter no fever no overnight events Vital Signs Temperature 98.8 F 08/14/17 08:55 Pulse Rate 74 08/14/17 12:07 Respiratory Rate 18 08/14/17 12:00 Blood Pressure 93/50 08/14/17 12:00 O2 Sat by Pulse Oximetry (%) 94 L 08/14/17 12:07 Intake & Output 08/11/17 08/12/17 08/13/17 08/14/17 23:59 23:59 23:59 23:59 Intake Total 3250 2850 1950 1360 Output Total 1 Balance 3250 2849 1950 1360 Gen: NAD CVS: RRR, No M/R Lungs: CTA, no rales or wheeze Abd: soft NT/ND Ext: no edema, clubbing or cyanosis CBC, BMP 08/14/17 08:30 08/14/17 08:30 Laboratory Tests 08/14/17 08:30 Calcium 5.7 L* Phosphorus 4.8 D Magnesium 2.8 H Current Medications Acetaminophen (Tylenol Oral Solution -) 650 mg GT Q6H PRN PRN Reason: FEVER OR PAIN Last Admin: 08/14/17 07:49 Dose: 650 mg Aspirin (Asa -) 81 mg GT DAILY [facility] Last Admin: 08/14/17 09:16 Dose: Not Given Gentamicin Sulfate (Gentamicin 0.3% Eye Drops -) 1 drop OD BID APRIL Last Admin: 08/13/17 21:38 Dose: 1 drop Heparin Sodium (Porcine) (Heparin -) 5,000 unit SQ TID APRIL Last Admin: 08/14/17 06:07 Dose: 5,000 unit Nafcillin Sodium 2 gm/ (Dextrose) 100 mls @ 100 mls/hr IVPB Q4H-IV APRIL PRN Reason: Protocol Last Admin: 08/14/17 06:06 Dose: 100 mls/hr Sodium Chloride (Normal Saline -) 1,000 mls @ 60 mls/hr IV ASDIR APRIL Last Admin: 08/13/17 15:30 Dose: Not Given Insulin Aspart (Novolog Vial Sliding Scale -) 1 vial SQ TIDAC APRIL PRN Reason: Protocol Last Admin: 08/14/17 06:54 Dose: Not Given Insulin Detemir (Levemir Vial) 20 units SQ AM [facility] Last Admin: 08/14/17 06:53 Dose: 22 unit Metoclopramide HCl (Reglan Injection -) 10 mg IVPB Q6H PRN PRN Reason: NAUSEA AND/OR VOMITING Nystatin (Mycostatin Cream -) 1 applic TP BID [facility] Last Admin: 08/13/17 21:38 Dose: 1 applic Pantoprazole Sodium (Protonix Packets For Oral Suspension -) 40 mg GT DAILY [facility] Last Admin: 08/14/17 09:16 Dose: Not Given Sodium Chloride ([place] Nasal [place] -) 2 spray NS BID PRN PRN Reason: NASAL CONGESTION Last Admin: 08/13/17 18:26 Dose: 2 spray 61 year old woman with PMhx of ESRD on HD (recently stated s/p DEYSI w/o recovery secondary to suspected Vascultitis (+PR3 ab) but no Bx), DM, PVD, CVA (now non- verbal) who was sent from outpatient HD unit with non-functioning AVG and found to have WBC of 22K. #ESRD on HD currently tolerating dialysis via femoral catheter will UF 1.5L as tolerated can d/c IVF as pt with edema and now BP stable will monitor over the weekend and will revaluate goals of care with family dose all meds for Cr Cl less then 10 #Staph Bacteremia f/u repeat blood cultures continue abx as per ID Prognosis guarded DNR/DNI Thank you Jonathan Guzman DO Problem List - Problems (1) ESRD (end stage renal disease) on dialysis Code(s): N18.6 - END STAGE RENAL DISEASE Z99.2 - DEPENDENCE ON RENAL DIALYSIS (2) Leukocytosis Code(s): D72.829 - ELEVATED WHITE BLOOD CELL COUNT, UNSPECIFIED (3) Vomiting Code(s): R11.10 - VOMITING, UNSPECIFIED (4) Acute constipation Code(s): K59.00 - CONSTIPATION, UNSPECIFIED (5) Diabetes mellitus Code(s): E11.9 - TYPE 2 DIABETES MELLITUS WITHOUT COMPLICATIONS
[2017-08-14] MEDS: SODIUM CHLORIDE 1,000 ML IV SCH (15:17)
[2017-08-14] MEDS ORDERED: PT OWN MED DRAWER 7, Y5N ONE ×2 (16:49→22:13)
--- NOTE | 2017-08-14 16:51 | PN ---
Teaching Attending Note Name of Resident: Nisreen Batista ATTENDING PHYSICIAN STATEMENT I saw and evaluated the patient. I reviewed the resident's note and discussed the case with the resident. I agree with the resident's findings and plan as documented. SUBJECTIVE: No new changes, having HD today. OBJECTIVE: Vital Signs Temperature 97.9 F 08/14/17 14:17 Pulse Rate 86 08/14/17 14:17 Respiratory Rate 22 08/14/17 14:17 Blood Pressure 122/59 08/14/17 14:17 O2 Sat by Pulse Oximetry (%) 94 L 08/14/17 12:07 CBCD WBC 18.8 K/mm3 (4.0-10.0) H 08/14/17 08:30 RBC 3.41 M/mm3 (3.60-5.2) L 08/14/17 08:30 Hgb 9.3 GM/dL (10.7-15.3) L 08/14/17 08:30 Hct 28.6 % (32.4-45.2) L 08/14/17 08:30 MCV 83.7 fl (80-96) 08/14/17 08:30 MCHC 32.4 g/dl (32.0-36.0) 08/14/17 08:30 RDW 20.2 % (11.6-15.6) H 08/14/17 08:30 Plt Count 420 K/MM3 (134-434) 08/14/17 08:30 MPV 7.7 fl (7.5-11.1) 08/14/17 08:30 CMP Sodium 133 mmol/L (136-145) L 08/14/17 08:30 Potassium 4.0 mmol/L (3.5-5.1) 08/14/17 08:30 Chloride 97 mmol/L (98-107) L 08/14/17 08:30 Carbon Dioxide 24 mmol/L (21-32) 08/14/17 08:30 Anion Gap 12 (8-16) 08/14/17 08:30 BUN 90 mg/dL (7-18) H 08/14/17 08:30 Creatinine 4.6 mg/dL (0.55-1.02) H 08/14/17 08:30 Creat Clearance w eGFR 6.97 (>60) 08/12/17 07:45 Random Glucose 319 mg/dL (74-106) H* D 08/14/17 08:30 Calcium 5.7 mg/dL (8.5-10.1) L* 08/14/17 08:30 Total Bilirubin 2.6 mg/dL (0.2-1.0) H D 08/12/17 07:45 AST 14 U/L (15-37) L 08/12/17 07:45 ALT 13 U/L (12-78) D 08/12/17 07:45 Alkaline Phosphatase 214 U/L (45-117) H 08/12/17 07:45 Total Protein 4.8 g/dl (6.4-8.2) L 08/12/17 07:45 Albumin 1.4 g/dl (3.4-5.0) L D 08/12/17 07:45 Home Medications Medication Instructions Recorded Amlodipine Besylate [Norvasc -] 10 mg GT DAILY #30 tablet 05/23/17 Insulin (Levemir) [Levemir Vial] 15 units SQ AM #100 ml 05/23/17 Insulin Sliding Scale [Novolog 1 vial SQ Q6HPO #100 units 05/23/17 Vial Sliding Scale -] Nystatin Cream [Mycostatin Cream -] 1 applic TP BID applic 05/23/17 Pantoprazole Suspension [Protonix 40 mg GT DAILY #30 packet 05/23/17 Packets For Oral Suspension -] Lidocaine 5% Top. Ointment 1 applic TP DAILY #1 tube 06/01/17 [Xylocaine 5% Top. Ointment -] Aspirin [ASA -] 81 mg GT DAILY 08/08/17 Furosemide [Lasix -] 80 mg GT DAILY 08/08/17 Sevelamer HCl [Renagel] 800 mg GT TID 08/08/17 Miscellaneous Medical Supply 1 each ASDIR #1 misc 08/13/17 [Outpatient Order] Current Medications Generic Name Dose Route Start Last Admin Trade Name Freq PRN Reason Stop Dose Admin Acetaminophen 650 mg 08/09/17 11:40 08/14/17 07:49 Tylenol Oral Solution - GT 650 mg Q6H PRN Administration FEVER OR PAIN Aspirin 81 mg 08/10/17 10:00 08/14/17 09:16 Asa - GT Not Given DAILY APRIL Gentamicin Sulfate 1 drop 08/10/17 13:30 08/14/17 07:30 Gentamicin 0.3% Eye Drops - OD 1 drop BID APRIL Administration Heparin Sodium (Porcine) 5,000 unit 08/09/17 14:00 08/14/17 13:57 Heparin - SQ 5,000 unit TID APRIL Administration Nafcillin Sodium 2 gm/ 100 mls @ 100 mls/hr 08/09/17 19:45 08/14/17 13:09 Dextrose IVPB 100 mls/hr Q4H-IV APRIL Administration Protocol Sodium Chloride 1,000 mls @ 60 mls/hr 08/13/17 15:15 08/14/17 15:17 Normal Saline - IV Not Given ASDIR APRIL Insulin Aspart 1 vial 08/09/17 16:30 08/14/17 12:30 Novolog Vial Sliding Scale - SQ Not Given TIDAC APRIL Protocol Insulin Detemir 20 units 08/13/17 12:13 08/14/17 06:53 Levemir Vial SQ 22 unit AM APRIL Administration Metoclopramide HCl 10 mg 08/09/17 11:11 Reglan Injection - IVPB Q6H PRN NAUSEA AND/OR VOMITING Nystatin 1 applic 08/09/17 22:00 08/14/17 07:30 Mycostatin Cream - TP 1 applic BID APRIL Administration Pantoprazole Sodium 40 mg 08/10/17 10:00 08/14/17 09:16 Protonix Packets For Oral Suspension - GT Not Given DAILY APRIL Sodium Chloride 2 spray 08/13/17 11:49 08/13/17 18:26 [place] - NS 2 spray BID PRN Administration NASAL CONGESTION PE: per resident's notes ASSESSMENT AND PLAN: 61 y/o lady with h/o CVA , NIDDM, HTN, HLP, 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 s/p removal of graft 08/09 ,Blood pressure improved today, s/p hypotensive. cont naficillin , echo with no vegetation . Id on the case. Repeat blood culture is negative so far. Leukocytosis is improving. As per ID patient might need 4 more weeks of IV antibiotic, once patient is more stabilized will have IV antibiotic post Dialysis. DM : on levemir , will reduce the dose since the blood sugar is in 77 at lunch time. SSI # CKD on HD. D/W renal , having HD # Hx of HTN:Bp meds are hold due to hypotension. # Nutrition Bolus TF with free water # Bacterial conjuctivitis on Gentamicin continue DVT PX: Heparin sq
[2017-08-14 23:16] VITALS: BP 112/52; PULSE 74; TEMP 98.1
[2017-08-15 00:06] LABS: HEP B SURFACE AB Non Reactive (.)
[2017-08-15] MEDS: NAFCILLIN - 2 GM in DEXTROSE 5%-WATER - 100 ML IVPB SCH (03:00)
--- NOTE | 2017-08-15 07:52 | RAPID ---
Physical Examination Vital Signs: I was called to see the patient for unresponsiveness. On exam the patient did not respond to verbal or physical stimuli and no spontaneous movement was observed. Absent heart and breath sounds for more than 1 minute. Absent peripheral pulses. Pupils are fixed and dilated, corneal reflex was present. Patient was pronounced at 05:40. Dr. Vazquez (attending physican) was notified. Family of the patient were also notified. Labs: CBC, BMP 08/14/17 08:30 08/14/17 08:30
--- NOTE | 2017-08-15 08:01 | DS ---
Physical Exam: SUBJECTIVE: Patient seen and examined OBJECTIVE: Vital Signs Period Temp Pulse Resp BP Sys/Daniel Pulse Ox Last 24 Hr 97.9 F-98.8 F 74-86 18-22 90-132/38-104 94 LABS Laboratory Results - last 24 hr 08/12/17 08/13/17 08/13/17 14:15 17:53 17:56 WBC RBC Hgb Hct MCV MCH MCHC RDW Plt Count MPV Sodium Potassium Chloride Carbon Dioxide Anion Gap BUN Creatinine POC Glucometer 47 57 Random Glucose Calcium Phosphorus Magnesium Hep A IgM Ab Confirm Negative Hepatitis A Ab Total Positive H Hep Bs Antigen Negative Hep Bs Antibody Non reactive Hep B Core Total Ab Negative 08/14/17 08/14/17 08/14/17 08:30 08:30 17:56 WBC 18.8 H RBC 3.41 L Hgb 9.3 L Hct 28.6 L MCV 83.7 MCH 27.2 MCHC 32.4 RDW 20.2 H Plt Count 420 MPV 7.7 Sodium 133 L Potassium 4.0 Chloride 97 L Carbon Dioxide 24 Anion Gap 12 BUN 90 H Creatinine 4.6 H POC Glucometer 183 Random Glucose 319 H* D Calcium 5.7 L* Phosphorus 4.8 D Magnesium 2.8 H Hep A IgM Ab Confirm Hepatitis A Ab Total Hep Bs Antigen Hep Bs Antibody Hep B Core Total Ab 08/15/17 05:35 WBC RBC Hgb Hct MCV MCH MCHC RDW Plt Count MPV Sodium Potassium Chloride Carbon Dioxide Anion Gap BUN Creatinine POC Glucometer 437 Random Glucose Calcium Phosphorus Magnesium Hep A IgM Ab Confirm Hepatitis A Ab Total Hep Bs Antigen Hep Bs Antibody Hep B Core Total Ab HOSPITAL COURSE: Date of Admission:08/08/17 Patient is a non-verbal 61 yo F with significant past history of CVA ( quadriplegic), R AKA, Diabetes, HTN, dementia, ESRD, s/p peg tube (5 years ago) , [place] Granulomatosis came to the ED with a dysfunctional Left AVF and was found to have severe sepsis from infected AVF. She was treated with IV antibiotics for the sepsis. Nephrology was consulted and started patient on hemodialysis by request from patients family. Had discussion with son and daughter of patient about goals of care and DNR/DNI. Family made patient DNR/ DNI but want to continue HD. Patient decompensated very quickly last night and was pronounced at 05:40. Date of Discharge: 08/15/17 Minutes to complete discharge: 30 Discharge Summary Reason For Visit: ESRD, AV STUNT MALFUNCTION Current Active Problems AV shunt malfunction (Acute) Acute constipation (Acute) Cellulitis (Acute) Diabetes mellitus (Acute) ESRD (end stage renal disease) on dialysis (Acute) End stage renal disease (Acute) Fever (Acute) Leukocytosis (Acute) UTI (urinary tract infection) (Acute) Vomiting (Acute) Condition: Guarded - Instructions Referrals: Migonn Porter MD [Primary Care Provider] - - Home Medications Comprehensive Discharge Medication List: Ambulatory Orders Amlodipine Besylate [Norvasc -] 10 mg GT DAILY #30 tablet 05/23/17 Insulin (Levemir) [Levemir Vial] 15 units SQ AM #100 ml 05/23/17 Insulin Sliding Scale [Novolog Vial Sliding Scale -] 1 vial SQ Q6HPO #100 units 05/23/17 Nystatin Cream [Mycostatin Cream -] 1 applic TP BID applic 05/23/17 Pantoprazole Suspension [Protonix Packets For Oral Suspension -] 40 mg GT DAILY #30 packet 05/23/17 Lidocaine 5% Top. Ointment [Xylocaine 5% Top. Ointment -] 1 applic TP DAILY #1 tube 06/01/17 Aspirin [ASA -] 81 mg GT DAILY 08/08/17 Furosemide [Lasix -] 80 mg GT DAILY 08/08/17 Sevelamer HCl [Renagel] 800 mg GT TID 08/08/17 Miscellaneous Medical Supply [Outpatient Order] 1 each ASDIR #1 misc This patient is new to me today: No Emergency Visit: Yes ED Registration Date: 08/08/17 Care time: The patient presented to the Emergency Department on the above date and was hospitalized for further evaluation of their emergent condition. Critical Care patient: No - Discharge Referral Referred to [facility] Med P.C.: No
--- NOTE | 2017-08-16 10:36 | PN ---
Teaching Attending Note Name of Resident: Nisreen Batista ATTENDING PHYSICIAN STATEMENT Patient was pronounced on 08/15/2017 @ 5:40am
== END 2017-08-15 05:40 | disposition expired | DRG 173 ==
LOC: JER 08:09 → JERBED 11:50 → J8W 13:08
PROVIDERS: ADMIT Internal Medicine; ATTEND Internal Medicine
PROC: 3E0G36Z Introduction of Nutritional Substance into Upper GI, Percutaneous Approach (ICD-10-PCS; 2017-08-08)
PROC: 05PY03Z Removal of Infusion Device from Upper Vein, Open Approach (ICD-10-PCS; 2017-08-09)
PROC: 03L Upper Arteries, Occlusion (ICD-10-PCS; principal; 2017-08-09 10:00)
PROC: 06HM33Z Insertion of Infusion Device into Right Femoral Vein, Percutaneous Approach (ICD-10-PCS; 2017-08-12)
PROC: 5A1D60Z (ICD-10-PCS; 2017-08-12)
DX: T82.7XXA Infection and inflammatory reaction due to other cardiac and vascular devices, implants and grafts, initial encounter (principal); A41.01 Sepsis due to Methicillin susceptible Staphylococcus aureus; R65.20 Severe sepsis without septic shock; Y83.8 Other surgical procedures as the cause of abnormal reaction of the patient, or of later complication, without mention of misadventure at the time of the procedure; M31.31 Wegener's granulomatosis with renal involvement; L03.114 Cellulitis of left upper limb; G82.50 Quadriplegia, unspecified; F03.90 Unspecified dementia, unspecified severity, without behavioral disturbance, psychotic disturbance, mood disturbance, and anxiety; E78.5 Hyperlipidemia, unspecified; I12.0 Hypertensive chronic kidney disease with stage 5 chronic kidney disease or end stage renal disease; E11.22 Type 2 diabetes mellitus with diabetic chronic kidney disease; N18.6 End stage renal disease; N39.0 Urinary tract infection, site not specified; J90 Pleural effusion, not elsewhere classified; E11.51 Type 2 diabetes mellitus with diabetic peripheral angiopathy without gangrene; Z68.21 Body mass index [BMI] 21.0-21.9, adult; K59.00 Constipation, unspecified; H10.89 Other conjunctivitis; R11.10 Vomiting, unspecified; R47.01 Aphasia; D72.829 Elevated white blood cell count, unspecified; H26.8 Other specified cataract; L89.892 Pressure ulcer of other site, stage 2; L89.322 Pressure ulcer of left buttock, stage 2; L89.152 Pressure ulcer of sacral region, stage 2; Z86.73 Personal history of transient ischemic attack (TIA), and cerebral infarction without residual deficits; Z66 Do not resuscitate; Z89.611 Acquired absence of right leg above knee; Z99.2 Dependence on renal dialysis; Z93.1 Gastrostomy status; Z79.84 Long term (current) use of oral hypoglycemic drugs
CPT/HCPCS: 36415; 71010-TC; 74176-TC; 80048; 80053; 81003; 81015; 82150; 83605; 83690; 83735; 84100; 84132; 84295; 85025; 85027; 85610; 85651; 86140; 86704; 86706; 86708; 86803; 86850; 86900; 86901; 87040; 87070; 87075; 87086; 87186; 87205; 87340; 88304-TC; 93005; 93010; 93306-TC; 94760; 99284-25; G0480; J1644; P9047